=== PATIENT | male | born 1970 | race Caucasian/White ===

== ENCOUNTER 2016-07-28 18:02 | Inpatient (IN) | payer MEDICARE, MEDICAID ==
--- NOTE | 2016-07-28 18:07 | ED ---
General Adult HPI - General Stated complaint: Suicidal Time Seen by Provider: 07/28/16 18:06 Source: RN notes reviewed, old records reviewed - History of Present Illness Initial comments: This is a 45-year-old male here for evaluation of psychiatric illness. Patient sent to ER by mother who called EMS and PD sent patient here for psychiatric evaluation. Patient has history of schizophrenia, on multiple medications and takes all medications as prescribed. Patient states that he is not homicidal or suicidal at this time, mother coming in the patient patient. No new drugs or alcohol - Related Data Home Medications Medication Instructions Recorded Confirmed Armodafinil [Nuvigil] 250 mg PO QAM 07/28/16 07/28/16 Atenolol [Tenormin] 50 mg PO DAILY 07/28/16 07/28/16 Butalb/APAP/Caff 50-325-40Mg 1 tab PO BID PRN 07/28/16 07/28/16 [Fioricet 50-325-40] Butalb/APAP/Caff 50-325-40Mg 2 tab PO BID PRN 07/28/16 07/28/16 [Fioricet 50-325-40] Citalopram Hydrobromide [CeleXA] 40 mg PO DAILY 07/28/16 07/28/16 Cyclobenzaprine [Flexeril] 10 mg PO DAILY PRN 07/28/16 07/28/16 Dextroamphetamine/Amphetamine 20 mg PO QID 07/28/16 07/28/16 [Adderall] Paliperidone [Invega] 6 mg PO HS 07/28/16 07/28/16 SUMAtriptan SUCCINATE [Sumavel 6 mg SQ DAILY PRN 07/28/16 07/28/16 Dosepro] Allergies Allergy/AdvReac Type Severity Reaction Status Date / Time No Known Allergies Allergy Verified 07/28/16 18:53 Review of Systems ROS Statement: Those systems with pertinent positive or pertinent negative responses have been documented in the HPI. ROS Other: All systems not noted in ROS Statement are negative. Past Medical History Past Medical History: No Reported History History of Any Multi-Drug Resistant Organisms: None Reported Past Surgical History: Back Surgery Past Psychological History: Anxiety, Bipolar, Depression Smoking Status: Current every day smoker Past Alcohol Use History: None Reported Past Drug Use History: None Reported General Exam General appearance: alert, in no apparent distress Head exam: Present: atraumatic, normocephalic, normal inspection Eye exam: Present: normal appearance, PERRL, EOMI. Absent: scleral icterus, conjunctival injection, periorbital swelling ENT exam: Present: normal exam, mucous membranes moist Neck exam: Present: normal inspection. Absent: tenderness, meningismus, lymphadenopathy Respiratory exam: Present: normal lung sounds bilaterally. Absent: respiratory distress, wheezes, rales, rhonchi, stridor Cardiovascular Exam: Present: regular rate, normal rhythm, normal heart sounds. Absent: systolic murmur, diastolic murmur, rubs, gallop, clicks GI/Abdominal exam: Present: soft, normal bowel sounds. Absent: distended, tenderness, guarding, rebound, rigid Extremities exam: Present: normal inspection, full ROM, normal capillary refill. Absent: tenderness, pedal edema, joint swelling, calf tenderness Back exam: Present: normal inspection Neurological exam: Present: alert, oriented X3, CN II-XII intact Psychiatric exam: Present: normal affect, normal mood Skin exam: Present: warm, dry, intact, normal color. Absent: rash Course Vital Signs 07/28/16 18:07 Temperature 97.0 F L Pulse Rate 80 Respiratory 18 Rate Blood Pressure 158/89 O2 Sat by Pulse 97 Oximetry - Reevaluation(s) Reevaluation #1: 07/28/16 18:52 Patient is medically clear for psychiatric evaluation Medical Decision Making - Medical Decision Making 45-year-old for psychiatric disease, patient will be admitted for psychiatric evaluation and treatment Disposition Clinical Impression: Depression, Suicidal ideation Disposition: TRANSFER TO PSYCH HOSP/UNIT Condition: Fair Referrals: None,Stated [Primary Care Provider] - 1-2 days
[2016-07-28] MEDS ORDERED: MAG HYDROX/AL HYDROX/SIMETH 30 ML CUP PO PRN (20:11)
[2016-07-28] MEDS ORDERED: CYCLOBENZAPRINE 10 MG TAB PO PRN (20:14)
[2016-07-28] MEDS ORDERED: LORazepam 1 MG TAB PO PRN (20:17)
[2016-07-28] MEDS ORDERED: ZIPRASIDONE 20 MG VIAL IM PRN (20:18)
[2016-07-28] MEDS ORDERED: LORazepam 2 MG/ML SYRINGE IM PRN (20:44)
[2016-07-28] MEDS ORDERED: PALIPERIDONE 6 MG TAB.ER.24 PO SCH (21:00)
[2016-07-28] MEDS: BUTALB/APAP/CAFF 50-325-40MG TAB PO PRN (21:01)
[2016-07-29] MEDS: LORazepam 1 MG TAB PO PRN ×3 (00:07→19:39)
[2016-07-29 09:31] LABS: ALT 45 U/L (21-72); AST 28 U/L (17-59); Alkaline Phosphatase 115 U/L (38-126); Anion Gap 7 mmol/L; Blood Urea Nitrogen 14 mg/dL (9-20); Calcium 8.9 mg/dL (8.4-10.2); Carbon Dioxide 25 mmol/L (22-30); Chloride 110 mmol/L (98-107); Glucose 174 mg/dL (74-99); Non-African American GFR(MDRD) >60 (>60 ml/min/1.73 sqM); Potassium 3.9 mmol/L (3.5-5.1); Sodium 142 mmol/L (137-145); Total Bilirubin 0.5 mg/dL (0.2-1.3); Total Protein 6.7 g/dL (6.3-8.2)
[2016-07-29 09:42] LABS: Basophils # (A) 0.1 k/uL (0-0.2); Basophils % (A) 1 %; CH 29.1; CHCM 32.3; Eosinophils # (A) 0.5 k/uL (0-0.7); Eosinophils % (A) 6 %; HDW 2.46; HGB 14.1 gm/dL (13.0-17.5); Luc # (Auto) 0.15; Luc % (Auto) 2; Lymphocytes # (A) 3.2 k/uL (1.0-4.8); Lymphocytes % (A) 41 %; MCHC 32.1 g/dL (31.0-37.0); MCV 90.5 fL (80.0-100.0); Mean Platelet Volume 6.4; Monocytes # (A) 0.4 k/uL (0-1.0); Monocytes % (A) 5 %; Neutrophils # (A) 3.6 k/uL (1.3-7.7); Neutrophils % (A) 46 %; RBC 4.86 m/uL (4.30-5.90); RDW 14.5 % (11.5-15.5); WBC 7.9 k/uL (3.8-10.6); WBC (Perox) 7.69
--- NOTE | 2016-07-29 11:34 | P.HP ---
Psychiatric H&P - . History & Physical: Allergies Allergy/AdvReac Type Severity Reaction Status Date / Time No Known Allergies Allergy Verified 07/28/16 18:53 Vital Signs Temp 98.0 F 07/29/16 00:05 Pulse 58 L 07/29/16 01:02 Resp 16 07/29/16 01:02 BP 159/77 07/29/16 01:02 Pulse Ox 98 07/28/16 20:15 Intake & Output 07/28/16 07/29/16 07/29/16 18:59 06:59 18:59 Weight 102.058 kg 98.9 kg Laboratory Last Values WBC 7.9 k/uL (3.8-10.6) 07/29/16 08:59 RBC 4.86 m/uL (4.30-5.90) 07/29/16 08:59 Hgb 14.1 gm/dL (13.0-17.5) 07/29/16 08:59 Hct 44.0 % (39.0-53.0) 07/29/16 08:59 MCV 90.5 fL (80.0-100.0) 07/29/16 08:59 MCH 29.0 pg (25.0-35.0) 07/29/16 08:59 MCHC 32.1 g/dL (31.0-37.0) 07/29/16 08:59 RDW 14.5 % (11.5-15.5) 07/29/16 08:59 Plt Count 195 k/uL (150-450) 07/29/16 08:59 Neutrophils % 46 % 07/29/16 08:59 Lymphocytes % 41 % 07/29/16 08:59 Monocytes % 5 % 07/29/16 08:59 Eosinophils % 6 % 07/29/16 08:59 Basophils % 1 % 07/29/16 08:59 Neutrophils # 3.6 k/uL (1.3-7.7) 07/29/16 08:59 Lymphocytes # 3.2 k/uL (1.0-4.8) 07/29/16 08:59 Monocytes # 0.4 k/uL (0-1.0) 07/29/16 08:59 Eosinophils # 0.5 k/uL (0-0.7) 07/29/16 08:59 Basophils # 0.1 k/uL (0-0.2) 07/29/16 08:59 Sodium 142 mmol/L (137-145) 07/29/16 08:59 Potassium 3.9 mmol/L (3.5-5.1) 07/29/16 08:59 Chloride 110 mmol/L (98-107) H 07/29/16 08:59 Carbon Dioxide 25 mmol/L (22-30) 07/29/16 08:59 Anion Gap 7 mmol/L 07/29/16 08:59 BUN 14 mg/dL (9-20) 07/29/16 08:59 Creatinine 0.76 mg/dL (0.66-1.25) 07/29/16 08:59 Est GFR (MDRD) Af Amer >60 (>60 ml/min/1.73 sqM) 07/29/16 08:59 Est GFR (MDRD) Non-Af >60 (>60 ml/min/1.73 sqM) 07/29/16 08:59 Glucose 174 mg/dL (74-99) H 07/29/16 08:59 Calcium 8.9 mg/dL (8.4-10.2) 07/29/16 08:59 Total Bilirubin 0.5 mg/dL (0.2-1.3) 07/29/16 08:59 AST 28 U/L (17-59) 07/29/16 08:59 ALT 45 U/L (21-72) 07/29/16 08:59 Alkaline Phosphatase 115 U/L (38-126) 07/29/16 08:59 Total Protein 6.7 g/dL (6.3-8.2) 07/29/16 08:59 Albumin 3.8 g/dL (3.5-5.0) 07/29/16 08:59 TSH 0.501 mIU/L (0.465-4.680) 07/29/16 08:59 07/29/16 11:18 IDENTIFYING DATA: This patient is a 45-year-old single male who was admitted to the mental health unit for acute symptoms of psychosis. HPI: The patient presents with a petition filled out by his mother stating "screams and yells at voices in his head and says he will kill himself constantly cuts and fonseca himself talks to people in his head, says dad who last summer is now the cat, says he hates his life and wants to . Called friend last night and said he was going to kill himself, friend called suicide hotline who sent police". The patient is found in his room he follows me to an interview room. The patient denies having any symptoms at this time as we completed a psychiatric review of systems. He reports his mood is fine. He states he was admitted here "because they think I called the suicide lying and I didn't". He disagrees with information on the petition. He states the only time he has any hallucinations is when he has a sleep episode related to his reported narcolepsy. He states that he is given Adderall throughout the day and Provigil. It appears he is prescribed Fioricet for migraines. He states that his sleep is been stable appetite is stable. He endorses no tearfulness or crying spells. He states he has no suicidal thoughts and has not been participating in any self-injurious behavior. He reports having no thoughts of harming others specifically he reports having no thoughts of harming his mother. He is endorsing no current auditory or visual hallucinations. He states they will occur when he awakes from sleep but does not describe them. He is reporting no command auditory hallucinations. He endorses no paranoid or persecutory thinking. He does not feel he is being watched or followed. He denies having any thoughts of thought insertion or control, or ideas of reference. The patient answers he is questions very quickly often times before I finish asking the complete question. He seems to be minimizing his report of symptoms to facilitate a discharge. He endorses no history of hypomanic or manic episodes. He is aware that he is prescribed Celexa and invega he states he's been taking this as prescribed. It appears that Dr. Palomo instructed the patient's mother to be sure he is compliant with medication each day. PAST PSYCHIATRIC HISTORY: The patient has had at least 2 prior psychiatric admissions he was in [facility] in April and [facility] during the summer of 2015. He likely has a history of several other admissions. He reports no history of suicide attempts or any self-injurious behavior but appears that he has a well known history of self-injurious behavior. He states the fonseca on his legs are due to an accidental incident with battery acid. He has been tried on numerous psychotropics in the past most recently he is on an invega 6 mg and Celexa 40 mg. He has previously been on Klonopin Latuda Rexulti Ativan and clonidine Vistaril Trileptal Geodon amitriptyline Xanax Minipress BuSpar Risperdal Consta Depakote ER. He states he meets with his individual therapist once every 2 months. PMH: He reports having narcolepsy and migraines ALLERGIES: NO KNOWN DRUG ALLERGIES MEDICATIONS: Fioricet Adderall Provigil CHEMICAL DEPENDENCY HISTORY: The patient minimizes a report of previous substance use but with specific questions he will report a history of using cocaine opiates alcohol. He reports no recent use of illicit substances. It is unclear if he has been in inpatient chemical dependency treatment in the past. FAMILY PSYCHIATRIC HISTORY: None reported no report of suicides in the family FAMILY CHEMICAL DEPENDENCY HISTORY: Unknown SOCIAL HISTORY: The patient is originally from the [facility]. He was raised by both parents and states his childhood was good. His father last August he states it was difficult but he did grieve the loss of his father. He resides with his mother he reports that they get along well. The patient has no siblings and no children. He is unemployed he is on a Social Security disability income. He has a high school education with one 0.5 years of college afterwards. No history of service. He endorses no legal history, he reports no history of abuse. MENTAL STATUS EXAM: The patient is a tall disheveled male. He has dark shoulder length hair with impaired hygiene. He is dressed in hospital gowns. He seated calmly in the chair he has a staring eye contact. He initiates no conversation but provides answers to questions asked. He reports his mood is "good". Affect is blunted. He reports no suicidal or homicidal ideation intent or plan. He is endorsing no auditory or visual hallucinations he endorses no specific delusions. I would presume that he is experiencing auditory hallucinations and symptoms of psychosis. I believe he is underreporting to facilitate a discharge. Thought process is linear and brief. He is demonstrating no flight of ideas or loose associations. He demonstrates no verbal or physical aggressiveness. He is oriented to person place and date. He is able to name the days of the week backwards. Insight and judgment chronically limited. STRENGTHS/WEAKNESSES: Strengths: Housing, income, participation with community mental health weaknesses: Ongoing symptoms of psychosis and mood symptoms in the context of using stimulants for presumed narcolepsy INTELLECTUAL FUNCTIONING: Average IMPRESSIONS: [] 1. Schizoaffective disorder depressed, rule out history of opiate stimulant alcohol and cocaine use disorders 2. Impaired coping skill development PLAN: The patient has been admitted to the mental health unit he verbalizes a desire to sign in voluntarily. We discussed titrating the invega further to 9 mg at bedtime and he is agreeable. He is encouraged to participate in the milieu but he is resistant to that stating he does not like to be around other people. We will monitor him for safety and provide reality orientation when possible. We will involve his mother in treatment and discharge planning as the patient will allow. Social work will complete a psychosocial assessment and begin discharge planning. The patient will be seen by the transplant nurse for routine history and physical exam. At this point we will defer using any stimulant medication as it may be exacerbating his psychosis.
[2016-07-29] MEDS: CITALOPRAM HYDROBROMIDE 20 MG TAB PO SCH (11:52)
[2016-07-29] MEDS: ATENOLOL 50 MG TAB PO SCH (11:52)
[2016-07-29] MEDS: BUTALB/APAP/CAFF 50-325-40MG TAB PO PRN ×2 (12:51→15:17)
[2016-07-29] MEDS: NICOTINE POLACRILEX 2 MG GUM BUCCAL PRN ×2 (12:52→16:41)
[2016-07-29] MEDS: amLODIPine 10 MG TAB PO SCH (16:41)
--- NOTE | 2016-07-29 17:59 | CONS ---
DATE OF CONSULTATION: REASON FOR CONSULTATION: Advice regarding hypertension and other multiple medical issues requested by psychiatrist. HISTORY OF PRESENT ILLNESS: This 45-year-old gentleman with past medical history of anxiety, bipolar, depression, history of nicotine, hypertension was admitted for psychiatry evaluation. The blood pressure was elevated at this time. Otherwise, there is no associated fever, rigors, chills. No history of headache, loss of consciousness or seizures. PAST MEDICAL HISTORY: History of anxiety, depression, history of nicotine dependence, history of hypertension. Medications prior to admission include: 1. Sumavel 6 mg subcutaneously daily p.r.n. 2. Invega 6 mg q.h.s. 3. Adderall 20 mg. 4. Flexeril 10 mg daily p.r.n. 5. Celexa 40 mg p.o. daily. 6. Fioricet 1 to 2 tabs p.o. b.i.d. p.r.n. 7. Tenormin 50 mg p.o. 8. Nuvigil 250 mg. ALLERGIES: None. FAMILY HISTORY: No history of heart disease or strokes in the family. SOCIAL HISTORY: History of smoking. No history of alcohol intake. REVIEW OF SYSTEMS: ENT: No diminished vision. Occasional headache. CARDIOVASCULAR: No angina. RESPIRATORY: No cough. GI: As mentioned earlier. : No dysuria. NERVOUS SYSTEM: No numbness or weakness. ALLERGY/IMMUNOLOGY: No asthma. MUSCULOSKELETAL: History of back pain. CONSTITUTIONAL: As mentioned earlier. DERMATOLOGY: Negative. RHEUMATOLOGY: Negative. PSYCHIATRY: As mentioned earlier. PHYSICAL EXAMINATION: Patient is alert and oriented x3. Pulse is 58, blood pressure 159/76, respirations 16, temperature 98 degrees, pulse ox 94% on room air. HEENT: Conjunctivae normal. NECK: No jugular venous distention. CARDIOVASCULAR: S1 and S2, muffled. No S3, no S4. RESPIRATORY: Breath sounds diminished at the bases. No rhonchi, no crackles. No bronchial breath sounds. ABDOMEN: Soft, nontender. No mass palpable. LEGS: No edema, no swelling. NERVOUS SYSTEM: Higher function as mentioned. Cranial nerves grossly intact. Moves all four limbs. No focal motor deficits. Otherwise, no weakness. Gait is normal. SKIN: No ulcer, rash or bleeding. LYMPHATIC: No lymphadenopathy in the neck, axillae or groin. JOINTS: No active deforming arthropathy. LABS: CBC within normal limits. Chloride is 110. Glucose 174. ASSESSMENT: 1. Hypertension. 2. Headaches. 3. History of back pain and low backache. 4. Anxiety, bipolar, depression. 5. History of nicotine dependence. 6. History of back surgery. 7. Increased chloride. 8. Increased random blood glucose. RECOMMENDATIONS AND DISCUSSION: In this 45-year-old gentleman who presented with multiple complex medical issues. Will monitor the patient closely. Continue the current medications. Continue symptomatic treatment. I would recommend to resume the home medications. I would recommend small dose of beta blockers and continue to monitor. See orders for details. Patient may be asked to follow up with primary physician closely in the outpatient setting.
[2016-07-29] MEDS: PALIPERIDONE 3 MG TAB.ER.24 PO SCH (22:41)
[2016-07-30] MEDS: CITALOPRAM HYDROBROMIDE 20 MG TAB PO SCH (09:18)
[2016-07-30] MEDS: amLODIPine 10 MG TAB PO SCH (09:18)
[2016-07-30] MEDS: ATENOLOL 50 MG TAB PO SCH (09:18)
[2016-07-30] MEDS: BUTALB/APAP/CAFF 50-325-40MG TAB PO PRN ×2 (09:41→13:57)
--- NOTE | 2016-07-30 11:02 | P.PN ---
Progress Note - Text Interval history: The patient is found in his room. He was observed going to breakfast earlier this morning. He reports feeling tired without his narcolepsy medication. In reviewing his chart furthered appears he has been prescribed Fioricet, opiate pain medication, Adderall, Nuvigil. I discussed with the patient that some of these medications may affect the dopamine balance in his brain and insight more symptoms of psychosis even with the invega. He has demonstrated no agitated behavior. He continues to categorically deny having any symptoms Mental status exam: The patient is a male he is dressed in hospital attire he has a disheveled appearance hygiene is fair. Eye contact is appropriate speech is fluent spontaneous nonpressured. He is reporting no suicidal or homicidal ideation he reports no symptoms of psychosis however he states he had no symptoms of psychosis prior to being petitioned and admitted to this unit. Clearly he lacks insight into his recent symptoms and behavior. He demonstrates no verbal or physical aggressiveness. He is oriented to person place and date. Thought process is brief and linear he demonstrates no loose associations or flight of ideas. He is mainly focused on obtaining more opiate medication and his stimulants for his diagnosis of narcolepsy. Plan: The patient will continue on the invega we will continue to monitor him for safety. It appears symptoms of psychosis are stabilizing. If we are able to get him to sign an information release I will contact his sleep physician to discuss concerns regarding the stimulant use and to see if there are any alternative treatments. The patient is encouraged to attend group activity. Vital signs reviewed. Blood pressure has been running higher but the numbers appear more normal today.
[2016-07-30] MEDS: LORazepam 1 MG TAB PO PRN ×2 (12:15→20:55)
[2016-07-30] MEDS: NICOTINE POLACRILEX 2 MG GUM BUCCAL PRN (13:57)
[2016-07-30] MEDS: PALIPERIDONE 3 MG TAB.ER.24 PO SCH (20:54)
[2016-07-31] MEDS: LORazepam 1 MG TAB PO PRN ×2 (06:15→17:18)
[2016-07-31] MEDS: ATENOLOL 50 MG TAB PO SCH (06:50)
[2016-07-31] MEDS: amLODIPine 10 MG TAB PO SCH (06:50)
[2016-07-31] MEDS: CITALOPRAM HYDROBROMIDE 20 MG TAB PO SCH (08:52)
--- NOTE | 2016-07-31 10:58 | P.PN ---
Progress Note - Text Interval history: The patient is found in his room he is alert he participates in the conversation. He reports his mood is good. He continues to isolate in his room reporting he is too fatigued from narcolepsy however he is observed ambulating in the hallway and participating in meals without difficulty. He is encouraged to participate in some groups but feels uncomfortable around others. He is endorsing no paranoid or persecutory thoughts. Staff report no agitated behavior. The patient continues to comply with medication. The patient did sign a consent allowing me to speak with his physician managing the narcolepsy. I did place a call and left a message. Mental status exam: The patient is alert he is lying in bed he is dressed in hospital attire. He has a disheveled appearance hygiene is adequate. Eye contact is appropriate. Speech is fluent he responds to questions asked appropriately. Affect is constricted with a small range of affect. He is reporting no suicidal or homicidal ideation intent or plan. He is reporting no auditory or visual hallucinations no specific delusions. He does not appear hypomanic or manic. He demonstrates no verbal or physical aggressiveness. Insight and judgment are improving. Overall he may be minimizing symptoms of psychosis but overtly he appears to be stabilizing. He remains oriented to person place and date. Plan: The patient will continue on his current psychotropic medications. I have placed a call with Dr. Pacheco's office to discuss the patient's recent symptoms of psychosis. I have discussed with the patient that the stimulant medication may contribute to those symptoms. We will continue to monitor the patient for safety he is encouraged to participate in the milieu. Vital signs are reviewed his blood pressure is elevated we will contact the internal medicine physician for further recommendations. We will consider discharging the patient in the next 1-2 days. Social work is asked to arrange a support meeting involving his mother.
[2016-07-31] MEDS ORDERED: ATENOLOL 50 MG TAB PO STA (11:05)
[2016-07-31] MEDS: BUTALB/APAP/CAFF 50-325-40MG TAB PO PRN (13:10)
[2016-07-31] MEDS: LISINOPRIL-HCTZ 10-12.5 MG 1 EACH TAB PO SCH ×2 (15:43→20:42)
[2016-07-31] MEDS: NICOTINE POLACRILEX 2 MG GUM BUCCAL PRN (17:18)
[2016-07-31] MEDS: LABETALOL 200 MG TAB PO SCH (20:42)
[2016-07-31] MEDS: PALIPERIDONE 3 MG TAB.ER.24 PO SCH (20:43)
--- NOTE | 2016-07-31 22:48 | PN ---
DATE OF SERVICE: 07/31/2016 PRESENTING COMPLAINT: Uncontrolled blood pressures. INTERVAL HISTORY: This is a patient admitted to the Psychiatry Unit. Blood pressure has been running high. He does take blood pressure medications at home including Norvasc and atenolol. Denies any chest pain or headache. Review of systems done for constitutional, cardiovascular, GI, pulmonary; relevant findings as above. Current medications are reviewed that include atenolol 50 mg and Norvasc 10 mg in the morning. On examination, temperature 97.6, pulse 72, respirations 16, blood pressure 192/96. Repeat blood pressure was 176/102. GENERAL APPEARANCE: Sitting up, not in distress. EYES: Pupils equal. Conjunctivae normal. NECK: JVD not raised. Mass not palpable. RESPIRATORY: Normal. Lungs are clear. CARDIOVASCULAR: First and second sounds normal. No edema. ABDOMEN: Soft, nontender. PSYCH: Somewhat depressed -appearing. INVESTIGATIONS: White count 7.9, hemoglobin 14.1, potassium 3.9. ASSESSMENT: 1. Essential hypertension with urgency. Some cephalgia, probably from uncontrolled blood pressure previously. 2. Chronic nicotine dependence. Patient is an active cigarette smoker. 3. Schizoaffective disorder, depressed. 4. Cocaine use disorder. PLAN: At this point, will stop patient's atenolol, it is not necessary to run to 24 hours. We will use labetalol 3 mg twice a day. Patient already received an extra dose of Tenormin this morning and also labs Zestoretic 10/12.5 starting this afternoon. Helping keeping people off smoking, ( ) blood pressure. This will be reviewed in the next 24 hours. Patient's blood pressure will be checked manually every four hours until awake till tomorrow.
[2016-08-01 06:28] VITALS: BP 154/93; PULSE 62; RESP 15; TEMP 98
[2016-08-01] MEDS: LABETALOL 200 MG TAB PO SCH (09:05)
[2016-08-01] MEDS: LISINOPRIL-HCTZ 10-12.5 MG 1 EACH TAB PO SCH (09:05)
[2016-08-01] MEDS: CITALOPRAM HYDROBROMIDE 20 MG TAB PO SCH (09:05)
[2016-08-01] MEDS: amLODIPine 10 MG TAB PO SCH (09:05)
--- NOTE | 2016-08-01 09:28 | P.DS ---
Providers Date of admission: 07/28/16 20:11 Expected date of discharge: 08/01/16 Attending physician: Scott Saxena Consults: 07/29/16 09:06 Consult Physician Routine Consulting Provider: Roberto Hendricks Consult Reason/Comments: history and phsycial Do you want consulting provider notified?: Yes Primary care physician: Stated None - Discharge Diagnosis(es) (1) Schizoaffective disorder Current Visit: Yes Status: Acute Priority: High Hospital Course: Brief summary of admission note: This patient is a 45-year-old single male who was admitted to the mental health unit for acute symptoms of psychosis. The patient was petition by his mother. The petition indicated the patient was screaming and yelling presuming he was experiencing auditory hallucinations. He had been experiencing suicidal ideation and threatened to cut himself or burned himself. He had been expressing other paranoid and persecutory thoughts. Upon initial evaluation the patient denied having any symptoms and he reported it was all a misunderstanding. For full details please refer to my psychiatric evaluation dated 07/29/2016. Summary of hospital course: The patient was admitted to the mental health unit on a petition and clinical certificate. The patient requested to sign in voluntarily. He was agreeable to medication changes and compliant with medications on the mental health unit. We continued his Celexa and increased and -9 mg daily. He was seen by the internal medicine for routine physical exam. His blood pressure was noted to be elevated and his antihypertensive medication was adjusted yesterday. The patient has been using nuvigil along with Adderall several times a day. There is some concern that the stimulant medication may be exacerbating his psychosis. I have placed a call with Dr. Pacheco's office to discuss our concerns. Stimulant medication was not given on the mental health unit. We did not prescribe any opiate analgesics as well. The patient for the most part stayed in his room reporting he felt too tired due to her narcolepsy however he was able to maintain alertness in speaking with him each day and he attended meals without difficulty. He states yesterday he attended an activity group successfully. The patient is reporting no symptoms of psychosis he has demonstrated no agitated behavior. Social work has arranged for a support meeting involving his mother this afternoon. Mental status exam: The patient is alert he is dressed in his own clothing eye contact is appropriate. He does follow me down to an interview room. He is able to maintain alertness throughout our session without difficulty. Speech is fluent spontaneous nonpressured. He does have very poor dental hygiene he is missing teeth and other teeth are darkly stained. He is reporting no hopelessness thinking no suicidal ideation intent or plan. He is endorsing no homicidal ideation intent or plan. He is reporting no auditory or visual hallucinations he is endorsing no specific delusions at this time. He is not spontaneously reporting any symptoms of psychosis he does not appear to be responding to auditory or visual hallucinations during our session. There is no verbal or physical aggressiveness. He has no psychomotor slowing or agitation. Insight and judgment improving. He does not appear hypomanic or manic. He is alert and oriented to person place and date. Affect is mostly constricted but he is able to demonstrate some limited range of expression with brief appropriate smiling. Impressions 1. Schizoaffective disorder depressed type, rule out history of opiate, stimulant, alcohol, cocaine use disorders 2. Impaired coping skill development 3. Hypertension, reported narcolepsy Plan: The patient will be discharged mental health unit today he will return residing with his mother following a successful support meeting facilitated by social work this afternoon. He will continue on Invega 9 mg at bedtime Celexa 40 mg daily. Regarding his antihypertensive medication he will be on Norvasc 10 mg daily labetalol 200 mg twice daily and Zestoretic 10/12.5 one twice daily. I expressed my concern to the patient that his stimulant medication may be exacerbating his psychosis. He did sign a release allowing me to speak with Dr. Pacheco. I did place a call with that office and we are awaiting a return call. The patient will continue following up with [facility]. Social work will confirm his next appointment post discharge. The patient is not seen to be at imminent risk is appropriate for transition back to outpatient care. He is instructed to abstain from any alcohol or illicit drug use. He is instructed to return to the hospital if any acute safety concerns. The patient is instructed to follow-up with his primary care physician regarding management of his blood pressure. Patient Condition at Discharge: Stable Plan - Discharge Summary New Discharge Prescriptions: New amLODIPine [Norvasc] 10 mg PO DAILY #30 tab Labetalol [Trandate] 200 mg PO BID #60 tab Lisinopril-Hctz 10-12.5 mg [Zestoretic 10-12.5] 1 each PO BID #60 tab Nicotine Polacrilex [Nicorette] 2 mg BUCCAL Q4HR PRN #30 pieceofgum PRN Reason: Nicotine Cravings Paliperidone [Invega] 9 mg PO DAILY #30 tab Continue Cyclobenzaprine [Flexeril] 10 mg PO DAILY PRN PRN Reason: Back Pain Butalb/APAP/Caff 50-325-40Mg [Fioricet 50-325-40] 2 tab PO BID PRN PRN Reason: Severe Headache Citalopram Hydrobromide [CeleXA] 40 mg PO DAILY #30 Discontinued Paliperidone [Invega] 6 mg PO HS Atenolol [Tenormin] 50 mg PO DAILY Butalb/APAP/Caff 50-325-40Mg [Fioricet 50-325-40] 1 tab PO BID PRN PRN Reason: Moderate Headache Armodafinil [Nuvigil] 250 mg PO QAM Dextroamphetamine/Amphetamine [Adderall] 20 mg PO QID SUMAtriptan SUCCINATE [Sumavel Dosepro] 6 mg SQ DAILY PRN PRN Reason: Migraine Headache Discharge Medication List Butalb/APAP/Caff 50-325-40Mg [Fioricet 50-325-40] 2 tab PO BID PRN 07/28/16 [ History] Cyclobenzaprine [Flexeril] 10 mg PO DAILY PRN 07/28/16 [History] Citalopram Hydrobromide [CeleXA] 40 mg PO DAILY #30 08/01/16 [Rx] Labetalol [Trandate] 200 mg PO BID #60 tab 08/01/16 [Rx] Lisinopril-Hctz 10-12.5 mg [Zestoretic 10-12.5] 1 each PO BID #60 tab 08/01/16 [ Rx] Nicotine Polacrilex [Nicorette] 2 mg BUCCAL Q4HR PRN #30 pieceofgum 08/01/16 [Rx ] Paliperidone [Invega] 9 mg PO DAILY #30 tab 08/01/16 [Rx] amLODIPine [Norvasc] 10 mg PO DAILY #30 tab 08/01/16 [Rx] Follow up Appointment(s)/Referral(s): [facility] [Outside] - 08/04/16 11:00 am (Ha Romeo 08/04 @ 11:00 Dr Dutta 08/07 @ 13:00 ) None,Stated [Primary Care Provider] - 1-2 days
[2016-08-01] MEDS: BUTALB/APAP/CAFF 50-325-40MG TAB PO PRN (11:04)
[2016-08-01] MEDS: LORazepam 1 MG TAB PO PRN (11:04)
--- NOTE | 2016-08-01 20:34 | PN ---
DATE OF SERVICE: 08/01/2016 PRESENTING COMPLAINT: Tired. INTERVAL HISTORY: This patient's blood pressure is running high. He has some headache. Blood pressure medication was adjusted. Blood pressure is doing much better. Headache is improved. Tolerating a diet. No chest pain. No shortness of breath. Review of systems done for constitutional, cardiovascular, GI, pulmonary; relevant findings as above. Current medications are reviewed. On examination, temperature 98, pulse 62, respiration 15, blood pressure 154/93. Pulse ox not done. GENERAL APPEARANCE: Sitting up, comfortable. EYES: Pupils equal. Conjunctivae normal. NECK: JVD not raised. Mass not palpable. RESPIRATORY: Effort ( ) LUNGS: Slightly decreased breath sounds. CARDIOVASCULAR: First and second sounds normal. No edema. ABDOMEN: Soft, non-tender. Liver and spleen ( ) palpable. PSYCHIATRY: Alert and oriented x3. Mood and affect normal. INVESTIGATIONS: No blood work from today. ASSESSMENT: 1. Essential hypertension, now better controlled. 2. Chronic nicotine dependence. Patient is an active cigarette smoker. 3. Schizoaffective disorder, depressed. 4. Cocaine use disorder. PLAN: Patient to be discharged on current blood pressure medications. Care was discussed with the patient. Patient was again counseled against smoking. ( ) follow up with his family doctor.
== END 2016-08-01 12:48 | disposition home or self-care (01) | DRG 885 ==
LOC: EC 18:02 → 3MHU 20:11
PROVIDERS: ADMIT Psychiatry & Neurology Psychiatry; ATTEND Psychiatry & Neurology Psychiatry
DX: F25.1 Schizoaffective disorder, depressive type (principal); I10 Essential (primary) hypertension; F41.9 Anxiety disorder, unspecified; F17.210 Nicotine dependence, cigarettes, uncomplicated; G43.909 Migraine, unspecified, not intractable, without status migrainosus; Z79.899 Other long term (current) drug therapy; Z91.5 Personal history of self-harm
CPT/HCPCS: 80053; 82075; 84443; 85025

== ENCOUNTER → 2016-08-12 | Outpatient (CLI) | payer MEDICARE, OTHER ==
--- NOTE | 2016-08-12 22:44 | PN ---
This is a 45-year-old male patient with known history of narcolepsy. The patient sees me on a regular basis every 6 months and he has been doing that for the past few years. His original diagnosis was done in an outside sleep center. The patient has been maintained on a combination of Nuvigil 250 mg p.o. daily and Adderall 20 mg p.o. 4 times a day. He has narcolepsy without cataplexy and he suffers from chronic hypersomnia and sleepiness and he has been on this combination for many years. He also suffers from anxiety/depression/schizophrenia and bipolar disorders. The patient is doing well. He was getting his regular refills from me on a regular basis. Still around 07/28/2016 when he gets admitted to the hospital with acute symptoms of psychosis. The patient was petitioned by his mother. The petition indicated that the patient was screaming and yelling and presumably he was experiencing some auditory hallucinations. He also has been experiencing some suicidal ideation and tried to cut himself or burn himself. He also expressed other paranoid and persecutory thoughts. The patient, however, himself, denied these allegations. During the hospital stay, the patient agreed on these medication changes and he was compliant. He was continued on Celexa and Invega. I was contacted by Dr. Saxena due to concerns of Adderall and Nuvigil contributing to his psychosis. These medications were stopped during his hospital stay and after his release he is back on these medications. He states that he gets very tired and sleepy while off the medication and he cannot maintain adequate alertness. However, this was not at psych unit. I noted that the patient was calm and comfortable. I do not see any signs of psychosis today on him. No reported cataplexy. No sleep paralysis or hallucinations. He had gotten a letter from his insurance company that Nuvigil would not be covered because there was an R-Modafinil genetic available on the market. No tremors. No hyperactivity. No hypertension. No fever. No irritability. No sweating. He seems to be calm and comfortable. BP 103/75, pulse 89, respirations 16, temperature 97.5, saturation 98% on room air. Weight is 218, height is 5 feet 11 inches and BMI is 30.4 and her Elaine score is 15. GENERAL APPEARANCE: Calm, comfortable. HEENT: Poor dental hygiene and maintenance and condition. No goiter, neck mass. LUNGS: Clear to auscultation. HEART: Sounds are regular rate and rhythm. Normal S1, S2. ABDOMEN: Soft, nontender, no organomegaly. EXTREMITIES: No cyanosis, or clubbing. IMPRESSION: 1. 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 2. Recent hospitalization to the mental health for acute psychosis. Rule out drug effect, rule out exacerbation of his chronic psychiatric disorder. 3. Schizoaffective disorder with depression along with history of impaired coping skill development. 4. Hypertension. 5. Chronic depression. 6. Chronic anxiety. PLAN: The patient will need some sort of stimulant. We discussed this with the patient at length. In terms of long-term treatment for narcolepsy one option would be considering to ( ) on this patient; however, I am not comfortable prescribing ( ) on him knowing that he has a very extensive psychiatric history and he may not be compliant to take the medication. I will be very much worried about overdosing and toxicity from such a medication. In terms of maintenance treatment, I suggested cutting down the Adderall dose. However, he was very much opposed to the idea. He states that he becomes very drowsy and cannot maintain alertness without Adderall. He was agreeable however, to stay off Nuvigil. I thought this may be an option and I will keep him on Adderall 20 mg 4 times a day and take the Nuvigil off for now with the intention of cutting down the Adderall dose at a later stage in case he develops any symptoms of psychosis. He will be monitored very closely. Adderall 20 mg 4 times a day was given.
== END | disposition home or self-care (01) ==
LOC: SLEEP 16:37
PROVIDERS: ATTEND Internal Medicine Critical Care Medicine
DX: G47.419 Narcolepsy without cataplexy (principal); G47.19 Other hypersomnia; F20.9 Schizophrenia, unspecified; F32.9 Major depressive disorder, single episode, unspecified; F41.9 Anxiety disorder, unspecified; Z79.899 Other long term (current) drug therapy

== ENCOUNTER 2017-07-01 12:18 | Inpatient (IN) | payer MEDICARE, MEDICAID ==
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
[2017-07-01 13:28] LABS: Urn Cannabinoid Scrn Not Detected (NotDetected)
[2017-07-01 13:29] LABS: Amphetamine Screen,Urine Not Detected (NotDetected); Barbiturate Screen,Urine Not Detected (NotDetected); Benzodiazepines Screen,Urine Not Detected (NotDetected); Cocaine Screen,Urine Not Detected (NotDetected); Methadone Screen, Urine Not Detected (NotDetected); Opiate Screen,Urine Not Detected (NotDetected); Oxycodone Screen, Urine Not Detected (NotDetected); Phencyclidine Screen,Urine Not Detected (NotDetected); Tricyclic Antidepressant,Urine Not Detected (NotDetected)
[2017-07-01] MEDS ORDERED: MAGNESIUM HYDROXIDE 2,400 MG/10 ML CUP PO PRN (14:47)
[2017-07-01] MEDS ORDERED: MAG HYDROX/AL HYDROX/SIMETH 30 ML CUP PO PRN (14:47)
[2017-07-01] MEDS ORDERED: LORazepam 2 MG/ML INJ IM PRN (14:49)
[2017-07-01] MEDS ORDERED: ZIPRASIDONE 20 MG VIAL IM PRN (14:50)
[2017-07-01 15:18] VITALS: BMI 24.5
--- NOTE | 2017-07-01 16:04 | P.CONS ---
History of Present Illness - Reason for Consult Recommendations regarding antidepressive medications - History of Present Illness 46-year-old that came in for bipolar disorder. Patient is clinically doing well denied any symptoms of chest pain nausea vomiting abdominal pain patient is hypotensive and patient is presently on lisinopril hydrochlorothiazide with well-controlled blood pressures . Review of Systems REVIEW OF SYSTEMS: CONSTITUTIONAL: No fever, no malaise, no fatigue. HEENT: No recent visual problems or hearing problems. Denied any sore throat. CARDIOVASCULAR: No chest pain, orthopnea, PND, no palpitations, no syncope. PULMONARY: No shortness of breath, no cough, no hemoptysis. GASTROINTESTINAL: No diarrhea, no nausea, no vomiting, no abdominal pain. Normoactive bowel sounds. NEUROLOGICAL: No headaches, no weakness, no numbness. HEMATOLOGICAL: Denies any bleeding or petechiae. GENITOURINARY: Denies any burning micturition, frequency, or urgency. MUSCULOSKELETAL/RHEUMATOLOGICAL: Denies any joint pain, swelling, or any muscle pain. ENDOCRINE: Denies any polyuria or polydipsia. The rest of the 14-point review of systems is negative. Past Medical History Past Medical History: Hypertension, Musculoskeletal Disorder Additional Past Medical History / Comment(s): back pain, headaches History of Any Multi-Drug Resistant Organisms: None Reported Past Surgical History: Back Surgery Past Anesthesia/Blood Transfusion Reactions: No Reported Reaction Past Psychological History: Anxiety, Bipolar, Depression Smoking Status: Current every day smoker Past Alcohol Use History: None Reported Past Drug Use History: None Reported Medications and Allergies Home Medications Medication Instructions Recorded Confirmed Type Citalopram Hydrobromide [CeleXA] 40 mg PO DAILY #30 08/01/16 07/01/17 Rx Lisinopril-Hctz 10-12.5 mg 1 tab PO DAILY 07/01/17 07/01/17 History [Zestoretic 10-12.5] Allergies Allergy/AdvReac Type Severity Reaction Status Date / Time No Known Allergies Allergy Verified 07/01/17 14:17 Physical Exam Vitals: Vital Signs Temp Pulse Pulse Resp BP BP Pulse Ox 07/01/17 15:22 99 07/01/17 15:00 97.7 F 50 L 18 135/73 07/01/17 14:20 51 L 16 146/71 07/01/17 12:22 98.0 F 55 L 18 170/85 98 Intake and Output 07/01/17 07/01/17 07/01/17 06:59 14:59 22:59 Other: Weight 83.915 kg 82.27 kg PHYSICAL EXAMINATION: GENERAL: The patient is alert and oriented x3, not in any acute distress. Well developed, well nourished. HEENT: Pupils are round and equally reacting to light. EOMI. No scleral icterus. No conjunctival pallor. Normocephalic, atraumatic. No pharyngeal erythema. No thyromegaly. CARDIOVASCULAR: S1 and S2 present. No murmurs, rubs, or gallops. PULMONARY: Chest is clear to auscultation, no wheezing or crackles. ABDOMEN: Soft, nontender, nondistended, normoactive bowel sounds. No palpable organomegaly. MUSCULOSKELETAL: No joint swelling or deformity. EXTREMITIES: No cyanosis, clubbing, or pedal edema. NEUROLOGICAL: Gross neurological examination did not reveal any focal deficits. SKIN: No rashes. Assessment and Plan Plan: -Hypertension: Patient was resumed on lisinopril and hydrochlorothiazide with well-controlled blood pressures -Bipolar disorder management as per primary service. -Continue nicotine use: Counseling was provided -Chronic low back pain. Recommend to use nonsteroidal anti-inflammatory.
[2017-07-01] MEDS: NICOTINE POLACRILEX 2 MG GUM BUCCAL PRN ×3 (17:00→22:49)
[2017-07-01] MEDS: hydrOXYzine PAMOATE 25 MG CAP PO PRN (19:16)
[2017-07-01] MEDS ORDERED: LISINOPRIL 10 MG TAB PO STA (19:46)
[2017-07-02] MEDS: hydrOXYzine PAMOATE 25 MG CAP PO PRN ×3 (01:36→14:30)
[2017-07-02] MEDS: NICOTINE POLACRILEX 2 MG GUM BUCCAL PRN ×3 (01:36→14:30)
[2017-07-02] MEDS: LISINOPRIL-HCTZ 10-12.5 MG 1 EACH TAB PO SCH (07:59)
[2017-07-02] MEDS ORDERED: PALIPERIDONE 6 MG TAB.ER.24 PO SCH (09:00)
[2017-07-02] MEDS: DIVALPROEX 500 MG TABLET.DR PO SCH ×2 (09:30→20:44)
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
[2017-07-02 09:52] LABS: Basophils % (A) 0 %; Eosinophils # (A) 0.5 k/uL (0-0.7); Eosinophils % (A) 6 %; HCT 41.1 % (39.0-53.0); HGB 13.2 gm/dL (13.0-17.5); Hypochromasia Slight; Lymphocytes # (A) 2.9 k/uL (1.0-4.8); Lymphocytes % (A) 33 %; MCH 29.2 pg (25.0-35.0); MCHC 32.1 g/dL (31.0-37.0); Mean Platelet Volume 7.2; Monocytes # (A) 0.5 k/uL (0-1.0); Monocytes % (A) 6 %; Neutrophils # (A) 4.8 k/uL (1.3-7.7); Neutrophils % (A) 54 %; Platelet Count 220 k/uL (150-450); RBC 4.52 m/uL (4.30-5.90); RDW 14.9 % (11.5-15.5); WBC 8.9 k/uL (3.8-10.6)
[2017-07-02 10:37] LABS: ALT 24 U/L (21-72); AST 21 U/L (17-59); Albumin 3.8 g/dL (3.5-5.0); Alkaline Phosphatase 101 U/L (38-126); Anion Gap 10 mmol/L; Blood Urea Nitrogen 17 mg/dL (9-20); Calcium 8.8 mg/dL (8.4-10.2); Carbon Dioxide 26 mmol/L (22-30); Chloride 107 mmol/L (98-107); Cholesterol 121 mg/dL (<200); Glucose 127 mg/dL (74-99); HDL Cholesterol 67 mg/dL (40-60); LDL Cholesterol,Calculated 34 mg/dL (0-99); Potassium 4.5 mmol/L (3.5-5.1); Sodium 143 mmol/L (137-145); Total Bilirubin 0.6 mg/dL (0.2-1.3); Total Protein 6.3 g/dL (6.3-8.2); Triglycerides 98 mg/dL (<150)
[2017-07-02] MEDS: Acetaminophen-Codeine 300-30mg TAB PO PRN ×2 (10:56→18:04)
[2017-07-02] MEDS ORDERED: LABETALOL 200 MG TAB PO STA (11:06)
--- NOTE | 2017-07-02 16:16 | P.EN ---
Patient has been asking me for narcotics, benzos and also stimulants stating that he has chronic back pain, anxiety and narcolepsy. I have not seen him falling asleep all of a sudden in the unit. Usually he is active and walks around everywhere, asks for different medications every time he sees me. Apparently he has not been taking any of the narcotics or stimulants since about March or April of this year. His drug screen has been negative for all controlled substances and drugs of abuse. Then he started to say that Invega has not been helping him and wants to change it to amitriptyline or Celexa etc. He was advised antidepressants are not recommended for his condition. Eventually it was agreed to try him on Seroquel 50 mg at bedtime since he also has difficulty in sleeping well at night.
[2017-07-02 17:55] LABS: Hemoglobin A1C 5.5 % (4.0-6.0)
[2017-07-02] MEDS ORDERED: QUEtiapine 50 MG TAB PO SCH (21:00)
[2017-07-03] MEDS: Acetaminophen-Codeine 300-30mg TAB PO PRN ×3 (04:19→20:03)
[2017-07-03] MEDS: DIVALPROEX 500 MG TABLET.DR PO SCH ×2 (08:05→20:03)
[2017-07-03] MEDS: LISINOPRIL-HCTZ 10-12.5 MG 1 EACH TAB PO SCH (08:05)
--- NOTE | 2017-07-03 09:38 | P.PN ---
Progress Note - Text Progress Note Date: 07/03/17 Patient was seen for a follow-up examination. He is a little calmer today and is not too demanding. He was lying down on his bed when I called him this morning the bedside is still littered with papers cups and other trash. He was advised to through the trash in the trash can and not on the floor. He continues to ask for higher dose of narcotics, muscle relaxants and stimulants. He was again counseled about the dangers of taking these medications especially since he has hypertension. His blood pressure came back to normal yesterday after he had a dose of labetalol. He said he slept well last night, does not have any adverse effects from 50 mg of Seroquel and said he would like to get the dose increase to 100 mg at bedtime. This is a white ambulatory male who looks unkempt. He is calmer and more cooperative today. He does not show any psychomotor agitation or retardation. His speech is spontaneous relevant and goal-directed. He continues to deny suicide thoughts, homicide thoughts, hallucinations and delusional thinking. He is well oriented with adequate memory concentration general knowledge etc. Plan: Increase Seroquel to 100 mg at bedtime. Continue groups and other activities.
[2017-07-03] MEDS: hydrOXYzine PAMOATE 25 MG CAP PO PRN ×3 (10:39→23:22)
[2017-07-03] MEDS: NICOTINE POLACRILEX 2 MG GUM BUCCAL PRN ×2 (17:36→23:23)
[2017-07-03] MEDS: QUEtiapine 100 MG TAB PO SCH (20:03)
[2017-07-04] MEDS: ACETAMINOPHEN TAB 325 MG TAB PO PRN ×3 (01:53→16:31)
[2017-07-04] MEDS: Acetaminophen-Codeine 300-30mg TAB PO PRN ×3 (07:03→22:21)
[2017-07-04] MEDS: NICOTINE POLACRILEX 2 MG GUM BUCCAL PRN ×3 (07:04→16:33)
--- NOTE | 2017-07-04 08:47 | P.PN ---
Progress Note - Text Progress Note Date: 07/04/17 Interval History: Patient is a 46-year-old male who was seen today in coverage over the weekend. Patient reports that the increase in Seroquel is beneficial as he is feeling more even keeled. He states that he is not as irritable and feels that his mood is more stable. He states that he slept well last evening. He reports no side effects from the increase in the Seroquel. Patient reports his appetite is good. Patient requested that he be placed on Provigil. Mental Status: Appearance/Attitude: Patient is casually dressed, makes good eye contact and was cooperative. Behavior: Patient did not exhibit any psychomotor agitation or retardation. Speech/Language: Patient's speech is spontaneous of normal volume and rhythm and he is coherent. Thought Process: Patient is goal-directed there is no evidence of loose association or flight of ideas Thought Content: Patient denies any auditory or visual hallucinations and no delusions or paranoid ideation or elicited. Patient reports that his mood is more stable, he feels less irritable and states that he is sleeping and eating well. He reports no side effects from the increase in the Seroquel. Patient states that he would like to be started on Provigil. Suicidal/Homicidal Ideation: Patient denies any current suicidal or homicidal ideation. Sensorium/Cognition: Patient is alert and oriented to person, place, and time and his recent and remote memory are grossly Mood/Affect: Patient's mood is euthymic and his affect is appropriate Insight/Judgment: Patient's insight and judgment are fair Assessment: Patient reports feeling more even keeled and feeling that he is more stable and less irritable with the increase in Seroquel. Patient reports no side effects from his medications. Patient states that he's been attending groups and activities but does sleep a lot during the day due to his narcolepsy. Patient states that he is not having any suicidal thoughts and that there are no psychotic symptoms. Patient did request to be placed on Provigil. Plan: Patient will continue on Depakote 500 mg twice a day and Seroquel 100 mg at bedtime to target his mood. Patient will continue in the hospital to further stabilize his mood. Patient was not begun on Provigil. Patient was encouraged to attend groups and activities.
[2017-07-04] MEDS: DIVALPROEX 500 MG TABLET.DR PO SCH ×2 (08:57→20:12)
[2017-07-04] MEDS: LISINOPRIL-HCTZ 10-12.5 MG 1 EACH TAB PO SCH (08:57)
[2017-07-04] MEDS: hydrOXYzine PAMOATE 25 MG CAP PO PRN ×2 (08:58→14:06)
[2017-07-04] MEDS ORDERED: ZIPRASIDONE 20 MG VIAL IM ONE (10:39)
[2017-07-04] MEDS: QUEtiapine 50 MG TAB PO PRN (11:02)
[2017-07-04] MEDS: QUEtiapine 100 MG TAB PO SCH (20:12)
[2017-07-05] MEDS: QUEtiapine 50 MG TAB PO PRN ×3 (02:37→18:07)
[2017-07-05] MEDS: Acetaminophen-Codeine 300-30mg TAB PO PRN ×2 (06:44→14:13)
[2017-07-05] MEDS: LISINOPRIL-HCTZ 10-12.5 MG 1 EACH TAB PO SCH (08:50)
[2017-07-05] MEDS: hydrOXYzine PAMOATE 25 MG CAP PO PRN ×2 (08:51→14:12)
[2017-07-05] MEDS: DIVALPROEX 500 MG TABLET.DR PO SCH ×2 (08:51→20:40)
--- NOTE | 2017-07-05 10:18 | P.PN ---
Progress Note - Text Progress Note Date: 07/05/17 Interval History: Patient is a 46-year-old male who is being seen in [facility] for the weekend. Patient has been up at least 5 times last night and every time he is up he is asking for something to eat. Patient states that this is what he does at night as the only thing that'll put him back to sleep is to eat again. Patient was also on edge and agitated yesterday and he states that the Seroquel as needed was beneficial. Patient states he is not having any suicidal ideation and he thinks that his mood is more stable. Patient reports the only difficulty is his inability to sleep through the night and needing to eat every time he is up. Mental Status: Appearance/Attitude: Patient is casually dressed, makes good eye contact and is cooperative. Behavior: Patient does not exhibit any psychomotor agitation or retardation. Speech/Language: Patient's speech is spontaneous of normal volume and rhythm and he is coherent. Thought Process: Patient is goal-directed there is no evidence of loose association or flight of ideas. Thought Content: Patient denies any auditory or visual hallucination and no delusions or paranoid ideation or elicited. Patient states that he has trouble staying asleep at night and is up 5-6 times and each time the patient is awake he is requesting something to eat and states that this is what he does at home. Patient states he feels a little energy at times and the when necessary Seroquel was helpful yesterday. Patient reports that he thinks his mood is more stable. Suicidal/Homicidal Ideation: Patient denies any current suicidal or homicidal ideation Sensorium/Cognition: Patient is alert and oriented to person, place, and time and his recent and remote memory are grossly intact. Mood/Affect: Patient's mood is more stable and his affect is appropriate to his mood Insight/Judgment: Patient's insight and judgment are fair Assessment: Patient reports that he thinks his mood is doing better but he continues to awaken 5-6 times at night and each time he is up he is asking for something to eat. Patient states this is what he does at home. Patient also states that he continues to feel edgy at times and that the as needed Seroquel was beneficial yesterday. Plan: Patient will continue on his current medications, Seroquel 50 mg by mouth twice a day when necessary was added yesterday. Patient continues on Seroquel 100 mg at bedtime and Depakote 500 mg twice a day. Patient continues to require hospitalization to further stabilize his mood
[2017-07-05] MEDS: NICOTINE POLACRILEX 2 MG GUM BUCCAL PRN (10:57)
[2017-07-05 12:38] LABS: Appearance,Urine Clear (Clear); Bilirubin,Urine Negative (Negative); Blood,Urine Negative (Negative); Color,Urine Yellow; Glucose,Urine (UA) Negative (Negative); Ketones,Urine Negative (Negative); Leukocyte Esterase,Urine Negative (Negative); Nitrite,Urine Negative (Negative); PH, Urine 7.5 (5.0-8.0); Protein,Urine Trace (Negative); Specific Gravity,Urine 1.016 (1.001-1.035); Urobilinogen,Urine <2.0 mg/dL (<2.0)
[2017-07-05] MEDS: QUEtiapine 100 MG TAB PO SCH (20:40)
[2017-07-06] MEDS: hydrALAZINE HCL 10 MG TAB PO PRN ×2 (00:23→08:58)
[2017-07-06] MEDS: hydrOXYzine PAMOATE 25 MG CAP PO PRN ×3 (00:24→20:49)
[2017-07-06] MEDS: LISINOPRIL-HCTZ 10-12.5 MG 1 EACH TAB PO SCH (08:37)
[2017-07-06] MEDS: DIVALPROEX 500 MG TABLET.DR PO SCH ×2 (08:37→20:46)
[2017-07-06] MEDS: Acetaminophen-Codeine 300-30mg TAB PO PRN ×2 (08:39→16:04)
[2017-07-06] MEDS: NICOTINE POLACRILEX 2 MG GUM BUCCAL PRN ×3 (08:40→20:50)
[2017-07-06] MEDS: QUEtiapine 50 MG TAB PO PRN (09:51)
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
[2017-07-06] MEDS: LABETALOL 200 MG TAB PO PRN (11:28)
[2017-07-06] MEDS: QUEtiapine 100 MG TAB PO SCH (20:46)
[2017-07-07] MEDS: QUEtiapine 50 MG TAB PO PRN (00:52)
[2017-07-07] MEDS: NICOTINE POLACRILEX 2 MG GUM BUCCAL PRN ×4 (06:48→19:27)
[2017-07-07] MEDS: LISINOPRIL-HCTZ 10-12.5 MG 1 EACH TAB PO SCH (08:29)
[2017-07-07] MEDS: DIVALPROEX 500 MG TABLET.DR PO SCH ×2 (08:29→20:57)
[2017-07-07] MEDS: hydrALAZINE HCL 10 MG TAB PO PRN (08:48)
[2017-07-07 09:01] LABS: Basophils % (A) 1 %; Eosinophils # (A) 0.6 k/uL (0-0.7); Eosinophils % (A) 8 %; HCT 41.8 % (39.0-53.0); HGB 13.4 gm/dL (13.0-17.5); Lymphocytes # (A) 2.7 k/uL (1.0-4.8); Lymphocytes % (A) 40 %; MCH 29.1 pg (25.0-35.0); MCHC 32.1 g/dL (31.0-37.0); MCV 90.7 fL (80.0-100.0); Monocytes # (A) 0.4 k/uL (0-1.0); Monocytes % (A) 7 %; Neutrophils # (A) 2.9 k/uL (1.3-7.7); Neutrophils % (A) 43 %; Platelet Count 203 k/uL (150-450); RBC 4.61 m/uL (4.30-5.90); RDW 14.7 % (11.5-15.5); WBC 6.7 k/uL (3.8-10.6)
[2017-07-07 09:18] LABS: Valproic Acid (Depakene) 36.8 ug/mL
[2017-07-07] MEDS: LABETALOL 200 MG TAB PO PRN (10:41)
[2017-07-07] MEDS: Acetaminophen-Codeine 300-30mg TAB PO PRN ×2 (10:42→19:26)
[2017-07-07] MEDS: hydrOXYzine PAMOATE 25 MG CAP PO PRN ×2 (11:35→19:25)
[2017-07-07] MEDS ORDERED: LISINOPRIL-HCTZ 10-12.5 MG 1 EACH TAB PO STA (13:48)
--- NOTE | 2017-07-07 14:33 | P.PN ---
Progress Note - Text Progress Note Date: 07/07/17 Patient is doing fairly well, gets along with other patients and staff very well. He is keeping his bedside area fairly uncluttered. He takes his medicines and does not have any adverse effects. Continues to deny suicide and homicide thoughts. His blood pressure is still high, hospitalist was called yesterday and again today and his medications for hypertension remain the same. He was started on labetalol 200 mg twice a day when necessary yesterday by me , which has been helpful to him. The social science teacher has been trying to reach patient's guardian to get his permission for discharge. She has not been able to talk to him. Patient called from my office and left a message to his guardian to call the social science teacher. His CBC, liver function tests are within normal limits. Depakote level is low. But he has not been on it for too long to get an accurate serum level. This is a white ambulatory male with adequate hygiene. He still looks somewhat unkempt. He does not show any psychomotor agitation or retardation. His speech is spontaneous and goal-directed. His mood is euthymic and affect is appropriate. He continues to deny suicide, homicide thoughts, hallucinations and delusional thinking. He is well oriented with adequate memory concentration etc. Plan: Continue Depakote, Seroquel, groups and other activities. Discharge when it is cleared by his guardian.
[2017-07-07] MEDS: QUEtiapine 100 MG TAB PO SCH (20:57)
[2017-07-08 07:01] VITALS: TEMP 97.5
--- NOTE | 2017-07-08 08:17 | P.DS ---
Providers Date of admission: 07/01/17 14:26 Expected date of discharge: 07/08/17 Attending physician: Micky Rojas Consults: 07/01/17 14:47 Consult Physician Routine Consulting Provider: Roberto Hendricks Consult Reason/Comments: follow up H & P Do you want consulting provider notified?: Yes Primary care physician: Jan Aviles Pertinent Studies: Patient had his psychiatric evaluation, physical examination and psychosocial evaluation. After psychiatric evaluation his home medication of Invega 6 mg a day was continued and was started on Depakote 500 mg twice a day for mood stabilization. He was demanding to be put on narcotics and benzodiazepines and was counseled. Next day he was still demanding narcotics benzodiazepines and also said that Invega was not helping him to sleep well at night and so he was started on Seroquel 50 mg at bedtime. It was later on increased 200 mg at bedtime. He finally agreed after much counseling to take only when necessary Tylenol #3 while in the hospital and not to have any prescription when he leaves the hospital. So he was started on Tylenol 3 twice a day on a when necessary basis. After physical examination he was started on vacations for hypertension. But his blood pressure was not well controlled and it was very high. He received when necessary labetalol which helped him. He was seen by the doctor from medicine who increased his medicine for hypertension and it was still borderline high. Patient wanted to leave the hospital and he was advised that he has to shower more often, keep his bedside area clean without littering it and also that his guardian has to give us permission to discharge him. He did take care of his living area and his guardian eventually approved his discharge after several phone calls and leaving messages. Patient continued to be nonsuicidal and non-homicidal. He also agreed to comply with outpatient treatment. In view of all these it was agreed to discharge him. Condition on discharge: This is a white ambulatory male with inadequate hygiene. He is cooperative, does not show any psychomotor agitation or retardation. His speech is spontaneous relevant and goal-directed. His mood is euthymic and affect is appropriate. He continues to deny hallucinations, delusions, suicide and homicide thoughts. He is well oriented with adequate memory concentration general knowledge etc. His insight and judgment have improved. Diagnosis on discharge: Bipolar 1 disorder most recent episode depressed moderate F 31.32. Opioid use disorder moderate to severe F 11.20. NKDA. Hypertension. History of chronic back pain. Patient was advised and agreed to take his medications as prescribed, not to drink alcohol or use drugs, to learn better coping skills through therapy, not to drive or operate missionary if he feels sleepy, to call his psychiatrist or therapist if he develops any suicidal thoughts and if he cannot get hold of them to go to nearest ER. Patient Condition at Discharge: Stable Plan - Discharge Summary New Discharge Prescriptions: New Divalproex [Depakote] 500 mg PO BID 30 Days #60 tablet. Lisinopril-Hctz 10-12.5 mg [Zestoretic 10-12.5] 1 each PO BID 30 Days #60 tab QUEtiapine [SEROquel] 100 mg PO HS 30 Days #30 tab Discontinued Citalopram Hydrobromide [CeleXA] 40 mg PO DAILY #30 Discharge Medication List Divalproex [Depakote] 500 mg PO BID 30 Days #60 tablet. 07/08/17 [Rx] Lisinopril-Hctz 10-12.5 mg [Zestoretic 10-12.5] 1 each PO BID 30 Days #60 tab [Rx] QUEtiapine [SEROquel] 100 mg PO HS 30 Days #30 tab 07/08/17 [Rx] Follow up Appointment(s)/Referral(s): [facility] [Outside] - 07/10/17 2:00 pm (07-10-17 @ 2PM w/ Ha Romeo 08-03-17 @ 4PM w/ Gaby Zuñiga Both appointments will be in [place].) Jan Aviles MD [Primary Care Provider] - 1-2 days Patient Instructions/Handouts: Bipolar Disorder (DC), Depression (DC), Suicide Prevention for Adults (DC) Activity/Diet/Wound Care/Special Instructions: Activity and diet as tolerated. Avoid the use of street drugs and alcohol. Remove all firearms from the home. Take all medications as prescribed. Follow up with you Primary Care provider in 1-2 days. When you are in need of refills on your medications please contact your medical provider and/or outpatient psychiatrist to have this done. Please go to scheduled outpatient appointment for aftercare. If symptoms return or become worse call the crisis line at [phone] and/or go to the nearest emergency room for an evaluation.
[2017-07-08] MEDS: DIVALPROEX 500 MG TABLET.DR PO SCH (08:37)
[2017-07-08] MEDS: LISINOPRIL-HCTZ 10-12.5 MG 1 EACH TAB PO SCH (08:37)
[2017-07-08 08:41] VITALS: RESP 18
[2017-07-08] MEDS: hydrALAZINE HCL 10 MG TAB PO PRN (09:18)
[2017-07-08 09:21] VITALS: BP 176/89; PULSE 85
--- NOTE | 2017-07-08 23:49 | PN ---
PROGRESS NOTE DATE OF SERVICE: 07/07/2017 PRESENT COMPLAINT: High blood pressure. INTERVAL HISTORY: I saw this patient yesterday on . I was called because patient's blood pressure was running high. I got a manual blood pressure check and it was still running on the higher side. No chest pain or short of breath. The patient is otherwise comfortable. REVIEW OF SYSTEMS: Done for constitutional, cardiovascular, GI, pulmonary; relevant findings as above. CURRENT MEDICATIONS: Reviewed. EXAMINATION: Temperature 97.8, pulse 79, respirations 20, blood pressure 162/95, pulse ox 98% on room air. GENERAL APPEARANCE: Sitting up, comfortable. EYES: Pupils equal. Conjunctivae normal. HEENT: External nose and ears normal. Oral cavity normal. NECK: JVD not raised. Mass not palpable. RESPIRATORY: Effort normal. Lungs are clear. CARDIOVASCULAR: First and second sounds normal. No edema. ABDOMEN: Soft nontender. Liver, spleen not palpable. PSYCHIATRY: Awake, answering questions appropriately. INVESTIGATIONS: White count 6.7, hemoglobin 13.4. Potassium 4.5. ASSESSMENT: 1. Essential hypertension, uncontrolled. 2. Chronic nicotine dependence. Patient is a cigarette smoker. 3. Chronic low back pain, probably osteoarthritis. PLAN: I am increasing the patient's Zestoretic from once a day to 10/12.5 twice a day, give an extra dose. The patient's blood pressure should start coming down and take its full effect in about a week's time. Patient should follow up with his family doctor. MMODL / JONATHANN: [id number] /
== END 2017-07-08 09:20 | disposition home or self-care (01) | DRG 885 ==
LOC: EC 12:18 → 3MHU 14:26
PROVIDERS: ADMIT Psychiatry & Neurology Psychiatry; ATTEND Psychiatry & Neurology Psychiatry
DX: F31.32 Bipolar disorder, current episode depressed, moderate (principal); F11.20 Opioid dependence, uncomplicated; R45.851 Suicidal ideations; F17.210 Nicotine dependence, cigarettes, uncomplicated; G47.00 Insomnia, unspecified; G47.419 Narcolepsy without cataplexy; G89.29 Other chronic pain; M47.899 Other spondylosis, site unspecified; I10 Essential (primary) hypertension; Z79.899 Other long term (current) drug therapy; Z91.14 Patient's other noncompliance with medication regimen; Z71.51 Drug abuse counseling and surveillance of drug abuser
CPT/HCPCS: 80053; 80061; 80164; 80306; 81003; 82075; 83036; 84443; 84450; 84460; 85025; 99285

== ENCOUNTER 2018-07-11 13:29 | Inpatient (IN) | payer MEDICARE, MEDICAID ==
--- NOTE | 2018-07-11 14:06 | ED ---
General Adult HPI - General Chief complaint: Psychiatric Symptoms Stated complaint: Mental Health Time Seen by Provider: 07/11/18 13:50 Source: patient, police, RN notes reviewed Mode of arrival: ambulatory Limitations: no limitations - History of Present Illness Initial comments: Patient is a pleasant 47-year-old male presenting to the emergency department from a pickup order. Patient states he is feeling fine and is unclear why he is here. Patient believes that he was told that he would need to see his [facility] doctor. Patient states he has been taking his medications. Patient states he has been eating and drinking and sleeping appropriately. Patient does not feel depressed. No suicidal or homicidal thoughts. No hallucinations. No alcohol o r street drug use. Patient denies any physical complaints. - Related Data Home Medications Medication Instructions Recorded Confirmed Buprenorphine HCl [Belbuca] 150 mcg BUCCAL Q12H 07/11/18 07/11/18 Citalopram Hydrobromide [CeleXA] 40 mg PO DAILY 07/11/18 07/11/18 Lisinopril-Hctz 20-25 mg 1 tab PO DAILY 07/11/18 07/11/18 [Zestoretic 20-25] amLODIPine [Norvasc] 5 mg PO DAILY 07/11/18 07/11/18 Previous Rx's Medication Instructions Recorded QUEtiapine [SEROquel] 100 mg PO HS 30 Days #30 tab 07/08/17 Allergies Allergy/AdvReac Type Severity Reaction Status Date / Time No Known Allergies Allergy Verified 07/11/18 14:22 Review of Systems ROS Statement: Those systems with pertinent positive or pertinent negative responses have been documented in the HPI. ROS Other: All systems not noted in ROS Statement are negative. Constitutional: Denies: fever Eyes: Denies: eye pain ENT: Denies: ear pain Respiratory: Denies: cough Cardiovascular: Denies: chest pain Endocrine: Denies: fatigue Gastrointestinal: Denies: abdominal pain Genitourinary: Denies: dysuria Musculoskeletal: Denies: back pain Skin: Denies: rash Neurological: Denies: weakness Psychiatric: Denies: depression, auditory hallucinations, visual hallucinations, homicidal thoughts, suicidal thoughts Past Medical History Past Medical History: Hypertension, Musculoskeletal Disorder Additional Past Medical History / Comment(s): back pain, headaches History of Any Multi-Drug Resistant Organisms: None Reported Past Surgical History: Back Surgery Past Anesthesia/Blood Transfusion Reactions: No Reported Reaction Past Psychological History: Anxiety, Bipolar, Depression Smoking Status: Current every day smoker Past Alcohol Use History: None Reported Past Drug Use History: None Reported General Exam Limitations: no limitations General appearance: alert, in no apparent distress Head exam: Present: normocephalic Eye exam: Present: normal appearance, PERRL, EOMI. Absent: nystagmus ENT exam: Present: normal oropharynx Neck exam: Present: normal inspection Respiratory exam: Present: normal lung sounds bilaterally Cardiovascular Exam: Present: regular rate, normal rhythm GI/Abdominal exam: Present: soft. Absent: tenderness Extremities exam: Present: normal inspection Neurological exam: Present: alert Psychiatric exam: Present: normal affect, normal mood Skin exam: Present: normal color. Absent: rash Course Vital Signs 07/11/18 13:41 Temperature 98.1 F Pulse Rate 104 H Respiratory 16 Rate Blood Pressure 148/90 O2 Sat by Pulse 98 Oximetry Medical Decision Making - Medical Decision Making Patient was seen by mental health services, who will admit. Disposition Clinical Impression: Schizoaffective disorder, Acute psychosis Disposition: TRANSFER TO PSYCH HOSP/UNIT Is patient prescribed a controlled substance at d/c from ED?: No Referrals: Jan Aviles MD [Primary Care Provider] - 1-2 days Decision Time: 16:24
[2018-07-11 16:28] LABS: Amphetamine Screen,Urine Not Detected (NotDetected); Cocaine Screen,Urine Not Detected (NotDetected); Opiate Screen,Urine Not Detected (NotDetected); Phencyclidine Screen,Urine Not Detected (NotDetected); Urn Cannabinoid Scrn Not Detected (NotDetected)
[2018-07-11 16:29] LABS: Barbiturate Screen,Urine Not Detected (NotDetected); Benzodiazepines Screen,Urine Not Detected (NotDetected); Methadone Screen, Urine Not Detected (NotDetected); Oxycodone Screen, Urine Not Detected (NotDetected); Tricyclic Antidepressant,Urine Detected (NotDetected)
[2018-07-11] MEDS ORDERED: MAGNESIUM HYDROXIDE 2,400 MG/10 ML CUP PO PRN (17:20)
[2018-07-11 17:45] VITALS: RESP 16
[2018-07-11] MEDS: ACETAMINOPHEN TAB 325 MG TAB PO PRN (18:34)
[2018-07-11] MEDS: LORazepam 1 MG TAB PO PRN (18:35)
[2018-07-11] MEDS: NICOTINE 14MG/24HR PATCH TRANSDERM SCH (22:16)
[2018-07-11] MEDS: MAG HYDROX/AL HYDROX/SIMETH 30 ML CUP PO PRN (23:37)
[2018-07-12] MEDS: LORazepam 1 MG TAB PO PRN ×4 (01:03→22:25)
[2018-07-12] MEDS: MAG HYDROX/AL HYDROX/SIMETH 30 ML CUP PO PRN ×3 (03:26→20:20)
[2018-07-12] MEDS: NICOTINE 14MG/24HR PATCH TRANSDERM SCH (07:43)
[2018-07-12] MEDS: ACETAMINOPHEN TAB 325 MG TAB PO PRN (07:45)
[2018-07-12 08:47] LABS: Basophils # (A) 0.1 k/uL (0-0.2); Basophils % (A) 1 %; Eosinophils # (A) 0.3 k/uL (0-0.7); Eosinophils % (A) 4 %; HCT 41.5 % (39.0-53.0); HGB 13.1 gm/dL (13.0-17.5); Lymphocytes # (A) 2.9 k/uL (1.0-4.8); Lymphocytes % (A) 37 %; MCH 28.8 pg (25.0-35.0); MCHC 31.5 g/dL (31.0-37.0); MCV 91.2 fL (80.0-100.0); Mean Platelet Volume 6.7; Monocytes # (A) 0.4 k/uL (0-1.0); Monocytes % (A) 5 %; Neutrophils % (A) 52 %; Platelet Count 206 k/uL (150-450); RBC 4.55 m/uL (4.30-5.90); RDW 15.6 % (11.5-15.5); WBC 7.7 k/uL (3.8-10.6)
[2018-07-12 08:59] LABS: ALT 87 U/L (21-72); AST 84 U/L (17-59); Alkaline Phosphatase 108 U/L (38-126); Anion Gap 6 mmol/L; Blood Urea Nitrogen 21 mg/dL (9-20); Calcium 8.8 mg/dL (8.4-10.2); Carbon Dioxide 26 mmol/L (22-30); Chloride 109 mmol/L (98-107); Cholesterol 127 mg/dL (<200); Glucose 131 mg/dL (74-99); HDL Cholesterol 65 mg/dL (40-60); LDL Cholesterol,Calculated 52 mg/dL (0-99); Potassium 4.4 mmol/L (3.5-5.1); Sodium 141 mmol/L (137-145); Total Bilirubin 0.5 mg/dL (0.2-1.3); Total Protein 6.4 g/dL (6.3-8.2); Triglycerides 51 mg/dL (<150)
[2018-07-12] MEDS ORDERED: ASPIRIN-ACET-CAFF 250-250-65MG 1 EACH TAB PO PRN (11:50)
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
[2018-07-12] MEDS: NICOTINE POLACRILEX 2 MG GUM BUCCAL PRN ×3 (13:59→20:20)
--- NOTE | 2018-07-12 17:19 | P.HPMEDMHU ---
History of Present Illness H&P Date: 07/12/18 Chief Complaint: mental health Patient is a 47-year-old male with a past medical history of hypertension, chronic low back pain, anxiety, narcolepsy, and headaches who was brought into the ER after a pickup order was placed. He subsequently was admitted to the mental health unit and we are asked valuate for medical H&P. Patient seen and examined. He states he is unsure why they admitted to the mental health unit. He feels as though he is doing fine. He denies any recent cough, cold, fever, flu, nausea, vomiting, diarrhea, constipation, or dysuria. He does state that he has had difficulty falling and staying asleep recently but does have a history of narcolepsy as well. He has no other complaints currently. He states he has been compliant with his blood pressure medications. He follows with his primary care physician. He denies any known history of elevated liver enzymes. He denies any illicit drug use or alcohol use. Review of Systems Pertinent positives and negatives as discussed in HPI, a complete review of systems was performed and all other systems are negative. Past Medical History Past Medical History: Hypertension, Musculoskeletal Disorder Additional Past Medical History / Comment(s): back pain, headaches History of Any Multi-Drug Resistant Organisms: None Reported Past Surgical History: Back Surgery Past Anesthesia/Blood Transfusion Reactions: No Reported Reaction Past Psychological History: Anxiety, Bipolar, Depression Smoking Status: Current every day smoker Past Alcohol Use History: None Reported Past Drug Use History: None Reported Additional History: SSI, not employeed - Past Family History Mother Additional Family Medical History / Comment(s): from heart disease Father Additional Family Medical History / Comment(s): from lung disease Medications and Allergies Home Medications Medication Instructions Recorded Confirmed Type QUEtiapine [SEROquel] 100 mg PO HS 30 Days #30 tab 07/08/17 07/11/18 Rx Buprenorphine HCl [Belbuca] 150 mcg BUCCAL Q12H 07/11/18 07/11/18 History Citalopram Hydrobromide [CeleXA] 40 mg PO DAILY 07/11/18 07/11/18 History Lisinopril-Hctz 20-25 mg 1 tab PO DAILY 07/11/18 07/11/18 History [Zestoretic 20-25] amLODIPine [Norvasc] 5 mg PO DAILY 07/11/18 07/11/18 History Allergies Allergy/AdvReac Type Severity Reaction Status Date / Time No Known Allergies Allergy Verified 07/11/18 14:22 Physical Exam Osteopathic Statement: *. No significant issues noted on an osteopathic structural exam other than those noted in the History and Physical/Consult. Vitals: Vital Signs Temp Pulse Resp BP Pulse Ox 07/12/18 03:33 98.0 F 90 16 144/90 07/11/18 17:44 97.4 F L 107 H 16 143/81 99 General: Scarring over bilateral lower extremities and scar to left arm, no distress, appears at stated age, normal weight Derm: no unusual rashes/lesions no unusual ecchymoses, warm, dry Head: atraumatic, normocephalic, symmetric Eyes: EOMI, no lid lag, anicteric sclera, pupils equal round reactive to light ENT: Nose and ears atraumatic, no thrush, no pharyngeal erythema Neck: No thyromegaly, no cervical lymphadenopathy, trachea midline, supple Mouth: no lip lesion, mucus membranes moist, poor dentition Cardiovascular: S1S2 reg, no murmur, positive posterior tibial pulse bilateral, no edema, capillary refill less than 2 seconds Lungs: CTA bilateral, no rhonchi, no rales , no accessory muscle use Abdominal: soft, nontender to palpation, no guarding, no appreciable organomegaly, normal bowel sounds Ext: no gross muscle atrophy, muscle strength 5 out of 5 in all 4 extremities grossly, no contractures, Neuro: CN II-XI grossly intact, light touch intact all 4 extremities, finger to nose within normal limits, Psych: Alert, oriented, flat affect Cranial Nerve Examination - Cranial Nerves Cranial Nerve II- Optic: Intact Cranial Nerve III- Oculomotor: Intact Cranial Nerve IV- Trochlear: Intact Cranial Nerve V- Trigeminal: Intact Cranial Nerve - Abducens: Intact Cranial Nerve VII- Facial: Intact Cranial Nerve VIII- Auditory: Intact Cranial Nerve IX- Glossopharyngeal: Intact Cranial Nerve X- Vagus: Intact Cranial Nerve XI- Accessory: Intact Cranial Nerve XII- Hypoglossal: Intact Results CBC & Chem 7: 07/12/18 08:09 07/12/18 08:09 Labs: Abnormal Lab Results - Last 24 Hours (Table) 05/13/19 05/13/19 Range/Units 08:09 08:09 RDW 15.6 H (11.5-15.5) % Chloride 109 H (98-107) mmol/L BUN 21 H (9-20) mg/dL Glucose 131 H (74-99) mg/dL AST 84 H (17-59) U/L ALT 87 H (21-72) U/L HDL Cholesterol 65 H (40-60) mg/dL Chest x-ray: report reviewed Thrombosis Risk Factor Assmnt - DVT/VTE Prophylaxis DVT/VTE Prophylaxis: Low risk, early ambulation encouraged Assessment and Plan Assessment: HTN, controlled - Resume norvasc and lisinopril-HCTZ - follow BP Chronic pain - prn tylenol bipolar disorder - your psych management Thank you for allowing us to participate in the care of this patient. We will follow peripherally. Do not hesitate to contact us with questions. Someone can be reached from the [facility] hospitalist group at all hours of the day at [phone].
[2018-07-12] MEDS: LISINOPRIL-HCTZ 20-25 MG 1 EACH TAB PO SCH (17:37)
[2018-07-12 17:50] LABS: Hemoglobin A1C 6.6 % (4.0-6.0)
[2018-07-12] MEDS ORDERED: SERTRALINE 50 MG TAB PO SCH (21:00)
[2018-07-13 00:42] VITALS: BP 124/87; PULSE 80; TEMP 97.6
[2018-07-13] MEDS: LORazepam 1 MG TAB PO PRN ×2 (06:01→14:44)
[2018-07-13] MEDS: ACETAMINOPHEN TAB 325 MG TAB PO PRN (06:02)
[2018-07-13] MEDS: LISINOPRIL-HCTZ 20-25 MG 1 EACH TAB PO SCH (08:27)
[2018-07-13] MEDS: NICOTINE POLACRILEX 2 MG GUM BUCCAL PRN ×2 (08:29→14:45)
[2018-07-13] MEDS ORDERED: amLODIPine 5 MG TAB PO SCH (09:00)
[2018-07-13] MEDS: MAG HYDROX/AL HYDROX/SIMETH 30 ML CUP PO PRN ×2 (09:32→14:44)
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
== END 2018-07-13 15:02 | disposition home or self-care (01) | DRG 885 ==
LOC: EC 13:29 → 3MHU 17:05
PROVIDERS: ADMIT Psychiatry & Neurology Psychiatry; ATTEND Psychiatry & Neurology Psychiatry
DX: F31.9 Bipolar disorder, unspecified (principal); F17.210 Nicotine dependence, cigarettes, uncomplicated; F41.9 Anxiety disorder, unspecified; G43.909 Migraine, unspecified, not intractable, without status migrainosus; G47.419 Narcolepsy without cataplexy; I10 Essential (primary) hypertension; Z79.899 Other long term (current) drug therapy; Z91.5 Personal history of self-harm; F25.9 Schizoaffective disorder, unspecified; Z56.0 Unemployment, unspecified; M54.9 Dorsalgia, unspecified; G89.29 Other chronic pain; Z83.6 Family history of other diseases of the respiratory system; Z82.49 Family history of ischemic heart disease and other diseases of the circulatory system
CPT/HCPCS: 80053; 80061; 80306; 82075; 83036; 84443; 85025

== ENCOUNTER 2018-10-15 12:09 | Emergency (ER) | payer MEDICARE, OTHER ==
[2018-10-15 12:14] VITALS: RESP 18
--- NOTE | 2018-10-15 12:58 | ED ---
General Adult HPI - General Chief complaint: Psychiatric Symptoms Stated complaint: Petition Time Seen by Provider: 10/15/18 12:10 Source: patient, police, RN notes reviewed Mode of arrival: ambulatory Limitations: no limitations - History of Present Illness Initial comments: This is a 47-year-old male who presents emergency Department without complaints however he has been petitioned and had a clinical certification filled out a [facility]. Patient himself denies any suicidal homicidal ideations. Patient denies wanting to hurt anybody. Patient states he must have the wrong person because he feels completely fine. Patient denies any physical complaints today. Patient denies headache patient denies numbness weakness patient denies any chest pain difficulty breathing shortness of breath per patient denies any fever chills or cough. Patient denies abdominal pain patient denies nausea vomiting diarrhea. - Related Data Home Medications Medication Instructions Recorded Confirmed Armodafinil [Nuvigil] 200 mg PO QAM 10/15/18 10/15/18 Cholecalciferol (Vitamin D3) 50,000 unit PO Q7D 10/15/18 10/15/18 [Decara] Ziprasidone [Geodon] 40 mg PO BID 10/15/18 10/15/18 buPROPion HCL [Wellbutrin XL] 300 mg PO DAILY 10/15/18 10/15/18 busPIRone HCL 15 mg PO TID 10/15/18 10/15/18 hydrALAZINE HCL [Apresoline] 50 mg PO TID 10/15/18 10/15/18 Previous Rx's Medication Instructions Recorded Lisinopril-Hctz 20-25 mg 1 tab PO DAILY 30 Days #30 tab 07/13/18 [Zestoretic 20-25] Allergies Allergy/AdvReac Type Severity Reaction Status Date / Time amphetamine [From Adderall] Allergy Unknown Verified 10/15/18 13:46 dextroamphetamine Allergy Unknown Verified 10/15/18 13:46 [From Adderall] Review of Systems ROS Statement: Those systems with pertinent positive or pertinent negative responses have been documented in the HPI. ROS Other: All systems not noted in ROS Statement are negative. Past Medical History Past Medical History: Hypertension, Musculoskeletal Disorder Additional Past Medical History / Comment(s): back pain, headaches History of Any Multi-Drug Resistant Organisms: None Reported Past Surgical History: Back Surgery Past Anesthesia/Blood Transfusion Reactions: No Reported Reaction Past Psychological History: Anxiety, Bipolar, Depression Smoking Status: Current every day smoker Past Alcohol Use History: None Reported Past Drug Use History: None Reported - Past Family History Mother Additional Family Medical History / Comment(s): from heart disease Father Additional Family Medical History / Comment(s): from lung disease General Exam - General Exam Comments Initial Comments: GENERAL: Patient is well-developed and well-nourished. Patient is nontoxic and well- hydrated and is in no acute distress. ENT: Neck has full range of motion without eliciting any pain. EYES: The sclera were anicteric and conjunctiva were pink and moist. Extraocular movements were intact and pupils were equal round and reactive to light. Eyelids were unremarkable. SKIN: Skin is clear with no lesions or rashes and otherwise unremarkable. NEUROLOGIC: Patient is alert and oriented x3. Cranial nerves II through XII are grossly intact. Motor and sensory are also intact. Normal speech, volume and content. Symmetrical smile. MUSCULOSKELETAL: Normal extremities with adequate strength and full range of motion. LYMPHATICS: No significant lymphadenopathy is noted PSYCHIATRIC: Patient denies any suicidal homicidal ideations. Patient denies wanting to harm anybody else. Limitations: no limitations Course Vital Signs 10/15/18 12:12 Temperature 98.3 F Pulse Rate 94 Respiratory 18 Rate Blood Pressure 128/90 O2 Sat by Pulse 99 Oximetry Medical Decision Making - Medical Decision Making Patient will be transferred out to another facility because we have no beds for psychiatric patients at this time - Lab Data Lab Results 10/15/18 Range/Units 14:20 Urine Opiates Screen Not Detected (NotDetected) Ur Oxycodone Screen Not Detected (NotDetected) Urine Methadone Screen Not Detected (NotDetected) Ur Propoxyphene Screen Not Detected (NotDetected) Ur Barbiturates Screen Not Detected (NotDetected) U Tricyclic Antidepress Not Detected (NotDetected) Ur Phencyclidine Scrn Not Detected (NotDetected) Ur Amphetamines Screen Not Detected (NotDetected) U Methamphetamines Scrn Not Detected (NotDetected) U Benzodiazepines Scrn Not Detected (NotDetected) Urine Cocaine Screen Not Detected (NotDetected) U Marijuana (THC) Screen Not Detected (NotDetected) Disposition Clinical Impression: Bipolar disorder Disposition: TRANSFER TO PSYCH HOSP/UNIT Referrals: Jan Aviles MD [Primary Care Provider] - 1-2 days Time of Disposition: 17:01
[2018-10-15 14:43] LABS: Amphetamine Screen,Urine Not Detected (NotDetected); Barbiturate Screen,Urine Not Detected (NotDetected); Benzodiazepines Screen,Urine Not Detected (NotDetected); Cocaine Screen,Urine Not Detected (NotDetected); Methadone Screen, Urine Not Detected (NotDetected); Opiate Screen,Urine Not Detected (NotDetected); Oxycodone Screen, Urine Not Detected (NotDetected); Phencyclidine Screen,Urine Not Detected (NotDetected); Tricyclic Antidepressant,Urine Not Detected (NotDetected); Urn Cannabinoid Scrn Not Detected (NotDetected)
[2018-10-15 17:48] LABS: Appearance,Urine Clear (Clear); Bilirubin,Urine Negative (Negative); Blood,Urine Negative (Negative); Color,Urine Yellow; Glucose,Urine (UA) 1+ (Negative); Ketones,Urine Negative (Negative); Leukocyte Esterase,Urine Negative (Negative); Nitrite,Urine Negative (Negative); PH, Urine 6.5 (5.0-8.0); Protein,Urine Negative (Negative); Specific Gravity,Urine 1.023 (1.001-1.035); Urobilinogen,Urine <2.0 mg/dL (<2.0)
[2018-10-15 18:07] LABS: Basophils # (A) 0.1 k/uL (0-0.2); Basophils % (A) 1 %; Eosinophils # (A) 0.4 k/uL (0-0.7); Eosinophils % (A) 4 %; HCT 44.2 % (39.0-53.0); HGB 14.5 gm/dL (13.0-17.5); Lymphocytes # (A) 3.5 k/uL (1.0-4.8); Lymphocytes % (A) 36 %; MCH 29.7 pg (25.0-35.0); MCHC 32.8 g/dL (31.0-37.0); MCV 90.5 fL (80.0-100.0); Mean Platelet Volume 6.5; Monocytes # (A) 0.4 k/uL (0-1.0); Monocytes % (A) 4 %; Neutrophils # (A) 5.3 k/uL (1.3-7.7); Neutrophils % (A) 54 %; Platelet Count 240 k/uL (150-450); RBC 4.88 m/uL (4.30-5.90); RDW 15.7 % (11.5-15.5); WBC 9.9 k/uL (3.8-10.6)
[2018-10-15 18:09] LABS: Albumin 4.1 g/dL (3.5-5.0); Calcium 9.1 mg/dL (8.4-10.2); Potassium 3.7 mmol/L (3.5-5.1); Total Bilirubin 0.3 mg/dL (0.2-1.3); Total Protein 6.9 g/dL (6.3-8.2)
[2018-10-15 22:27] VITALS: BP 148/95; PULSE 92; TEMP 97.9
== END 2018-10-15 22:51 ==
LOC: EC 12:09
DX: F31.9 Bipolar disorder, unspecified (principal); I10 Essential (primary) hypertension; F41.9 Anxiety disorder, unspecified; F17.200 Nicotine dependence, unspecified, uncomplicated; Z79.899 Other long term (current) drug therapy; Z88.8 Allergy status to other drugs, medicaments and biological substances
CPT/HCPCS: 36415; 80053; 80306; 81003; 85025; 99285

== ENCOUNTER → 2018-12-01 | Outpatient (CLI) | payer MEDICARE, OTHER ==
[2018-12-01 08:07] LABS: Basophils # (A) 0.1 k/uL (0-0.2); Basophils % (A) 1 %; Eosinophils # (A) 0.3 k/uL (0-0.7); Eosinophils % (A) 4 %; HCT 43.5 % (39.0-53.0); HGB 14.6 gm/dL (13.0-17.5); Lymphocytes # (A) 2.4 k/uL (1.0-4.8); Lymphocytes % (A) 32 %; MCH 30.2 pg (25.0-35.0); MCHC 33.5 g/dL (31.0-37.0); MCV 90.4 fL (80.0-100.0); Mean Platelet Volume 6.3; Monocytes # (A) 0.3 k/uL (0-1.0); Monocytes % (A) 4 %; Neutrophils # (A) 4.4 k/uL (1.3-7.7); Neutrophils % (A) 58 %; Platelet Count 169 k/uL (150-450); RBC 4.82 m/uL (4.30-5.90); RDW 15.1 % (11.5-15.5); WBC 7.6 k/uL (3.8-10.6)
[2018-12-01 17:08] LABS: African American GFR (CKD) 121.6 (60.0-200.0); Albumin 4.4 g/dL (3.80-4.90); Albumin/Globulin Ratio 2.32 (1.60-3.17); Anion Gap 11.5 mmol/L (4.00-12.00); Calcium 9.5 mg/dL (8.7-10.3); Carbon Dioxide 24.5 mmol/L (21.6-31.8); Chol/HDL Ratio 1.82; Globulin 1.9 g/dL (1.6-3.3); LDL Cholesterol,Calculated 37.8 mg/dL (0.0-131.0); Potassium 4.3 mmol/L (3.5-5.5); Total Bilirubin 0.6 mg/dL (0.3-1.2); Total Protein 6.3 g/dL (6.2-8.2); VLDL Calculation 12.2 mg/dL (5.00-40.00)
[2018-12-01 17:16] LABS: T4, Free (Free Thyroxine) 1.1 ng/dL (0.80-1.80)
[2018-12-01 18:26] LABS: Iron Saturation 21.04 (15.00-50.00)
[2018-12-01 18:36] LABS: Vitamin D 25 Hydroxy 41.2 ng/mL (30.0-100.0)
[2018-12-01 19:52] LABS: Hemoglobin A1C 5.7 % (4.0-6.0)
[2018-12-01 23:01] LABS: Ferritin 81.5 ng/mL (22.0-322.0)
[2018-12-01 23:38] LABS: Folate, Serum 11.2 ng/mL
== END | disposition home or self-care (01) ==
LOC: LABWHC1 07:25
PROVIDERS: ATTEND Nurse Practitioner Family
DX: E78.5 Hyperlipidemia, unspecified (principal); E11.9 Type 2 diabetes mellitus without complications; R53.83 Other fatigue
CPT/HCPCS: 36415; 80053; 80061; 82306; 82607; 82728; 82746; 83036; 83540; 83550; 84439; 84443; 85025

== ENCOUNTER → 2019-03-31 | Outpatient (CLI) | payer MEDICARE, OTHER ==
[2019-03-31 07:02] LABS: Basophils # (A) 0.1 k/uL (0-0.2); Basophils % (A) 1 %; Eosinophils # (A) 0.4 k/uL (0-0.7); Eosinophils % (A) 6 %; HCT 45.2 % (39.0-53.0); HGB 14.4 gm/dL (13.0-17.5); Lymphocytes # (A) 2.6 k/uL (1.0-4.8); Lymphocytes % (A) 34 %; MCH 29.5 pg (25.0-35.0); MCHC 31.8 g/dL (31.0-37.0); MCV 92.6 fL (80.0-100.0); Mean Platelet Volume 6.4; Monocytes # (A) 0.4 k/uL (0-1.0); Monocytes % (A) 5 %; Neutrophils # (A) 4.2 k/uL (1.3-7.7); Neutrophils % (A) 54 %; Platelet Count 227 k/uL (150-450); RBC 4.88 m/uL (4.30-5.90); WBC 7.7 k/uL (3.8-10.6)
[2019-03-31 12:02] LABS: African American GFR (CKD) 120.7 (60.0-200.0); Albumin 4.7 g/dL (3.80-4.90); Albumin/Globulin Ratio 2.47 (1.60-3.17); Anion Gap 10.7 mmol/L (4.00-12.00); Calcium 9.5 mg/dL (8.7-10.3); Carbon Dioxide 25.3 mmol/L (21.6-31.8); Chol/HDL Ratio 2.13; Globulin 1.9 g/dL (1.6-3.3); LDL Cholesterol,Calculated 52.2 mg/dL (0.0-131.0); Non-African American GFR(CKD) 104.2 (60.0-200.0); Total Bilirubin 0.3 mg/dL (0.3-1.2); Total Protein 6.6 g/dL (6.2-8.2); VLDL Calculation 10.8 mg/dL (5.00-40.00)
[2019-03-31 13:35] LABS: Mumps Virus IgG Ab Interp POSITIVE (NEGATIVE); Mumps Virus IgG Antibody 2.6 AI
== END | disposition home or self-care (01) ==
LOC: LABWHC1 06:38
PROVIDERS: ATTEND Family Medicine
DX: I10 Essential (primary) hypertension (principal); E78.5 Hyperlipidemia, unspecified; Z76.89 Persons encountering health services in other specified circumstances
CPT/HCPCS: 36415; 80053; 80061; 85025; 86735; 86762; 86765

== ENCOUNTER → 2019-06-29 | Outpatient (CLI) | payer MEDICARE, OTHER ==
[2019-06-29 09:47] LABS: Basophils % (A) 1 %; Eosinophils # (A) 0.2 k/uL (0-0.7); Eosinophils % (A) 3 %; HCT 42.9 % (39.0-53.0); HGB 14.2 gm/dL (13.0-17.5); Lymphocytes # (A) 2.1 k/uL (1.0-4.8); Lymphocytes % (A) 27 %; MCH 31.4 pg (25.0-35.0); MCHC 33.1 g/dL (31.0-37.0); MCV 94.7 fL (80.0-100.0); Monocytes # (A) 0.3 k/uL (0-1.0); Monocytes % (A) 5 %; Neutrophils # (A) 4.9 k/uL (1.3-7.7); Neutrophils % (A) 64 %; Platelet Count 183 k/uL (150-450); RBC 4.53 m/uL (4.30-5.90); RDW 15.9 % (11.5-15.5); WBC 7.6 k/uL (3.8-10.6)
[2019-06-29 15:56] LABS: Albumin 4.2 g/dL (3.80-4.90); Albumin/Globulin Ratio 2.1 (1.60-3.17); Anion Gap 8.1 mmol/L (4.00-12.00); BUN/Creat Ratio 24.44 Ratio (12.00-20.00); Calcium 9.2 mg/dL (8.7-10.3); Carbon Dioxide 25.9 mmol/L (21.6-31.8); Chol/HDL Ratio 1.92; LDL Cholesterol,Calculated 59.8 mg/dL (0.0-131.0); Non-African American GFR(CKD) 99.2 (60.0-200.0); Potassium 4.5 mmol/L (3.5-5.5); Total Bilirubin 0.5 mg/dL (0.3-1.2); Total Protein 6.2 g/dL (6.2-8.2); VLDL Calculation 10.2 mg/dL (5.00-40.00)
[2019-06-29 16:29] LABS: T4, Free (Free Thyroxine) 0.8 ng/dL (0.80-1.80)
[2019-06-29 18:14] LABS: Hemoglobin A1C 5.2 % (4.0-6.0)
== END | disposition home or self-care (01) ==
LOC: LABWHC1 08:39
PROVIDERS: ATTEND Family Medicine
DX: E78.5 Hyperlipidemia, unspecified (principal); F20.9 Schizophrenia, unspecified; Z79.899 Other long term (current) drug therapy
CPT/HCPCS: 36415; 80053; 80061; 83036; 84439; 84443; 85025

== ENCOUNTER → 2019-08-17 | Outpatient (CLI) | payer MEDICARE, OTHER ==
--- NOTE | 2019-08-17 16:29 | CONS ---
CONSULTATION DATE OF SERVICE: 08/17/2019 A 48-year-old gentleman who has been evaluated in the Sleep [facility] for treatment of narcolepsy. HISTORY OF PRESENT ILLNESS/SLEEP-WAKE EVALUATION: Sleep study in 2014 showed multiple sleep latency test with mean sleep latency 6.1 minutes and four sleep onset REM periods which are consistent with narcolepsy. Presently, patient continued to be on treatment with armodafinil 250 mg in the morning, but he continued to feel sleepiness during the day. Fenton Sleepiness Scale today is 17. His sleep schedule is , has TV set in bedroom, usually sleeps on the side position. In the morning, he wakes up tired, has difficulties to pay attention, falling asleep during the day, worry about his sleep, has problems with memory and concentration. PAST MEDICAL HISTORY: Positive for hypertension, depression. He has affective disorder, anxiety. MEDICATIONS: Lisinopril, amlodipine, modafinil, hydralazine, Ventolin, fluticasone, risperidone, citalopram, atorvastatin. PAST SURGICAL HISTORY: Spinal surgery in 2013. Previous sleep study showed mild obstructive sleep apnea- hypopnea syndrome in part of the sleep. Patient does not snore according to him. Previous sleep study showed mild obstructive sleep apnea-hypopnea syndrome with apnea- hypopnea index 8.4, but patient does not want to consider using CPAP therapy. REVIEW OF SYSTEMS: Excessive daytime sleepiness. PHYSICAL EXAM: A gentleman without distress. BP 138/89, HR 92, RR 16, height 5, 11 inches, weight 175, body mass index 24.4, temperature 97.8, oxygen saturation at room air 99%. HEENT: PERRLA, EOMI, evaluation of oropharynx showed tongue protrudes midline. NECK: Supple, no JVD. Thyroid is not palpable. LUNGS: Clear to percussion and to auscultation. Good air exchange. No wheezing or rhonchi. HEART: S1, S2 regular. No murmurs, gallops, or rubs. ABDOMEN: Soft and nontender. Bowel sounds are present. No organomegaly appreciated. EXTREMITIES: No clubbing or cyanosis. 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 Cranial nerves 2 to 7 intact. There is no fasciculation or atrophy. noted. No focal deficits observed. IMPRESSION: 1. Narcolepsy confirmed by multiple sleep latency tests in 2014 with mean sleep latency 6.1 minutes and four sleep onset REM periods. 2. History of mild obstructive sleep apnea. Apnea-hypopnea index 8.4 in 2015. Patient refusing using any CPAP therapy. 3. Hypertension. 4. Depression. 5. History of schizoaffective disorder. 6. History of anxiety. 7. Status post spinal surgery. PLAN: 1. Patient will continue modafinil 250 mg in the morning. 2. Treatment with Adderall was added at 20 mg 3 times a day. 3. Sleep hygiene with regular time in bed for at least 7-1/2 to 8 hours. 4. No driving if feeling sleepiness, presently patient does not drive and [place]. 5. Followup visit in 3 months. Thank you very much for allowing me to participate in the management of your patient. Sincerely, Dickson Ag MD, PhD, FAASM Diplomat of [employer] [facility] [place] [facility]ODL / JONATHANN: [id number] /
== END | disposition home or self-care (01) ==
LOC: SLEEP 13:24
PROVIDERS: ATTEND Internal Medicine
DX: G47.419 Narcolepsy without cataplexy (principal); I10 Essential (primary) hypertension; F32.9 Major depressive disorder, single episode, unspecified; Z86.59 Personal history of other mental and behavioral disorders; Z98.1 Arthrodesis status; Z79.899 Other long term (current) drug therapy
CPT/HCPCS: 99211

== ENCOUNTER 2019-08-30 20:32 | Inpatient (IN) | payer MEDICARE, OTHER ==
[2019-08-30 20:47] LABS: Basophils # (A) 0.1 k/uL (0-0.2); Basophils % (A) 0 %; Eosinophils # (A) 0.1 k/uL (0-0.7); Eosinophils % (A) 1 %; HCT 45.4 % (39.0-53.0); Lymphocytes % (A) 11 %; MCH 30.7 pg (25.0-35.0); MCV 93.3 fL (80.0-100.0); Mean Platelet Volume 7.1; Monocytes # (A) 0.8 k/uL (0-1.0); Monocytes % (A) 5 %; Neutrophils # (A) 14.4 k/uL (1.3-7.7); Neutrophils % (A) 82 %; Platelet Count 256 k/uL (150-450); RBC 4.87 m/uL (4.30-5.90); RDW 13.6 % (11.5-15.5); WBC 17.4 k/uL (3.8-10.6)
[2019-08-30] MEDS ORDERED: ETOMIDATE 2 MG/ML 10 ML VIAL IVP STA (20:47)
[2019-08-30 20:55] LABS: ALT 72 U/L (4-49); AST 120 U/L (17-59); African American GFR (CKD) 21 (>60 ml/min/1.73 sqM); Albumin 5.1 g/dL (3.5-5.0); Alcohol <10 mg/dL; Alkaline Phosphatase 84 U/L (38-126); Amylase 92 U/L (30-110); Anion Gap 20 mmol/L; Blood Urea Nitrogen 48 mg/dL (9-20); Calcium 9.7 mg/dL (8.4-10.2); Carbon Dioxide 15 mmol/L (22-30); Chloride 104 mmol/L (98-107); Glucose 115 mg/dL (74-99); Non-African American GFR(CKD) 18 (>60 ml/min/1.73 sqM); Sodium 139 mmol/L (137-145); Total Bilirubin 1.2 mg/dL (0.2-1.3); Total Protein 8.2 g/dL (6.3-8.2)
[2019-08-30 20:56] LABS: INR 1.1 (<1.2); Prothrombin Time 10.8 sec (9.0-12.0)
[2019-08-30 20:57] LABS: Partial Thromboplastin Time 24.2 sec (22.0-30.0)
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
--- NOTE | 2019-08-30 21:04 | P.OP ---
Date of Procedure: 08/30/19 Preoperative Diagnosis: Left lateral neck laceration Postoperative Diagnosis: Left lateral neck laceration Procedure(s) Performed: Closure of neck wound Anesthesia: MAC Surgeon: Lamonte Tracy Estimated Blood Loss (ml): 4 Pathology: none sent Condition: stable Disposition: PACU Description of Procedure: Patient was placed on the emergency room stretcher. His neck was prepped and draped usual sterile fashion. He received IV sedation. The neck wound was cleaned and then using a skin stapler the neck wound was loosely closed with ernie. The wound was closed loosely so it could drain if needed. Sterile dressing was applied. Patient tolerated procedure well
[2019-08-30 21:07] LABS: Creatine Kinase MB 21.3 ng/mL (0.0-2.4)
--- NOTE | 2019-08-30 21:08 | XR ---
EXAMINATION TYPE: XR chest 1V portable DATE OF EXAM: 08/30/2019 COMPARISON: NONE HISTORY: Chest pain. Trauma. TECHNIQUE: FINDINGS: There is no heart failure nor confluent pneumonic infiltrate. There is slight blunting righ t costophrenic angle. There are paraspinal dave stabilizing the thoracolumbar spine. Heart size is nor mal. IMPRESSION: There is some pleural diaphragmatic scarring or fluid at the lateral right lung base. Nor mal heart.
[2019-08-30 21:10] LABS: Troponin I 0.27 ng/mL (0.000-0.034)
--- NOTE | 2019-08-30 21:12 | CT ---
EXAMINATION TYPE: CT angio neck DATE OF EXAM: 08/30/2019 COMPARISON: None HISTORY: attempted suicide, trauma to left side of neck CT DLP: 381.7 mGycm Automated exposure control for dose reduction was used. CONTRAST: Performed with IV Contrast, patient injected with 65cc mL of Isovue 370. Multiple axial sections were obtained from the aortic arch to the skull base with IV contrast. There are 3-D post processed images. Upper lung lino are clear. There is normal branching pattern of the great vessels on the aortic arch. There is bilateral arterial flow in the subclavian arteries. There is arterial flow in the common internal and external carotid arteries bilaterally. There is minimal c alcification at the carotid artery bifurcations. There is no evidence of stenosis. Lumen narrowing is less than 5%. There is arterial flow in the left vertebral artery. No flow is seen in the right vert ebral artery. Cervical vertebra have normal alignment. There is mild spurring of the endplates. There is no evidence of carotid or vertebral artery aneurysm or dissection. IMPRESSION: Occluded right vertebral artery. Etiology is not clear. Negative angiogram of the carotid arteries.
[2019-08-30] MEDS ORDERED: SODIUM CHLORIDE 0.9% 2,000 ML IV ONE (21:22)
--- NOTE | 2019-08-30 22:00 | ED ---
General Adult HPI - General Chief complaint: Psychiatric Symptoms Stated complaint: Suicide attempt Time Seen by Provider: 08/30/19 20:33 Source: patient, EMS Mode of arrival: EMS Limitations: no limitations - History of Present Illness Initial comments: Patient is a 48-year-old male with past history of hypertension, bipolar who presents to the emergency department after he had a suicide attempt. The patient used a razor to slice a left-sided his neck. It happened 5 hours prior to presentation to the emergency department. There was significant bleeding originally however bleeding is controlled at this time. Patient has a flat affect and states that he is trying to kill himself. He denies any other complaints. Denies ingesting any [id number] medications or excessive his prescribed medications. He denies cutting himself in any other locations. He denies shortness of breath or difficulty swallowing. There are no other alleviating, precipitating or modifying factors - Related Data Home Medications Medication Instructions Recorded Confirmed Albuterol Sulfate [Ventolin HFA] 2 puff INHALATION RT-Q4H 08/30/19 09/01/19 Armodafinil 250 mg PO DAILY@79908/30/19 09/01/19 Atorvastatin [Lipitor] 10 mg PO HS@209908/30/19 09/01/19 Citalopram Hydrobromide [CeleXA] 40 mg PO HS@209908/30/19 09/01/19 Fluticasone Nasal [place] [Flonase 2 spray EA NOSTRIL DAILY@79908/30/19 09/01/19 Nasal Rincon] Lisinopril [Zestril] 5 mg PO DAILY@79908/30/19 09/01/19 hydrALAZINE HCL [Apresoline] 25 mg PO BID@08,209908/30/19 09/01/19 risperiDONE [RisperDAL] 2 mg PO HS@209908/30/19 09/01/19 Previous Rx's Medication Instructions Recorded Bacitracin Oint 1 applic TOPICAL BID applic 09/01/19 Cephalexin [Keflex] 500 mg PO TID cap 09/01/19 Ciprofloxacin Ophth Soln [Ciloxan 1 drops LEFT EYE Q4HR ml 09/01/19 0.3% Ophth Soln] Allergies Allergy/AdvReac Type Severity Reaction Status Date / Time amphetamine [From Adderall] Allergy Unknown Verified 09/01/19 22:17 dextroamphetamine Allergy Unknown Verified 09/01/19 22:17 [From Adderall] Review of Systems ROS Statement: Those systems with pertinent positive or pertinent negative responses have been documented in the HPI. ROS Other: All systems not noted in ROS Statement are negative. Past Medical History Past Medical History: Hypertension, Musculoskeletal Disorder Additional Past Medical History / Comment(s): back pain, headaches History of Any Multi-Drug Resistant Organisms: None Reported Past Surgical History: Back Surgery Past Anesthesia/Blood Transfusion Reactions: No Reported Reaction Past Psychological History: Anxiety, Bipolar, Depression Smoking Status: Current every day smoker Past Alcohol Use History: None Reported Past Drug Use History: None Reported - Past Family History Mother Additional Family Medical History / Comment(s): from heart disease Father Additional Family Medical History / Comment(s): from lung disease General Exam Limitations: no limitations General appearance: alert, anxious Eye exam: Present: PERRL, EOMI Neck exam: Present: other (laceration left lateral neck involving deep subc utaneous tissues measuring 13 x 5 x 4 cm. No vascular involvement. No active bleeding at this time. ) Respiratory exam: Present: normal lung sounds bilaterally, other (No stridor). Absent: respiratory distress, wheezes, rales, rhonchi, stridor Cardiovascular Exam: Present: regular rate, normal rhythm, normal heart sounds. Absent: systolic murmur, diastolic murmur, rubs, gallop, clicks GI/Abdominal exam: Present: soft, normal bowel sounds. Absent: distended, tenderness, guarding, rebound, rigid Neurological exam: Present: alert, oriented X3, CN II-XII intact Psychiatric exam: Present: anxious, suicidal ideation Skin exam: Present: warm, dry, intact, normal color. Absent: rash Course Vital Signs 08/30/19 08/30/19 08/30/19 20:32 20:52 20:55 Temperature 98.7 F Pulse Rate 70 65 63 Pulse Rate [ Pulse Oximetery ] Respiratory 16 16 16 Rate Blood Pressure 97/53 107/69 99/59 Blood Pressure [Right Arm] O2 Sat by Pulse 99 99 99 Oximetry 08/30/19 08/30/19 08/30/19 21:00 21:05 21:10 Temperature Pulse Rate 65 66 71 Pulse Rate [ Pulse Oximetery ] Respiratory 16 16 16 Rate Blood Pressure 101/61 101/59 104/64 Blood Pressure [Right Arm] O2 Sat by Pulse 99 99 100 Oximetry 08/30/19 08/31/19 08/31/19 22:24 00:00 00:55 Temperature 98.6 F 98.6 F Pulse Rate 78 Pulse Rate [ 79 73 Pulse Oximetery ] Respiratory 21 21 18 Rate Blood Pressure 118/75 Blood Pressure 117/67 [Right Arm] O2 Sat by Pulse 95 98 100 Oximetry 08/31/19 08/31/19 03:47 08:18 Temperature 98.1 F Pulse Rate Pulse Rate [ 81 69 Pulse Oximetery ] Respiratory 17 16 Rate Blood Pressure Blood Pressure 112/71 115/69 [Right Arm] O2 Sat by Pulse 98 94 L Oximetry EKG Findings - EKG Comments: EKG Findings:: EKG demonstrates a normal sinus rhythm with a ventricular rate of 75. WA interval 1:30. QRS 96. QTC of 462. Inverted T-wave in lead V4 through V6 Procedures - [place] Protocol (Time Out) Procedure Performed:: Laceration Repair/ Conscious Sedation Performing Provider: Lamonte Tracy Nurse: Miya Lou Respiratory Therapist: Phil Hood Patient Identification (2 identifiers required): Verbal, Arm Band, Name, Birthdate, Medical Record Number Medical Decision Making - Medical Decision Making Upon arrival the patient is placed in the trauma bay 1. Because the patient does have penetrating injury to his neck he is activated as a priority [address] Tracy does present to the emergency department. No bleeding at this time however the patient does have significant exposed subcutaneous tissue. He is immediately sent for a CT angios of his neck. Laboratory studies were conducted. Dr. Glaser does request sedation for the patient. He is given 15 mg of etomidate and the patient's neck was stapled by Dr. Tracy. CT of the neck demonstrates no vascular injury. Laboratory studies are unremarkable. White count is 17.4. Creatinine 3.6. Lactic acid 4. CK 2359. Troponin 0.270. Patient was given a 2 L bolus of normal saline followed by 150 mL per hour. I discussed the case with Dr. Toney and Dr. Chen of cardiology. He she will remain on fluid hydration. He'll be admitted to the trauma service. Medicine is placed on consult. Patient remained in stable condition awaiting bed - Lab Data Result diagrams: 08/31/19 08:49 09/01/19 09:14 Lab Results 08/30/19 08/30/19 08/30/19 Range/Units 20:30 20:30 20:30 WBC 17.4 H (3.8-10.6) k/uL RBC 4.87 (4.30-5.90) m/uL Hgb 15.0 (13.0-17.5) gm/dL Hct 45.4 (39.0-53.0) % MCV 93.3 (80.0-100.0) fL MCH 30.7 (25.0-35.0) pg MCHC 33.0 (31.0-37.0) g/dL RDW 13.6 (11.5-15.5) % Plt Count 256 (150-450) k/uL Neutrophils % 82 % Lymphocytes % 11 % Monocytes % 5 % Eosinophils % 1 % Basophils % 0 % Neutrophils # 14.4 H (1.3-7.7) k/uL Lymphocytes # 2.0 (1.0-4.8) k/uL Monocytes # 0.8 (0-1.0) k/uL Eosinophils # 0.1 (0-0.7) k/uL Basophils # 0.1 (0-0.2) k/uL PT 10.8 (9.0-12.0) sec INR 1.1 (<1.2) APTT 24.2 (22.0-30.0) sec Sodium 139 (137-145) mmol/L Potassium 5.0 (3.5-5.1) mmol/L Chloride 104 (98-107) mmol/L Carbon Dioxide 15 L (22-30) mmol/L Anion Gap 20 mmol/L BUN 48 H (9-20) mg/dL Creatinine 3.69 H (0.66-1.25) mg/dL Est GFR (CKD-EPI)AfAm 21 (>60 ml/min/1.73 sqM) Est GFR (CKD-EPI)NonAf 18 (>60 ml/min/1.73 sqM) Glucose 115 H (74-99) mg/dL Lactic Ac Sepsis Rflx Plasma Lactic Acid Carlos (0.7-2.0) mmol/L Calcium 9.7 (8.4-10.2) mg/dL Total Bilirubin 1.2 (0.2-1.3) mg/dL AST 120 H (17-59) U/L ALT 72 H (4-49) U/L Alkaline Phosphatase 84 (38-126) U/L Total Creatine Kinase (55-170) U/L CK-MB (CK-2) (0.0-2.4) ng/mL CK-MB (CK-2) Rel Index Troponin I (0.000-0.034) ng/mL Total Protein 8.2 (6.3-8.2) g/dL Albumin 5.1 H (3.5-5.0) g/dL Amylase 92 (30-110) U/L Lipase 91 (23-300) U/L Serum Alcohol <10 mg/dL Coronavirus (PCR) (Not Detected) Blood Type Blood Type Confirm Blood Type Recheck Bld Type Recheck Status Antibody Screen Spec Expiration Date 08/30/19 08/30/19 08/30/19 Range/Units 20:30 20:30 20:30 WBC (3.8-10.6) k/uL RBC (4.30-5.90) m/uL Hgb (13.0-17.5) gm/dL Hct (39.0-53.0) % MCV (80.0-100.0) fL MCH (25.0-35.0) pg MCHC (31.0-37.0) g/dL RDW (11.5-15.5) % Plt Count (150-450) k/uL Neutrophils % % Lymphocytes % % Monocytes % % Eosinophils % % Basophils % % Neutrophils # (1.3-7.7) k/uL Lymphocytes # (1.0-4.8) k/uL Monocytes # (0-1.0) k/uL Eosinophils # (0-0.7) k/uL Basophils # (0-0.2) k/uL PT (9.0-12.0) sec INR (<1.2) APTT (22.0-30.0) sec Sodium (137-145) mmol/L Potassium (3.5-5.1) mmol/L Chloride (98-107) mmol/L Carbon Dioxide (22-30) mmol/L Anion Gap mmol/L BUN (9-20) mg/dL Creatinine (0.66-1.25) mg/dL Est GFR (CKD-EPI)AfAm (>60 ml/min/1.73 sqM) Est GFR (CKD-EPI)NonAf (>60 ml/min/1.73 sqM) Glucose (74-99) mg/dL Lactic Ac Sepsis Rflx Plasma Lactic Acid Carlos 4.0 H* (0.7-2.0) mmol/L Calcium (8.4-10.2) mg/dL Total Bilirubin (0.2-1.3) mg/dL AST (17-59) U/L ALT (4-49) U/L Alkaline Phosphatase (38-126) U/L Total Creatine Kinase 2359 H* (55-170) U/L CK-MB (CK-2) 21.3 H (0.0-2.4) ng/mL CK-MB (CK-2) Rel Index Troponin I 0.270 H* (0.000-0.034) ng/mL Total Protein (6.3-8.2) g/dL Albumin (3.5-5.0) g/dL Amylase (30-110) U/L Lipase (23-300) U/L Serum Alcohol mg/dL Coronavirus (PCR) (Not Detected) Blood Type O Positive Blood Type Confirm Blood Type Recheck No Previous Record Bld Type Recheck Status CABO Indicated Antibody Screen NEGATIVE Spec Expiration Date 09/02/2019 - 232908/30/19 08/30/19 08/30/19 Range/Units 20:33 21:10 22:06 WBC (3.8-10.6) k/uL RBC (4.30-5.90) m/uL Hgb (13.0-17.5) gm/dL Hct (39.0-53.0) % MCV (80.0-100.0) fL MCH (25.0-35.0) pg MCHC (31.0-37.0) g/dL RDW (11.5-15.5) % Plt Count (150-450) k/uL Neutrophils % % Lymphocytes % % Monocytes % % Eosinophils % % Basophils % % Neutrophils # (1.3-7.7) k/uL Lymphocytes # (1.0-4.8) k/uL Monocytes # (0-1.0) k/uL Eosinophils # (0-0.7) k/uL Basophils # (0-0.2) k/uL PT (9.0-12.0) sec INR (<1.2) APTT (22.0-30.0) sec Sodium (137-145) mmol/L Potassium (3.5-5.1) mmol/L Chloride (98-107) mmol/L Carbon Dioxide (22-30) mmol/L Anion Gap mmol/L BUN (9-20) mg/dL Creatinine (0.66-1.25) mg/dL Est GFR (CKD-EPI)AfAm (>60 ml/min/1.73 sqM) Est GFR (CKD-EPI)NonAf (>60 ml/min/1.73 sqM) Glucose (74-99) mg/dL Lactic Ac Sepsis Rflx Y Plasma Lactic Acid Carlos (0.7-2.0) mmol/L Calcium (8.4-10.2) mg/dL Total Bilirubin (0.2-1.3) mg/dL AST (17-59) U/L ALT (4-49) U/L Alkaline Phosphatase (38-126) U/L Total Creatine Kinase (55-170) U/L CK-MB (CK-2) (0.0-2.4) ng/mL CK-MB (CK-2) Rel Index Troponin I (0.000-0.034) ng/mL Total Protein (6.3-8.2) g/dL Albumin (3.5-5.0) g/dL Amylase (30-110) U/L Lipase (23-300) U/L Serum Alcohol mg/dL Coronavirus (PCR) Not Detected (Not Detected) Blood Type Blood Type Confirm O Positive Blood Type Recheck Bld Type Recheck Status Antibody Screen Spec Expiration Date Critical Care Time Critical Care Time: Yes Critical Care Time: 32 minutes Disposition Clinical Impression: NSTEMI (non-ST elevated myocardial infarction), Depression, Suicidal ideation, Suicide attempt, Laceration of neck, Acute renal failure, Lactic acidosis, Leukocytosis Disposition: ADMITTED IP TO THIS [facility] Condition: Undetermined Is patient prescribed a controlled substance at d/c from ED?: No Decision to Admit Reason: Admit from EC Decision Date: 08/30/19 Decision Time: 21:59
[2019-08-30] MEDS: SODIUM CHLORIDE 0.9% 1,000 ML IV SCH (22:08)
[2019-08-30] MEDS ORDERED: NALOXONE 0.4 MG/ML 1 ML VIAL IV PRN (22:12)
--- NOTE | 2019-08-30 22:16 | US ---
EXAMINATION TYPE: US kidneys/renal and bladder DATE OF EXAM: 08/30/2019 COMPARISON: NONE CLINICAL HISTORY: renal failure. Renal failure. EXAM MEASUREMENTS: Right Kidney: 10.1 x 4.7 x 5.5 cm Left Kidney: 10.2 x 5.2 x 5.3 cm Right Kidney: No hydronephrosis or masses seen. There appears to be a possible column of Lee. Left Kidney: No hydronephrosis or masses seen Bladder: Appears anechoic Bilateral Jets seen: Yes *Slightly limited due to constant patient movement. IMPRESSION: No renal atrophy. No evidence of renal mass or obstruction. Bilateral ureteral jets demonstrated in t he urinary bladder.
[2019-08-31 00:24] LABS: Appearance,Urine Clear (Clear); Bilirubin,Urine Negative (Negative); Blood,Urine Moderate (Negative); Color,Urine Yellow; Glucose,Urine (UA) Negative (Negative); Hyaline Casts,Urine 69 /lpf (0-2); Ketones,Urine 2+ (Negative); Leukocyte Esterase,Urine Negative (Negative); Mucus,Urine Rare /hpf; Nitrite,Urine Negative (Negative); PH, Urine 5.5 (5.0-8.0); Protein,Urine 1+ (Negative); RBC,Urine <1 /hpf (0-5); Specific Gravity,Urine 1.025 (1.001-1.035); Squamous Epithelial Cell,Urine 1 /hpf (0-4); Urobilinogen,Urine <2.0 mg/dL (<2.0); WBC,Urine 4 /hpf (0-5)
[2019-08-31 00:26] LABS: Amphetamine Screen,Urine Not Detected (NotDetected); Barbiturate Screen,Urine Not Detected (NotDetected); Benzodiazepines Screen,Urine Not Detected (NotDetected); Cocaine Screen,Urine Not Detected (NotDetected); Methadone Screen, Urine Not Detected (NotDetected); Opiate Screen,Urine Not Detected (NotDetected); Oxycodone Screen, Urine Not Detected (NotDetected); Phencyclidine Screen,Urine Not Detected (NotDetected); Tricyclic Antidepressant,Urine Not Detected (NotDetected); Urn Cannabinoid Scrn Not Detected (NotDetected)
[2019-08-31] MEDS ORDERED: LISINOPRIL 5 MG TAB PO SCH (08:00)
[2019-08-31] MEDS ORDERED: amLODIPine 5 MG TAB PO SCH (08:00)
[2019-08-31] MEDS: ARMODAFINIL 250 MG PO SCH (08:25)
[2019-08-31] MEDS: hydrALAZINE HCL 25 MG TAB PO SCH ×2 (08:26→19:47)
[2019-08-31] MEDS: SODIUM CHLORIDE 0.9% 1,000 ML IV SCH ×3 (08:47→19:06)
[2019-08-31] MEDS: FLUTICASONE 50MCG/SPRAY NASAL 16GM EA NOSTRIL SCH (08:47)
--- NOTE | 2019-08-31 09:12 | P.PN ---
Progress Note - Text Progress Note Date: 08/31/19 The patient's resting comfortable in his bed. He has minimal complaints of neck pain. On exam vital signs appear stable. NLeft neck incision has some minimal drainage. Patient is being worked up by cardiology. He'll be transferred to the psych floor when stable.
[2019-08-31 09:26] LABS: Basophils % (A) 0 %; Eosinophils # (A) 0.1 k/uL (0-0.7); Eosinophils % (A) 1 %; HCT 37.6 % (39.0-53.0); HGB 12.8 gm/dL (13.0-17.5); Lymphocytes # (A) 3.3 k/uL (1.0-4.8); Lymphocytes % (A) 29 %; MCH 31.8 pg (25.0-35.0); MCV 93.5 fL (80.0-100.0); Monocytes # (A) 0.6 k/uL (0-1.0); Monocytes % (A) 6 %; Neutrophils # (A) 7.2 k/uL (1.3-7.7); Neutrophils % (A) 63 %; Platelet Count 198 k/uL (150-450); RBC 4.02 m/uL (4.30-5.90); RDW 13.8 % (11.5-15.5); WBC 11.5 k/uL (3.8-10.6)
[2019-08-31 09:42] LABS: Calcium 8.4 mg/dL (8.4-10.2); Potassium 3.7 mmol/L (3.5-5.1)
--- NOTE | 2019-08-31 09:57 | P.CN ---
Psychiatric Consult - . Consult date: 08/31/19 Consult:: IDENTIFYING DATA: He is a single 48-year-old male brought to the ED by EMS following a suicide attempt where he cut his neck with a razor blade. HISTORY OF PRESENT ILLNESS: He presented to the ED about 5 hours after cutting his neck. The surgeon cleaned the wound and close to one with ernie. I evaluated him in the ED while he was awaiting a hospital bed. He complained of feeling depressed and preoccupied with thoughts of . He was thinking about cutting himself for "several days" before removing the blade a plastic razor. He cut his neck with the intent to end his life. After the act staff at his senior living called EMS who brought him to the ED. He attributes his suicide attempt to his struggles with "narcolepsy" and living in a senior living. He is living with his family up until 6 months prior to a dmission. He reported that his uncle insisted placement at a senior living because Moses did not believe that he could live independently. He also described feelings depression and, as noted above, recurrent thoughts of suicide. He feels chronically fatigued and tired during the day. He admitted to decreased appetite and, according to the medical record, his weight has decreased substantially since 2017 (102 KG's to 77 KG's). He feels hopeless and helpless but denied feeling worthless. He denied persistent feelings of guilt. Denied persistent uncontrollable anxiety, panic attacks, obsessions or compulsions. He denied use of alcohol or drugs. His UDS was negative for drugs of abuse and his serum alcohol was less than 10. He denied experiencing auditory, visual or olfactory hallucinations, ideas reference, thought insertion, thought broadcasting or thought control. His home medications include Risperdal 2 mg at bedtime, Celexa 40 mg at bedtime and armodafinil 250 mg daily. PAST PSYCHIATRIC HISTORY: He has a history of chronic and persistent mental illness variously described as bipolar or schizoaffective disorder. He has been admitted at least 3 times to our psychiatric unit. The last admission was in June 2018 when he was charged with diagnosis of bipolar disorder. The admission history notes that he was prescribed Adderall for a presumed diagnosis of cataplexy and buprenorphine for the treatment of migraine headaches. His discharge medications included sertraline, Seroquel, buprenorphine and citalopram. He has had several suicide attempts, gestures and history of nonlethal self-harm. Although he only admitted attempting suicide" to her times", the record indicates that he had "constantly cut and burned himself." He receives community mental health services. PAST MEDICAL HISTORY: hypertension and obstructive sleep apnea ALLERGIES: Amphetamine, dextroamphetamine SUBSTANCE USE HISTORY: He denied history of substance abuse during our interview. Medical record and that he has history of cocaine, opiates and alcohol use problems. He denied participation in substance abuse treatment program FAMILY PSYCHIATRIC/SUBSTANCE USE HISTORY: Denied family history of mental illness SOCIAL HISTORY: He was born to an intact family. His father in August 2015. He is single and has no children. He is a high school education. He is unemployed and receives social security disability. He was living with his mother until 5 months ago. He denied history of physical, sexual or emotional abuse. MENTAL STATUS EXAM: He presented as a disheveled 48-year-old male who is laying completely on a gurney. He had a surgical bandage on his neck. He made eye contact and attended to the interview. He had no prominent physical abnormalities. He had a depressed and distressed facial expression. He was alert and oriented to person, place and time. It psychomotor retardation but no abnormal involuntary movements. His speech is nonspontaneous and had decreased rate, rhythm and volume. His affect is depressed and not reactive. He denied current suicidal ideation and wishes. He denied homicidal the agitation. As mentioned above, he expressed feelings of hopelessness and helplessness. He ruminated about his chronic fatigue. He did not express clear ideas reference, paranoid ideation or delusions. His thinking was concrete and associations were goal directed. He denied hallucinations did not appear to be responding to internal stimuli. IMPRESSIONS: He is a 48-year-old single male who has a chronic and persistent mental illness. He presented to the hospital following a serious suicide attempt where he cut his stomach with a razor blade. He described feelings depression and symptoms of depression. Although he denies current suicidal thoughts he remains a risk for suicide and should be treated on an inpatient basis with a combination of psychopharmacology and multimodal therapy. DIAGNOSIS: Suicide attempt, Bipolar disorder current episode depressed without psychotic features, obstructive sleep apnea, history of alcohol, opiate and amphetamine use RECOMMENDATION: Continue with one-to-one supervision until he is transferred to the psychiatric unit. Transfer to psychiatric unit when medically stable. 08/31/19 09:19 08/31/19 09:52
[2019-08-31 12:04] LABS: Glucose,Whole Blood 170 mg/dL (75-99)
[2019-08-31] MEDS: CIPROFLOXACIN 0.3% OPHTH SOLN 5 ML BTL LEFT EYE SCH ×4 (13:52→23:26)
--- NOTE | 2019-08-31 14:34 | CONS ---
SOFIA Holden is a 48-year-old gentleman with history of hypertension, dyslipidemia, who is admitted to hospital following an attempted suicide by slashing his neck. For unclear reasons, he had troponins done, that came back slightly elevated at 0.1 and 0.1 due to which Cardiology has been consulted. The patient was in renal failure on presentation with a creatinine of 3.6, which explains his elevated troponin. Creatinine level is coming down. EKG does not reveal ischemic changes. There is no prior history of coronary artery disease or congestive heart failure. Past medical history significant for hypertension and dyslipidemia. Current medications include Norvasc 5 b.i.d., hydralazine 25 b.i.d., Zestril 5 daily, Lipitor 10 daily, albuterol, and Respirdal. ALLERGY TO ADDERALL. Family history is negative for premature coronary artery disease. Social history significant for smoking. There is no history of EtOH abuse or drug abuse. REVIEW OF SYSTEMS: HEENT significant for attempted suicide. Cardiac as described above. Respiratory as described above. GI negative. Genitourinary negative. ALLERGY none. Immunology negative. Skin negative. Musculoskeletal significant for arthritis. Psychosocial negative. Endocrine negative. Hematological negative. Derm negative. Constitutional negative. ONCOLOGICAL negative. Rest of the system review is not relevant. EXAM: Comfortable at rest. Vital signs are stable. There is no jugular venous distention. Carotid upstroke is normal in the right side. Left side he has a dressing. Heart exam reveals first and second heart sounds. No gallop. No murmur. Abdomen is soft. Exam of extremities did not reveal any edema. Peripheral pulses are felt. EKG does not reveal ischemic changes. Elevated troponins are probably related to the renal failure. ASSESSMENT: 1. Elevated troponin. 2. Suicide attempt. 3. Acute renal insufficiency. PLAN: I will obtain a 2D echo to assess his LV function and wall motion. Elevated troponin is related to his renal failure. He does not require any further cardiac evaluation at this time. We will follow the echo and decide on further course of action. Upon discharge, I will perform a stress test on him. MMODL / IJN: [id number] /
[2019-08-31] MEDS: ALBUTEROL NEBULIZED 2.5 MG/3 ML INHALATION SCH ×2 (15:24→19:09)
--- NOTE | 2019-08-31 15:39 | ECHOF ---
Referral Reason: MEASUREMENTS -------- HEIGHT: 180.3 cm WEIGHT: 77.1 kg BP: RVIDd: 3.1 cm (< 3.3) IVSd: 0.9 cm (0.6 - 1.1) LVIDd: 4.1 cm (3.9 - 5.3) LVPWd: 1.1 cm (0.6 - 1.1) IVSs: 1.5 cm LVIDs: 2.6 cm LVPWs: 1.6 cm LAESV Index (A-L): 33.19 ml/m Ao Diam: 3.1 cm (2.0 - 3.7) AV Cusp: 2.2 cm (1.5 - 2.6) LA Diam: 2.6 cm (2.7 - 3.8) MV EXCURSION: 19.436 mm (> 18.000) MV EF SLOPE: 150 mm/s (70 - 150) EPSS: 0.7 cm MV E Lazaro: 0.77 m/s MV DecT: 207 ms MV A Lazaro: 0.82 m/s MV E/A Ratio: 0.93 RAP: 15.00 mmHg RVSP: 25.73 mmHg FINDINGS -------- Sinus rhythm. This was a technically good study. The left ventricular size is normal. Left ventricular wall thickness is normal. Overall left vent ricular systolic function is normal with, an EF between 55 - 60 %. The diastolic filling pattern is normal for the age of the patient 8.14. The right ventricle is normal in size. The left atrial size is normal. Normal LA size by volume 22+/-6 ml/m2. The right atrial size is normal. The aortic valve is trileaflet and appears structurally normal. The mitral valve is normal. There is trace mitral regurgitation. The tricuspid valve appears structurally normal. Trace tricuspid regurgitation present. Right rosa maria tricular systolic pressure is normal at < 35 mmHg. There is no pulmonic regurgitation present. The aortic root size is normal. The inferior vena cava is mildly dilated. There is no pericardial effusion. CONCLUSIONS -------- 1. Sinus rhythm. 2. This was a technically good study. 3. The left ventricular size is normal. 4. Left ventricular wall thickness is normal. 5. Overall left ventricular systolic function is normal with, an EF between 55 - 60 %. 6. The diastolic filling pattern is normal for the age of the patient 8.14 7. The right ventricle is normal in size. 8. The left atrial size is normal. 9. Normal LA size by volume 22+/-6 ml/m2. 10. The right atrial size is normal. 11. The aortic valve is trileaflet and appears structurally normal. 12. The mitral valve is normal. 13. There is trace mitral regurgitation. 14. The tricuspid valve appears structurally normal. 15. Trace tricuspid regurgitation present. 16. Right ventricular systolic pressure is normal at < 35 mmHg. 17. There is no pulmonic regurgitation present. 18. The aortic root size is normal. 19. The inferior vena cava is mildly dilated. 20. There is no pericardial effusion. RICE FARMWORKER: Nika Wright RDCS
--- NOTE | 2019-08-31 15:58 | CONS ---
CONSULTATION REASON FOR CONSULT: Renal failure. HISTORY OF PRESENT ILLNESS: Patient is a 48-year-old male who was admitted to the hospital with a suicide attempt. The patient has history of hypertension, bipolar disorder. He had tried to use a laser to cut the left side of his neck. However, there was no severing of the vessels. No bleeding from the main blood vessels was noted. The patient was found to have a serum creatinine of 3.69 on admission yesterday. Previous creatinine was 0.9 on 06/29/2019. The patient was on MARTY inhibitors at home. He denied use of any nonsteroidal anti- inflammatory agents. Blood pressure was low, with systolic in the 80s on initial admission. The patient has received IV fluid boluses. Currently he is maintained on IV fluids at 150 mL/hour. He has had good urine output. He is using a urinal. PAST MEDICAL HISTORY: Hypertension, bipolar disorder, back pain, anxiety. PAST SURGICAL HISTORY: Back surgery. SOCIAL HISTORY: Positive for smoking. No history of drug abuse or alcohol abuse. MEDICATIONS: Medications prior to admission included hydralazine, Norvasc, Risperdal, Zestril, Lipitor, Ventolin, Celexa, Flonase. ALLERGIES: ALLERGIES include ADDERALL. REVIEW OF SYSTEMS: As per HPI. Other systems negative. PHYSICAL EXAMINATION: Patient is comfortable, awake. He is currently having an echocardiogram done. The patient is alert and oriented x3. He has a flat affect. Blood pressure was 115/69, heart rate 69 per minute. He is afebrile. EXAMINATION OF THE HEART: S1 and S2. EXAMINATION OF LUNGS: Bilateral breath sounds are heard. ABDOMEN: Soft, non-tender. Examination of lower extremities shows no evidence of edema. BLANK DRILLER exam is grossly intact. LABS: Labs show sodium 140, potassium 3.7, chloride 114. CO2 is 19, BUN 41, creatinine 1.46. Troponin 0.167, hemoglobin 12.8. UA shows 1+ protein, 2+ ketones, hyaline casts 69. Drug screen was negative. ASSESSMENT: 1. Acute kidney injury secondary to hypotension, hypovolemia, currently improved. Patient is maintained on IV fluids, which I will continue for now. 2. Metabolic acidosis associated with renal failure, now improved with improving renal function. 3. Mild rhabdomyolysis. CK level was 2359 on admission. We will check another CK level with labs in a.m. 4. Lactic acidosis, currently improved. 5. Left neck laceration with suicide attempt, currently stable, with no bleeding from the major vessels. 6. Proteinuria noted on urinalysis. We will repeat another urinalysis in 2-3 days' time. This may be associated with underlying volume depletion and rhabdomyolysis, although the CK levels are not significantly elevated. PLAN: Continue with IV fluids. Repeat labs in a.m. Repeat UA in 2-3 days. Maintain psychiatric care. Thank you for this consultation. Will continue to follow the patient with you during his hospitalization. MMBILLL / IJN: [id number] /
[2019-08-31 16:57] LABS: Glucose,Whole Blood 149 mg/dL (75-99)
--- NOTE | 2019-08-31 18:35 | P.CONS ---
History of Present Illness - Reason for Consult Consult date: 08/31/19 Medical management Requesting physician: Lamonte Tracy - Chief Complaint Neck laceration with recent - History of Present Illness Consultation: This is a 48-year-old patient who follows Dr. caldwell. Patient lives in a skilled nursing. Chronic stable medical conditions include hypertension, hyperlipidemia, nicotine dependence. Patient has known bipolar disorder. For last 2 days patient has been feeling rather depressed. EMS was called out and get seen her for thickness four-inch laceration to the left anterior neck. Self-inflicted with a razor blade. Patient was attempted to commit suicide. He did this about 5 hours prior to EMS arrival. Does o'clock soaked power and assured. The patient. Patient had no pain that time. He was able to communicate with the EMS staff. Dr. Tracy cleaned the wound and a skin stapler was closed with ernie. Sterile dressing was applied. This morning patient ate his breakfast. Laying in bed. Depressed. Has a sitter at the bedside.. Review of systems: GEN.: Tired EYES: None HEENT: None NECK: As above RESPIRATORY: None CARDIOVASCULAR: None GASTROINTESTINAL: None GENITOURINARY: None MUSCULOSKELETAL: None LYMPHATICS: None HEMATOLOGICAL: None PSYCHIATRY: Depressed NEUROLOGICAL: None Past medical history to include: Hypertension, hyperlipidemia, bipolar disorder, nicotine dependence Social history: Lives in a skilled nursing. Smokes cigarettes. Currently denies use of any recreational drugs.. Physical examination: VITAL SIGNS: 98.1, 81, 17, 112/71, 90% room air GENERAL: BMI 23.1, laying in bed, depressed appearing. EYES: Pupils equal. Conjunctiva normal. HEENT: External appearance of nose and ears normal, oral cavity grossly normal. NECK: JVD not raised; dressing over the left neck. HEART: First and second heart sounds are normal; no edema. LUNGS: Respiratory rate normal; clear to auscultation. ABDOMEN: Soft, nontender, liver spleen not palpable, no masses palpable. PSYCH: Alert and oriented x3; mood and affect depressedl. NEUROLOGICAL: Cranial nerves grossly intact; no facial asymmetry, power and sensation grossly intact. 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 Negative angiogram of the carotid arteries 2-D echocardiogram-EF 55-60%, no wall motion abnormality Assessment: -Attempted suicide with patient treating a laceration left neck. With a razor. Has stitches in place. -Essential hypertension -Hyperlipidemia -Bipolar disorder with severe depression -Acute kidney injury patient's creatinine was 0.9 on June 28, due to hypovolemia i.e. cardio renal syndrome. Creatinine improved to 1.46 this morning. -Acute metabolic acidosis from renal failure -Troponin leak due to hemodynamic mismatch as patient was hypotensive earlier. Doubt acute coronary syndrome -Acute rhabdomyolysis Plan: Patient given IV fluids. H&H being followed. Home medications resumed. Consultation with cardiology nephrology psychiatry. I will accept the patient to my service. Patient to continue to have a sitter. We'll add a nicotine patch. Add sodium bicarbonate. Thank you Dr. Tracy Past Medical History Past Medical History: Hypertension, Musculoskeletal Disorder Additional Past Medical History / Comment(s): back pain, headaches History of Any Multi-Drug Resistant Organisms: None Reported Past Surgical History: Back Surgery Past Anesthesia/Blood Transfusion Reactions: No Reported Reaction Past Psychological History: Anxiety, Bipolar, Depression Smoking Status: Current every day smoker Past Alcohol Use History: None Reported Past Drug Use History: None Reported - Past Family History Mother Additional Family Medical History / Comment(s): from heart disease Father Additional Family Medical History / Comment(s): from lung disease Medications and Allergies Home Medications Medication Instructions Recorded Confirmed Type Albuterol Sulfate [Ventolin HFA] 2 puff INHALATION RT-Q4H 08/30/19 08/30/19 History Armodafinil 250 mg PO DAILY@0800 08/30/19 08/30/19 History Atorvastatin [Lipitor] 10 mg PO HS@2100 08/30/19 08/30/19 History Citalopram Hydrobromide [CeleXA] 40 mg PO HS@209908/30/19 08/30/19 History Fluticasone Nasal [place] [Flonase 2 spray EA NOSTRIL DAILY@79908/30/19 08/30/19 History Nasal [place]] Lisinopril [Zestril] 5 mg PO DAILY@79908/30/19 08/30/19 History amLODIPine [Norvasc] 5 mg PO BID@08,209908/30/19 08/30/19 History hydrALAZINE HCL [Apresoline] 25 mg PO BID@08,209908/30/19 08/30/19 History risperiDONE [RisperDAL] 2 mg PO HS@209908/30/19 08/30/19 History Allergies Allergy/AdvReac Type Severity Reaction Status Date / Time amphetamine [From Adderall] Allergy Unknown Verified 10/15/18 13:46 dextroamphetamine Allergy Unknown Verified 10/15/18 13:46 [From Adderall] Physical Exam Vitals: Vital Signs Temp Pulse Pulse Resp BP BP Pulse Ox 08/31/19 15:32 68 16 08/31/19 15:26 71 18 08/31/19 11:01 19 08/31/19 10:56 97.8 F 71 19 116/70 97 08/31/19 08:18 69 16 115/69 94 L 08/31/19 03:47 98.1 F 81 17 112/71 98 08/31/19 00:55 78 18 118/75 100 08/31/19 00:00 98.6 F 73 21 117/67 98 08/30/19 22:24 98.6 F 79 21 95 08/30/19 21:10 71 16 104/64 100 08/30/19 21:05 66 16 101/59 99 08/30/19 21:00 65 16 101/61 99 08/30/19 20:55 63 16 99/59 99 08/30/19 20:52 65 16 107/69 99 08/30/19 20:32 98.7 F 70 16 97/53 99 Intake and Output 08/31/19 08/31/19 08/31/19 06:59 14:59 22:59 Intake Total 236 360 Output Total 600 400 Balance -600 -164 360 Intake: Oral 236 360 Output: Urine 600 400 Other: Voiding Method Urinal Urinal # Voids 1 Results CBC & Chem 7: 08/31/19 08:49 08/31/19 08:49 Labs: Abnormal Lab Results - Last 24 Hours (Table) 08/30/19 08/30/19 08/30/19 Range/Units 20:30 20:30 20:30 WBC 17.4 H (3.8-10.6) k/uL RBC (4.30-5.90) m/uL Hgb (13.0-17.5) gm/dL Hct (39.0-53.0) % Neutrophils # 14.4 H (1.3-7.7) k/uL Chloride (98-107) mmol/L Carbon Dioxide 15 L (22-30) mmol/L BUN 48 H (9-20) mg/dL Creatinine 3.69 H (0.66-1.25) mg/dL Glucose 115 H (74-99) mg/dL POC Glucose (mg/dL) (75-99) mg/dL Plasma Lactic Acid Carlos 4.0 H* (0.7-2.0) mmol/L AST 120 H (17-59) U/L ALT 72 H (4-49) U/L Total Creatine Kinase (55-170) U/L CK-MB (CK-2) (0.0-2.4) ng/mL Troponin I (0.000-0.034) ng/mL Albumin 5.1 H (3.5-5.0) g/dL Urine Protein (Negative) Urine Ketones (Negative) Urine Blood (Negative) Hyaline Casts (0-2) /lpf Urine Mucus (None) /hpf 08/30/19 08/31/19 08/31/19 Range/Units 20:30 00:02 01:35 WBC (3.8-10.6) k/uL RBC (4.30-5.90) m/uL Hgb (13.0-17.5) gm/dL Hct (39.0-53.0) % Neutrophils # (1.3-7.7) k/uL Chloride (98-107) mmol/L Carbon Dioxide (22-30) mmol/L BUN (9-20) mg/dL Creatinine (0.66-1.25) mg/dL Glucose (74-99) mg/dL POC Glucose (mg/dL) (75-99) mg/dL Plasma Lactic Acid Carlos (0.7-2.0) mmol/L AST (17-59) U/L ALT (4-49) U/L Total Creatine Kinase 2359 H* (55-170) U/L CK-MB (CK-2) 21.3 H (0.0-2.4) ng/mL Troponin I 0.270 H* 0.199 H* (0.000-0.034) ng/mL Albumin (3.5-5.0) g/dL Urine Protein 1+ H (Negative) Urine Ketones 2+ H (Negative) Urine Blood Moderate H (Negative) Hyaline Casts 69 H (0-2) /lpf Urine Mucus Rare H (None) /hpf 08/31/19 08/31/19 08/31/19 Range/Units 08:49 08:49 08:49 WBC 11.5 H (3.8-10.6) k/uL RBC 4.02 L (4.30-5.90) m/uL Hgb 12.8 L (13.0-17.5) gm/dL Hct 37.6 L (39.0-53.0) % Neutrophils # (1.3-7.7) k/uL Chloride 114 H (98-107) mmol/L Carbon Dioxide 19 L (22-30) mmol/L BUN 41 H (9-20) mg/dL Creatinine 1.46 H (0.66-1.25) mg/dL Glucose 122 H (74-99) mg/dL POC Glucose (mg/dL) (75-99) mg/dL Plasma Lactic Acid Carlos (0.7-2.0) mmol/L AST (17-59) U/L ALT (4-49) U/L Total Creatine Kinase (55-170) U/L CK-MB (CK-2) (0.0-2.4) ng/mL Troponin I 0.167 H* (0.000-0.034) ng/mL Albumin (3.5-5.0) g/dL Urine Protein (Negative) Urine Ketones (Negative) Urine Blood (Negative) Hyaline Casts (0-2) /lpf Urine Mucus (None) /hpf 08/31/19 08/31/19 Range/Units 11:40 16:50 WBC (3.8-10.6) k/uL RBC (4.30-5.90) m/uL Hgb (13.0-17.5) gm/dL Hct (39.0-53.0) % Neutrophils # (1.3-7.7) k/uL Chloride (98-107) mmol/L Carbon Dioxide (22-30) mmol/L BUN (9-20) mg/dL Creatinine (0.66-1.25) mg/dL Glucose (74-99) mg/dL POC Glucose (mg/dL) 170 H 149 H (75-99) mg/dL Plasma Lactic Acid Carlos (0.7-2.0) mmol/L AST (17-59) U/L ALT (4-49) U/L Total Creatine Kinase (55-170) U/L CK-MB (CK-2) (0.0-2.4) ng/mL Troponin I (0.000-0.034) ng/mL Albumin (3.5-5.0) g/dL Urine Protein (Negative) Urine Ketones (Negative) Urine Blood (Negative) Hyaline Casts (0-2) /lpf Urine Mucus (None) /hpf Microbiology - Last 24 Hours (Table) 08/31/19 10:00 Eye Culture - Preliminary Eye - Left
[2019-08-31] MEDS: SODIUM BICARBONATE TAB 650 MG TAB PO SCH (19:06)
[2019-08-31] MEDS: ATORVASTATIN 10 MG TAB PO SCH (19:47)
[2019-08-31] MEDS: CITALOPRAM HYDROBROMIDE 20 MG TAB PO SCH (19:47)
[2019-08-31 21:19] LABS: Glucose,Whole Blood 143 mg/dL (75-99)
[2019-09-01] MEDS: ALBUTEROL NEBULIZED 2.5 MG/3 ML INHALATION SCH ×6 (00:29→19:55)
[2019-09-01] MEDS: SODIUM BICARBONATE TAB 650 MG TAB PO SCH ×2 (03:00→10:10)
[2019-09-01] MEDS: CIPROFLOXACIN 0.3% OPHTH SOLN 5 ML BTL LEFT EYE SCH ×5 (03:00→20:04)
[2019-09-01 06:36] LABS: Glucose,Whole Blood 80 mg/dL (75-99)
[2019-09-01] MEDS: SODIUM CHLORIDE 0.9% 1,000 ML IV SCH ×2 (06:38→10:12)
[2019-09-01 09:42] LABS: African American GFR (CKD) >90 (>60 ml/min/1.73 sqM); Anion Gap 2 mmol/L; Blood Urea Nitrogen 16 mg/dL (9-20); Calcium 8.4 mg/dL (8.4-10.2); Carbon Dioxide 24 mmol/L (22-30); Chloride 116 mmol/L (98-107); Glucose 112 mg/dL (74-99); Non-African American GFR(CKD) >90 (>60 ml/min/1.73 sqM); Potassium 3.6 mmol/L (3.5-5.1); Sodium 142 mmol/L (137-145)
[2019-09-01] MEDS: FLUTICASONE 50MCG/SPRAY NASAL 16GM EA NOSTRIL SCH (10:10)
[2019-09-01] MEDS: hydrALAZINE HCL 25 MG TAB PO SCH ×2 (10:11→20:04)
[2019-09-01] MEDS: ARMODAFINIL 250 MG PO SCH (10:12)
--- NOTE | 2019-09-01 11:44 | P.PN ---
Subjective Progress Note Date: 09/01/19 This is a 48-year-old gentleman with history of hypertension, hyperlipidemia, admitted to the hospital following a suicide attempt by which the patient slashed his neck. Troponins came back to be abnormal for which a cardiology consultation was requested. He had an echocardiogram with Doppler study perfo ed which revealed a normal left ventricular systolic function. Blood pressure and heart rate stable this morning. He denies any chest discomfort. Objective - Vital Signs Vital signs: Vital Signs Temp 98.2 F 09/01/19 08:00 Pulse 66 09/01/19 08:20 Resp 18 09/01/19 08:00 BP 134/76 09/01/19 08:00 Pulse Ox 97 09/01/19 08:00 Intake & Output 08/31/19 09/01/19 09/01/19 18:59 06:59 18:59 Intake Total 596 240 236 Output Total 400 700 Balance 196 -460 236 Weight 79.5 kg Intake: Oral 596 240 236 Output: Urine 400 700 Other: Voiding Method Urinal Urinal - Exam PHYSICAL EXAMINATION: GENERAL: 48-year-old gentleman in no acute distress at the time of my examination HEENT: Head is atraumatic, normocephalic. Pupils equal, round. Sclera anicteric. Conjunctiva are clear. Mucous membranes of the mouth are moist. Ne ck is supple. There is no elevated jugular venous pressure. There is a dressing in place at the left neck area. No carotid bruit is heard. HEART EXAMINATION: Heart S1, S2 normal. No murmur or gallop heard. CHEST EXAMINATION: Lungs are clear to auscultation and precussion. No chest wall tenderness is noted on palpation or with deep breathing. ABDOMEN: Soft, nontender. Bowel sounds are heard. No organomegaly noted. EXTREMITIES: 2+ peripheral pulses with no evidence of peripheral edema and no calf tenderness noted. NEUROLOGIC patient is awake, alert and oriented 3 . . - Labs CBC & Chem 7: 08/31/19 08:49 09/01/19 09:14 Labs: Abnormal Lab Results - Last 24 Hours (Table) 08/31/19 08/31/19 08/31/19 Range/Units 11:40 16:50 21:18 Chloride (98-107) mmol/L Glucose (74-99) mg/dL POC Glucose (mg/dL) 170 H 149 H 143 H (75-99) mg/dL 09/01/19 Range/Units 09:14 Chloride 116 H (98-107) mmol/L Glucose 112 H (74-99) mg/dL POC Glucose (mg/dL) (75-99) mg/dL Microbiology - Last 24 Hours (Table) 08/31/19 10:00 Gram Stain - Preliminary Eye - Left Eye Culture - Preliminary Assessment and Plan Plan: Assessment and plan #1 suicide attempt #2 abnormality in troponin, not consistent with acute coronary syndrome. Echo revealed a normal left ventricular systolic function. #3 acute renal insufficiency, resolved #4 hypertension Plan From cardiology's perspective, we will follow this patient along with you now on an as-needed basis only. We'll make the patient a follow-up appointment in the office with Dr. Chen in 4 weeks, outpatient cardiac workup at that time. DNP note has been reviewed, I agree with a documented findings and plan of care. Patient was seen and examined.
--- NOTE | 2019-09-01 12:02 | PN ---
PROGRESS NOTE Patient is seen for followup for acute kidney injury. He was admitted to the hospital with a suicidal attempt and left neck laceration. Patient's serum creatinine was 3.69. He is maintained on IV fluids and his creatinine is down to 0.67 today. On examination, blood pressure is 134/76, heart rate 72 per minute. He is afebrile. Examination of the heart S1, S2. Examination of the lungs, decreased breath sounds at base. S abdomen is soft, nontender. Examination of lower extremities shows no evidence of edema. Left neck wound is currently dressed. LUBRICATING SPECIALIST exam grossly intact. Patient moving all 4 extremities. Labs show sodium 142, potassium 3.6, chloride 116, BUN 16, creatinine 0.67. ASSESSMENT: 1. Acute kidney injury associated with hypotension, hypovolemia, currently significantly improved. Decrease IV fluids. Encourage increased oral intake. 2. Metabolic acidosis, now resolved. I will discontinue the oral sodium bicarb. 3. Lactic acidosis currently improved. 4. Mild rhabdomyolysis. CK level was 2359 on admission. We will recheck the CK level. 5. Proteinuria. Repeat UA once patient has been well hydrated. PLAN: Encourage increased oral intake. DC sodium bicarb. Repeat urinalysis. MMODL / IJN: [id number] /
[2019-09-01 12:28] LABS: Glucose,Whole Blood 126 mg/dL (75-99)
[2019-09-01] MEDS: BACITRACIN 500 UNIT/GM OINT 28.4 GM TUBE TOPICAL SCH ×4 (13:11→20:04)
[2019-09-01 14:26] VITALS: RESP 16
[2019-09-01 16:56] LABS: Glucose,Whole Blood 89 mg/dL (75-99)
[2019-09-01] MEDS: CEPHALEXIN 500 MG CAP PO SCH ×3 (16:57→20:04)
[2019-09-01 19:15] VITALS: BP 143/73; TEMP 98.4
[2019-09-01] MEDS: CITALOPRAM HYDROBROMIDE 20 MG TAB PO SCH (20:04)
[2019-09-01] MEDS: ATORVASTATIN 10 MG TAB PO SCH (20:04)
[2019-09-01 20:11] VITALS: PULSE 70
[2019-09-01 20:44] LABS: Appearance,Urine Clear (Clear); Bilirubin,Urine Negative (Negative); Blood,Urine Negative (Negative); Color,Urine Light Yellow; Glucose,Urine (UA) 3+ (Negative); Ketones,Urine Negative (Negative); Leukocyte Esterase,Urine Negative (Negative); Nitrite,Urine Negative (Negative); Protein,Urine Negative (Negative); Specific Gravity,Urine 1.012 (1.001-1.035); Urobilinogen,Urine <2.0 mg/dL (<2.0)
[2019-09-01 20:54] LABS: Glucose,Whole Blood 100 mg/dL (75-99)
--- NOTE | 2019-09-01 22:53 | P.DS ---
Providers Date of admission: 08/30/19 22:15 Expected date of discharge: 09/01/19 Attending physician: Roberto Hendricks Consults: 08/30/19 22:12 Consult Physician Urgent Consulting Provider: Ashley Knowles Consult Reason/Comments: radha, nstemi Do you want consulting provider notified?: Yes 08/30/19 22:13 Consult Physician Urgent Consulting Provider: [facility] Consult Reason/Comments: nstemi Do you want consulting provider notified?: Already Contacted 08/30/19 22:15 Consult Physician Urgent Consulting Provider: Shaunna Toney Consult Reason/Comments: radha Do you want consulting provider notified?: Already Contacted 08/30/19 22:16 Consult Physician Urgent Consulting Provider: Harshil Huynh Consult Reason/Comments: suicide attempt Do you want consulting provider notified?: Yes Primary care physician: Jan Aviles [facility] Course: - Chief Complaint Neck laceration with recent Hospital course: This is a 48-year-old patient who follows Dr. aviles. Patient lives in a [facility]. Chronic stable medical conditions include hypertension, hyperlipidemia, nicotine dependence. Patient has known bipolar disorder. For last 2 days patient has been feeling rather depressed. EMS was called out and get seen her for thickness four-inch laceration to the left anterior neck. Self-inflicted with a razor blade. Patient was attempted to commit suicide. He did this about 5 hours prior to EMS arrival. Does o'clock soaked power and assured. The patient. Patient had no pain that time. He was able to communicate with the EMS staff. Dr. Tracy cleaned the wound and a skin stapler was closed with ernie. Sterile dressing was applied. This morning patient ate his breakfast. Laying in bed. Depressed. Has a sitter at the bedside.. Today-feeling better. Did tolerate her diet. Up to the bathroom. Depressed. Keflex is being added. Basic dressing to the laceration site. Physical examination: VITAL SIGNS: 98.4, 70, 16, 140-73, 96% room air GENERAL: BMI 23.1, laying in bed, depressed appearing. EYES: Pupils equal. Conjunctiva normal. HEENT: External appearance of nose and ears normal, oral cavity grossly normal. NECK: JVD not raised; incision over the left neck HEART: First and second heart sounds are normal; no edema. LUNGS: Respiratory rate normal; clear to auscultation. ABDOMEN: Soft, nontender, liver spleen not palpable, no masses palpable. PSYCH: Alert and oriented x3; mood and affect depressedl. 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 Negative angiogram of the carotid arteries 2-D echocardiogram-EF 55-60%, no wall motion abnormality Assessment: -Attempted suicide with patient treating a laceration left neck. With a razor. Has stitches in place. -Essential hypertension -Hyperlipidemia -Bipolar disorder with severe depression -Acute kidney injury patient's creatinine was 0.9 on June 28, due to hypovolemia i.e. cardio renal syndrome.-Corrected -Acute metabolic acidosis from renal failure-corrected -Troponin leak due to hemodynamic mismatch as patient was hypotensive earlier. Doubt acute coronary syndrome -Acute rhabdomyolysis Disposition: 3 W. psychiatry inpatient unit under Dr. Ball Patient Condition at Discharge: Undetermined Plan - Discharge Summary Discharge Rx Participant: No New Discharge Prescriptions: New Ciprofloxacin Ophth Soln [Ciloxan 0.3% Ophth Soln] 1 drops LEFT EYE Q4HR ml Cephalexin [Keflex] 500 mg PO TID cap Bacitracin Oint 1 applic TOPICAL BID applic Continue Albuterol Sulfate [Ventolin HFA] 2 puff INHALATION RT-Q4H Armodafinil 250 mg PO DAILY@0800 Atorvastatin [Lipitor] 10 mg PO HS@2100 Citalopram Hydrobromide [CeleXA] 40 mg PO HS@2100 Fluticasone Nasal [place] [Flonase Nasal [place]] 2 spray EA NOSTRIL DAILY@0800 hydrALAZINE HCL [Apresoline] 25 mg PO BID@0800,2100 Lisinopril [Zestril] 5 mg PO DAILY@0800 risperiDONE [RisperDAL] 2 mg PO HS@2100 Discontinued amLODIPine [Norvasc] 5 mg PO BID@0800,2099 Discharge Medication List Albuterol Sulfate [Ventolin HFA] 2 puff INHALATION RT-Q4H 08/30/19 [History] Armodafinil 250 mg PO DAILY@79908/30/19 [History] Atorvastatin [Lipitor] 10 mg PO HS@209908/30/19 [History] Citalopram Hydrobromide [CeleXA] 40 mg PO HS@209908/30/19 [History] Fluticasone Nasal [place] [Flonase Nasal [place]] 2 spray EA NOSTRIL DAILY@79908/30/19 [History] Lisinopril [Zestril] 5 mg PO DAILY@79908/30/19 [History] hydrALAZINE HCL [Apresoline] 25 mg PO BID@799,209908/30/19 [History] risperiDONE [RisperDAL] 2 mg PO HS@209908/30/19 [History] Bacitracin Oint 1 applic TOPICAL BID applic 09/01/19 [Rx] Cephalexin [Keflex] 500 mg PO TID cap 09/01/19 [Rx] Ciprofloxacin Ophth Soln [Ciloxan 0.3% Ophth Soln] 1 drops LEFT EYE Q4HR ml 09/01/19 [Rx] Follow up Appointment(s)/Referral(s): Harshil Huynh MD [STAFF PHYSICIAN] - 1-2 Days Jan Aviles MD [Primary Care Provider] - As Needed Rory Chen MD [STAFF PHYSICIAN] - 4 Weeks Patient Instructions/Handouts: Laceration (DC), Acute Wound Care (DC), Suicide Prevention (DC) Discharge Disposition: TRANSFER TO PSYCH HOSP/UNIT Plan of Treatment: Apply bacitracin to neck wound for wound care.
--- NOTE | 2019-09-06 09:39 | CDI ---
Documentation Clarification Form Date: 09/06/19 From: Khushbu García Phone: If you have a question about this query, please contact Chanelle Gomez, Bioinformatician at [phone] between 8am and 5pm. Admit Date: 08/30/19 Discharge Date:09/01/19 Patient Name: Navin Fowler Visit Number: [id number] ATTENTION: The Clinical Documentation Specialists (CDI) and [facility] Coding Staff appreciate your assistance in clarifying documentation. Please respond to the clarification below the line at the bottom and electronically sign. The CDI & [facility] Coding staff will review the response and follow-up if needed. Please note: Queries are made part of the Legal Health Record. If you have any questions, please contact the author of this message via ITS. Dear Dr. Hendricks Patient presented with troponin of: 0.270. Troponin leak due to hemodynamic mismatch as patient was hypotensive earlier is documented in the discharges summary and your consult note. Elevated troponins are probably related to the renal failure is documented in the cardiology consult. Patient history/risk factors: Suicide attempt by cutting neck, [place]OL[place], rhabdomyolysis, volume depletion Clinical indicators: Elevated troponin Treatment: 1 liter NS bolus then at 150 mls/hr In your professional opinion, can you please specify the diagnosis, if any, indicated by the elevated tropnins? Type II CO Demand Ischemia Other, please specify Unable to determine Demand ischemia MTDD
== END 2019-09-01 21:10 | DRG 580 ==
LOC: EC 20:32 → 3SCARD 22:15
PROVIDERS: ADMIT Hospitalist; ATTEND Hospitalist
PROC: 0JQ50ZZ Repair Left Neck Subcutaneous Tissue and Fascia, Open Approach (ICD-10-PCS; principal; 2019-08-30)
DX: S11.81XA Laceration without foreign body of other specified part of neck, initial encounter (principal); E87.2 Acidosis; F31.4 Bipolar disorder, current episode depressed, severe, without psychotic features; M62.82 Rhabdomyolysis; N17.9 Acute kidney failure, unspecified; I24.8 Other forms of acute ischemic heart disease; I95.9 Hypotension, unspecified; D72.829 Elevated white blood cell count, unspecified; E78.5 Hyperlipidemia, unspecified; R80.9 Proteinuria, unspecified; E86.1 Hypovolemia; F17.210 Nicotine dependence, cigarettes, uncomplicated; F41.9 Anxiety disorder, unspecified; I10 Essential (primary) hypertension; Z11.59 Encounter for screening for other viral diseases; Z79.899 Other long term (current) drug therapy; Z88.8 Allergy status to other drugs, medicaments and biological substances; Z82.49 Family history of ischemic heart disease and other diseases of the circulatory system; X78.8XXA Intentional self-harm by other sharp object, initial encounter
CPT/HCPCS: 12005; 36415; 70498; 71045; 76770; 80048; 80053; 80306; 80320; 81001; 81003; 82075; 82150; 82550; 82553; 83605; 83690; 84484; 85025; 85610; 85730; 86850; 86900; 86901; 87070; 87205; 93005; 93306; 94640; 96361; 96365; 99285

== ENCOUNTER 2019-09-01 18:50 | Inpatient (IN) | payer MEDICARE, MEDICAID ==
[2019-09-01] MEDS ORDERED: ACETAMINOPHEN TAB 325 MG TAB PO PRN (21:19)
[2019-09-01] MEDS ORDERED: MAG HYDROX/AL HYDROX/SIMETH 30 ML CUP PO PRN (21:19)
[2019-09-01] MEDS ORDERED: MAGNESIUM HYDROXIDE 2,400 MG/10 ML CUP PO PRN (21:19)
[2019-09-01] MEDS: CEPHALEXIN 500 MG CAP PO SCH (21:54)
[2019-09-02] MEDS: CIPROFLOXACIN 0.3% OPHTH SOLN 5 ML BTL LEFT EYE SCH ×6 (00:39→21:08)
[2019-09-02] MEDS: ALBUTEROL HFA INHALER INHALATION SCH ×6 (00:40→21:07)
[2019-09-02] MEDS: FLUTICASONE 50MCG/SPRAY NASAL 16GM EA NOSTRIL SCH (09:32)
[2019-09-02] MEDS: lisinopriL 5 MG TAB PO SCH (09:34)
[2019-09-02] MEDS: BACITRACIN ZINC 500 UNIT/GM OINT 28.4 GM TUBE TOPICAL SCH ×2 (09:34→21:09)
[2019-09-02] MEDS: hydrALAZINE HCL 25 MG TAB PO SCH ×2 (09:34→21:06)
[2019-09-02] MEDS: CEPHALEXIN 500 MG CAP PO SCH ×3 (09:34→21:07)
[2019-09-02] MEDS: ACETAMINOPHEN TAB 500 MG TAB PO PRN (09:35)
--- NOTE | 2019-09-02 11:55 | P.HP ---
Psychiatric H&P - . H&P Date: 09/02/19 History & Physical: IDENTIFYING DATA: He is a 48-year-old single male transferred from medicine unit for treatment of depression and a suicide attempt. HISTORY OF PRESENT ILLNESS: He presented to the ED on 08/31/2019 approximately 5 hours after cutting his neck. He had 10 cm laceration along the left side of his neck. The surgeon cleaned and closed the wound ernie while he was in the ED. He was transferred to medicine service with an elevated troponin (0.167) and WBC (11.5). The medicine discharge summary indicates acute metabolic acidosis, troponin leak due to hemodynamic mismatch as the patient was hypotensive and an acute rhabdomyolysis. He alleged that he cut himself because he was depressed. He was thinking about suicide for "several days" before he cut his neck with a razor blade. He complained that he is depressed because he is chronically fatigued and tired. He is been diagnosed with narcolepsy and his uncle, who is his legal guardian, would not allow the sleep doctor to prescribe him Adderall. He alleged that the narcolepsy did not improve with other treatment including his current dose and armodafinil Ritalin, Concerta, Wellbutrin, Effexor or Strattera. I reviewed the sleep medicine notes from 08/17/2019. He does have a diagnosis of narcolepsy as well as obstructive sleep apnea. The specialist recommended treatment with Adderall 20 mg 3 times a day in addition to modafanil 250mg daily. He alleged that he has unaware of the reason that his uncle would not allow him to have a prescription for Adderall. He denied a history of substance use and substance use problems. He denied that he abused Adderall in the past. I spoke with his uncle, Cali Monk. His uncles been the guardian for about "2 and 1/2 or 3 years" since the of the patient's mother. Cali stated that Navin has a history of substance abuse problems. As he put it Navin would "used anything he can get his hands on." Before [place] [facility] he lived in his parents home. He would obtain prescriptions for Adderall, consuming half the prescription "in a day or 2" then sell the remainder in order to by other drugs." Cali talked about a history of abusing heroin, cocaine, opiate pain medications and stimulant medications. Cali became guardian because Navin was unable to care for himself. After his parent's deaths, Navin destroyed the home. By the time he was placed at [facility], that the city was in the process of condemning the home that had been worth "$500,000." Cali stated that Navin did well as long she took his psychiatric medications. He believes Navin was his best when she was "receiving injections" (injectable form an antipsychotic). When Navin was at [facility], he stole the howe to the medicine cabinet and took a bottle of Fioricet. He was abusing Fioricet and would not relinquish the medication until the [place] [facility] called the police. 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 [facility] transfered him from [facility] to [facility] 6 months ago. Cali spoke with Navin last week and Cali thought that he was doing well. Cali was surprised when he learned that Navin had made the suicide gesture. Cali repor paulino that Navin has made suicide gestures several times in the past. PAST PSYCHIATRIC HISTORY: He has had multiple psychiatric hospitalizations approximately 5 or 6. He is involved with [facility] services. His psychiatric medications prior to admission included Risperdal 2 mg at bedtime, Celexa 40 mg at bedtime and modafinil 250 mg in the morning. PAST MEDICAL HISTORY: He has a history of hypertension, hyperlipidemia and tobacco use disorder. ALLERGIES: NO KNOWN DRUG ALLERGIES SUBSTANCE USE HISTORY: He denied history of substance use or substance use disorder. However some "reported an extensive history of drug abuse involving opiates, psychostimulants, cannabis and alcohol. FAMILY PSYCHIATRIC/SUBSTANCE USE HISTORY: Denied LEGAL HISTORY: According to the [facility] court document he has a history of charges for assaulting a precinct i police sergeant and domestic violence. SOCIAL HISTORY: His born and raised in intact family in [place]. His father in 2015 and, according to the patient's uncle, his mother approximately 2-1/2-3 years ago." He has a high school education. He is an only child. He is unemployed and receives security disability income. No hist ory of service. MENTAL STATUS EXAM: Presented as a tall disheveled appearing 48-year-old male who had a surgical bandage on the left side of his neck. He made eye contact and attended to interview. He had no prominent physical abnormalities. He has a sad facial expression. He was alert and oriented to person, place and time. He has psychomotor retardation. Speech was spontaneous with decreased rate and rhythm. His affect was depressed and not reactive. He denied current suicidal ideation and wishes. He expressed feelings of hopelessness and helplessness particularly with regard to his complaint of chronic fatigue. He didn't express ideas reference, paranoid ideation or delusions. His thinking was concrete and associations were coherent, logical and goal directed. He denied hallucinations did not appear to be responding to internal stimuli. Global impression of intellect is average. He has limited awareness or understanding of his illness. STRENGTHS: Stable housing, stable income, engagement with mental health services, guardian WEAKNESSES: history of substance use problems, poor problem-solving skills, impulsivity IMPRESSION: He is a 48-year-old male who has a history of a chronic and severe mental illness Surprised by periods of psychosis and mood changes. [facility] following an impulsive suicide attempt or gesture where he cut his neck superficially with a razor blade. He complains his depression because he is chronically fatigued and his guardian will not allow him to have Adderall. He was cooperative but misrepresented his history and minimized his substance abuse problems. His guardian describes a history of substance abuse problems and poor self-care. He should be treated inpatient basis with combination of psychopharmacology and multimodal therapy. Avoid narcotic medications. PRINCIPLE DIAGNOSIS: schizoaffective disorder bipolar type durrently depressed, suicide attempt, narcolepsy, amphetamine use disorder severe, opiate use disorder severe RECOMMENDATION: Voluntary admission to the psychiatric unit. Safety precautions. Consult medicine for initial physical exam and medical history. refuse and recycling worker to complete initial psychosocial assessment coordinate discharge and aftercare services. Continue risperidone 2 mg at bedtime and discuss transitioning to Risperdal Consta. Continue Celexa 40 mg daily and offer treatment with a more stimulating antidepressant. Tylenol 500 mg every 6 when necessary for headache. Avoid narcotic medications in particular opiates, b arbiturates, benzodiazepines and psychostimulants. Encourage participation in therapeutic groups and activities. Evaluate clinical status response to treatment daily basis. Allergies Allergy/AdvReac Type Severity Reaction Status Date / Time amphetamine [From Adderall] Allergy Unknown Verified 09/01/19 22:17 dextroamphetamine Allergy Unknown Verified 09/01/19 22:17 [From Adderall] Vital Signs Temp 98.4 F 09/01/19 21:31 Pulse 63 09/01/19 21:31 Resp 16 09/01/19 21:31 BP 126/76 09/01/19 21:31 Pulse Ox 97 09/01/19 21:31 Intake & Output 09/01/19 09/02/19 09/02/19 18:59 06:59 18:59 Weight 76.521 kg 09/02/19 11:14
[2019-09-02] MEDS: CITALOPRAM HYDROBROMIDE 20 MG TAB PO SCH (21:06)
[2019-09-02] MEDS: risperiDONE 2 MG TAB PO SCH (21:07)
[2019-09-02] MEDS: ATORVASTATIN 10 MG TAB PO SCH (21:07)
--- NOTE | 2019-09-02 21:54 | P.CONS ---
History of Present Illness - Reason for Consult Consult date: 09/02/19 Medical management Requesting physician: Harshil Huynh - Chief Complaint Suicidal - History of Present Illness Consultation: This is a 48-year-old patient who follows Dr. caldwell. Patient lives in a residential. Chronic stable medical conditions include hypertension, hyperlipidemia, nicotine dependence. Patient has known bipolar disorder. For last 2 days patient has been feeling rather depressed. EMS was called out found to have thickness four-inch laceration to the left anterior neck. Self- inflicted with a razor blade. Patient was attempted to commit suicide. He did this about 5 hours prior to EMS arrival. Nearby clothes was soaked with blood. He was able to communicate with the EMS staff. Dr. Tracy cleaned the wound and a skin stapler was closed with ernie. Sterile dressing was applied. Patient is put on Keflex and topical bacitracin. Patient was then transferred discharged to the psychiatry unit yesterday on August 31. Today-patient's depressed. The feels a bit better. Dressing over the last part of the neck. Did tolerate her diet. No fever no chills. Review of systems: GEN.: Tired EYES: None HEENT: None NECK: As above RESPIRATORY: None CARDIOVASCULAR: None GASTROINTESTINAL: None GENITOURINARY: None MUSCULOSKELETAL: None LYMPHATICS: None HEMATOLOGICAL: None PSYCHIATRY: Depressed NEUROLOGICAL: None Past medical history to include: Hypertension, hyperlipidemia, bipolar disorder, nicotine dependence, left neck laceration Social history: Lives in a residential. Smokes cigarettes. Currently denies use of any recreational drugs.. Physical examination: VITAL SIGNS: 98.6, 72, 16, 136/76, 97% room air GENERAL: Laying in bed, depressed EYES: Pupils equal. Conjunctiva normal. HEENT: External appearance of nose and ears normal, oral cavity grossly normal. NECK: JVD not raised; dressing over the left neck. HEART: First and second heart sounds are normal; no edema. LUNGS: Respiratory rate normal; clear to auscultation. ABDOMEN: Soft, nontender, liver spleen not palpable, no masses palpable. PSYCH: Alert and oriented x3; mood and affect depressedl. NEUROLOGICAL: Cranial nerves grossly intact; no facial asymmetry, power and sensation grossly intact. 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 Negative angiogram of the carotid arteries 2-D echocardiogram-EF 55-60%, no wall motion abnormality Assessment: -Attempted suicide with patient causing laceration left neck. With a razor. No ernie in place per Dr. Tracy -Essential hypertension -Hyperlipidemia -Bipolar disorder with severe depression -Acute kidney injury patient's creatinine was 0.9 on June 28, due to hypovolemia i.e. cardio renal syndrome. Creatinine improved 0.67 -Acute metabolic acidosis from renal failure-corrected -Troponin leak due to hemodynamic mismatch as patient was hypotensive earlier. Doubt acute coronary syndrome -Acute rhabdomyolysis Plan: Care was discussed with the patient. Patient to finish total of 7 days of Keflex. Topical bacitracin dressing to continue. Further instructions as per Dr. Tracy's notes. Thank you Dr. Huynh Past Medical History Past Medical History: Hypertension, Musculoskeletal Disorder Additional Past Medical History / Comment(s): back pain, headaches History of Any Multi-Drug Resistant Organisms: None Reported Past Surgical History: Back Surgery Past Anesthesia/Blood Transfusion Reactions: No Reported Reaction Past Psychological History: Anxiety, Bipolar, Depression Smoking Status: Current every day smoker Past Alcohol Use History: None Reported Past Drug Use History: None Reported - Past Family History Mother Additional Family Medical History / Comment(s): from heart disease Father Additional Family Medical History / Comment(s): from lung disease Medications and Allergies Home Medications Medication Instructions Recorded Confirmed Type Albuterol Sulfate [Ventolin HFA] 2 puff INHALATION RT-Q4H 08/30/19 09/01/19 History Armodafinil 250 mg PO DAILY@0800 08/30/19 09/01/19 History Atorvastatin [Lipitor] 10 mg PO HS@2100 08/30/19 09/01/19 History Citalopram Hydrobromide [CeleXA] 40 mg PO HS@209908/30/19 09/01/19 History Fluticasone Nasal [place] [Flonase 2 spray EA NOSTRIL DAILY@0800 08/30/19 09/01/19 History Nasal [place]ell] Lisinopril [Zestril] 5 mg PO DAILY@0800 08/30/19 09/01/19 History hydrALAZINE HCL [Apresoline] 25 mg PO BID@0800,2100 08/30/19 09/01/19 History risperiDONE [RisperDAL] 2 mg PO HS@209908/30/19 09/01/19 History Bacitracin Oint 1 applic TOPICAL BID applic 09/01/19 09/01/19 Rx Cephalexin [Keflex] 500 mg PO TID cap 09/01/19 09/01/19 Rx Ciprofloxacin Ophth Soln [Ciloxan 1 drops LEFT EYE Q4HR ml 09/01/19 09/01/19 Rx 0.3% Ophth Soln] Allergies Allergy/AdvReac Type Severity Reaction Status Date / Time amphetamine [From Adderall] Allergy Unknown Verified 09/01/19 22:17 dextroamphetamine Allergy Unknown Verified 09/01/19 22:17 [From Adderall] Physical Exam Vitals: Vital Signs Temp Pulse Resp BP Pulse Ox 09/02/19 09:30 97.5 F L 71 20 139/84 97 09/01/19 21:31 98.4 F 63 16 126/76 97
[2019-09-03] MEDS: CIPROFLOXACIN 0.3% OPHTH SOLN 5 ML BTL LEFT EYE SCH ×5 (06:22→20:35)
[2019-09-03] MEDS: ALBUTEROL HFA INHALER INHALATION SCH ×5 (06:22→20:34)
[2019-09-03] MEDS: FLUTICASONE 50MCG/SPRAY NASAL 16GM EA NOSTRIL SCH (08:47)
[2019-09-03] MEDS: lisinopriL 5 MG TAB PO SCH (08:48)
[2019-09-03] MEDS: hydrALAZINE HCL 25 MG TAB PO SCH ×2 (08:48→20:37)
[2019-09-03] MEDS: CEPHALEXIN 500 MG CAP PO SCH ×3 (08:48→20:38)
[2019-09-03] MEDS: BACITRACIN ZINC 500 UNIT/GM OINT 28.4 GM TUBE TOPICAL SCH ×2 (08:49→20:36)
--- NOTE | 2019-09-03 11:34 | P.PN ---
Progress Note - Text Progress Note Date: 09/03/19 Interval history: Patient was seen laying down in his bed this morning and was directable and a greeable to speak with financial underwriter. Patient appears to have poor hygiene and grooming however was appropriate with financial underwriter during conversation. He states that he is feeling tired this morning however has been taking his medications. Patient denied using any substances prior to coming in the hospital. He has poor insight into his condition. He denied any overnight complaints and states that he was able to sleep well. He states he has not been going to groups however we'll try to do so today and tomorrow. At this time patient denies any suicidal or homicidal ideations intent or plan. Denies any Auditory or visual hallucinations. Patient denies any side effects from the medications and has been compliant with meds. Mental status exam: General Appearance: Patient appears to be thin, disheveled appearance, stated age is alert, directable, and cooperative. Behavior: No agitated behavior. Patient is calm and directable Speech: Patient's speech is fluent and nonpressured. Soft-spoken. Mood/Affect: Mood is continuing to be depressed, affect is congruent and constricted. Suicidality/Homicidality: Patient denies having any suicidal or homicidal ideation intent or plan. Perceptions: Patient denies any auditory or visual hallucinations. Though content/process: There is no evidence of any delusional thought content and thought process is linear and goal-directed. [place] and superficial. Memory and concentration: AOX3, grossly intact for the purposes of this session Judgment and insight: improving mildly Assessment/Plan: Continue with current diagnosis. Patient continues to meet criteria for inpatient psychiatric admission for symptom stabilization and safety.Patient will be maintained on current psychotropic medication regimen. Monitor for medication compliance and for any psychotropic medication side effects. Will continue to monitor ongoing response to treatment. Encouraged participation in milieu.
[2019-09-03] MEDS: CITALOPRAM HYDROBROMIDE 20 MG TAB PO SCH (20:36)
[2019-09-03] MEDS: ATORVASTATIN 10 MG TAB PO SCH (20:36)
[2019-09-03] MEDS: risperiDONE 2 MG TAB PO SCH (20:38)
[2019-09-04] MEDS: CIPROFLOXACIN 0.3% OPHTH SOLN 5 ML BTL LEFT EYE SCH ×6 (00:07→21:16)
[2019-09-04] MEDS: ALBUTEROL HFA INHALER INHALATION SCH ×6 (00:07→21:16)
[2019-09-04] MEDS: FLUTICASONE 50MCG/SPRAY NASAL 16GM EA NOSTRIL SCH (08:15)
[2019-09-04] MEDS: CEPHALEXIN 500 MG CAP PO SCH ×3 (08:17→21:17)
[2019-09-04] MEDS: BACITRACIN ZINC 500 UNIT/GM OINT 28.4 GM TUBE TOPICAL SCH ×2 (08:17→21:24)
[2019-09-04] MEDS: hydrALAZINE HCL 25 MG TAB PO SCH ×2 (08:17→21:17)
[2019-09-04] MEDS: lisinopriL 5 MG TAB PO SCH (08:17)
--- NOTE | 2019-09-04 11:04 | P.PN ---
Progress Note - Text Progress Note Date: 09/04/19 Interval history: Patient was seen laying down in his bed this morning and was directable and agreeable to speak with teletypewriter installer. Patient appears to have poor hygiene and grooming however was appropriate with teletypewriter installer during conversation. Patient offered no complaints however near the end of this conversation patient did mention that he would like to be started on another antidepressant if possible. He continues to endorse depression. He claims that that he was able to sleep well. He states he has not been going to groups however we'll try to do so today. At this time patient denies any suicidal or homicidal ideations intent or plan. Denies any Auditory or visual hallucinations. Patient denies any side effects from the medications and has been compliant with meds. Mental status exam: General Appearance: Patient appears to be thin, disheveled appearance, stated age is alert, directable, and cooperative. Behavior: No agitated behavior. Patient is calm and directable Speech: Patient's speech is fluent and nonpressured. Soft-spoken. Mood/Affect: Mood is continuing to be depressed, affect is congruent and constricted. Suicidality/Homicidality: Patient denies having any suicidal or homicidal ideation intent or plan. Perceptions: Patient denies any auditory or visual hallucinations. Though content/process: There is no evidence of any delusional thought content and thought process is linear and goal-directed. [place] and superficial. Memory and concentration: AOX3, grossly intact for the purposes of this session Judgment and insight: improving mildly Assessment/Plan: Continue with current diagnosis. Patient continues to meet criteria for inpatient psychiatric admission for symptom stabilization and safety.Patient will be maintained on current psychotropic medication regimen, with the exception of adding Wellbutrin XL 150 mg daily for mood. Monitor for medication compliance and for any psychotropic medication side effects. Will continue to monitor ongoing response to treatment. Encouraged participation in milieu.
[2019-09-04] MEDS: buPROPion XL 150 MG TAB.ER.24H PO SCH (12:25)
[2019-09-04] MEDS: ACETAMINOPHEN TAB 500 MG TAB PO PRN (16:45)
[2019-09-04] MEDS: ATORVASTATIN 10 MG TAB PO SCH (21:17)
[2019-09-04] MEDS: risperiDONE 2 MG TAB PO SCH (21:17)
[2019-09-04] MEDS: CITALOPRAM HYDROBROMIDE 20 MG TAB PO SCH (21:17)
[2019-09-05] MEDS: ALBUTEROL HFA INHALER INHALATION SCH ×7 (00:20→23:47)
[2019-09-05] MEDS: CIPROFLOXACIN 0.3% OPHTH SOLN 5 ML BTL LEFT EYE SCH ×7 (00:20→23:47)
[2019-09-05] MEDS: FLUTICASONE 50MCG/SPRAY NASAL 16GM EA NOSTRIL SCH (09:13)
[2019-09-05] MEDS: buPROPion XL 150 MG TAB.ER.24H PO SCH (09:15)
[2019-09-05] MEDS: CEPHALEXIN 500 MG CAP PO SCH ×3 (09:15→20:10)
[2019-09-05] MEDS: BACITRACIN ZINC 500 UNIT/GM OINT 28.4 GM TUBE TOPICAL SCH ×2 (09:15→20:32)
[2019-09-05] MEDS: hydrALAZINE HCL 25 MG TAB PO SCH ×2 (09:15→20:10)
[2019-09-05] MEDS: lisinopriL 5 MG TAB PO SCH (09:16)
[2019-09-05] MEDS: ACETAMINOPHEN TAB 500 MG TAB PO PRN ×2 (09:16→15:53)
[2019-09-05] MEDS: DESVENLAFAXINE SUCCINATE 50 MG TAB.ER.24H PO SCH (12:26)
--- NOTE | 2019-09-05 14:03 | P.PN ---
Progress Note - Text Progress Note Date: 09/05/19 Clinical Problems: Suicide attempt, schizoaffective disorder bipolar type currently depressed, narcolepsy, amphetamine use disorder severe, opiate use disorder severe Interim history: I reviewed the medical record, interviewed the patient and discuss his treatment and treatment plan during team meeting. He complained of continued feelings depression, fatigue and anhedonia. His primary complaint was, what he described as overwhelming, fatigue that prevents him from engaging in activities. Over the weekend the covering psychiatrist started Wellbutrin XL 150 mg daily. We reviewed his medication history. He is prescribed multiple antidepressants including Celexa, Prozac, Paxil, Zoloft, Effexor, bupropion, amitriptyline, clomipramine and protriptyline. He alleged that she experienced no relief of his depression with bupropion. He was keenly interested and Strattera and was disappointed that is not formulary. He eventually agreed to trial of Pristiq. He spends most of his time in bed, alcohol for meals. He is posed no management problem and had no episodes of behavioral dyscontrol. Mental status exam: He presented as a disheveled appearing 10 and then male with several days growth of whitfield. He made eye contact and appeared to attend to the interview. He had a bandage over the left side of his neck. He had a depressed facial expression. He was alert and oriented to person, place and time. He had psychomotor retardation but no abnormal movements. His speech was spontaneous with decreased rate, rhythm and volume. His affect was depressed and not reactive. He denied current suicidal ideation and wishes. He expressed feelings of hopelessness and helplessness. He ruminated over fatigue and his need for treatment with psychostimulants particularly Adderall. He did not express ideas reference, paranoid ideation or delusions. His thinking was concrete but his associations were coherent, logical goal directed. He denied hallucinations didn't appear to responding to internal stimuli. Assessment: He remains depressed and withdrawn. He showed minimal response to current treatment and described a poor response to bupropion. Plan: Continue inpatient treatment. Safety precautions. Discontinue Wellbutrin XL, continue Celexa 40 mg and risperidone 2 mg at bedtime. Begin Pristiq ER 50 mg daily. Resume Provigil 200 mg daily. Encourage participation in therapeutic groups and activities. Evaluate clinical status response to treatment daily basis.
[2019-09-05] MEDS: ATORVASTATIN 10 MG TAB PO SCH (20:10)
[2019-09-05] MEDS: risperiDONE 2 MG TAB PO SCH (20:10)
[2019-09-05] MEDS: CITALOPRAM HYDROBROMIDE 20 MG TAB PO SCH (20:10)
[2019-09-06] MEDS: CIPROFLOXACIN 0.3% OPHTH SOLN 5 ML BTL LEFT EYE SCH ×6 (04:12→23:44)
[2019-09-06] MEDS: ALBUTEROL HFA INHALER INHALATION SCH ×6 (04:12→23:44)
[2019-09-06] MEDS: FLUTICASONE 50MCG/SPRAY NASAL 16GM EA NOSTRIL SCH (08:17)
[2019-09-06] MEDS: hydrALAZINE HCL 25 MG TAB PO SCH ×2 (08:18→21:14)
[2019-09-06] MEDS: lisinopriL 5 MG TAB PO SCH (08:18)
[2019-09-06] MEDS: CEPHALEXIN 500 MG CAP PO SCH ×3 (08:19→21:13)
[2019-09-06] MEDS: DESVENLAFAXINE SUCCINATE 50 MG TAB.ER.24H PO SCH (08:19)
[2019-09-06] MEDS: BACITRACIN ZINC 500 UNIT/GM OINT 28.4 GM TUBE TOPICAL SCH ×2 (08:19→21:14)
--- NOTE | 2019-09-06 13:02 | P.PN ---
Progress Note - Text Progress Note Date: 09/06/19 Clinical Problems: Suicide attempt, schizoaffective disorder bipolar type currently depressed, narcolepsy, amphetamine use disorder severe, opiate use disorder severe Interim history: I reviewed the medical record, interviewed the patient and discuss his treatment and treatment plan during team meeting. His primary complait was fatigues. He alleges that he is "so fatigued" that he could not get out of bed or participate in activities. She reported a "slight" improvement in the fatigue with the addition of Pristiq and 200 mg dose of modafinil. He spends most of his time in bed, alcohol for meals. He is posed no management problem and had no episodes of behavioral dyscontrol. Mental status exam: He presented as a disheveled appearing male with several days growth of whitfield. He made eye contact and appeared to attend to the interview. He had a soiled bandage over the left side of his neck. He had a depressed facial expression. He was alert and oriented to person, place and time. He had psychomotor retardation but no abnormal movements. His speech was spontaneous with decreased rate, rhythm and volume. His affect was depressed but slightly reactive. He denied current suicidal ideation and wishes. He expressed feelings of hopelessness and helplessness. He ruminated over fatigue and his need for treatment with psychostimulants particularly Adderall. He did not express ideas reference, paranoid ideation or delusions. His thinking was concrete but his associations were coherent, logical goal directed. He denied hallucinations didn't appear to responding to internal stimuli. Assessment: He remains depressed and withdrawn. He is reporting a modest improvement in fatigue with the addition of Pristiq and modafinil. Plan: Continue inpatient treatment. Safety precautions. Continue Celexa 40 mg and risperidone 2 mg at bedtime, Pristiq ER 50 mg daily and Provigil 200 mg daily. Encourage participation in therapeutic groups and activities. Evaluate clinical status response to treatment daily basis.
[2019-09-06] MEDS: CITALOPRAM HYDROBROMIDE 20 MG TAB PO SCH (21:13)
[2019-09-06] MEDS: ATORVASTATIN 10 MG TAB PO SCH (21:13)
[2019-09-06] MEDS: risperiDONE 2 MG TAB PO SCH (21:13)
[2019-09-07] MEDS: CIPROFLOXACIN 0.3% OPHTH SOLN 5 ML BTL LEFT EYE SCH ×2 (03:57→08:50)
[2019-09-07] MEDS: ALBUTEROL HFA INHALER INHALATION SCH ×2 (03:57→08:49)
[2019-09-07] MEDS: hydrALAZINE HCL 25 MG TAB PO SCH (08:50)
[2019-09-07] MEDS: FLUTICASONE 50MCG/SPRAY NASAL 16GM EA NOSTRIL SCH (08:50)
[2019-09-07] MEDS: CEPHALEXIN 500 MG CAP PO SCH (08:51)
[2019-09-07] MEDS: lisinopriL 5 MG TAB PO SCH (08:51)
[2019-09-07] MEDS: DESVENLAFAXINE SUCCINATE 50 MG TAB.ER.24H PO SCH (08:51)
[2019-09-07] MEDS: BACITRACIN ZINC 500 UNIT/GM OINT 28.4 GM TUBE TOPICAL SCH (08:51)
--- NOTE | 2019-09-07 13:12 | P.PN ---
Progress Note - Text Progress Note Date: 09/07/19 Clinical Problems: Suicide attempt, schizoaffective disorder bipolar type currently depressed, narcolepsy, amphetamine use disorder severe, opiate use disorder severe Interim history: I reviewed the medical record, interviewed the patient and discuss his treatment and treatment plan during team meeting. He continues to complain of feeling fatigued but admits with the current medications he is "a little bit" better. He attended to therapeutic activities yesterday but none this morning. He denied having thoughts of or suicide. He denied suicidal intent or plan. He remains preoccupied with obtaining prescriptions for Adderall. He is posed no management problem and had no episodes of behavioral dyscontrol. Mental status exam: He presented as a disheveled appearing male with several days growth of whitfield. He made eye contact and appeared to attend to the interview. He had a bandage over the left side of his neck. He had a depressed facial expression. He was alert and oriented to person, place and time. He had psychomotor retardation but no abnormal movements. His speech was spontaneous with decreased rate, rhythm and volume. His affect was depressed but slightly reactive. He denied current suicidal ideation and wishes. He expressed feelings of hopelessness and helplessness. He ruminated over fatigue and his need for treatment with psychostimulants particularly Adderall. He did not express ideas reference, paranoid ideation or delusions. His thinking was concrete but his associations were coherent, logical goal directed. He denied hallucinations didn't appear to responding to internal stimuli. Assessment: He remains depressed and withdrawn. He is reporting a modest improvement in fatigue with the addition of Pristiq and modafinil. Plan: Continue inpatient treatment. Safety precautions. Continue Celexa 40 mg and risperidone 2 mg at bedtime, Pristiq ER 50 mg daily and Provigil 200 mg daily. Encourage participation in therapeutic groups and activities. Evaluate clinical status response to treatment daily basis.
[2019-09-07] MEDS ORDERED: ALBUTEROL HFA INHALER INHALATION ONE (16:00)
[2019-09-07] MEDS ORDERED: CITALOPRAM HYDROBROMIDE 20 MG TAB ONE (16:00)
[2019-09-07] MEDS ORDERED: ATORVASTATIN 10 MG TAB ONE (16:00)
[2019-09-07] MEDS ORDERED: risperiDONE 2 MG TAB ONE (16:00)
[2019-09-07] MEDS ORDERED: hydrALAZINE HCL 25 MG TAB ONE (16:00)
[2019-09-07] MEDS ORDERED: CEPHALEXIN 500 MG CAP ONE ×2 (16:00)
[2019-09-08] MEDS: ALBUTEROL HFA INHALER INHALATION SCH ×3 (08:19→20:46)
[2019-09-08] MEDS: CIPROFLOXACIN 0.3% OPHTH SOLN 5 ML BTL LEFT EYE SCH ×2 (08:20→12:54)
[2019-09-08] MEDS: FLUTICASONE 50MCG/SPRAY NASAL 16GM EA NOSTRIL SCH (08:21)
[2019-09-08] MEDS: BACITRACIN ZINC 500 UNIT/GM OINT 28.4 GM TUBE TOPICAL SCH (08:21)
[2019-09-08] MEDS: hydrALAZINE HCL 25 MG TAB PO SCH ×2 (08:21→20:45)
[2019-09-08] MEDS: DESVENLAFAXINE SUCCINATE 50 MG TAB.ER.24H PO SCH (08:22)
[2019-09-08] MEDS: lisinopriL 5 MG TAB PO SCH (08:22)
[2019-09-08] MEDS: VENLAFAXINE HCL ER 37.5 MG CAP PO SCH (12:08)
--- NOTE | 2019-09-08 13:10 | P.PN ---
Progress Note - Text Progress Note Date: 09/08/19 Clinical Problems: Suicide attempt, schizoaffective disorder bipolar type currently depressed, narcolepsy, amphetamine use disorder severe, opiate use disorder severe Interim history: I reviewed the medical record, interviewed the patient and discuss his treatment and treatment plan during team meeting. He again complain of feeling fatigued. He requested a medication change" because he does not believe the Pristiq is ineffective. He asked to be switched from Pristiq to Effexor. He also requested a prescription for Xyrem the medical narcoleptic treatment once prescribed by the sleep specialist. He also asked if I would consider prescribing him Strattera. I explained that neither Xyrem nor Strattera are formulary. He did not ask for Adderall. We discussed treatment options agreed to discontinue Pristiq, begin a trial of Effexor XR and change risperidone to a potentially less sedating Abilify. He attended to therapeutic activities this morning. He denied having thoughts of or suicide. He denied suicidal intent or plan. He is posed no management problem and had no episodes of behavioral dyscontrol. Mental status exam: He presented as a disheveled appearing male with several days growth of whitfield. He made eye contact and appeared to attend to the interview. He had a bandage over the left side of his neck. He had a depressed facial expression. He was alert and oriented to person, place and time. He had psychomotor retardation but no abnormal movements. His speech was spontaneous with decreased rate, rhythm and volume. His affect was depressed and not reactive. He denied current suicidal ideation and wishes. He expressed feelings of hopelessness and helplessness. He ruminated over fatigue and his need for treatment with a stimulating medication as discussed above. He did not express ideas reference, paranoid ideation or delusions. His thinking was concrete but his associations were coherent, logical goal directed. He denied hallucinations didn't appear to responding to internal stimuli. Assessment: He remains depressed and withdrawn. He reportedly now no improvement with combination modafinil and Pristiq. Plan: Continue inpatient treatment. Safety precautions. Continue Celexa 40 mg and Provigil 200 mg daily. Discontinue Pristiq and risperidone. Begin Effexor XR 37.5 mg and titrated according to clinical response and tolerance. Begin Abilify 5 mg daily. Encourage participation in therapeutic groups and a ctivities. Evaluate clinical status response to treatment daily basis.
[2019-09-08] MEDS: CITALOPRAM HYDROBROMIDE 20 MG TAB PO SCH (20:45)
[2019-09-08] MEDS: ATORVASTATIN 10 MG TAB PO SCH (20:45)
[2019-09-08] MEDS ORDERED: ARIPiprazole 5 MG TAB PO SCH (21:00)
[2019-09-09] MEDS ORDERED: VENLAFAXINE HCL ER 37.5 MG CAP PO SCH (09:00)
[2019-09-09] MEDS: ALBUTEROL HFA INHALER INHALATION SCH ×7 (09:10→21:00)
[2019-09-09] MEDS: CIPROFLOXACIN 0.3% OPHTH SOLN 5 ML BTL LEFT EYE SCH ×7 (09:10→21:01)
[2019-09-09] MEDS: CITALOPRAM HYDROBROMIDE 20 MG TAB PO SCH ×2 (09:11→21:06)
[2019-09-09] MEDS: risperiDONE 2 MG TAB PO SCH (09:11)
[2019-09-09] MEDS: ATORVASTATIN 10 MG TAB PO SCH ×2 (09:11→21:06)
[2019-09-09] MEDS: hydrALAZINE HCL 25 MG TAB PO SCH ×3 (09:11→21:05)
[2019-09-09] MEDS: BACITRACIN ZINC 500 UNIT/GM OINT 28.4 GM TUBE TOPICAL SCH ×4 (09:11→21:02)
[2019-09-09] MEDS: FLUTICASONE 50MCG/SPRAY NASAL 16GM EA NOSTRIL SCH (09:51)
[2019-09-09] MEDS: VENLAFAXINE HCL ER 37.5 MG CAP PO SCH (09:54)
[2019-09-09] MEDS: lisinopriL 5 MG TAB PO SCH (09:55)
[2019-09-09] MEDS: NICOTINE POLACRILEX 2 MG GUM BUCCAL PRN ×3 (09:58→21:07)
[2019-09-09 10:47] VITALS: BMI 22.4
--- NOTE | 2019-09-09 13:19 | P.PN ---
Progress Note - Text Progress Note Date: 09/09/19 Clinical Problems: Suicide attempt, schizoaffective disorder bipolar type currently depressed, narcolepsy, amphetamine use disorder severe, opiate use disorder severe Interim history: I reviewed the medical record, interviewed the patient and discuss his treatment and treatment plan during team meeting. He remains medication focused. He approached me this morning and asked to discontinue Effexor and begin Elavil. He alleged that he thinks that he did better when he was taking health. After I explained that I will not make another medication change after discontinuing Pristiq after 3 days and only receiving 1 dose of Effexor, he requested to discontinue Abilify or give him a prescription for Strattera for him to begin after his discharge. I explained that I would not prescribe a medication that we did not administer on the unit. I agreed to lower the dose of the Abilify. He continues to complain of "fatigue" and tiredness. The level of his complaints is not consistent with that observed on the unit very spending less time in his bed. We discussed discharge. He is posed no management problem and had no episodes of behavioral dyscontrol. Mental status exam: He presented as a disheveled appearing male with several days growth of whitfield. He made eye contact and appeared to attend to the interview. The wound on the left side of his was clean with no evidence of infection. He had a depressed facial expression. He was alert and oriented to person, place and time. He had psychomotor retardation but no abnormal movements. His speech was spontaneous with decreased rate, rhythm and volume. His affect was depressed but slightly reactive. He denied current suicidal ideation and wishes. He expressed feelings of hopelessness and helplessness. He ruminated over fatigue and his need for treatment with a stimulating medication as discussed above. He did not express ideas reference, paranoid ideation or delusions. His thinking was concrete but his associations were coherent, logical goal directed. He denied hallucinations didn't appear to responding to internal stimuli. Assessment: The level of his fatigue and tiredness has improved with some admission. He has denied suicidal ideations admission to the unit. Plan: Continue inpatient treatment. Safety precautions. Plan for discharge 09/12/2019. Continue Celexa 40 mg and Provigil 200 mg daily. Increase Effexor XR to 75 mg beginning 09/10/2019 and titrated according to clinical response and tolerance. Decrease Abilify to 2 mg at bedtime. Encourage participation in therapeutic groups and activities. Evaluate clinical status response to treatment daily basis.
[2019-09-09] MEDS: ARIPiprazole 2 MG TAB PO SCH (21:06)
[2019-09-10] MEDS: CIPROFLOXACIN 0.3% OPHTH SOLN 5 ML BTL LEFT EYE SCH ×6 (03:02→22:45)
[2019-09-10] MEDS: ALBUTEROL HFA INHALER INHALATION SCH ×6 (03:02→22:45)
[2019-09-10] MEDS: FLUTICASONE 50MCG/SPRAY NASAL 16GM EA NOSTRIL SCH (09:51)
[2019-09-10] MEDS: BACITRACIN ZINC 500 UNIT/GM OINT 28.4 GM TUBE TOPICAL SCH ×2 (09:51→22:47)
[2019-09-10] MEDS: lisinopriL 5 MG TAB PO SCH (09:52)
[2019-09-10] MEDS: hydrALAZINE HCL 25 MG TAB PO SCH ×2 (09:52→22:47)
[2019-09-10] MEDS: VENLAFAXINE HCL ER 75 MG CAP PO SCH (09:54)
[2019-09-10] MEDS: NICOTINE POLACRILEX 2 MG GUM BUCCAL PRN (13:22)
--- NOTE | 2019-09-10 17:34 | P.PN ---
Progress Note - Text Progress Note Date: 09/10/19 Subjective: Patient was seen today as a cross coverage for Dr. Huynh. The patient was evaluated, chart reviewed, case discussed with the treatment team. Patient reported sleep for long hours and requested to increase Provigil. Appetite was reported as "fair ". Patient has not been going to groups and other unit activities. The patient is compliant with his medications and denies any adverse reactions. Patient reports continued to feel depressed, but denies suicidal or homicidal thoughts. Denies any hallucinations, paranoid ideation, or delusions. Denies any severe mood swings or manic symptoms. Reports continued to feel tired and sleeping for long hours. Patient reports he has been told by his primary psychiatrist at that Celexa would be switching to Effexor. Objective: Vitals has been reviewed. Mental status examination; Appearance: The patient appears stated age, adequately groomed and dressed, no specific features. Gait/posture: Normal gait, Normal arm swinging: No abnormal movements. Attitude and behavior: engaged, cooperative, eye contact. Motor activity: Normal psychomotor activity Speech: Normal rate, tone. Mood: Anxious, depressed Affect: Constricted Thought form: goal-directed, linear, coherent. Thought content: Non-delusional, denies suicidal thoughts, denies homicidal thoughts, denies intentions or plans. Perception: Denies any auditory or visual hallucinations Attention: No impairment. Orientation: Patient patient was fully oriented to time place person and situation. Insight: Patient has fair insight about his psychiatric disorder. Judgment: Patient has fair judgment about his psychiatric treatment. Assessment: Schizoaffective disorder, bipolar type. Narcolepsy. Amphetamine use disorder. Opioid use disorder. Plan: Continue inpatient level of care due to need for further stabilization and monitoring Precautions: Continue 15 minutes check for safety. Consider medical consultation if any acute medical issues arise. Provide the patient individual, group therapy, substance use disorder counseling to give better insight and learn coping skills. Continue follow-up with the patient daily to monitor progress of mood, and psychotic symptoms. Medications: Celexa was continued at 40 mg dose at bedtime as per last progress note. Continue Effexor 75 mg daily for depression and anxiety It will be up to the psychiatrist Dr. Huynh to decide if continued the patient on 2 antidepressant or discontinue one of them. Continue Abilify for mood stabilization. Continue Provigil for narcolepsy, patient could benefit from increasing the dose to help was tiredness and sleepiness. Continue non-psychiatric medications including Lipitor, and hydralazine. Discharge patient to OUTPATIENT services upon a stabilization
[2019-09-10] MEDS: ATORVASTATIN 10 MG TAB PO SCH (22:46)
[2019-09-10] MEDS: ARIPiprazole 2 MG TAB PO SCH (22:46)
[2019-09-10] MEDS: CITALOPRAM HYDROBROMIDE 20 MG TAB PO SCH (22:47)
[2019-09-11] MEDS: CIPROFLOXACIN 0.3% OPHTH SOLN 5 ML BTL LEFT EYE SCH ×6 (01:10→20:54)
[2019-09-11] MEDS: ALBUTEROL HFA INHALER INHALATION SCH ×6 (01:11→20:53)
[2019-09-11] MEDS: FLUTICASONE 50MCG/SPRAY NASAL 16GM EA NOSTRIL SCH (10:06)
[2019-09-11] MEDS: hydrALAZINE HCL 25 MG TAB PO SCH ×2 (10:07→20:55)
[2019-09-11] MEDS: BACITRACIN ZINC 500 UNIT/GM OINT 28.4 GM TUBE TOPICAL SCH ×2 (10:08→20:55)
[2019-09-11] MEDS: lisinopriL 5 MG TAB PO SCH (10:08)
[2019-09-11] MEDS: VENLAFAXINE HCL ER 75 MG CAP PO SCH (10:09)
--- NOTE | 2019-09-11 15:30 | P.PN ---
Progress Note - Text Progress Note Date: 09/11/19 Subjective: Patient was seen today as a cross coverage for Dr. Huynh. The patient was evaluated, chart reviewed, case discussed with the treatment team. Patient continues to report sleeping for long hours and feeling tired for most of the time. He reports not able to attend groups and other activities because of feeling tired and sleepy. He continues to take his psychiatric medications and he denies side effect, but reports his sleepiness because of narcolepsy. Denies feeling depressed, hopeless or suicidal. Denies any severe mood swings, irritability, or homicidal ideation. Denies any manic or psychotic symptoms. The patient continues to take Celexa and Effexor as per her primary psychiatrist. Objective: Mental status examination; Appearance: The patient appears stated age, adequately groomed and dressed, no specific features. Gait/posture: Normal gait, Normal arm swinging: No abnormal movements. Attitude and behavior: engaged, cooperative, eye contact. Motor activity: Normal psychomotor activity Speech: Normal rate, tone. Mood: "Tired" Affect: Constricted Thought form: goal-directed, linear, coherent. Thought content: Non-delusional, denies suicidal thoughts, denies homicidal thoughts, denies intentions or plans. Perception: Denies any auditory or visual hallucinations Attention: No impairment. Orientation: Patient patient was fully oriented to time place person and situation. Insight: Patient has fair insight about his psychiatric disorder. Judgment: Patient has fair judgment about his psychiatric treatment. Assessment: Schizoaffective disorder, bipolar type. Narcolepsy. Amphetamine use disorder. Opioid use disorder. Plan: Continue inpatient level of care due to need for further stabilization and monitoring Precautions: Continue 15 minutes check for safety. Consider medical consultation if any acute medical issues arise. Provide the patient individual, group therapy, substance use disorder counseling to give better insight and learn coping skills. Continue follow-up with the patient daily to monitor progress of mood, and ps ychotic symptoms. Medications: Celexa was continued at 40 mg dose at bedtime as per last progress note. Continue Effexor 75 mg daily for depression and anxiety It will be up to the psychiatrist Dr. Huynh to decide if continued the patient on 2 antidepressant or discontinue one of them. Continue Abilify for mood stabilization. Continue Provigil for narcolepsy, patient could benefit from increasing the dose to help was tiredness and sleepiness. He reports he used to take 400 mg before. Continue non-psychiatric medications including Lipitor, and hydralazine. Discharge patient to OUTPATIENT services upon a stabilization
[2019-09-11] MEDS: NICOTINE POLACRILEX 2 MG GUM BUCCAL PRN (17:04)
[2019-09-11] MEDS: ARIPiprazole 2 MG TAB PO SCH (20:54)
[2019-09-11] MEDS: CITALOPRAM HYDROBROMIDE 20 MG TAB PO SCH (20:55)
[2019-09-11] MEDS: ATORVASTATIN 10 MG TAB PO SCH (20:55)
[2019-09-12] MEDS: ALBUTEROL HFA INHALER INHALATION SCH ×4 (01:15→11:44)
[2019-09-12] MEDS: CIPROFLOXACIN 0.3% OPHTH SOLN 5 ML BTL LEFT EYE SCH ×4 (01:16→11:45)
[2019-09-12 05:31] VITALS: BP 144/65; PULSE 104; RESP 14; TEMP 98.4
[2019-09-12] MEDS: FLUTICASONE 50MCG/SPRAY NASAL 16GM EA NOSTRIL SCH (08:13)
[2019-09-12] MEDS: lisinopriL 5 MG TAB PO SCH (08:14)
[2019-09-12] MEDS: BACITRACIN ZINC 500 UNIT/GM OINT 28.4 GM TUBE TOPICAL SCH (08:14)
[2019-09-12] MEDS: VENLAFAXINE HCL ER 75 MG CAP PO SCH (08:14)
[2019-09-12] MEDS: hydrALAZINE HCL 25 MG TAB PO SCH (08:14)
--- NOTE | 2019-09-12 14:28 | P.DS ---
Providers Date of admission: 09/01/19 21:13 Attending physician: Harshil Huynh MD Consults: 09/01/19 21:19 Consult Physician Routine Consulting Provider: Roberto Hendricks Consult Reason/Comments: H & P and medical care Do you want consulting provider notified?: Yes Primary care physician: Jan Aviles - Discharge Diagnosis(es) (1) Suicide attempt Current Visit: No Status: Acute (2) Laceration of neck Current Visit: No Status: Acute (3) Schizoaffective disorder Current Visit: No Status: Acute Priority: High (4) Amphetamine use disorder, severe, dependence Current Visit: Yes Status: Acute (5) Narcolepsy Current Visit: Yes Status: Acute (6) Opioid use disorder, severe, in early remission Current Visit: Yes Status: Acute Hospital Course: HISTORY: He is a 48-year-old single male transferred from medicine unit for treatment of depression and a suicide attempt. He presented to the ED on 08/31/2019 approximately 5 hours after cutting his neck. He had 10 cm laceration along the left side of his neck. The surgeon cleaned and closed the wound ernie while he was in the ED. He was transferred to medicine service with an elevated troponin (0.167) and WBC (11.5). The medicine discharge summary indicates acute metabolic acidosis, troponin leak due to hemodynamic mismatch as the patient was hypotensive and an acute rh abdomyolysis. He alleged that he cut himself because he was depressed. He was thinking about suicide for "several days" before he cut his neck with a razor blade. He complained that he is depressed because he is chronically fatigued and tired. He is been diagnosed with narcolepsy and his uncle, who is his legal guardian, would not allow the sleep doctor to prescribe him Adderall. He alleged that the narcolepsy did not improve with other treatment including his current dose and armodafinil Ritalin, Concerta, Wellbutrin, Effexor or Strattera. I reviewed the sleep medicine notes from 08/17/2019. He does have a diagnosis of narcolepsy as well as obstructive sleep apnea. The specialist recommended treatment with Adderall 20 mg 3 times a day in addition to modafanil 250mg daily. He alleged that he has unaware of the reason that his uncle would not allow him to have a prescription for Adderall. He denied a history of substance use and substance use problems. He denied that he abused Adderall in the past. I spoke with his uncle, Cali Monk. His uncles been the guardian for about "2 and 1/2 or 3 years" since the of the patient's mother. Cali stated that Navin has a history of substance abuse problems. As he put it Navin would "used anything he can get his hands on." Before his alf placement he lived in his parents home. He would obtain prescriptions for Adderall, consuming half the prescription "in a day or 2" then sell the remainder in order to by other drugs." Cali talked about a history of abusing heroin, cocaine, opiate pain medications and stimulant medications. Cali became guardian because Navin was unable to care for himself. After his parent's deaths, Navin destroyed the home. By the time he was placed at [facility], that the city was in the process of condemning the home that had been worth "$500,000." Cali stated that Navin did well as long she took his psychiatric medications. He believes Navin was his best when she was "receiving injections" (injectable form an antipsychotic). When Navin was at [facility], he stole the howe to the medicine cabinet and took a bottle of Fioricet. He was abusing Fioricet and would not relinquish the medication until the alf called the police. After this incident he threatened his caseworker intake and became agitated at the psychiatrist's office. [facility] transfered him from [facility] to [facility] 6 months ago. Cali spoke with Navin last week and Cali thought that he was doing well. Cali was surprised when he learned that Navin had made the suicide gesture. Cali r eported that Navin has made suicide gestures several times in the past. He has had multiple psychiatric hospitalizations approximately 5 or 6. He is involved with [facility] services. His psychiatric medications prior to admission included Risperdal 2 mg at bedtime, Celexa 40 mg at bedtime and modafinil 250 mg in the morning. HOSPITAL COURSE: We admitted him to the psychiatric unit under the care of this race and sports book writer. Provided a comprehensive biopsychosocial assessment. The fashion consultant sales community service coordinator completed initial physical exam and medical history and diagnosed attempted suicide by laceration to the Center snack, essential hypertension, hyperlipidemia, acute came to the injury, acute metabolic acidosis corrected an acute rhabdomyolysis corrected. We initially continued his outpatient medications including Celexa 40 mg at bedtime and risperidone 2 mg at bedtime. We prescribed modafinil 200 mg since Nuvigil is not formulary. He spent much of the early phase of hospitalization in bed and only coming out for meals. He seldom interacted with staff or peers. During our sessions he perseverated over medications, narcolepsy and need for "uppers". He initially agreed to a trial of Pristiq to augment the Celexa. After 2 days he requested to stop Celexa and start Effexor. After much negotiation consented to his request. Then he came back and requested to go back on Pristiq, later requested to be placed on amitriptyline and that he requested to be placed back, all 3 antidepressants in addition to the Celexa. He complained that his uncle, who is his guardian, would not allow the sleep specialist emphatically treat his narcolepsy. The suicide attempts appeared to occur after his uncle intervened and cancel the prescription for Adderall written by the sleep specialist. His mood gradually improved. He spent more time out of his room and engaging intermittently in therapeutic groups and activities. MENTAL STATUS ON DISCHARGE: Appendectomy presented as a disheveled appearing 48- year-old male with long unkempt hair and thick whitfield. He had a healing wound along the left side of his neck altogether with ernie. He made eye contact and attended to the interview. He had a blunted facial expression. He was alert and oriented to person, place and time. He showed some psychomotor retardation but no abnormal movements. His speech was spontaneous with decreased rate and rhythm. His affect was depressed but reactive. He denied suicidal ideation and wishes. He denied homicidal ideation. He spends feelings of hopelessness regarding his narcolepsy and need for psychostimulants. She did not express ideas reference, paranoid ideation or delusions. His thinking was concrete but his associations are logical and goal directed. As mentioned above, he perseverates about narcolepsy, fatigue and need for psychostimulants. He denied hallucinations and did not appear to be responding to internal stimuli. DISPOSITION: He will return to the [facility] and continue with outpatient services through [facility]. The sleep specialist to manage treatment off the narcolepsy. Discharge medications included Effexor XR 150 mg daily, Celexa 40 mg daily and Abilify 2 mg at bedtime. The only narcolepsy medication is Nuvigil 250 mg daily. Patient Condition at Discharge: Stable Plan - Discharge Summary New Discharge Prescriptions: New ARIPiprazole [Abilify] 2 mg PO HS #30 tab Bacitracin Oint 1 applic TOPICAL BID applic Ciprofloxacin Ophth Soln [Ciloxan 0.3% Ophth Soln] 1 drops LEFT EYE Q4HR ml Venlafaxine HCl ER [Effexor XR] 150 mg PO DAILY #30 cap.er.24h Nicotine Polacrilex [Nicorette] 2 mg BUCCAL Q4HR PRN gum PRN Reason: Nicotine Cravings Continue Albuterol Sulfate [Ventolin HFA] 2 puff INHALATION RT-Q4H Armodafinil 250 mg PO DAILY@0800 Atorvastatin [Lipitor] 10 mg PO HS@2100 Citalopram Hydrobromide [CeleXA] 40 mg PO HS@2100 Fluticasone Nasal [place] [Flonase Nasal [place]] 2 spray EA NOSTRIL DAILY@0800 hydrALAZINE HCL [Apresoline] 25 mg PO BID@0800,2100 Lisinopril [Zestril] 5 mg PO DAILY@0800 Discontinued risperiDONE [RisperDAL] 2 mg PO HS@2100 Ciprofloxacin Ophth Soln [Ciloxan 0.3% Ophth Soln] 1 drops LEFT EYE Q4HR ml Cephalexin [Keflex] 500 mg PO TID cap Bacitracin Oint 1 applic TOPICAL BID applic Discharge Medication List Albuterol Sulfate [Ventolin HFA] 2 puff INHALATION RT-Q4H 08/30/19 [History] Armodafinil 250 mg PO DAILY@0800 08/30/19 [History] Atorvastatin [Lipitor] 10 mg PO HS@209908/30/19 [History] Citalopram Hydrobromide [CeleXA] 40 mg PO HS@209908/30/19 [History] Fluticasone Nasal [place] [Flonase Nasal [place]] 2 spray EA NOSTRIL DAILY@0800 08/30/19 [History] Lisinopril [Zestril] 5 mg PO DAILY@0800 08/30/19 [History] hydrALAZINE HCL [Apresoline] 25 mg PO BID@0800,2100 08/30/19 [History] ARIPiprazole [Abilify] 2 mg PO HS #30 tab 09/12/19 [Rx] Bacitracin Oint 1 applic TOPICAL BID applic 09/12/19 [Rx] Ciprofloxacin Ophth Soln [Ciloxan 0.3% Ophth Soln] 1 drops LEFT EYE Q4HR ml 09/12/19 [Rx] Nicotine Polacrilex [Nicorette] 2 mg BUCCAL Q4HR PRN gum 09/12/19 [Rx] Venlafaxine HCl ER [Effexor XR] 150 mg PO DAILY #30 cap.er.24h 09/12/19 [Rx] Follow up Appointment(s)/Referral(s): [facility] [Outside] - 09/12/19 (Appt with Armando Kelley on Thursday09-12-19 at the alf. 09-15-19 @ 11:00 with JUNE Beltran at [facility] face to face.) [facility] [NON-STAFF] - 1 Week Patient Instructions/Handouts: How to Stop Smoking (DC), Depression (DC) Activity/Diet/Wound Care/Special Instructions: Activity and diet as tolerated. Avoid the use of street drugs and alcohol. Take all medications as prescribed. When you are in need of refills on your medications please contact your medical provider and/or outpatient psychiatrist to have this done. Please go to scheduled outpatient appointment for aftercare treatment. If symptoms return or become worse, call the crisis line at and/or go to the nearest emergency room for evaluation Discharge Disposition: HOME SELF-CARE
[2019-09-13] MEDS ORDERED: VENLAFAXINE HCL ER 150 MG CAP PO SCH (09:00)
== END 2019-09-12 15:24 | disposition home or self-care (01) | DRG 885 ==
LOC: 3MHU 21:13
PROVIDERS: ADMIT Psychiatry & Neurology Psychiatry; ATTEND Psychiatry & Neurology Psychiatry
DX: F25.0 Schizoaffective disorder, bipolar type (principal); F15.20 Other stimulant dependence, uncomplicated; M62.82 Rhabdomyolysis; E87.2 Acidosis; F11.21 Opioid dependence, in remission; F17.210 Nicotine dependence, cigarettes, uncomplicated; E78.5 Hyperlipidemia, unspecified; E86.1 Hypovolemia; G47.33 Obstructive sleep apnea (adult) (pediatric); G47.419 Narcolepsy without cataplexy; I10 Essential (primary) hypertension; N19 Unspecified kidney failure; S11.91XD Laceration without foreign body of unspecified part of neck, subsequent encounter; X78.1XXD Intentional self-harm by knife, subsequent encounter; Z79.899 Other long term (current) drug therapy; R79.89 Other specified abnormal findings of blood chemistry; Z88.8 Allergy status to other drugs, medicaments and biological substances

== ENCOUNTER 2019-09-19 13:15 | Emergency (ER) | payer MEDICARE, OTHER ==
[2019-09-19 13:22] VITALS: BP 135/72; PULSE 105; RESP 18; TEMP 98.9
[2019-09-19 14:12] LABS: Basophils % (A) 0 %; Eosinophils # (A) 0.2 k/uL (0-0.7); Eosinophils % (A) 2 %; HCT 39.2 % (39.0-53.0); HGB 12.8 gm/dL (13.0-17.5); Lymphocytes # (A) 1.2 k/uL (1.0-4.8); Lymphocytes % (A) 14 %; MCH 30.1 pg (25.0-35.0); MCHC 32.6 g/dL (31.0-37.0); MCV 92.5 fL (80.0-100.0); Mean Platelet Volume 6.6; Monocytes # (A) 0.4 k/uL (0-1.0); Monocytes % (A) 5 %; Neutrophils # (A) 6.7 k/uL (1.3-7.7); Neutrophils % (A) 77 %; Platelet Count 168 k/uL (150-450); RBC 4.23 m/uL (4.30-5.90); RDW 13.4 % (11.5-15.5); WBC 8.6 k/uL (3.8-10.6)
[2019-09-19 14:15] LABS: Cocaine Screen,Urine Not Detected (NotDetected); Opiate Screen,Urine Not Detected (NotDetected); Phencyclidine Screen,Urine Not Detected (NotDetected); Urn Cannabinoid Scrn Not Detected (NotDetected)
[2019-09-19 14:16] LABS: Amphetamine Screen,Urine Not Detected (NotDetected); Barbiturate Screen,Urine Not Detected (NotDetected); Benzodiazepines Screen,Urine Not Detected (NotDetected); Methadone Screen, Urine Not Detected (NotDetected); Oxycodone Screen, Urine Not Detected (NotDetected); Tricyclic Antidepressant,Urine Not Detected (NotDetected)
[2019-09-19 14:22] LABS: ALT 25 U/L (4-49); AST 26 U/L (17-59); African American GFR (CKD) >90 (>60 ml/min/1.73 sqM); Albumin 3.7 g/dL (3.5-5.0); Alkaline Phosphatase 73 U/L (38-126); Anion Gap 5 mmol/L; Blood Urea Nitrogen 16 mg/dL (9-20); Calcium 8.7 mg/dL (8.4-10.2); Carbon Dioxide 23 mmol/L (22-30); Chloride 107 mmol/L (98-107); Glucose 138 mg/dL (74-99); Non-African American GFR(CKD) >90 (>60 ml/min/1.73 sqM); Sodium 135 mmol/L (137-145); Total Bilirubin 0.6 mg/dL (0.2-1.3); Total Protein 6.2 g/dL (6.3-8.2)
--- NOTE | 2019-09-19 16:04 | ED ---
Psych HPI - General Chief Complaint: Psychiatric Symptoms Stated Complaint: Altered Mental Status Time Seen by Provider: 09/19/19 13:15 Source: patient, EMS, RN notes reviewed Mode of arrival: EMS - History of Present Illness Initial Comments: This is a 48-year-old male history depression and recent attempt to harm himself by cutting his left side neck about 2 weeks ago who is here for evaluation from this facility for altered mental status no falls no fevers chills nausea vo miting sweats no drug or alcohol exposure per paramedics he does appear to be awake and alert no evidence of any focal deficits. MD Complaint: other - Related Data Home Medications Medication Instructions Recorded Confirmed Albuterol Sulfate [Ventolin HFA] 2 puff INHALATION RT-Q4H 08/30/19 09/19/19 Atorvastatin [Lipitor] 10 mg PO HS@209908/30/19 09/19/19 Citalopram Hydrobromide [CeleXA] 40 mg PO HS@209908/30/19 09/19/19 Fluticasone Nasal [place] [Flonase 2 spray EA NOSTRIL DAILY@79908/30/19 09/19/19 Nasal [place]] Lisinopril [Zestril] 5 mg PO DAILY@79908/30/19 09/19/19 hydrALAZINE HCL [Apresoline] 25 mg PO BID@08,209908/30/19 09/19/19 ARIPiprazole [Abilify] 2 mg PO HS@209909/19/19 09/19/19 Armodafinil [Nuvigil] 150 mg PO DAILY@79909/19/19 09/19/19 Bacitracin Oint 1 applic TOPICAL BID@799,2099 PRN 09/19/19 09/19/19 Paliperidone [Invega] 3 mg PO HS@209909/19/19 09/19/19 Venlafaxine HCl ER [Effexor XR] 150 mg PO DAILY@79909/19/19 09/19/19 amLODIPine [Norvasc] 5 mg PO BID@0800,2100 09/19/19 09/19/19 Previous Rx's Medication Instructions Recorded Ciprofloxacin Ophth Soln [Ciloxan 1 drops LEFT EYE Q4HR ml 09/12/19 0.3% Ophth Soln] Allergies Allergy/AdvReac Type Severity Reaction Status Date / Time amphetamine [From Adderall] Allergy Unknown Verified 09/19/19 14:27 dextroamphetamine Allergy Unknown Verified 09/19/19 14:27 [From Adderall] Review of Systems ROS Statement: Those systems with pertinent positive or pertinent negative responses have been documented in the HPI. ROS Other: All systems not noted in ROS Statement are negative. Past Medical History Past Medical History: Hypertension, Musculoskeletal Disorder Additional Past Medical History / Comment(s): back pain, headaches History of Any Multi-Drug Resistant Organisms: None Reported Past Surgical History: Back Surgery Past Anesthesia/Blood Transfusion Reactions: No Reported Reaction Past Psychological History: Anxiety, Bipolar, Depression Smoking Status: Current every day smoker Past Alcohol Use History: None Reported Past Drug Use History: None Reported - Past Family History Mother Additional Family Medical History / Comment(s): from heart disease Father Additional Family Medical History / Comment(s): from lung disease General Exam - General Exam Comments Initial Comments: This a well-developed well-nourished awake alert male Limitations: altered mental status General appearance: alert Head exam: Present: atraumatic, normocephalic, normal inspection Eye exam: Present: normal appearance, PERRL, EOMI. Absent: scleral icterus, conjunctival injection, periorbital swelling ENT exam: Present: normal exam, mucous membranes moist Neck exam: Present: full ROM, other (Left neck wound in the process of healing no evidence of any dehiscence drainage or erythema.). Absent: tenderness, meningismus, lymphadenopathy Respiratory exam: Present: normal lung sounds bilaterally. Absent: respiratory distress, wheezes, rales, rhonchi, stridor Cardiovascular Exam: Present: regular rate, normal rhythm, normal heart sounds. Absent: systolic murmur, diastolic murmur, rubs, gallop, clicks GI/Abdominal exam: Present: soft, normal bowel sounds. Absent: distended, tenderness, guarding, rebound, rigid Extremities exam: Present: normal inspection, full ROM, normal capillary refill. Absent: tenderness, pedal edema, joint swelling, calf tenderness Back exam: Present: normal inspection Neurological exam: Present: alert, oriented X3, CN II-XII intact Psychiatric exam: Present: normal mood, flat affect Skin exam: Present: warm, dry, intact, normal color. Absent: rash Course Vital Signs 09/19/19 13:17 Temperature 98.9 F Pulse Rate 105 H Respiratory 18 Rate Blood Pressure 135/72 O2 Sat by Pulse 98 Oximetry Medical Decision Making - Medical Decision Making Patient is resting comfortably in the emergency department this afternoon. He was evaluated by the EPS service and is not a risk to himself or anyone else he will be discharged. - Lab Data Result diagrams: 09/19/19 14:04 09/19/19 14:04 Lab Results 09/19/19 09/19/19 09/19/19 Range/Units 13:51 14:04 14:04 WBC 8.6 (3.8-10.6) k/uL RBC 4.23 L (4.30-5.90) m/uL Hgb 12.8 L (13.0-17.5) gm/dL Hct 39.2 (39.0-53.0) % MCV 92.5 (80.0-100.0) fL MCH 30.1 (25.0-35.0) pg MCHC 32.6 (31.0-37.0) g/dL RDW 13.4 (11.5-15.5) % Plt Count 168 (150-450) k/uL Neutrophils % 77 % Lymphocytes % 14 % Monocytes % 5 % Eosinophils % 2 % Basophils % 0 % Neutrophils # 6.7 (1.3-7.7) k/uL Lymphocytes # 1.2 (1.0-4.8) k/uL Monocytes # 0.4 (0-1.0) k/uL Eosinophils # 0.2 (0-0.7) k/uL Basophils # 0.0 (0-0.2) k/uL Sodium 135 L (137-145) mmol/L Potassium 4.0 (3.5-5.1) mmol/L Chloride 107 (98-107) mmol/L Carbon Dioxide 23 (22-30) mmol/L Anion Gap 5 mmol/L BUN 16 (9-20) mg/dL Creatinine 0.73 (0.66-1.25) mg/dL Est GFR (CKD-EPI)AfAm >90 (>60 ml/min/1.73 sqM) Est GFR (CKD-EPI)NonAf >90 (>60 ml/min/1.73 sqM) Glucose 138 H (74-99) mg/dL Calcium 8.7 (8.4-10.2) mg/dL Magnesium 2.0 (1.6-2.3) mg/dL Total Bilirubin 0.6 (0.2-1.3) mg/dL AST 26 (17-59) U/L ALT 25 (4-49) U/L Alkaline Phosphatase 73 (38-126) U/L Total Protein 6.2 L (6.3-8.2) g/dL Albumin 3.7 (3.5-5.0) g/dL Urine Opiates Screen Not Detected (NotDetected) Ur Oxycodone Screen Not Detected (NotDetected) Urine Methadone Screen Not Detected (NotDetected) Ur Propoxyphene Screen Not Detected (NotDetected) Ur Barbiturates Screen Not Detected (NotDetected) U Tricyclic Antidepress Not Detected (NotDetected) Ur Phencyclidine Scrn Not Detected (NotDetected) Ur Amphetamines Screen Not Detected (NotDetected) U Methamphetamines Scrn Not Detected (NotDetected) U Benzodiazepines Scrn Not Detected (NotDetected) Urine Cocaine Screen Not Detected (NotDetected) U Marijuana (THC) Screen Not Detected (NotDetected) Disposition Clinical Impression: Bipolar 1 disorder Disposition: HOME SELF-CARE Condition: Good Instructions (If sedation given, give patient instructions): Bipolar Disorder (ED) Is patient prescribed a controlled substance at d/c from ED?: No Referrals: Jan Aviles MD [Primary Care Provider] - 1-2 days
== END 2019-09-19 18:23 | disposition home or self-care (01) ==
LOC: EC 13:15
DX: F31.9 Bipolar disorder, unspecified (principal); F17.200 Nicotine dependence, unspecified, uncomplicated; R41.82 Altered mental status, unspecified; I10 Essential (primary) hypertension; F41.9 Anxiety disorder, unspecified; Z79.899 Other long term (current) drug therapy; Z88.8 Allergy status to other drugs, medicaments and biological substances; Z91.5 Personal history of self-harm
CPT/HCPCS: 36415; 80053; 80306; 82075; 83735; 85025; 99285

== ENCOUNTER 2019-09-22 23:01 | Emergency (ER) | payer MEDICARE, OTHER ==
[2019-09-22 23:09] VITALS: RESP 18
--- NOTE | 2019-09-22 23:50 | ED ---
Psych HPI - General Chief Complaint: Psychiatric Symptoms Stated Complaint: Mental Health Time Seen by Provider: 09/22/19 23:22 Source: patient Mode of arrival: ambulatory - History of Present Illness Initial Comments: This patient is a 48-year-old man brought here by the police department. The patient reportedly had walked away from the [facility] where he reportedly has a monitoring in agreement. The patient may have been following someone around. When the wall enforcement approached him he made statements that included that "there is a planet inside me that is raping another planet." When I interview the patient, he is denying homicidal and suicidal ideation. He did request a yari rony and something vegetarian to eat. Complaint: other -: hour(s) Associated Psychiatric Symptoms: delusions Improves With: none Worsens With: none Associated Symptoms: denies other symptoms - Related Data Home Medications Medication Instructions Recorded Confirmed Albuterol Sulfate [Ventolin HFA] 2 puff INHALATION RT-Q4H 08/30/19 09/19/19 Atorvastatin [Lipitor] 10 mg PO HS@209908/30/19 09/19/19 Citalopram Hydrobromide [CeleXA] 40 mg PO HS@209908/30/19 09/19/19 Fluticasone Nasal [place] [Flonase 2 spray EA NOSTRIL DAILY@79908/30/19 09/19/19 Nasal [place]] hydrALAZINE HCL [Apresoline] 25 mg PO BID@08,209908/30/19 09/19/19 lisinopriL [Zestril] 5 mg PO DAILY@79908/30/19 09/19/19 ARIPiprazole [Abilify] 2 mg PO HS@209909/19/19 09/19/19 Bacitracin Zinc Oint 1 applic TOPICAL BID@799,2099 PRN 09/19/19 09/19/19 Paliperidone [Invega] 3 mg PO HS@209909/19/19 09/19/19 Venlafaxine HCl ER [Effexor XR] 150 mg PO DAILY@79909/19/19 09/19/19 amLODIPine [Norvasc] 5 mg PO BID@0800,209909/19/19 09/19/19 armodafiniL [Nuvigil] 150 mg PO DAILY@0800 09/19/19 09/19/19 Previous Rx's Medication Instructions Recorded Ciprofloxacin Ophth Soln [Ciloxan 1 drops LEFT EYE Q4HR ml 09/12/19 0.3% Ophth Soln] Allergies Allergy/AdvReac Type Severity Reaction Status Date / Time amphetamine [From Adderall] Allergy Unknown Verified 09/22/19 23:09 dextroamphetamine Allergy Unknown Verified 09/22/19 23:09 [From Adderall] Review of Systems ROS Statement: Those systems with pertinent positive or pertinent negative responses have been documented in the HPI. ROS Other: All systems not noted in ROS Statement are negative. Constitutional: Denies: fever Eyes: Denies: vision change Respiratory: Denies: cough, dyspnea Cardiovascular: Denies: chest pain, syncope Gastrointestinal: Denies: abdominal pain, vomiting, diarrhea Musculoskeletal: Denies: back pain Neurological: Denies: headache Psychiatric: Denies: homicidal thoughts, suicidal thoughts Past Medical History Past Medical History: Hypertension, Musculoskeletal Disorder Additional Past Medical History / Comment(s): back pain, headaches History of Any Multi-Drug Resistant Organisms: None Reported Past Surgical History: Back Surgery Past Anesthesia/Blood Transfusion Reactions: No Reported Reaction Past Psychological History: Anxiety, Bipolar, Depression Smoking Status: Current every day smoker Past Alcohol Use History: None Reported Past Drug Use History: None Reported - Past Family History Mother Additional Family Medical History / Comment(s): from heart disease Father Additional Family Medical History / Comment(s): from lung disease General Exam Limitations: no limitations General appearance: alert, in no apparent distress Head exam: Present: atraumatic, normocephalic Eye exam: Present: normal appearance. Absent: scleral icterus, conjunctival injection Respiratory exam: Present: normal lung sounds bilaterally. Absent: respiratory distress, wheezes, rales, rhonchi, stridor Cardiovascular Exam: Present: regular rate, normal rhythm, normal heart sounds. Absent: systolic murmur, diastolic murmur, rubs, gallop GI/Abdominal exam: Present: soft. Absent: distended, tenderness, guarding, rebound, rigid, mass Extremities exam: Present: normal inspection, normal capillary refill. Absent: pedal edema, calf tenderness Back exam: Present: normal inspection. Absent: CVA tenderness (R), CVA tenderness (L) Neurological exam: Present: alert Psychiatric exam: Absent: agitated, anxious, flat affect, homicidal ideation, suicidal ideation Skin exam: Present: warm, dry, intact, normal color. Absent: rash Course Vital Signs 09/22/19 23:04 Temperature 98.4 F Pulse Rate 100 Respiratory 18 Rate Blood Pressure 134/72 O2 Sat by Pulse 98 Oximetry Disposition Clinical Impression: Schizoaffective disorder Disposition: HOME SELF-CARE Condition: Fair Instructions (If sedation given, give patient instructions): Schizoaffective Disorder (ED) Is patient prescribed a controlled substance at d/c from ED?: No Referrals: aJn Aviles MD [Primary Care Provider] - 1-2 days
[2019-09-23 03:42] VITALS: BP 140/90; PULSE 78; TEMP 97.9
== END 2019-09-23 03:46 | disposition home or self-care (01) ==
LOC: EC 23:01
DX: F25.9 Schizoaffective disorder, unspecified (principal); I10 Essential (primary) hypertension; F41.9 Anxiety disorder, unspecified; F31.9 Bipolar disorder, unspecified; F17.200 Nicotine dependence, unspecified, uncomplicated; Z79.51 Long term (current) use of inhaled steroids; Z79.899 Other long term (current) drug therapy; Z88.8 Allergy status to other drugs, medicaments and biological substances
CPT/HCPCS: 82075; 99285

== ENCOUNTER 2019-09-23 12:00 | Inpatient (IN) | payer MEDICARE, MEDICAID ==
[2019-09-23 13:04] LABS: Basophils # (A) 0.1 k/uL (0-0.2); Basophils % (A) 1 %; Eosinophils # (A) 0.2 k/uL (0-0.7); Eosinophils % (A) 2 %; HCT 43.7 % (39.0-53.0); HGB 14.3 gm/dL (13.0-17.5); Lymphocytes # (A) 1.9 k/uL (1.0-4.8); Lymphocytes % (A) 21 %; MCHC 32.8 g/dL (31.0-37.0); MCV 91.6 fL (80.0-100.0); Mean Platelet Volume 6.7; Monocytes # (A) 0.4 k/uL (0-1.0); Monocytes % (A) 4 %; Neutrophils # (A) 6.4 k/uL (1.3-7.7); Neutrophils % (A) 71 %; Platelet Count 272 k/uL (150-450); RBC 4.77 m/uL (4.30-5.90); RDW 13.1 % (11.5-15.5); WBC 9.1 k/uL (3.8-10.6)
[2019-09-23 13:12] LABS: Acetaminophen <10.0 ug/mL; African American GFR (CKD) >90 (>60 ml/min/1.73 sqM); Anion Gap 9 mmol/L; Blood Urea Nitrogen 13 mg/dL (9-20); Calcium 9.5 mg/dL (8.4-10.2); Carbon Dioxide 23 mmol/L (22-30); Chloride 107 mmol/L (98-107); Glucose 118 mg/dL (74-99); Non-African American GFR(CKD) >90 (>60 ml/min/1.73 sqM); Potassium 3.7 mmol/L (3.5-5.1); Salicylate <1.0 mg/dL; Sodium 139 mmol/L (137-145)
--- NOTE | 2019-09-23 14:09 | ED ---
Psych HPI <Robles Mix - Last Filed: 09/23/19 16:28> - General Source: patient Mode of arrival: ambulatory <Gaby Bradley - Last Filed: 09/24/19 23:46> - General Chief Complaint: Psychiatric Symptoms Stated Complaint: EPS eval Time Seen by Provider: 09/23/19 12:15 - History of Present Illness Initial Comments: Patient is a 48-year-old male with past medical history of hypertension, schizophrenia who presents to the emergency department from Dr. Uribe's office. Dr. Ruelas reports that the patient was brought into his office by his galvanizer who was concerned for his mental health. He states the patient's been very depressed lately and has been acting odd. The patient is preoccupied with thoughts that aliens are invading his body. Because of this the patient has been performing odd tasks such as eating toilet paper. He has been seen in the emergency department twice this past week and was evaluated by EPS. They discharged him home both times. Primary care physician is concerned stating that this is not the patient's normal baseline and is concerned for his health. Patient did have a suicide attempt several weeks ago which he cut his throat. Upon ambulation the patient he continues to report date that aliens are invading his body. He does admit to depression. Remainder of HPI is limited (Gaby Bradley) - Related Data Home Medications Medication Instructions Recorded Confirmed Albuterol Sulfate [Ventolin HFA] 2 puff INHALATION RT-Q4H 08/30/19 09/23/19 Atorvastatin [Lipitor] 10 mg PO HS@209908/30/19 09/23/19 Citalopram Hydrobromide [CeleXA] 40 mg PO HS@209908/30/19 09/23/19 Fluticasone Nasal [place] [Flonase 2 spray EA NOSTRIL DAILY@79908/30/19 09/23/19 Nasal [place]] hydrALAZINE HCL [Apresoline] 25 mg PO BID@799,209908/30/19 09/23/19 lisinopriL [Zestril] 5 mg PO DAILY@79908/30/19 09/23/19 Bacitracin Zinc Oint 1 applic TOPICAL BID@799,2099 PRN 09/19/19 09/23/19 Paliperidone [Invega] 3 mg PO HS@2100 09/19/19 09/23/19 Venlafaxine HCl ER [Effexor XR] 150 mg PO DAILY@0800 09/19/19 09/23/19 amLODIPine [Norvasc] 5 mg PO BID@0800,2100 09/19/19 09/23/19 armodafiniL [Nuvigil] 150 mg PO DAILY@0800 09/19/19 09/23/19 Allergies Allergy/AdvReac Type Severity Reaction Status Date / Time amphetamine [From Adderall] Allergy Unknown Verified 09/23/19 13:42 dextroamphetamine Allergy Unknown Verified 09/23/19 13:42 [From Adderall] Review of Systems ROS Other: All systems not noted in ROS Statement are negative. <Robles Mix - Last Filed: 09/23/19 16:28> ROS Other: All systems not noted in ROS Statement are negative. <Gaby Bradley - Last Filed: 09/24/19 23:46> ROS Statement: Those systems with pertinent positive or pertinent negative responses have been documented in the HPI. Past Medical History Past Medical History: Hypertension, Musculoskeletal Disorder Additional Past Medical History / Comment(s): back pain, headaches History of Any Multi-Drug Resistant Organisms: None Reported Past Surgical History: Back Surgery Past Anesthesia/Blood Transfusion Reactions: No Reported Reaction Past Psychological History: Anxiety, Bipolar, Depression Smoking Status: Current every day smoker Past Alcohol Use History: None Reported Past Drug Use History: None Reported - Past Family History Mother Additional Family Medical History / Comment(s): from heart disease Father Additional Family Medical History / Comment(s): from lung disease <Gaby Bradley - Last Filed: 09/24/19 23:46> General Exam Limitations: no limitations, altered mental status General appearance: alert, anxious Head exam: Present: atraumatic, normocephalic, normal inspection Eye exam: Present: normal appearance, PERRL, EOMI. Absent: scleral icterus, conjunctival injection, periorbital swelling ENT exam: Present: normal exam, mucous membranes moist Respiratory exam: Present: normal lung sounds bilaterally. Absent: respiratory distress, wheezes, rales, rhonchi, stridor Cardiovascular Exam: Present: regular rate, normal rhythm, normal heart sounds. Absent: systolic murmur, diastolic murmur, rubs, gallop, clicks Psychiatric exam: Present: manic, suicidal ideation, other (repetitive speech regarding aliens in his body. ) <Gaby Bradley - Last Filed: 09/24/19 23:46> Course Vital Signs 09/23/19 12:13 Temperature 98.7 F Pulse Rate 94 Respiratory 18 Rate Blood Pressure 128/85 O2 Sat by Pulse 98 Oximetry Medical Decision Making - Lab Data Result diagrams: 09/23/19 12:45 09/23/19 12:45 <Robles Mix - Last Filed: 09/23/19 16:28> - Lab Data Result diagrams: 09/24/19 04:45 09/24/19 04:45 <Gaby Bradley - Last Filed: 09/24/19 23:46> - Medical Decision Making Patient has been evaluated by EPS, they do recommend admission for concern for suicidal ideation. I did complete a clinical certification on this patient. He will be admitted to this institution. (Robles Mix) Upon arrival patient placed into room 11. A thorough history and physical exam was performed. Patient did have laboratory abnormalities when he presented after suicide attempt therefore I did complete lab studies which are unremarkable. I will have EPS evaluate the patient again. I did notify them of the concern from the primary care physician which they acknowledged. Patient is currently awaiting evaluation (Gaby Bradley) - Lab Data Lab Results 09/23/19 09/23/19 09/23/19 Range/Units 12:45 12:45 12:45 WBC 9.1 (3.8-10.6) k/uL RBC 4.77 (4.30-5.90) m/uL Hgb 14.3 (13.0-17.5) gm/dL Hct 43.7 (39.0-53.0) % MCV 91.6 (80.0-100.0) fL MCH 30.0 (25.0-35.0) pg MCHC 32.8 (31.0-37.0) g/dL RDW 13.1 (11.5-15.5) % Plt Count 272 (150-450) k/uL Neutrophils % 71 % Lymphocytes % 21 % Monocytes % 4 % Eosinophils % 2 % Basophils % 1 % Neutrophils # 6.4 (1.3-7.7) k/uL Lymphocytes # 1.9 (1.0-4.8) k/uL Monocytes # 0.4 (0-1.0) k/uL Eosinophils # 0.2 (0-0.7) k/uL Basophils # 0.1 (0-0.2) k/uL Sodium 139 (137-145) mmol/L Potassium 3.7 (3.5-5.1) mmol/L Chloride 107 (98-107) mmol/L Carbon Dioxide 23 (22-30) mmol/L Anion Gap 9 mmol/L BUN 13 (9-20) mg/dL Creatinine 0.75 (0.66-1.25) mg/dL Est GFR (CKD-EPI)AfAm >90 (>60 ml/min/1.73 sqM) Est GFR (CKD-EPI)NonAf >90 (>60 ml/min/1.73 sqM) Glucose 118 H (74-99) mg/dL Estimated Ave Glu mg/dL 108 Hemoglobin A1c 5.4 (4.0-6.0) % Calcium 9.5 (8.4-10.2) mg/dL Triglycerides (<150) mg/dL Cholesterol (<200) mg/dL LDL Cholesterol, Calc (0-99) mg/dL HDL Cholesterol (40-60) mg/dL TSH (0.465-4.680) mIU/L Salicylates <1.0 mg/dL Acetaminophen <10.0 ug/mL 09/23/19 Range/Units 12:45 WBC (3.8-10.6) k/uL RBC (4.30-5.90) m/uL Hgb (13.0-17.5) gm/dL Hct (39.0-53.0) % MCV (80.0-100.0) fL MCH (25.0-35.0) pg MCHC (31.0-37.0) g/dL RDW (11.5-15.5) % Plt Count (150-450) k/uL Neutrophils % % Lymphocytes % % Monocytes % % Eosinophils % % Basophils % % Neutrophils # (1.3-7.7) k/uL Lymphocytes # (1.0-4.8) k/uL Monocytes # (0-1.0) k/uL Eosinophils # (0-0.7) k/uL Basophils # (0-0.2) k/uL Sodium (137-145) mmol/L Potassium (3.5-5.1) mmol/L Chloride (98-107) mmol/L Carbon Dioxide (22-30) mmol/L Anion Gap mmol/L BUN (9-20) mg/dL Creatinine (0.66-1.25) mg/dL Est GFR (CKD-EPI)AfAm (>60 ml/min/1.73 sqM) Est GFR (CKD-EPI)NonAf (>60 ml/min/1.73 sqM) Glucose (74-99) mg/dL Estimated Ave Glu mg/dL Hemoglobin A1c (4.0-6.0) % Calcium (8.4-10.2) mg/dL Triglycerides 47 (<150) mg/dL Cholesterol 122 (<200) mg/dL LDL Cholesterol, Calc 47 (0-99) mg/dL HDL Cholesterol 66 H (40-60) mg/dL TSH 0.766 (0.465-4.680) mIU/L Salicylates mg/dL Acetaminophen ug/mL Disposition Is patient prescribed a controlled substance at d/c from ED?: No Decision to Admit Reason: Admit from EC Decision Date: 09/23/19 Decision Time: 16:28 <Robles Mix - Last Filed: 09/23/19 16:28> <Gaby Bradley - Last Filed: 09/24/19 23:46> Clinical Impression: Bipolar disorder, Schizoaffective disorder, Suicidal ideation Disposition: ADMITTED IP TO THIS HOSP Condition: Stable
[2019-09-23] MEDS ORDERED: ACETAMINOPHEN TAB 325 MG TAB PO PRN (16:53)
[2019-09-23] MEDS ORDERED: MAGNESIUM HYDROXIDE 2,400 MG/10 ML CUP PO PRN (16:53)
[2019-09-23] MEDS ORDERED: MAG HYDROX/AL HYDROX/SIMETH 30 ML CUP PO PRN (16:53)
[2019-09-23] MEDS ORDERED: ZIPRASIDONE 20 MG VIAL IM PRN (16:53)
[2019-09-23] MEDS ORDERED: LORazepam 2 MG/ML INJ IM PRN (16:57)
[2019-09-23] MEDS ORDERED: diphenhydrAMINE 50 MG/ML 1 ML VIAL IM STA (18:51)
[2019-09-23] MEDS: OLANZapine 10 MG VIAL IM PRN (19:04)
[2019-09-23] MEDS: ALBUTEROL HFA INHALER INHALATION SCH (20:31)
[2019-09-23] MEDS: PALIPERIDONE 3 MG TAB.ER.24 PO SCH (20:31)
[2019-09-23] MEDS: hydrALAZINE HCL 25 MG TAB PO SCH (20:32)
[2019-09-23] MEDS: ATORVASTATIN 10 MG TAB PO SCH (20:33)
[2019-09-23] MEDS: amLODIPine 5 MG TAB PO SCH (20:33)
[2019-09-23] MEDS ORDERED: BACITRACIN ZINC 500 UNIT/GM OINT 28.4 GM TUBE TOPICAL PRN (21:00)
[2019-09-23] MEDS ORDERED: CITALOPRAM HYDROBROMIDE 20 MG TAB PO SCH (21:00)
[2019-09-24] MEDS ORDERED: SODIUM CHLORIDE 0.9% 500 ML 250 ML IV ONE (01:00)
--- NOTE | 2019-09-24 01:45 | CT ---
EXAMINATION TYPE: CT brain wo con DATE OF EXAM: 09/24/2019 COMPARISON: None HISTORY: Dizziness CT DLP: 1253.30 mGycm Automated exposure control for dose reduction was used. There is some cerebral cortical atrophy. There is mild hypodensity in the periventricular white matte r. There is no mass effect nor midline shift. There is no sign of intracranial hemorrhage. Calvarium is intact. IMPRESSION: Mild atrophy. Mild white matter changes could relate to some chronic small vessel ischemia.
[2019-09-24] MEDS: SODIUM CHLORIDE 0.9% 250 ML IV SCH ×3 (02:00→09:22)
[2019-09-24] MEDS ORDERED: BENZTROPINE 2 MG/2 ML AMP IM STA (05:01)
[2019-09-24 05:32] LABS: Basophils # (A) 0.1 k/uL (0-0.2); Basophils % (A) 1 %; Eosinophils # (A) 0.3 k/uL (0-0.7); Eosinophils % (A) 4 %; HCT 41.5 % (39.0-53.0); HGB 13.3 gm/dL (13.0-17.5); Lymphocytes # (A) 3.3 k/uL (1.0-4.8); Lymphocytes % (A) 35 %; MCH 29.6 pg (25.0-35.0); MCV 92.2 fL (80.0-100.0); Mean Platelet Volume 6.3; Monocytes # (A) 0.5 k/uL (0-1.0); Monocytes % (A) 5 %; Neutrophils # (A) 5.2 k/uL (1.3-7.7); Neutrophils % (A) 54 %; Platelet Count 284 k/uL (150-450); RDW 13.3 % (11.5-15.5); WBC 9.5 k/uL (3.8-10.6)
[2019-09-24 05:39] LABS: ALT 36 U/L (4-49); AST 35 U/L (17-59); African American GFR (CKD) >90 (>60 ml/min/1.73 sqM); Albumin 4.2 g/dL (3.5-5.0); Alkaline Phosphatase 79 U/L (38-126); Anion Gap 8 mmol/L; Blood Urea Nitrogen 12 mg/dL (9-20); Calcium 9.1 mg/dL (8.4-10.2); Carbon Dioxide 23 mmol/L (22-30); Chloride 108 mmol/L (98-107); Glucose 74 mg/dL (74-99); Non-African American GFR(CKD) >90 (>60 ml/min/1.73 sqM); Potassium 3.9 mmol/L (3.5-5.1); Sodium 139 mmol/L (137-145); Total Bilirubin 0.5 mg/dL (0.2-1.3); Total Protein 6.8 g/dL (6.3-8.2)
[2019-09-24] MEDS ORDERED: VENLAFAXINE HCL ER 150 MG CAP PO SCH (08:00)
[2019-09-24] MEDS: ALBUTEROL HFA INHALER INHALATION SCH ×6 (09:21→21:33)
[2019-09-24] MEDS: FLUTICASONE 50MCG/SPRAY NASAL 16GM EA NOSTRIL SCH (10:31)
[2019-09-24] MEDS: lisinopriL 5 MG TAB PO SCH (10:32)
[2019-09-24] MEDS: hydrALAZINE HCL 25 MG TAB PO SCH ×2 (10:32→21:34)
[2019-09-24] MEDS: amLODIPine 5 MG TAB PO SCH ×2 (10:32→21:34)
[2019-09-24] MEDS: ARMODAFINIL PO SCH (10:34)
[2019-09-24] MEDS ORDERED: VENLAFAXINE HCL ER 150 MG CAP PO STA (10:50)
[2019-09-24 11:51] LABS: Appearance,Urine Clear (Clear); Bilirubin,Urine Negative (Negative); Blood,Urine Negative (Negative); Color,Urine Yellow; Glucose,Urine (UA) Negative (Negative); Ketones,Urine 1+ (Negative); Leukocyte Esterase,Urine Negative (Negative); Nitrite,Urine Negative (Negative); Protein,Urine Trace (Negative); Specific Gravity,Urine 1.018 (1.001-1.035)
[2019-09-24 12:05] LABS: Amphetamine Screen,Urine Not Detected (NotDetected); Barbiturate Screen,Urine Not Detected (NotDetected); Benzodiazepines Screen,Urine Detected (NotDetected); Cocaine Screen,Urine Not Detected (NotDetected); Methadone Screen, Urine Not Detected (NotDetected); Opiate Screen,Urine Not Detected (NotDetected); Oxycodone Screen, Urine Not Detected (NotDetected); Phencyclidine Screen,Urine Not Detected (NotDetected); Tricyclic Antidepressant,Urine Not Detected (NotDetected); Urn Cannabinoid Scrn Not Detected (NotDetected)
[2019-09-24 12:26] LABS: Hemoglobin A1C 5.4 % (4.0-6.0)
--- NOTE | 2019-09-24 15:21 | P.HPMEDMHU ---
History of Present Illness H&P Date: 09/24/19 Chief Complaint: psychosis Patient is a 48-year-old male with a history of high blood pressure, narcolepsy, and chronic pain who presented with signs of psychosis and is subsequently been admitted to the mental health unit. Patient seen and examined. He asked me to prescribe his Nuvigil. He states he has a history of narcolepsy. He states that he has been having difficulty sleeping and wanting to sleep all day. He saw his PCP last approximately one week ago for medication adjustment. He denies any difficulty swallowing, coughing, shortness of breath, nausea, vomi ting, or fevers. He states that his fluid on his left neck has been doing well. Of note the patient had 250 mg of Nuvigil filled on 09/14/19 and another 150 mg tablets filled on 09/15/19 each one was for 30 pills. Review of Systems Pertinent positives and negatives as discussed in HPI, a complete review of systems was performed and all other systems are negative. Past Medical History Past Medical History: Hypertension, Musculoskeletal Disorder Additional Past Medical History / Comment(s): back pain, headaches, high blood pressure, narcolepsy History of Any Multi-Drug Resistant Organisms: None Reported Past Surgical History: Back Surgery Past Anesthesia/Blood Transfusion Reactions: No Reported Reaction Past Psychological History: Anxiety, Bipolar, Depression Smoking Status: Current every day smoker Past Alcohol Use History: None Reported Past Drug Use History: None Reported - Past Family History Mother Additional Family Medical History / Comment(s): from heart disease Father Additional Family Medical History / Comment(s): from lung disease Medications and Allergies Home Medications Medication Instructions Recorded Confirmed Type Albuterol Sulfate [Ventolin HFA] 2 puff INHALATION RT-Q4H 08/30/19 09/23/19 History Atorvastatin [Lipitor] 10 mg PO HS@209908/30/19 09/23/19 History Citalopram Hydrobromide [CeleXA] 40 mg PO HS@209908/30/19 09/23/19 History Fluticasone Nasal [place] [Flonase 2 spray EA NOSTRIL DAILY@0800 08/30/19 09/23/19 History Nasal [place]] hydrALAZINE HCL [Apresoline] 25 mg PO BID@0800,209908/30/19 09/23/19 History lisinopriL [Zestril] 5 mg PO DAILY@0800 08/30/19 09/23/19 History Bacitracin Zinc Oint 1 applic TOPICAL BID@799,2099 PRN 09/19/19 09/23/19 History Paliperidone [Invega] 3 mg PO HS@209909/19/19 09/23/19 History Venlafaxine HCl ER [Effexor XR] 150 mg PO DAILY@0809/19/19 09/23/19 History amLODIPine [Norvasc] 5 mg PO BID@0800,209909/19/19 09/23/19 History armodafiniL [Nuvigil] 150 mg PO DAILY@0809/19/19 09/23/19 History Allergies Allergy/AdvReac Type Severity Reaction Status Date / Time amphetamine [From Adderall] Allergy Unknown Verified 09/23/19 13:42 dextroamphetamine Allergy Unknown Verified 09/23/19 13:42 [From Adderall] Physical Exam Osteopathic Statement: *. No significant issues noted on an osteopathic structural exam other than those noted in the History and Physical/Consult. Vitals: Vital Signs Temp Pulse Resp BP Pulse Ox 09/24/19 10:35 101 H 110/70 09/24/19 03:33 97.8 F 76 16 119/73 09/24/19 03:15 68 16 115/73 09/24/19 00:26 89 90/55 09/24/19 00:20 69 14 107/63 96 09/24/19 00:03 98.7 F 94 14 107/58 09/23/19 20:35 102 H 118/83 09/23/19 18:55 97.2 F L 78 16 134/85 Intake and Output 09/24/19 09/24/19 09/24/19 06:59 14:59 22:59 Intake Total 750 Balance 750 Intake: IV 750 Invasive Line 1 750 General: non toxic, no distress, appears at stated age, normal weight Derm: Left neck with healing laceration, 0.5 cm area that is open without any drainage, no warmth, appears to possibly have a suture coming through the skin go there is not enough to attempt to remove it at this point in time, no unusual rashes/lesions no unusual ecchymoses, warm, dry Head: atraumatic, normocephalic, symmetric Eyes: EOMI, no lid lag, anicteric sclera, pupils equal round reactive to light ENT: Nose and ears atraumatic, no thrush, no pharyngeal erythema Neck: No thyromegaly, no cervical lymphadenopathy, trachea midline, supple Mouth: no lip lesion, mucus membranes moist Cardiovascular: S1S2 reg, no murmur, positive posterior tibial pulse bilateral, trace edema bilateral, capillary refill less than 2 seconds Lungs: CTA bilateral, no rhonchi, no rales , no accessory muscle use Abdominal: soft, nontender to palpation, no guarding, no appreciable organomegaly, normal bowel sounds Ext: no gross muscle atrophy, muscle strength 5 out of 5 in all 4 extremities grossly, no contractures, Neuro: CN II-XI grossly intact, light touch intact all 4 extremities, finger to nose within normal limits, antalgic gait with limb Psych: Alert, flattened affect Cranial Nerve Examination - Cranial Nerves Cranial Nerve II- Optic: Intact Cranial Nerve III- Oculomotor: Intact Cranial Nerve IV- Trochlear: Intact Cranial Nerve V- Trigeminal: Intact Cranial Nerve - Abducens: Intact Cranial Nerve VII- Facial: Intact Cranial Nerve VIII- Auditory: Intact Cranial Nerve IX- Glossopharyngeal: Intact Cranial Nerve X- Vagus: Intact Cranial Nerve XI- Accessory: Intact Cranial Nerve XII- Hypoglossal: Intact Results CBC & Chem 7: 09/24/19 04:45 09/24/19 04:45 Labs: Abnormal Lab Results - Last 24 Hours (Table) 09/23/19 09/24/19 09/24/19 Range/Units 12:45 04:45 11:35 Chloride 108 H (98-107) mmol/L HDL Cholesterol 66 H (40-60) mg/dL Urine Protein (Negative) Urine Ketones (Negative) U Benzodiazepines Scrn Detected H (NotDetected) 09/24/19 Range/Units 11:35 Chloride (98-107) mmol/L HDL Cholesterol (40-60) mg/dL Urine Protein Trace H (Negative) Urine Ketones 1+ H (Negative) U Benzodiazepines Scrn (NotDetected) Assessment and Plan Assessment: Left neck wound - healing - monitor for infection once daily - alert us if drainage Nacolepsy - Suggest follow-up with sleep disorder specialist HTN - resume home medications Tobacco - cessation - nicotine replacement Psychosis - your psych management Thank you for allowing us to participate in the care of this pleasant patient. Do not hesitate to contact us with questions. Someone can be reached from the [facility] hospitalist group all hours of the day at [phone] or via [employer].
[2019-09-24] MEDS: PALIPERIDONE 3 MG TAB.ER.24 PO SCH (21:34)
[2019-09-24] MEDS: ATORVASTATIN 10 MG TAB PO SCH (21:34)
[2019-09-25] MEDS: ALBUTEROL HFA INHALER INHALATION SCH ×6 (01:11→21:47)
[2019-09-25] MEDS: hydrALAZINE HCL 25 MG TAB PO SCH ×2 (08:52→21:48)
[2019-09-25] MEDS: lisinopriL 5 MG TAB PO SCH (08:52)
[2019-09-25] MEDS: VENLAFAXINE HCL ER 150 MG CAP PO SCH (08:52)
[2019-09-25] MEDS: amLODIPine 5 MG TAB PO SCH ×2 (08:52→21:48)
[2019-09-25] MEDS: ARMODAFINIL PO SCH (08:53)
[2019-09-25] MEDS: FLUTICASONE 50MCG/SPRAY NASAL 16GM EA NOSTRIL SCH (08:54)
--- NOTE | 2019-09-25 11:57 | HP ---
HISTORY AND PHYSICAL DATE OF SERVICE: 09/24/2019 IDENTIFYING DATA: The patient is a 48-year-old male. He resides in a fpc. He was referred to the ED from Dr. Aviles's office. CHIEF COMPLAINT: The patient was depressed and having odd behavior. He was preoccupied with aliens invading his body. HISTORY OF PRESENTING ILLNESS: The patient had a recent admission to this facility from 09/01/2019 to 09/12/2019. I refer the reader to Dr. Huynh's admit note and discharge summary for details. He was admitted in transfer from the medical floor after having cut his neck, inducing a 10 cm laceration along the left side of his neck. The patient presented with depression and said he had thoughts of suicide for "several days" before cutting himself with a razor blade. He was diagnosed with schizoaffective disorder, bipolar type, currently depressed, suicide attempt, narcolepsy, amphetamine use disorder, severe, and opioid use disorder, severe. Discharge psychotropic medications included Celexa 40 mg a day, Effexor XR 150 mg a day and Abilify 2 mg at bedtime. The patient was the primary source of information for this evaluation, though he is not able to provide a clear history. He lives in a fpc with 3 people. He indicates that he has been taking his medications consistently. He said that he was feeling better with his medications. He notes that he has been sleeping excessively. He made comments that he felt aliens were invading his body. Apparently, information was provided that he had been having odd behavior such as eating toilet paper. He had visited the emergency department twice in the past week. He apparently was having behavior difficulties at home, though ultimately came to attention of authorities when he came to the hospital parking lot and was making some effort to apparently break into a car in the parking lot. The patient's only report of this was that he told me he believes someone would drive him somewhere. It was unclear what he meant and he was not able to provide any details regarding this. He acknowledged having some paranoid thinking and having fears about others, though he did not provide any details. He acknowledged having some panic symptoms, though again was not able to describe that in details or what might set off panic for him. He was vague about his general function. Current psychotropic medications that are ordered include Celexa 40 mg a day, Invega 3 mg at bedtime, Effexor XR 150 mg a day. He is admitted for further evaluation. SUBSTANCE USE HISTORY: Uncertain. Urine drug screen positive for benzodiazepine. PAST MEDICAL HISTORY: Hypertension and musculoskeletal disorder. No interval change. FAMILY AND SOCIAL HISTORY: No interval change. MENTAL STATUS EXAM: Patient gave fair eye contact. Psychomotor activity was somewhat slowed. He answered questions with brief responses. His thoughts generally were clear though he did not provide much detail. His affect was flat. Mood depressed. He seemed moderately distressed. He did indicate having paranoid delusions. His thoughts were disorganized. At the time of the interview, he voiced no thoughts of harm to self or others. On cognitive exam, he did not make an effort to answer formal cognitive questions. He was able to provide some information that was consistent with the medical records, though also he was not able to give much accurate detail about recent events. Insight and judgment poor. Fund of knowledge somewhat below average. It is noteworthy that the patient presented with some pill rolling tremor in his hands. There was some question of EPS symptoms. PHYSICAL EXAM: As per Dr. Herr's assessment. ASSESSMENT: The patient is readmitted for continued problems with psychosis and mood difficulties. As noted, he had a recent suicide attempt by significant laceration of his neck with a razor blade. At this point, he is not indicating thoughts of self-harm, though his last effort was apparently quite impulsive. He is not able to provide very clear history about precipitating events. There was some question of substance abuse issues. He has had poor self-care. His function in his fpc at this time is uncertain. He has had significant disorganized behavior. DIAGNOSIS: 1. Schizoaffective disorder, bipolar type, currently depressed. 2. Recent suicide attempt by a laceration. 3. Narcolepsy. 4. Amphetamine use disorder, severe. 5. Opioid use disorder, severe. RECOMMENDATIONS: Patient will be admitted for comprehensive medical, psychiatric and psychosocial evaluation. We will engage the patient in individual and group therapeutic activities. I will continue the patient on Effexor, the dose will be increased to 300 mg a day. He will continue Invega 3 mg at bedtime. I made an effort to review medication issues with the patient, though it is not clear if he was able to clearly follow the discussion, so I kept that limited. We will focus on stabilization and discharge planning. MMODL / IJN: [id number] /
--- NOTE | 2019-09-25 15:06 | PN ---
PROGRESS NOTE DATE OF SERVICE: 09/25/2019 CHIEF COMPLAINT: The patient was depressed and having odd behavior. He was preoccupied with aliens invading his body. INTERVAL HISTORY: Patient has been doing fair. He had a quiet evening last night. Mostly he keeps to himself. He does not interact with others. He comes out occasionally from his room, though mostly will wander around a bit and then go back to his room. Nursing reported that his sleep was up and down last night. Today he has been up. He continues to spend most of his time in his room. He has not been attending groups. When I talked to him, he did not have any specific complaints or concerns. When I asked him about the thoughts that he was having odd things happening with his body, he denied that he had made comments about aliens. He said that he was just feeling that he was having some physical discomfort that was bothering him. When I asked him about whether or not he was feeling any better now compared to his last hospital stay, he did not give a very clear answer to that question. He for the most part said he does not feel he is having any problems or concerns. He says his medications have not been a problem for him in any way. He does not note any signs of EPS. He has not had problems with the increase in Effexor which he received this morning. MENTAL STATUS: Patient sat without restlessness. He leaned on his elbows and was leaning forward. His head was down most of the time. He occasionally would look up and give me a glance but mostly he kept his eyes down. When I asked questions, most of his responses were yes/no responses without any other comments. He did not give any answers where he responded with a full sentence. His affect was flat. His mood depressed. He appeared to be significantly distressed or at least quite preoccupied. It was difficult to assess for thought disorder though his preoccupation may be an indication of that. It was difficult to assess for indications regarding thoughts of harm to himself or others. He was oriented to his circumstances and surroundings. ASSESSMENT: I will continue the current diagnosis and treatment plan. It is not clear the patient has shown much change between the 2 hospitalizations he has had. He has not had problems with the increase in Effexor. I will increase his Invega to 6 mg at bedtime. I reviewed medication issues with the patient. I discussed the indication, potential side effects and metabolic concerns relating to Invega. I encouraged the patient to talk with nursing at any point if he felt that he was having any problems or side effects relating to his medications. We will focus on stabilization and discharge planning. MARIA C / EVELIO: [id number] /
[2019-09-25] MEDS ORDERED: PALIPERIDONE 3 MG TAB.ER.24 PO SCH (21:00)
[2019-09-25] MEDS: ATORVASTATIN 10 MG TAB PO SCH (21:48)
[2019-09-26] MEDS: LORazepam 1 MG TAB PO PRN (02:27)
[2019-09-26] MEDS: ALBUTEROL HFA INHALER INHALATION SCH ×6 (03:47→21:13)
[2019-09-26] MEDS: amLODIPine 5 MG TAB PO SCH ×2 (09:16→21:13)
[2019-09-26] MEDS: ARMODAFINIL PO SCH (09:16)
[2019-09-26] MEDS: FLUTICASONE 50MCG/SPRAY NASAL 16GM EA NOSTRIL SCH (09:16)
[2019-09-26] MEDS: hydrALAZINE HCL 25 MG TAB PO SCH ×2 (09:16→21:11)
[2019-09-26] MEDS: lisinopriL 5 MG TAB PO SCH (09:16)
[2019-09-26] MEDS: VENLAFAXINE HCL ER 150 MG CAP PO SCH (09:17)
--- NOTE | 2019-09-26 11:04 | P.HP ---
Psychiatric H&P - . H&P Date: 09/26/19 History & Physical: Allergies Allergy/AdvReac Type Severity Reaction Status Date / Time amphetamine [From Adderall] Allergy Unknown Verified 09/23/19 13:42 dextroamphetamine Allergy Unknown Verified 09/23/19 13:42 [From Adderall] Vital Signs Temp 97.7 F 09/26/19 02:36 Pulse 97 09/26/19 02:36 Resp 18 09/26/19 02:36 BP 122/79 09/26/19 02:36 Pulse Ox 96 09/24/19 00:20 Intake & Output 09/25/19 09/26/19 09/26/19 18:59 06:59 18:59 Weight 74 kg Laboratory Last Values WBC 9.5 k/uL (3.8-10.6) 09/24/19 04:45 RBC 4.50 m/uL (4.30-5.90) 09/24/19 04:45 Hgb 13.3 gm/dL (13.0-17.5) 09/24/19 04:45 Hct 41.5 % (39.0-53.0) 09/24/19 04:45 MCV 92.2 fL (80.0-100.0) 09/24/19 04:45 MCH 29.6 pg (25.0-35.0) 09/24/19 04:45 MCHC 32.0 g/dL (31.0-37.0) 09/24/19 04:45 RDW 13.3 % (11.5-15.5) 09/24/19 04:45 Plt Count 284 k/uL (150-450) 09/24/19 04:45 Neutrophils % 54 % 09/24/19 04:45 Lymphocytes % 35 % 09/24/19 04:45 Monocytes % 5 % 09/24/19 04:45 Eosinophils % 4 % 09/24/19 04:45 Basophils % 1 % 09/24/19 04:45 Neutrophils # 5.2 k/uL (1.3-7.7) 09/24/19 04:45 Lymphocytes # 3.3 k/uL (1.0-4.8) 09/24/19 04:45 Monocytes # 0.5 k/uL (0-1.0) 09/24/19 04:45 Eosinophils # 0.3 k/uL (0-0.7) 09/24/19 04:45 Basophils # 0.1 k/uL (0-0.2) 09/24/19 04:45 Sodium 139 mmol/L (137-145) 09/24/19 04:45 Potassium 3.9 mmol/L (3.5-5.1) 09/24/19 04:45 Chloride 108 mmol/L (98-107) H 09/24/19 04:45 Carbon Dioxide 23 mmol/L (22-30) 09/24/19 04:45 Anion Gap 8 mmol/L 09/24/19 04:45 BUN 12 mg/dL (9-20) 09/24/19 04:45 Creatinine 0.87 mg/dL (0.66-1.25) 09/24/19 04:45 Est GFR (CKD-EPI)AfAm >90 (>60 ml/min/1.73 sqM) 09/24/19 04:45 Est GFR (CKD-EPI)NonAf >90 (>60 ml/min/1.73 sqM) 09/24/19 04:45 Glucose 74 mg/dL (74-99) 09/24/19 04:[address] Glu mg/dL 108 09/23/19 12:45 Hemoglobin A1c 5.4 % (4.0-6.0) 09/23/19 12:45 Calcium 9.1 mg/dL (8.4-10.2) 09/24/19 04:45 Total Bilirubin 0.5 mg/dL (0.2-1.3) 09/24/19 04:45 AST 35 U/L (17-59) 09/24/19 04:45 ALT 36 U/L (4-49) 09/24/19 04:45 Alkaline Phosphatase 79 U/L (38-126) 09/24/19 04:45 Total Protein 6.8 g/dL (6.3-8.2) 09/24/19 04:45 Albumin 4.2 g/dL (3.5-5.0) 09/24/19 04:45 Triglycerides 47 mg/dL (<150) 09/23/19 12:45 Cholesterol 122 mg/dL (<200) 09/23/19 12:45 LDL Cholesterol, Calc 47 mg/dL (0-99) 09/23/19 12:45 HDL Cholesterol 66 mg/dL (40-60) H 09/23/19 12:45 TSH 0.766 mIU/L (0.465-4.680) 09/23/19 12:45 Urine Color Yellow 09/24/19 11:35 Urine Appearance Clear (Clear) 09/24/19 11:35 Urine pH 6.0 (5.0-8.0) 09/24/19 11:35 Ur Specific [place] 1.018 (1.001-1.035) 09/24/19 11:35 Urine Protein Trace (Negative) H 09/24/19 11:35 Urine Glucose (UA) Negative (Negative) 09/24/19 11:35 Urine Ketones 1+ (Negative) H 09/24/19 11:35 Urine Blood Negative (Negative) 09/24/19 11:35 Urine Nitrite Negative (Negative) 09/24/19 11:35 Urine Bilirubin Negative (Negative) 09/24/19 11:35 Urine Urobilinogen 3.0 mg/dL (<2.0) 09/24/19 11:35 Ur Leukocyte Esterase Negative (Negative) 09/24/19 11:35 Salicylates <1.0 mg/dL 09/23/19 12:45 Urine Opiates Screen Not Detected (NotDetected) 09/24/19 11:35 Ur Oxycodone Screen Not Detected (NotDetected) 09/24/19 11:35 Urine Methadone Screen Not Detected (NotDetected) 09/24/19 11:35 Ur Propoxyphene Screen Not Detected (NotDetected) 09/24/19 11:35 Acetaminophen <10.0 ug/mL 09/23/19 12:45 Ur Barbiturates Screen Not Detected (NotDetected) 09/24/19 11:35 U Tricyclic Antidepress Not Detected (NotDetected) 09/24/19 11:35 Ur Phencyclidine Scrn Not Detected (NotDetected) 09/24/19 11:35 Ur Amphetamines Screen Not Detected (NotDetected) 09/24/19 11:35 U Methamphetamines Scrn Not Detected (NotDetected) 09/24/19 11:35 U Benzodiazepines Scrn Detected (NotDetected) H 09/24/19 11:35 Urine Cocaine Screen Not Detected (NotDetected) 09/24/19 11:35 U Marijuana (THC) Screen Not Detected (NotDetected) 09/24/19 11:35 09/26/19 10:49 Identification/HPI: This is a case of a 48-year-old male who was admitted to the psychiatric unit on 724 his outpatient doctor had become anxious about his increasing suicidality with psychosis. According to the chart the patient had become preoccupied with thoughts that aliens were invading his body and something about these aliens it caused him to think that eating toilet paper made sense. The patient totally denies these and says people must have misinterpreted. He says asked him if he had been eating toilet paper and he thought they were being funny and so he said sure I do. However now is totally denying the above symptoms. My staff report that the patient uses a lot of psychedelics although course he denied that to. So the most likely thing is that he was using psychedelics had some bizarre experiences he does not even recall The patient is a "frequent flyer "has been in the emergency room a couple of times in the recent past and was hospitalized several weeks ago when he cut his throat again probably during a psychotic episode. His medications are inVega 3 mg, Nuvigil 150 mg for excessive daytime sleepiness, Effexor XR 150 for depression. The patient claims that he has been taking his medicine faithfully, although as noted above he has not a dependable historian. Past psychiatric history's admits to being hospitalized several times as though vague on the details and says that his main problem is always being tired with low energy. He says that he lost all his friends could've he does not have the energy to go into things with them. He says that he spends all of his time just watching TV at the foster home where he stays and that he has a few friends cong ng the other people staying there. He says that he likes to play the guitar and even the keyboard but has not been doing that for some time. Past medications he says that he has been on Prozac but can't remember what that did or did not do he took Celexa which made him sleepy at 20 mg twice a day he has been on Wellbutrin XL R at 75 mg a says it did not work of the doses low he has been on Seroquel made him too sleepy and risperidone made him sleepy and his hair fell out he denies any medications for mood swings such as lithium or Depakote or Trileptal. Vital signs: Temperature 97.7 heart rate 97 respiration 18 blood pressure 122/79 Labs patient had a hematology which was normal on the Gen. chemistry was basically normal interestingly has good cholesterol was elevated which is fine urinalysis was fine and he only drug detected in his urine was benzodiazepines, however the staff report that his drug of choice are psychedelics and there is no evidence that we checked for PCP or LSD or any of those things Staff report: The patient slept about 4 hours last night, he is disheveled at to be encouraged to do ADLs tends to isolate in his room complaining of being tired denying any hallucinations or delusions is oriented to person place and time, and as I noted myself he is slow to respond and his concentration and short-term memory are somewhat impaired, he has not been attending group Mental status exam patient did not show any signs of psychosis he is alert oriented to person place time and circumstance slow response times and short- term memory is somewhat impaired I gave him 3 things to remember at to repeated 3 times before he can get them and they could only remember 2 after 5 minutes. General information is adequate although he is very slow to respond and to rem ember things so he can name the presidents back to [place] and [address] [place] [address] he could remember [place] only when I gave him the first letter and he could not remember [place] at all. For the aggressive screen of the side effects he said things are better over there which is only a partial answer a says so what is that were supposed to do he said have high hopes for cats and snakes he could not think of any similarity [place] that are they alike and different from a stone he said they're living creatures then could not come up with anything else so his generativity is low. He denies suicidality homicidality psychosis can't even remember the psychotic symptoms he was reporting in the emergency room. 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 He was able to spell world backward slowly. Assessment plan: The best I can tell from the information I have from the team and the charges that the patient uses psychedelics in his psychotic from that and not from the Nuvigil. His main complaint is excessive daytime sleepiness and Nuvigil works between 150 and 250. The concern is asking me what about Adderall of those individuals long-acting and smoother, is he just wanting a stimulant increase and will this make him more energetic and participant or will it make him more psychotic. However I think the psychosis is from the other things he is taking. The only antipsychotic that we could give him that would not add to his daytime drowsiness would be look to it and so were going to check to see if it's on his formulary for now I will leave the inVega at 3 which was his home dose. The increase in Effexor is not a bad idea because when you get to 225 or higher you get concentration benefits with norepinephrine data not available at 150. I told the staff that these changes could make him more psychotic if the psychosis is from his meds and not from the street drugs. But if we can get him feeling better and less depressed maybe we can urge him to get into a drug rehab and leave the psychedelics alone. Diagnosis: Schizoaffective disorder
[2019-09-26] MEDS: PALIPERIDONE 3 MG TAB.ER.24 PO SCH (21:12)
[2019-09-26] MEDS: ATORVASTATIN 10 MG TAB PO SCH (21:12)
[2019-09-27] MEDS ORDERED: NUVIGIL 150 MG PO SCH (09:00)
[2019-09-27] MEDS ORDERED: MD COMMUNICATION TO PHARMACY 1 EACH MISC PO SCH (09:00)
[2019-09-27] MEDS: ALBUTEROL HFA INHALER INHALATION SCH ×4 (09:02→21:08)
[2019-09-27] MEDS: amLODIPine 5 MG TAB PO SCH ×2 (09:03→21:11)
[2019-09-27] MEDS: FLUTICASONE 50MCG/SPRAY NASAL 16GM EA NOSTRIL SCH (09:03)
[2019-09-27] MEDS: hydrALAZINE HCL 25 MG TAB PO SCH ×2 (09:03→21:14)
[2019-09-27] MEDS: lisinopriL 5 MG TAB PO SCH (09:03)
[2019-09-27] MEDS: VENLAFAXINE HCL ER 150 MG CAP PO SCH (09:04)
--- NOTE | 2019-09-27 10:01 | P.PN ---
Subjective Progress Note Date: 09/27/19 Principal diagnosis: Diagnosis: Schizoaffective disorder, currently depressed Subjective: The patient feels tired I found him lying in his bed in a dark room at 10:00 in the morning. He continues to be discouraged and depressed but totally denies now or in the past any thoughts about aliens invading his body or having used stimulants or psychedelics or eating toilet paper. He has struggled with lack of energy during the day for so long he doesn't have much hope for the future. We are unable to get or increase his Nuvigil since hospital does not stock it and we have been able get his residency to bring it in. I want to see how he does on increase the Effexor increase in individual and then possibly even take him off the antipsychotic and warned him about the use of hallucinogens. Objective: Sad affect slow responses decreased eye contact he moves slowly. Denies suicidality but also denies any hope for the future. He said if he had more energy would be able to get together with friends playing his guitar and do more art. He is oriented to person place time and circumstance is does not seem to be responding to voices no aggression or tearfulness. Vital signs temperature 97.6 heart rate varies between 60 and 85 respiration 16 blood pressure 124/77 Labs: Hematology was normal general chemistry is normal slight increase in chloride glucose ranges between 74 and 118 urinalysis trace ketones prior not been eating anything in his toxicology was benzodiazepines Assessment plan: Going to be hard to work with the patient I think he feels that if he is honest about the psychedelics then that is a negative. However if his psychosis is from drugs that would actually give us a plan to get him out of being so tired all the time without worrying about making him psychotic. He would need to get into rehab to deal with the drugs. There were going to try to get the Nuvigil keep the Effexor at a good dose and watch carefully to see whether he become psychotic again which I don't think he will. Objective - Vital Signs Vital signs: Vital Signs Temp 97.6 F 09/27/19 06:52 Pulse 85 09/27/19 09:06 Resp 18 09/27/19 09:06 BP 124/77 09/27/19 09:06 Pulse Ox 96 09/24/19 00:20 - Labs CBC & Chem 7: 09/24/19 04:45 09/24/19 04:45
[2019-09-27] MEDS: ATORVASTATIN 10 MG TAB PO SCH (21:11)
[2019-09-27] MEDS: PALIPERIDONE 3 MG TAB.ER.24 PO SCH (21:12)
[2019-09-27] MEDS: LORazepam 1 MG TAB PO PRN (21:49)
[2019-09-28] MEDS: ALBUTEROL HFA INHALER INHALATION SCH ×4 (09:25→20:57)
[2019-09-28] MEDS: VENLAFAXINE HCL ER 150 MG CAP PO SCH (09:26)
[2019-09-28] MEDS: lisinopriL 5 MG TAB PO SCH (09:26)
[2019-09-28] MEDS: FLUTICASONE 50MCG/SPRAY NASAL 16GM EA NOSTRIL SCH (09:26)
[2019-09-28] MEDS: amLODIPine 5 MG TAB PO SCH ×2 (09:26→20:58)
[2019-09-28] MEDS: hydrALAZINE HCL 25 MG TAB PO SCH ×2 (09:26→20:59)
--- NOTE | 2019-09-28 10:18 | P.PN ---
Subjective Progress Note Date: 09/28/19 Principal diagnosis: Diagnosis: Schizoaffective disorder, currently depressed Subjective: The patient's main concern is being tired all the time it is ruined his life he can't get anything done because he is in bed 12 hours a day he can't have friendships because he is too tired to go into things with them in the past he tried Vyvanse and it didn't work he has been in the hospital and been on Concerta which worked although he felt the dose was a little low. We gave him Provigil yesterday which she didn't think gave him that much energy he went to sleep around 11 woke up about an hour later having a nightmare about people being raped outside the hospital and half asleep he was talking gibberish. If this were being caused directly by the stimulant I would not of expected him to barely get to sleep. He does say that part of his sleep problem is that when he does sleep he does not go into REM sleep. There is a treatment that people with daytime narcolepsy take at night to make him sleep better Xyrem however when he tried that he has had despondent and he felt dizzy. He would like to try a lower dose of that but she have to be on special registry to get on that. I suggest we try something else first and objective: The patient went to relaxation group yesterday states the most of it was alert cooperative verbal however he did not go to together to groups I strongly urged him to do so. Vital signs temperature 98.3 heart rate is variable between 56 and 91 respiration 18 blood pressure 111/63 and O2 sat was 97 Have basic labs drawn in 725 including hematology general chemistry urine toxicology we have run any new labs since 10 On mental status exam he looks a little tired but good eye contact cooperative oriented to person place time and circumstances, no pressured speech no fearfulness. Assessment and plan we need to find something that helps him sleep better at night some going to give him melatonin 5 and trazodone 50 that we'll probably need to be increased if we can get him to sleep better at night he should be more alert during the day we'll also need to find something to help his narcolepsy that doesn't agitate. I'm going to see if Concerta is available but I went on the computer and it doesn't seem to be on our formulary we might have to stick with Provigil and increase the dose slightly Objective - Vital Signs Vital signs: Vital Signs Temp 98.3 F 09/28/19 06:52 Pulse 91 09/28/19 09:28 Resp 18 09/28/19 06:52 BP 124/72 09/28/19 09:28 Pulse Ox 97 09/28/19 06:52 - Labs CBC & Chem 7: 09/24/19 04:45 09/24/19 04:45
--- NOTE | 2019-09-28 10:29 | P.PN ---
Subjective Progress Note Date: 09/28/19 Principal diagnosis: Diagnosis: Schizoaffective disorder, currently depressed Thinking over the case, I'm hesitant to try Concerta because it is a restricted medicines and we do not start restricted medicines in our program. So I think at present was increased antipsychotic slightly and get him a good night's sleep with the trazodone melatonin and increase the Provigil to 300 however we given Provigil him a day it's more likely cause some strange stuff at the end of the day so I will wait until tomorrow morning to begin the Provigil Objective - Vital Signs Vital signs: Vital Signs Temp 98.3 F 09/28/19 06:52 Pulse 91 09/28/19 09:28 Resp 18 09/28/19 06:52 BP 124/72 09/28/19 09:28 Pulse Ox 97 09/28/19 06:52 - Labs CBC & Chem 7: 09/24/19 04:45 09/24/19 04:45
[2019-09-28] MEDS: LORazepam 1 MG TAB PO PRN (12:50)
[2019-09-28] MEDS: OLANZapine 10 MG VIAL IM PRN (12:50)
[2019-09-28] MEDS: ATORVASTATIN 10 MG TAB PO SCH (20:58)
[2019-09-28] MEDS ORDERED: PALIPERIDONE 6 MG TAB.ER.24 PO SCH (21:00)
[2019-09-28] MEDS ORDERED: MELATONIN 5 MG TABLET PO SCH (21:00)
[2019-09-28] MEDS ORDERED: traZODone HCL 50 MG TAB PO SCH (21:00)
[2019-09-29] MEDS: ALBUTEROL HFA INHALER INHALATION SCH ×5 (07:39→20:01)
[2019-09-29] MEDS: FLUTICASONE 50MCG/SPRAY NASAL 16GM EA NOSTRIL SCH (08:46)
[2019-09-29] MEDS: amLODIPine 5 MG TAB PO SCH ×2 (08:46→20:05)
[2019-09-29] MEDS: VENLAFAXINE HCL ER 150 MG CAP PO SCH (08:46)
[2019-09-29] MEDS: lisinopriL 5 MG TAB PO SCH (08:46)
[2019-09-29] MEDS: hydrALAZINE HCL 25 MG TAB PO SCH ×2 (08:46→20:08)
[2019-09-29] MEDS ORDERED: modafiniL 100 MG TAB PO SCH (09:00)
--- NOTE | 2019-09-29 09:26 | P.PN ---
Subjective Progress Note Date: 09/29/19 Principal diagnosis: Diagnosis: Schizoaffective disorder, currently depressed Subjective: The patient says that his sleep was not much improved on the low- dose trazodone last night. And that of course he did not get any Provigil. He says he has taken Provigil in the past at 400 and only helped a little. Of course he wants Ritalin side think that he wants stimulants for themselves. Objective: The patient comes across was very sleepy slow responses slow moving flat affect he is oriented to person place time and circumstance is somewhat impulsive wanders in other people's rooms insight is poor denies suicidality or homicidality is often intrusive with others is compliant with medicines and takes care of basic ADLs. Vital signs: Temperature 98.6 heart rate 90 respiration 18 blood pressure 109/71 and room air 97 Labs: Nothing new Last night the patient had to have when necessary Zyprexa and Ativan due to agitation and focus on a female peer wanting to go into her room and not being easily redirected. This was in the afternoon so is probably has nothing to do with his sleep patterns The staff described him as paranoid I will check with them to see what they mean by that. Assessment plan: So many of our patients are abusing drugs but have genuine psychiatric needs. I told him we could not use stimulants such as Ritalin or Concerta or Adderall and we may even have to take him off of the Provigil if he has these episodes where he has to have extra antipsychotic in order to calm down and function. In addition to trying to help him with his daytime sleepin ess I'm going to need to increase his evening medicines so that he gets a better night sleep Objective - Vital Signs Vital signs: Vital Signs Temp 98.6 F 09/29/19 06:57 Pulse 90 09/29/19 08:47 Resp 18 09/29/19 06:57 BP 109/71 09/29/19 08:47 Pulse Ox 97 09/29/19 06:57 - Labs CBC & Chem 7: 09/24/19 04:45 09/24/19 04:45
[2019-09-29] MEDS: LORazepam 1 MG TAB PO PRN (11:44)
[2019-09-29] MEDS ORDERED: WATER FOR INJECTION, STERILE 10 ML IV ONE (16:24)
[2019-09-29] MEDS: OLANZapine 10 MG VIAL IM PRN (16:30)
[2019-09-29] MEDS: traZODone HCL 50 MG TAB PO SCH (20:06)
[2019-09-29] MEDS: MELATONIN 5 MG TABLET PO SCH (20:07)
[2019-09-29] MEDS: ATORVASTATIN 10 MG TAB PO SCH (20:07)
[2019-09-29] MEDS ORDERED: PALIPERIDONE 3 MG TAB.ER.24 PO SCH (21:00)
[2019-09-30] MEDS: ALBUTEROL HFA INHALER INHALATION SCH ×5 (06:54→21:43)
--- NOTE | 2019-09-30 07:33 | P.PN ---
Subjective Progress Note Date: 09/30/19 Principal diagnosis: Diagnosis: Schizoaffective disorder, currently depressed Subjective: Patient said that he took an afternoon nap and when he woke up he was all agitated still the agitation continued into groups and he required Zyprexa and Ativan to calm down. He is really eager to find some sort of stimulant but they don't seem to be tolerated by him Objective: The staff report that about 4:30 yesterday evening the patient came to this complaining of Warf rats that were invading him and his girlfriend and his soul mate girlfriends. He asked for when necessary antipsychotic and was given Zyprexa 5 mg IM. Earlier he was anxious and had to have some Ativan at about 1:00. He said that the thoughts of the Warf rats went away after getting his Zyprexa Vital signs: Temperature 97.9 heart rate 57 respirations 16 blood pressure 1 over and O2 sat is 98 Labs: No new labs since the Staff observation is that the patient is bizarre anxious disheveled has to be encouraged take care of ADLs talks somewhat garbled intrusive with racing thoughts restless impulsive but that he is oriented to only is and worries at what time of day it is he is redirectable but is interacting with peers is inappropriate. Groups: He did go to an 18 group at 3:30. He said "there are war threats going on right now "when the 8T liter tried to redirect him back to the task at hand he said there are war threats right now and that's the most important. And got up and left the group. Earlier at 11:00 he tried to go the AT group saying, " we have got a war threats they need help bad "he had to get up and leave the group early Assessment plan: We found out that he could afford latuda with the co-pay of the $3 a month. So that would be a possibility but I note that when he gets Zyprexa he does not feel sleepy just calms down and is a highly effective antipsychotic. He does seem to be sleeping better on the current regimen but seems like anything we give him for his excessive daytime sleepiness backfires and makes the psychosis worse. There is also the fact that he definitely is seeking stimulants such as Ritalin. I think what we need to do discontinue the Provigil help him sleep well at night and he is just not have to fight the daytime sleepiness until his psychosis is clear Objective - Vital Signs Vital signs: Vital Signs Temp 97.9 F 09/30/19 06:26 Pulse 57 L 09/30/19 06:26 Resp 16 09/30/19 06:26 BP 107/58 09/30/19 06:26 Pulse Ox 98 09/30/19 06:26 - Labs CBC & Chem 7: 09/24/19 04:45 09/24/19 04:45
[2019-09-30] MEDS: hydrALAZINE HCL 25 MG TAB PO SCH ×2 (09:46→21:42)
[2019-09-30] MEDS: FLUTICASONE 50MCG/SPRAY NASAL 16GM EA NOSTRIL SCH (09:46)
[2019-09-30] MEDS: lisinopriL 5 MG TAB PO SCH (09:46)
[2019-09-30] MEDS: amLODIPine 5 MG TAB PO SCH ×2 (09:46→21:42)
[2019-09-30] MEDS: VENLAFAXINE HCL ER 150 MG CAP PO SCH (09:51)
[2019-09-30 16:24] VITALS: BMI 22.1
[2019-09-30] MEDS: traZODone HCL 50 MG TAB PO SCH (21:42)
[2019-09-30] MEDS: MELATONIN 5 MG TABLET PO SCH (21:42)
[2019-09-30] MEDS: ATORVASTATIN 10 MG TAB PO SCH (21:43)
[2019-09-30] MEDS: OLANZapine 10 MG TAB PO SCH (21:43)
[2019-10-01] MEDS: ALBUTEROL HFA INHALER INHALATION SCH ×4 (08:22→19:54)
[2019-10-01] MEDS: VENLAFAXINE HCL ER 150 MG CAP PO SCH (08:23)
[2019-10-01] MEDS: lisinopriL 5 MG TAB PO SCH (08:23)
[2019-10-01] MEDS: FLUTICASONE 50MCG/SPRAY NASAL 16GM EA NOSTRIL SCH (08:23)
[2019-10-01] MEDS: amLODIPine 5 MG TAB PO SCH ×2 (08:23→19:50)
[2019-10-01] MEDS: hydrALAZINE HCL 25 MG TAB PO SCH ×2 (08:23→19:56)
--- NOTE | 2019-10-01 09:12 | P.PN ---
Progress Note - Text Progress Note Date: 10/01/19 Clinical Problems: Schizoaffective disorder bipolar type, amphetamine use disorder, narcolepsy (per sleep specialist) Interim history: Patient seen on cross coverage for Dr. Kennedy. His only concern was subjective fatigue. He alleged that Dr. Kennedy had agreed to prescribe Concerta but could not because it is not on formulary. He did not argue when I responded that I doubt Dr. Kennedy would've agreed to prescribe Concerta. He alleged that he did not understand the reason for this rehospitalization. He denied that he was having thoughts of or suicide. He denied experiencing auditory hallucinations or being paranoid. He is been compliant with prescribed medication. He rarely attends therapeutic groups and activities. He slept only 3 hours last night. Mental status exam: He presented as a tall, thin and disheveled appearing 48-year-old male with poor dentition. He wore loose and tattered pajamas. He made eye contact and appeared to attend to interview. He had psychomotor retardation but no abnormal involuntary movements. His speech was spontaneous with decreased rate and rhythm. His affect was blunted but appropriate. He denied current suicidal ideation or wishes. He did not express feelings of hopelessness, helplessness or worthlessness. He ruminated about psychostimulants and chronic fatigue. He did not express clear ideas reference, paranoid ideation or delusions. His thinking was concrete but his associations appeared coherent and goal directed. He denied hallucinations did not appear to be responding to internal stimuli. Assessment: He is severely mentally ill and much improved from admission. He is denying psychotic symptoms or prominent depressive symptoms. He remains preoccupied with diagnosis of narcolepsy and need for psychostimulants. Plan: Continue inpatient treatment. Continue suicide precautions. Continue Zyprexa 10 mg at bedtime, Desyrel 150 mg at bedtime and Effexor 150 mg daily. Avoid prescription of psychostimulants due to his history of abuse and dependence. Encourage participation in therapeutic groups and activities. Evaluate clinical status response to treatment daily basis.
[2019-10-01] MEDS: OLANZapine 10 MG TAB PO SCH (19:49)
[2019-10-01] MEDS: traZODone HCL 50 MG TAB PO SCH (19:49)
[2019-10-01] MEDS: MELATONIN 5 MG TABLET PO SCH (19:50)
[2019-10-01] MEDS: ATORVASTATIN 10 MG TAB PO SCH (19:55)
[2019-10-02] MEDS: ALBUTEROL HFA INHALER INHALATION SCH ×5 (02:55→20:51)
[2019-10-02] MEDS: FLUTICASONE 50MCG/SPRAY NASAL 16GM EA NOSTRIL SCH (09:10)
[2019-10-02] MEDS: VENLAFAXINE HCL ER 150 MG CAP PO SCH (09:11)
[2019-10-02] MEDS: lisinopriL 5 MG TAB PO SCH (09:11)
[2019-10-02] MEDS: hydrALAZINE HCL 25 MG TAB PO SCH ×2 (09:11→20:52)
[2019-10-02] MEDS: amLODIPine 5 MG TAB PO SCH ×2 (09:11→20:51)
--- NOTE | 2019-10-02 12:37 | P.PN ---
Progress Note - Text Progress Note Date: 10/02/19 Clinical Problems: Schizoaffective disorder bipolar type, amphetamine use disorder, narcolepsy (per sleep specialist) Interim history: Patient seen on cross coverage for Dr. Kennedy. She denied problems or concerns and did not request a prescription for a psychostimulant. He denied that he is feeling depressed or having thoughts of or suicide. He is been compliant with prescribed medication. He attended 2 therapeutic groups yesterday. He slept only 3 hours last night. Mental status exam: He presented as a tall, thin and disheveled appearing 48-year-old male with poor dentition. He wore loose and tattered pajamas. He made eye contact and appeared to attend to interview. He had psychomotor retardation but no abnormal involuntary movements. His speech was spontaneous with decreased rate and rhythm. His affect was blunted but appropriate. He denied current suicidal ideation or wishes. He did not express feelings of hopelessness, helplessness or worthlessness. e did not express clear ideas reference, paranoid ideation or delusions. His thinking was concrete but his associations appeared coherent and goal directed. He denied hallucinations did not appear to be responding to internal stimuli. Assessment: He is severely mentally ill and much improved from admission. He is denying psychotic symptoms or prominent depressive symptoms. He remains preoccupied with diagnosis of narcolepsy and need for psychostimulants. Plan: Continue inpatient treatment. Continue suicide precautions. Continue Zyprexa 10 mg at bedtime, Desyrel 150 mg at bedtime and Effexor 150 mg daily. Avoid prescription of psychostimulants due to his history of abuse and de pendence. Encourage participation in therapeutic groups and activities. Evaluate clinical status response to treatment daily basis.
[2019-10-02] MEDS: MELATONIN 5 MG TABLET PO SCH (20:51)
[2019-10-02] MEDS: OLANZapine 10 MG TAB PO SCH (20:52)
[2019-10-02] MEDS: traZODone HCL 50 MG TAB PO SCH (20:52)
[2019-10-02] MEDS: ATORVASTATIN 10 MG TAB PO SCH (20:52)
[2019-10-03 06:42] VITALS: RESP 16; TEMP 97.9
[2019-10-03] MEDS: ALBUTEROL HFA INHALER INHALATION SCH ×2 (07:44→08:43)
[2019-10-03] MEDS: amLODIPine 5 MG TAB PO SCH (08:42)
[2019-10-03] MEDS: hydrALAZINE HCL 25 MG TAB PO SCH (08:42)
[2019-10-03] MEDS: lisinopriL 5 MG TAB PO SCH (08:42)
[2019-10-03] MEDS: VENLAFAXINE HCL ER 150 MG CAP PO SCH (08:43)
[2019-10-03] MEDS: FLUTICASONE 50MCG/SPRAY NASAL 16GM EA NOSTRIL SCH (08:43)
[2019-10-03 08:44] VITALS: BP 142/81; PULSE 74
--- NOTE | 2019-10-03 11:14 | P.DS ---
Providers Date of admission: 09/23/19 16:41 Expected date of discharge: 10/03/19 Attending physician: Real Kennedy MD Consults: 09/24/19 08:33 Consult Physician Routine Consulting Provider: Li Roger Consult Reason/Comments: H&P Do you want consulting provider notified?: Already Contacted Primary care physician: [facility] Course: It was difficult to work with the patient due to his emphasis that all of his problems revolved around or sleep at night and being exhausted all day. Clearly he would've enjoyed trying Ritalin or Adderall but we do not begin stimulants on the inpatient unit. He did come in on Nuvigil which we do not have on our formulary and was too hard for him to bring in his from home and try an increased dose so we tried Provigil. We started at 200 tried 304 100 and at the same time gave him things to try to help him sleep better at night namely trazodone and melatonin. However he was having bizarre episodes every day so we stopped the Provigil ran the other medications namely venlafaxine which we left it 150 rather than increase it and he did have in [place] we increased from 3-6-9 mg and it did not seem to be helping he still required when necessary Zyprexa. When I asked him how he tolerated the Zyprexa since it seems to calm him down he said it did not make him too sleepy. Sore the weekend we have been giving him Zyprexa 10 mg daily at bedtime and he has done better. He says he tolerates it well without being too sleepy. Mental status exam he seemed more alert good eye contact came without difficulty agreed that he was doing well enough for discharge and would have to work with his outpatient doctor if he wants to try to get some Adderall. Oriented to person place time and circumstance reasonable self-care gait and station are normal response times normal no agitation no evidence of responding to voices no impulsivity. Assessment as he is stabilized plans to discharge and we arranged for follow-up appointments for his medication Prognosis: The patient will need to push back against his tiredness because if he takes things to relieve the tiredness I tend to make his echo's is worse the question is whether he'll be willing to do so. Diagnosis remains: Schizoaffective disorder depressed type Assessment: The patient seems to respond to stimulants either by feeling they don't work all that well and or having bizarre things occur. He would claim that he would be sleeping like in the middle of afternoon wake up and have a continuation of a bizarre dream. However these have not occurred since he came off the stimulants over the weekend. So he appears to be stable enough to function and not seem that tired when I saw him so we are going to go ahead and discharge him he can work with his outpatient doctors in regards to treatment of his narcolepsy or excess daytime sleepiness. Patient was discharged stable and improved Health Concerns: Patient has history of 5 blood pressure narcolepsy chronic pain nothing acute except for wound on his left side of his neck which was healing well Vital signs temperature 97.9 heart rate 56 respirations 16 blood pressure 136/75 Pertinent Studies: Patient had reasonable labs run he has hematology was negative on 724 also general chemistry showed no acute abnormalities urine showed some trace protein and ketones patient not been eating properly before he came in toxicology on 09/23 was positive for benzos Procedures: None Patient Condition at Discharge: Stable Plan - Discharge Summary New Discharge Prescriptions: No Action Albuterol Sulfate [Ventolin HFA] 2 puff INHALATION RT-Q4H Atorvastatin [Lipitor] 10 mg PO HS@2100 Citalopram Hydrobromide [CeleXA] 40 mg PO HS@2100 Fluticasone Nasal Vaughn [Flonase Nasal Vaughn] 2 spray EA NOSTRIL DAILY@0800 hydrALAZINE HCL [Apresoline] 25 mg PO BID@0800,2100 lisinopriL [Zestril] 5 mg PO DAILY@0800 amLODIPine [Norvasc] 5 mg PO BID@0800,2100 armodafiniL [Nuvigil] 150 mg PO DAILY@0800 Bacitracin Zinc Oint 1 applic TOPICAL BID@0800,2100 PRN PRN Reason: left side of neck Paliperidone [Invega] 3 mg PO HS@2100 Venlafaxine HCl ER [Effexor XR] 150 mg PO DAILY@0800 Discharge Medication List Albuterol Sulfate [Ventolin HFA] 2 puff INHALATION RT-Q4H 08/30/19 [History] Atorvastatin [Lipitor] 10 mg PO HS@2100 08/30/19 [History] Citalopram Hydrobromide [CeleXA] 40 mg PO HS@209908/30/19 [History] Fluticasone Nasal Vaughn [Flonase Nasal Vaughn] 2 spray EA NOSTRIL DAILY@79908/30/19 [History] hydrALAZINE HCL [Apresoline] 25 mg PO BID@799,209908/30/19 [History] lisinopriL [Zestril] 5 mg PO DAILY@79908/30/19 [History] Bacitracin Zinc Oint 1 applic TOPICAL BID@799,2099 PRN 09/19/19 [History] Paliperidone [Invega] 3 mg PO HS@209909/19/19 [History] Venlafaxine HCl ER [Effexor XR] 150 mg PO DAILY@79909/19/19 [History] amLODIPine [Norvasc] 5 mg PO BID@799,209909/19/19 [History] armodafiniL [Nuvigil] 150 mg PO DAILY@79909/19/19 [History] Follow up Appointment(s)/Referral(s): [facility] [Outside] - 10/05/19 8:30 am (10-05-19 @ 8:30 with JUNE Beltran at [facility] office face to face 10-05-19 @ 11:00 with Armando Kelley at [facility]) Jan Aviles MD [Primary Care Provider] - 1-2 days
== END 2019-10-03 14:08 | disposition home or self-care (01) | DRG 885 ==
LOC: EC 12:00 → 3MHU 16:41
PROVIDERS: ADMIT Psychiatry & Neurology Psychiatry; ATTEND Psychiatry & Neurology Psychiatry
DX: F25.1 Schizoaffective disorder, depressive type (principal); R45.851 Suicidal ideations; F25.0 Schizoaffective disorder, bipolar type; F15.10 Other stimulant abuse, uncomplicated; F11.10 Opioid abuse, uncomplicated; Z71.6 Tobacco abuse counseling; F17.210 Nicotine dependence, cigarettes, uncomplicated; G47.419 Narcolepsy without cataplexy; I10 Essential (primary) hypertension; Z79.899 Other long term (current) drug therapy; Z91.5 Personal history of self-harm; M54.9 Dorsalgia, unspecified; S11.91XD Laceration without foreign body of unspecified part of neck, subsequent encounter; X78.1XXD Intentional self-harm by knife, subsequent encounter; F41.9 Anxiety disorder, unspecified; Z83.6 Family history of other diseases of the respiratory system; Z82.49 Family history of ischemic heart disease and other diseases of the circulatory system; Z88.8 Allergy status to other drugs, medicaments and biological substances
CPT/HCPCS: 36415; 70450; 80048; 80053; 80061; 80306; 80329; 81003; 82075; 83036; 83520; 84443; 85025; 99284; 99285

== ENCOUNTER 2019-10-07 14:57 | Inpatient (IN) | payer MEDICARE, MEDICAID ==
--- NOTE | 2019-10-07 15:04 | ED ---
Psych HPI - General Source: patient, family, police Mode of arrival: ambulatory <Edwin Aly - Last Filed: 10/07/19 17:36> <Gaby Bradley - Last Filed: 10/13/19 02:53> - General Chief Complaint: Psychiatric Symptoms Stated Complaint: mental health Time Seen by Provider: 10/07/19 15:04 - History of Present Illness Initial Comments: Patient is 48-year-old male with history of schizoaffective and bipolar disorder presenting to the emergency department for psychiatric evaluation. Patient lives at the [facility] which is a longterm. The staff at the facility contacted the police after the patient was found to be stalking some of the neighbors. Patient was brought to the emergency department for evaluation. Patient is not compliant with his psychiatric medications. Patient states that the kids across the street are performing "sexual gestures." Patient continues to mumble short sentences while attempting to answer questions. Patient denies any suicidal, homicidal thoughts or ideations at this time. Patient denies other complaints. (Edwin Aly) - Related Data Home Medications Medication Instructions Recorded Confirmed Atorvastatin [Lipitor] 10 mg PO HS@2100 08/30/19 10/07/19 amLODIPine [Norvasc] 5 mg PO BID@0800,209909/19/19 10/07/19 armodafiniL [Nuvigil] 150 mg PO DAILY@0800 09/19/19 10/07/19 Albuterol Inhaler [Ventolin Hfa 2 puff INHALATION RT-Q4H PRN 10/07/19 10/07/19 Inhaler] Fluticasone Nasal [place] [Flonase 2 spray EA NOSTRIL DAILY@0800 PRN 10/07/19 10/07/19 Nasal [place]] Melatonin 10 mg PO HS PRN 10/07/19 10/07/19 traZODone HCL 150 mg PO HS 10/07/19 10/07/19 Previous Rx's Medication Instructions Recorded OLANZapine [ZyPREXA] 10 mg PO HS 30 Days #30 tab 10/03/19 Venlafaxine HCl ER [Effexor XR] 150 mg PO DAILY 30 Days #30 10/03/19 cap.er.24h hydrALAZINE HCL [Apresoline] 25 mg PO BID@0800,2099 tab 10/03/19 lisinopriL [Zestril] 5 mg PO DAILY@0800 tab 10/03/19 Allergies Allergy/AdvReac Type Severity Reaction Status Date / Time amphetamine [From Adderall] Allergy Unknown Verified 10/07/19 17:15 dextroamphetamine Allergy Unknown Verified 10/07/19 17:15 [From Adderall] Review of Systems ROS Other: All systems not noted in ROS Statement are negative. <Edwin Aly - Last Filed: 10/07/19 17:36> ROS Other: All systems not noted in ROS Statement are negative. <Gaby Bradley - Last Filed: 10/13/19 02:53> ROS Statement: Those systems with pertinent positive or pertinent negative responses have been documented in the HPI. Past Medical History Past Medical History: Hypertension, Musculoskeletal Disorder Additional Past Medical History / Comment(s): back pain, headaches History of Any Multi-Drug Resistant Organisms: None Reported Past Surgical History: Back Surgery Past Anesthesia/Blood Transfusion Reactions: No Reported Reaction Past Psychological History: Anxiety, Bipolar, Depression Smoking Status: Current every day smoker Past Alcohol Use History: None Reported Past Drug Use History: None Reported - Past Family History Mother Additional Family Medical History / Comment(s): from heart disease Father Additional Family Medical History / Comment(s): from lung disease <Edwin Aly - Last Filed: 10/07/19 17:36> General Exam Limitations: no limitations General appearance: alert, in no apparent distress Head exam: Present: atraumatic, normocephalic, normal inspection Eye exam: Present: normal appearance, PERRL, EOMI Pupils: Present: normal accommodation ENT exam: Present: normal exam, normal oropharynx, mucous membranes moist Neck exam: Present: normal inspection, full ROM Respiratory exam: Present: normal lung sounds bilaterally. Absent: respiratory distress, wheezes Cardiovascular Exam: Present: regular rate, normal rhythm, normal heart sounds Extremities exam: Present: normal inspection, full ROM, normal capillary refill, pedal edema (Bilateral +1 pitting edema) Back exam: Present: normal inspection, full ROM. Absent: tenderness Neurological exam: Present: alert, oriented X3 Psychiatric exam: Present: normal affect, normal mood Skin exam: Present: warm, dry, intact, normal color <Edwin Aly - Last Filed: 10/07/19 17:36> Course Vital Signs 10/07/19 10/07/19 14:59 18:13 Temperature 98.8 F 98 F Pulse Rate 109 H 79 Respiratory 18 16 Rate Blood Pressure 139/90 138/70 O2 Sat by Pulse 96 98 Oximetry Medical Decision Making <Edwin Aly - Last Filed: 10/07/19 17:36> - Lab Data Result diagrams: 10/08/19 09:14 10/08/19 09:14 <Gaby Bradley - Last Filed: 10/13/19 02:53> - Medical Decision Making Patient is a 48-year-old male presenting to emergency Department for psychiatric evaluation. Patient has history of bipolar schizophrenia disorder. Patient is noncompliant with his medication. Physical examination reveals +1 bilateral lower shunted edema which she states is his baseline. EPS evaluated the patient. He will be admitted for further psychiatric treatment. Case discussed with (Edwin Aly) - Lab Data Lab Results 10/07/19 Range/Units 15:46 Urine Opiates Screen Not Detected (NotDetected) Ur Oxycodone Screen Not Detected (NotDetected) Urine Methadone Screen Not Detected (NotDetected) Ur Propoxyphene Screen Not Detected (NotDetected) Ur Barbiturates Screen Not Detected (NotDetected) U Tricyclic Antidepress Not Detected (NotDetected) Ur Phencyclidine Scrn Not Detected (NotDetected) Ur Amphetamines Screen Not Detected (NotDetected) U Methamphetamines Scrn Not Detected (NotDetected) U Benzodiazepines Scrn Not Detected (NotDetected) Urine Cocaine Screen Not Detected (NotDetected) U Marijuana (THC) Screen Not Detected (NotDetected) Disposition Is patient prescribed a controlled substance at d/c from ED?: No Time of Disposition: 17:37 <Edwin Aly - Last Filed: 10/07/19 17:36> <Gaby Bradley - Last Filed: 10/13/19 02:53> Clinical Impression: Noncompliance with medications, Acute psychosis Disposition: ADMITTED IP TO THIS HOSP Condition: Fair
[2019-10-07 16:23] LABS: Amphetamine Screen,Urine Not Detected (NotDetected); Barbiturate Screen,Urine Not Detected (NotDetected); Benzodiazepines Screen,Urine Not Detected (NotDetected); Cocaine Screen,Urine Not Detected (NotDetected); Methadone Screen, Urine Not Detected (NotDetected); Opiate Screen,Urine Not Detected (NotDetected); Oxycodone Screen, Urine Not Detected (NotDetected); Phencyclidine Screen,Urine Not Detected (NotDetected); Tricyclic Antidepressant,Urine Not Detected (NotDetected); Urn Cannabinoid Scrn Not Detected (NotDetected)
[2019-10-07] MEDS ORDERED: ACETAMINOPHEN TAB 325 MG TAB PO PRN (19:00)
[2019-10-07] MEDS ORDERED: MAG HYDROX/AL HYDROX/SIMETH 30 ML CUP PO PRN (19:00)
[2019-10-07] MEDS ORDERED: MAGNESIUM HYDROXIDE 2,400 MG/10 ML CUP PO PRN (19:00)
[2019-10-07] MEDS ORDERED: ZIPRASIDONE 20 MG VIAL IM PRN (19:00)
[2019-10-07] MEDS ORDERED: LORazepam 1 MG TAB PO PRN (19:00)
[2019-10-07] MEDS ORDERED: ALBUTEROL HFA INHALER INHALATION PRN (19:07)
[2019-10-07] MEDS ORDERED: MELATONIN 5 MG TABLET PO PRN (19:07)
[2019-10-07] MEDS: hydrALAZINE HCL 25 MG TAB PO SCH (20:52)
[2019-10-07] MEDS: ATORVASTATIN 10 MG TAB PO SCH (20:52)
[2019-10-07] MEDS: amLODIPine 5 MG TAB PO SCH (20:53)
[2019-10-07] MEDS ORDERED: traZODone HCL 50 MG TAB PO SCH (21:00)
[2019-10-07] MEDS ORDERED: OLANZapine 5 MG TAB PO SCH (21:00)
[2019-10-08] MEDS ORDERED: FLUTICASONE 50MCG/SPRAY NASAL 16GM EA NOSTRIL PRN (08:00)
[2019-10-08] MEDS: hydrALAZINE HCL 25 MG TAB PO SCH ×2 (08:56→21:28)
[2019-10-08] MEDS: amLODIPine 5 MG TAB PO SCH ×2 (08:56→21:28)
[2019-10-08] MEDS: lisinopriL 5 MG TAB PO SCH (08:56)
[2019-10-08] MEDS: VENLAFAXINE HCL ER 150 MG CAP PO SCH (08:56)
[2019-10-08] MEDS: ARMODAFINIL 150 MG PO SCH (08:57)
[2019-10-08 09:29] LABS: Basophils % (A) 1 %; Eosinophils # (A) 0.3 k/uL (0-0.7); Eosinophils % (A) 4 %; HCT 41.8 % (39.0-53.0); HGB 13.1 gm/dL (13.0-17.5); Hypochromasia Slight; Lymphocytes # (A) 2.2 k/uL (1.0-4.8); Lymphocytes % (A) 31 %; MCH 29.8 pg (25.0-35.0); MCHC 31.3 g/dL (31.0-37.0); MCV 95.3 fL (80.0-100.0); Mean Platelet Volume 6.3; Monocytes # (A) 0.3 k/uL (0-1.0); Monocytes % (A) 5 %; Neutrophils # (A) 4.1 k/uL (1.3-7.7); Neutrophils % (A) 59 %; Platelet Count 194 k/uL (150-450); RBC 4.38 m/uL (4.30-5.90); RDW 13.5 % (11.5-15.5); WBC 7.1 k/uL (3.8-10.6)
[2019-10-08 09:43] LABS: ALT 29 U/L (4-49); AST 28 U/L (17-59); African American GFR (CKD) >90 (>60 ml/min/1.73 sqM); Albumin 3.8 g/dL (3.5-5.0); Alkaline Phosphatase 71 U/L (38-126); Anion Gap 5 mmol/L; Blood Urea Nitrogen 17 mg/dL (9-20); Calcium 9.1 mg/dL (8.4-10.2); Carbon Dioxide 28 mmol/L (22-30); Chloride 108 mmol/L (98-107); Glucose 97 mg/dL (74-99); Non-African American GFR(CKD) >90 (>60 ml/min/1.73 sqM); Potassium 4.3 mmol/L (3.5-5.1); Sodium 141 mmol/L (137-145); Total Bilirubin 0.7 mg/dL (0.2-1.3); Total Protein 6.2 g/dL (6.3-8.2)
[2019-10-08 10:14] LABS: Cholesterol 124 mg/dL (<200); HDL Cholesterol 63 mg/dL (40-60); LDL Cholesterol,Calculated 51 mg/dL (0-99); Triglycerides 51 mg/dL (<150)
[2019-10-08] MEDS ORDERED: NICOTINE POLACRILEX 2 MG GUM BUCCAL PRN (11:28)
[2019-10-08] MEDS: PALIPERIDONE 3 MG TAB.ER.24 PO SCH (11:28)
--- NOTE | 2019-10-08 11:28 | P.HP ---
Psychiatric H&P - . H&P Date: 10/08/19 History & Physical: Allergies Allergy/AdvReac Type Severity Reaction Status Date / Time amphetamine From Adderall Allergy Unknown Verified 10/07/19 17:15 dextroamphetamine Allergy Unknown Verified 10/07/19 17:15 From Adderall Vital Signs Temp 97.9 F 10/08/19 05:52 Pulse 86 10/08/19 08:58 Resp 14 10/08/19 05:52 BP 140/79 10/08/19 08:58 Pulse Ox 98 10/07/19 19:23 Intake & Output 10/07/19 10/08/19 10/08/19 18:59 06:59 18:59 Weight 81.647 kg 75.4 kg Laboratory Last Values WBC 7.1 k/uL (3.8-10.6) 10/08/19 09:14 RBC 4.38 m/uL (4.30-5.90) 10/08/19 09:14 Hgb 13.1 gm/dL (13.0-17.5) 10/08/19 09:14 Hct 41.8 % (39.0-53.0) 10/08/19 09:14 MCV 95.3 fL (80.0-100.0) 10/08/19 09:14 MCH 29.8 pg (25.0-35.0) 10/08/19 09:14 MCHC 31.3 g/dL (31.0-37.0) 10/08/19 09:14 RDW 13.5 % (11.5-15.5) 10/08/19 09:14 Plt Count 194 k/uL (150-450) 10/08/19 09:14 Neutrophils % 59 % 10/08/19 09:14 Lymphocytes % 31 % 10/08/19 09:14 Monocytes % 5 % 10/08/19 09:14 Eosinophils % 4 % 10/08/19 09:14 Basophils % 1 % 10/08/19 09:14 Neutrophils # 4.1 k/uL (1.3-7.7) 10/08/19 09:14 Lymphocytes # 2.2 k/uL (1.0-4.8) 10/08/19 09:14 Monocytes # 0.3 k/uL (0-1.0) 10/08/19 09:14 Eosinophils # 0.3 k/uL (0-0.7) 10/08/19 09:14 Basophils # 0.0 k/uL (0-0.2) 10/08/19 09:14 Hypochromasia Slight 10/08/19 09:14 Sodium 141 mmol/L (137-145) 10/08/19 09:14 Potassium 4.3 mmol/L (3.5-5.1) 10/08/19 09:14 Chloride 108 mmol/L (98-107) H 10/08/19 09:14 Carbon Dioxide 28 mmol/L (22-30) 10/08/19 09:14 Anion Gap 5 mmol/L 10/08/19 09:14 BUN 17 mg/dL (9-20) 10/08/19 09:14 Creatinine 0.81 mg/dL (0.66-1.25) 10/08/19 09:14 Est GFR (CKD-EPI)AfAm >90 (>60 ml/min/1.73 sqM) 10/08/19 09:14 Est GFR (CKD-EPI)NonAf >90 (>60 ml/min/1.73 sqM) 10/08/19 09:14 Glucose 97 mg/dL (74-99) 10/08/19 09:14 Calcium 9.1 mg/dL (8.4-10.2) 10/08/19 09:14 Total Bilirubin 0.7 mg/dL (0.2-1.3) 10/08/19 09:14 AST 28 U/L (17-59) 10/08/19 09:14 ALT 29 U/L (4-49) 10/08/19 09:14 Alkaline Phosphatase 71 U/L (38-126) 10/08/19 09:14 Total Protein 6.2 g/dL (6.3-8.2) L 10/08/19 09:14 Albumin 3.8 g/dL (3.5-5.0) 10/08/19 09:14 Triglycerides 51 mg/dL (<150) 10/08/19 09:14 Cholesterol 124 mg/dL (<200) 10/08/19 09:14 LDL Cholesterol, Calc 51 mg/dL (0-99) 10/08/19 09:14 HDL Cholesterol 63 mg/dL (40-60) H 10/08/19 09:14 TSH 0.657 mIU/L (0.465-4.680) 10/08/19 09:14 Urine Opiates Screen Not Detected (NotDetected) 10/07/19 15:46 Ur Oxycodone Screen Not Detected (NotDetected) 10/07/19 15:46 Urine Methadone Screen Not Detected (NotDetected) 10/07/19 15:46 Ur Propoxyphene Screen Not Detected (NotDetected) 10/07/19 15:46 Ur Barbiturates Screen Not Detected (NotDetected) 10/07/19 15:46 U Tricyclic Antidepress Not Detected (NotDetected) 10/07/19 15:46 Ur Phencyclidine Scrn Not Detected (NotDetected) 10/07/19 15:46 Ur Amphetamines Screen Not Detected (NotDetected) 10/07/19 15:46 U Methamphetamines Scrn Not Detected (NotDetected) 10/07/19 15:46 U Benzodiazepines Scrn Not Detected (NotDetected) 10/07/19 15:46 Urine Cocaine Screen Not Detected (NotDetected) 10/07/19 15:46 U Marijuana (THC) Screen Not Detected (NotDetected) 10/07/19 15:46 10/08/19 11:05 IDENTIFYING DATA: Patient is a 48-year-old single male with a long psychiatric history for several suicide attempts several hospitalizations and schizoaffective disorder currently lives at [facility]. HISTORY OF PRESENT ILLNESS: He presented to the ED yesterday [facility] stating that patient was "delusional" thoughts and had been noncompliant with treatment. Police was escorting patient to the hospital for a psychiatric evaluation. Patient was apparently found to be stalking his neighbors and reported that the "kids across the street were performing sexual gestures" in the ER is what he reported. Patient also reported to be noncompliant with his medications. UDS was negative. Patient has a history of several suicide attempts and hospitalizations for noncompliance. He appeared to have poor hygiene and grooming this morning and was constricted and his affect. Patient had very poor insight into his condition and his treatment. Patient admitted to noncompliance with medications and minimized his reason for admission. He states that "I'm just looking for anxiety medications" and spoke about Ativan helping him. He was evasive and disorganized at times. When asked about the events that occurred prior to Diana coming into the hospital he states that "the 12-year-old kids across history with her mom was yelling things about sex" and he states that he went over to them to "tell him to stop". Patient has bizarre thoughts is delusional and reported having fair sleep and denied any depression or anxiety today. He denied any auditory or visual hallucinations and denied any suicidal or homicidal ideations intent or plan. Patient denied using any drugs however uses cigarettes daily. PAST PSYCHIATRIC HISTORY: He has had multiple psychiatric hospitalizations in the past and most recently was discharged last month from the mental health unit. He is involved with [facility] services. His psychiatric medications prior to admission included Risperdal, Celexa 40, modafinil 250 mg in the morning. Patient has a diagnosis of schizoaffective disorder PAST MEDICAL HISTORY: He has a history of hypertension, hyperlipidemia and tobacco use disorder. ALLERGIES: NO KNOWN DRUG ALLERGIES SUBSTANCE USE HISTORY: He denied history of substance use or substance use disorder. However some reported an extensive history of drug abuse involving opiates, psychostimulants, cannabis and alcohol. FAMILY PSYCHIATRIC/SUBSTANCE USE HISTORY: Denied LEGAL HISTORY: According to the [facility] court document he has a history of charges for assaulting a restoration officer and domestic violence. SOCIAL HISTORY: His born and raised in intact family in [facility]. His father in 2016 and, according to the patient's uncle, his mother approximately 2-1/2-3 years ago." He has a high school education. He is an only child. He is unemployed and receives security disability income. No history of service. MENTAL STATUS EXAM: General Appearance: Patient appears to be stated age is alert, directable, uncooperative. Patient appears to have poor hygiene and grooming. Behavior: Patient is seated without any agitated behavior. uncooperative Speech: Patient's speech is fluent and nonpressured. [place]. Mood/Affect: Patient reports their mood is "okay", affect is congruent and constricted. Suicidality/Homicidality: Patient denies having any homicidal ideation intent or plan. Denies any suicidal ideations intent or plan Perceptions: Patient denies any visual hallucinations and denies any auditory hallucinations Though content/process: Patient is delusional believing that his neighbors are having sex on the porch and making sexual gestures. He is illogical and bizarre. Memory and concentration: AOX3, grossly intact for the purposes of this session. Can spell "WORLD" backwards Judgment and insight: poor STRENGTHS/WEAKNESSES: strength is that patient is resilient. Weakness is that patient has poor judgment and is impulsive INTELLECT: Below average IMPRESSIONS: Schizoaffective disorder bipolar type History of methamphetamine abuse history of opiate use disorder Nicotine dependence PLAN: -Patient is admitted under involuntary status to MHU for stabilization of psychiatric symptoms and safety. A second certification was completed and along with petition will be filed for court. -Medications : Will start patient on paliperidone by mouth 3 mg daily for psychosis/mood stabilization. Continue with Effexor 150 mg daily for mood, increase trazodone to 200 mg daily at bedtime for insomnia/mood. -Ativan and Geodon PRN for agitation/aggression. Melatonin when necessary for sleep. -Patient was counselled on substance abuse and desired to cut back on use however was superficial but this -Patient was informed of the risks, benefits and side effects of the medication and patient verbally consented to taking the medications. Patient signed med consent form and was placed in chart. -Internal Medicine consult to perform medical evaluation and physical. -NRT - nicotine gum - on board for discharge planning. Encourage patient to participate in groups to work on coping skills. Will need to transition patient on to a long-acting injection prior to discharge. Awaiting deferral and hearing date. 10/08/19 11:21 10/08/19 11:26 10/08/19 11:27
[2019-10-08 18:06] LABS: Hemoglobin A1C 5.6 % (4.0-6.0)
--- NOTE | 2019-10-08 20:55 | P.CONS ---
History of Present Illness - Reason for Consult Consult date: 10/08/19 Medical management Requesting physician: Real Kennedy - Chief Complaint Stocking neighbors - History of Present Illness Consultation: This is a 48-year-old patient who follows Dr. caldwell. Patient lives in a [facility]dc. Chronic stable medical conditions include hypertension, hyperlipidemia, nicotine dependence. Patient has known bipolar disorder. Patient is recent suicide attempt at cut the left side of his neck. healed. [facility] patient had been having dizzy delusional thoughts. Noncompliant with the treatment. Patient apparently was talking his neighbors and reported that kids across the street for performing sexual gestures in the ER. His at at Suicide past and Hospitalizations. Denies Any Cough No Shortness of Breath. No Fever or Chills. Appetite Is Okay. Sleeping Okay. He Mumbles His Answers. Sometimes Review of systems: GEN.: Tired EYES: None HEENT: None NECK: As above RESPIRATORY: None CARDIOVASCULAR: None GASTROINTESTINAL: None GENITOURINARY: None MUSCULOSKELETAL: None LYMPHATICS: None HEMATOLOGICAL: None PSYCHIATRY: Depressed NEUROLOGICAL: None Past medical history to include: Hypertension, hyperlipidemia, bipolar disorder, nicotine dependence, left neck laceration Social history: Lives had [facility]. Smokes 2 packs of cigarettes daily. Currently denies use of any recreational drugs.. Physical examination: VITAL SIGNS: 97.1, 69, 14, 104/56, 98% room air GENERAL: Sitting up, appearing low, EYES: Pupils equal. Conjunctiva normal. HEENT: External appearance of nose and ears normal, oral cavity grossly normal. NECK: JVD not raised; dressing over the left neck. HEART: First and second heart sounds are normal; no edema. LUNGS: Respiratory rate normal; decreased breath sounds. ABDOMEN: Soft, nontender, liver spleen not palpable, no masses palpable. PSYCH: Alert and oriented x3; mood and affect depressed NEUROLOGICAL: Cranial nerves grossly intact; no facial asymmetry, power and sensation grossly intact. LYMPHATICS: No lymph nodes palpable in the axilla and neck INVESTIGATIONS, reviewed in the clinical context: White count 7.1 hemoglobin 13.1 potassium 4.3 creatinine 0.81 Urine drug screen negative Assessment: -Schizoaffective disorder bipolar type -Essential hypertension -Hyperlipidemia -Chronic nicotine dependence cigarette smoker Plan: Patient to be resumed on his home dose of Zestril Norvasc Lipitor. Also be given a nicotine patch. She follows his family doctor upon discharge. Discussed with patient. Thank you Past Medical History Past Medical History: Hypertension, Musculoskeletal Disorder Additional Past Medical History / Comment(s): back pain, headaches History of Any Multi-Drug Resistant Organisms: None Reported Past Surgical History: Back Surgery Past Anesthesia/Blood Transfusion Reactions: No Reported Reaction Past Psychological History: Anxiety, Bipolar, Depression Smoking Status: Current every day smoker Past Alcohol Use History: None Reported Past Drug Use History: None Reported - Past Family History Mother Additional Family Medical History / Comment(s): from heart disease Father Additional Family Medical History / Comment(s): from lung disease Medications and Allergies Home Medications Medication Instructions Recorded Confirmed Type Atorvastatin [Lipitor] 10 mg PO HS@2100 08/30/19 10/07/19 History amLODIPine [Norvasc] 5 mg PO BID@0800,2100 09/19/19 10/07/19 History armodafiniL [Nuvigil] 150 mg PO DAILY@0800 09/19/19 10/07/19 History OLANZapine [ZyPREXA] 10 mg PO HS 30 Days #30 tab 10/03/19 10/07/19 Rx Venlafaxine HCl ER [Effexor XR] 150 mg PO DAILY 30 Days #30 10/03/19 10/07/19 Rx cap.er.24h hydrALAZINE HCL [Apresoline] 25 mg PO BID@0800,2100 tab 10/03/19 10/07/19 Rx lisinopriL [Zestril] 5 mg PO DAILY@0800 tab 10/03/19 10/07/19 Rx Albuterol Inhaler [Ventolin Hfa 2 puff INHALATION RT-Q4H PRN 10/07/19 10/07/19 History Inhaler] Fluticasone Nasal [place] [Flonase 2 spray EA NOSTRIL DAILY@0800 PRN 10/07/19 10/07/19 History Nasal [place]] Melatonin 10 mg PO HS PRN 10/07/19 10/07/19 History traZODone HCL 150 mg PO HS 10/07/19 10/07/19 History Allergies Allergy/AdvReac Type Severity Reaction Status Date / Time amphetamine [From Adderall] Allergy Unknown Verified 10/07/19 17:15 dextroamphetamine Allergy Unknown Verified 10/07/19 17:15 [From Adderall] Physical Exam Vitals: Vital Signs Temp Pulse Pulse Resp BP BP Pulse Ox 10/08/19 08:58 86 140/79 10/08/19 05:52 97.9 F 69 14 104/56 10/07/19 20:55 76 152/87 10/07/19 19:23 97.1 F L 85 16 123/85 98 10/07/19 18:13 98 F 79 16 138/70 98 10/07/19 14:59 98.8 F 109 H 18 139/90 96 Intake and Output 10/07/19 10/08/19 10/08/19 22:59 06:59 14:59 Other: Weight 75.4 kg Results CBC & Chem 7: 10/08/19 09:14 10/08/19 09:14 Labs: Abnormal Lab Results - Last 24 Hours (Table) 10/08/19 Range/Units 09:14 Chloride 108 H (98-107) mmol/L Total Protein 6.2 L (6.3-8.2) g/dL HDL Cholesterol 63 H (40-60) mg/dL
[2019-10-08] MEDS: traZODone HCL 100 MG TAB PO SCH (21:28)
[2019-10-08] MEDS: ATORVASTATIN 10 MG TAB PO SCH (21:28)
[2019-10-09] MEDS: lisinopriL 5 MG TAB PO SCH (08:55)
[2019-10-09] MEDS: PALIPERIDONE 3 MG TAB.ER.24 PO SCH (08:55)
[2019-10-09] MEDS: hydrALAZINE HCL 25 MG TAB PO SCH ×2 (08:55→19:50)
[2019-10-09] MEDS: VENLAFAXINE HCL ER 150 MG CAP PO SCH (08:55)
[2019-10-09] MEDS: amLODIPine 5 MG TAB PO SCH ×2 (08:55→19:51)
[2019-10-09] MEDS: ARMODAFINIL 150 MG PO SCH (08:56)
[2019-10-09] MEDS ORDERED: ONDANSETRON 4 MG TAB PO PRN (09:51)
--- NOTE | 2019-10-09 09:56 | P.PN ---
Progress Note - Text Progress Note Date: 10/09/19 Interval History: Patient was seen in his bed today and was directable and agreeable to speak with freelance writer however did not want to leave his room. He states that he was feeling nauseous this morning and was asking for medications to help with his nausea. He states that he has been taking his medications as prescribed. Patient was more directable today and was concrete with his answers. He continues to have poor insight and judgment. He continues to have a poor hygiene and grooming. He states that his mood is "fine today" and denied any anxiety. He states that he was able to sleep better throughout the night. At this time patient denies any suicidal or homical ideations, intent or plan. Patient denies any auditory, visual hallucinations. Mental Status Exam: General Appearance: Patient appears to be stated age is alert, directable, more cooperative today. Patient appears to have poor hygiene and grooming. Behavior: Patient is seated without any agitated behavior. more cooperative today. Speech: Patient's speech is fluent and nonpressured. [place]. Mood/Affect: Patient reports their mood is "ok", affect is congruent and constricted. Suicidality/Homicidality: Patient denies having any homicidal ideation intent or plan. Denies any suicidal ideations intent or plan Perceptions: Patient denies any visual hallucinations and denies any auditory hallucinations Though content/process: Patient did not endorse delusions today. He is more logical today. [place] in his answers. Memory and concentration: AOX3, grossly intact for the purposes of this session Judgment and insight: poor, improving mildly Assessment Schizoaffective disorder bipolar type History of methamphetamine abuse history of opiate use disorder Nicotine dependence Plan: -Patient continues to meet criteria for inpatient psychiatric admission for symptom stabilization and safety. Patient has not signed medication consent and was placed in patient's chart. Currently awaiting court date and deferral date. -Medications: Increased paliperidone by mouth to 6 mg daily for psychosis/mood stabilization. Continue with Effexor 150 mg daily for mood, continue with trazodone 200 mg daily at bedtime for insomnia/mood. -When necessary Ativan and Geodon for agitation/aggression. -NRT -Nicorette gum -SW on board for discharge planning. Encouraged the patient to participate in milieu. Will need to transition patient on to a long-acting injection prior to discharge. Awaiting deferral and hearing date.
[2019-10-09] MEDS: ATORVASTATIN 10 MG TAB PO SCH (19:50)
[2019-10-09] MEDS: traZODone HCL 100 MG TAB PO SCH (19:51)
[2019-10-10] MEDS ORDERED: PALIPERIDONE 6 MG TAB.ER.24 PO SCH (09:00)
[2019-10-10] MEDS: hydrALAZINE HCL 25 MG TAB PO SCH ×2 (09:12→20:27)
[2019-10-10] MEDS: amLODIPine 5 MG TAB PO SCH ×2 (09:12→20:27)
[2019-10-10] MEDS: VENLAFAXINE HCL ER 150 MG CAP PO SCH (09:12)
[2019-10-10] MEDS: ARMODAFINIL 150 MG PO SCH (09:13)
[2019-10-10] MEDS: lisinopriL 5 MG TAB PO SCH (09:47)
--- NOTE | 2019-10-10 11:57 | P.PN ---
Subjective Progress Note Date: 10/10/19 Principal diagnosis: Diagnosis: Schizoaffective disorder bipolar type History of methamphetamine abuse History of opiate use disorder Nicotine dependence Subjective: Patient seems to have no insight into what he did before he got in the hospital. He says he is here voluntarily for medication adjustment. When he was in the hospital he claimed that when they gave him Zyprexa it helped and he tolerated but then he complained about his after discharge. T Objective: The patient has a long-term history of coming in voluntarily so he can fly below the radar. And then goes home and cheeks his medicine does not take it. He was on in [place] when he was here last but complained it made him sleepy he also has his diagnosis of narcolepsy which is somewhat doubtful as is really just sleepiness during the day. So he is complaining about that inVega. But due to his current chronic and long-term pattern of not taking his medicines becoming psychotic and endangering people around him and himself he needs to be on long-acting monitorable medication. Assessment plan were going to give him oral inVega 9 mg a day and then give him a shot on his way out the door which can be repeated outpatient to keep him stable. I discussed this case with Dr. Darrius ESPINOZA and we agreed on the plan he has worked with this patient off and on for a long period of time Objective - Vital Signs Vital signs: Vital Signs Temp 97.4 F L 10/10/19 06:53 Pulse 60 10/10/19 06:53 Resp 16 10/09/19 07:18 BP 116/60 10/10/19 06:53 Pulse Ox 98 10/10/19 06:53 - Labs CBC & Chem 7: 10/08/19 09:14 10/08/19 09:14
[2019-10-10] MEDS: ATORVASTATIN 10 MG TAB PO SCH (20:27)
[2019-10-10] MEDS: traZODone HCL 100 MG TAB PO SCH (20:27)
[2019-10-11] MEDS: ARMODAFINIL 150 MG PO SCH (08:03)
[2019-10-11] MEDS: hydrALAZINE HCL 25 MG TAB PO SCH ×2 (08:03→20:58)
[2019-10-11] MEDS: VENLAFAXINE HCL ER 150 MG CAP PO SCH (08:03)
[2019-10-11] MEDS: amLODIPine 5 MG TAB PO SCH ×2 (08:03→20:59)
[2019-10-11] MEDS: lisinopriL 5 MG TAB PO SCH (08:03)
--- NOTE | 2019-10-11 10:22 | P.PN ---
Subjective Progress Note Date: 10/11/19 Principal diagnosis: Diagnosis: Schizoaffective disorder bipolar type History of methamphetamine abuse History of opiate use disorder Nicotine dependence Subjective: I'm doing fine") when asked him what doing fine meant,) he said "I'm doing good". I pointed out that this was too vague and asked him what he has ascribed his doing better to. He said that the medications seem to be working better. However in the past he always said this or that medicine was fine so let me go and he doesn't take it. He claims he took the Zyprexa as an outpatient but it just didn't work. He says he has friends that he hangs out with any doesn't use any street drugs that he eats healthy exercises regularly. Pretty much anything you check to try to find something for him to work on he s ays, "well I'm fine with that". Objective vital signs: The patient is blood pressure 113/68 heart rate 78 temperature 97.8 Labs: Nothing new Groups: The patient has not been attending groups Staff report no acute aggression or sadness and the patient denies homicidality or suicidality Patient's affect is flat he was lying in a dark room at 10:00 when I came to talk to him, self-care is minimal he is oriented to person place and time gait and station are normal psychomotor activity is normal no evidence of psychosis Assessment: The patient been at this point with the sudden I'm fine approach then he gets discharged doesn't take his medicine and comes right back. If he tolerates the inVega orally tonight as well then we can look for a day can await he'll also need to go to court and have mandated treatment so that we can work with him after discharge and keep him from just stopping everything Prognosis is guarded as the patient does not want to acknowledge any issues or needs Objective - Vital Signs Vital signs: Vital Signs Temp 97.8 F 10/11/19 01:16 Pulse 78 10/11/19 08:00 Resp 16 10/11/19 01:16 BP 113/68 10/11/19 08:00 Pulse Ox 98 10/10/19 06:53 - Labs CBC & Chem 7: 10/08/19 09:14 10/08/19 09:14
[2019-10-11] MEDS: PALIPERIDONE 3 MG TAB.ER.24 PO SCH (20:58)
[2019-10-11] MEDS: ATORVASTATIN 10 MG TAB PO SCH (20:58)
[2019-10-11] MEDS: traZODone HCL 100 MG TAB PO SCH (20:59)
[2019-10-12] MEDS: ARMODAFINIL 150 MG PO SCH (08:28)
[2019-10-12] MEDS: VENLAFAXINE HCL ER 150 MG CAP PO SCH (08:29)
[2019-10-12] MEDS: lisinopriL 5 MG TAB PO SCH (08:29)
[2019-10-12] MEDS: amLODIPine 5 MG TAB PO SCH ×2 (08:29→20:28)
[2019-10-12] MEDS: hydrALAZINE HCL 25 MG TAB PO SCH ×2 (08:29→20:28)
--- NOTE | 2019-10-12 10:34 | P.PN ---
Subjective Progress Note Date: 10/12/19 Principal diagnosis: Diagnosis: Schizoaffective disorder bipolar type History of methamphetamine abuse History of opiate use disorder Nicotine dependence Subjective: The patient is focused on if I just had my stimulants that be fine does not seem to acknowledge the degree of his psychosis when he came in but says he is sleeping fine eating fine does not feel paranoid everything is great. Except for being here Objective: Vital signs temperature is 97.7 heart rate 59 respirations 16 blood pressure 109/62 Labs: Nothing new since 10/08/19 Group report: The patient did attend the 145 group yesterday and stayed the whole time focused well was appropriately verbal with staff did not talked peers he did not attend any of the other 3 groups available yesterday Staff report that he has been withdrawn but calm takes care of his ADLs cooperative comes out of his room for meals and meds but does not interact with peers when you talk to me is always vague energy seems below lays in his bed with his eyes closed most of the time does seem to be oriented denies hallucinations delusions suicidality or homicidality Assessment and plan the due to the patient coming in the hospital assuring her body is now fine and will do fine and then going out and relapsing almost instantly we need to have him court ordered so that he will increase the chance that he will take his medicines. Objective - Vital Signs Vital signs: Vital Signs Temp 97.7 F 10/12/19 06:57 Pulse 75 10/12/19 08:31 Resp 16 10/12/19 06:57 BP 104/71 10/12/19 08:31 Pulse Ox 98 10/10/19 06:53 - Labs CBC & Chem 7: 10/08/19 09:14 10/08/19 09:14
[2019-10-12] MEDS: ATORVASTATIN 10 MG TAB PO SCH (20:28)
[2019-10-12] MEDS: traZODone HCL 100 MG TAB PO SCH (20:28)
[2019-10-12] MEDS: PALIPERIDONE 3 MG TAB.ER.24 PO SCH (20:28)
[2019-10-13] MEDS: hydrALAZINE HCL 25 MG TAB PO SCH ×2 (11:18→21:51)
[2019-10-13] MEDS: lisinopriL 5 MG TAB PO SCH (11:18)
[2019-10-13] MEDS: VENLAFAXINE HCL ER 150 MG CAP PO SCH (11:20)
[2019-10-13] MEDS: amLODIPine 5 MG TAB PO SCH ×2 (11:20→21:51)
[2019-10-13 13:04] VITALS: BMI 22.5
[2019-10-13] MEDS: ATORVASTATIN 10 MG TAB PO SCH (21:51)
[2019-10-13] MEDS: traZODone HCL 100 MG TAB PO SCH (21:51)
[2019-10-13] MEDS: PALIPERIDONE 3 MG TAB.ER.24 PO SCH (21:51)
[2019-10-14] MEDS: amLODIPine 5 MG TAB PO SCH ×2 (09:55→20:56)
[2019-10-14] MEDS: VENLAFAXINE HCL ER 150 MG CAP PO SCH (09:55)
[2019-10-14] MEDS: lisinopriL 5 MG TAB PO SCH (09:55)
[2019-10-14] MEDS: hydrALAZINE HCL 25 MG TAB PO SCH ×2 (09:55→21:26)
--- NOTE | 2019-10-14 10:05 | P.PN ---
Subjective Progress Note Date: 10/13/19 Principal diagnosis: Diagnosis: Schizoaffective disorder bipolar type History of methamphetamine abuse History of opiate use disorder Nicotine dependence The patient was seen on 10/12 Subjective: Patient denies all problems and is resigned to having to wait for the court so spends most of his time in bed Objective patient was lying in position in his bed Vital signs temperature 90.7 7R rate 67 respiration 16 blood pressure 110/56 Labs: Nothing new Groups the patient has not been attending Staff report is that the patient denies suicidality or homicidality is oriented to person place time and circumstances is withdrawn drowsy but cooperative minimal ADLs guarded Mental status exam: Patient is alert oriented to person place time and circumstance reasonable eye contact flat affect totally lacking in insight but seems resigned to the fact that he'll need to stay here till he goes to court. Objective - Vital Signs Vital signs: Vital Signs Temp 97.9 F 10/14/19 06:55 Pulse 67 10/14/19 06:55 Resp 17 10/14/19 06:55 BP 116/70 10/14/19 06:55 Pulse Ox 97 10/14/19 06:55 Intake & Output 10/13/19 10/14/19 10/14/19 18:59 06:59 18:59 Weight 75.4 kg - Labs CBC & Chem 7: 10/08/19 09:14 10/08/19 09:14
--- NOTE | 2019-10-14 10:08 | P.PN ---
Subjective Progress Note Date: 10/14/19 Principal diagnosis: Diagnosis: Schizoaffective disorder bipolar type History of methamphetamine abuse History of opiate use disorder Nicotine dependence Subjective Laci no change from yesterday as were not changing his medicines he says hisnegative side effects if patient is willing on Thursday we can shift over from oral inVega to the shot otherwise he is feeling kind of bored nothing to read and nothing to do. Of course he has to this by being withdrawn not going into the community room to play cards or watch TV. Objective: Vital signs temperature 97.9 heart rate is 67 respirations 17 blood pressure 116/70 and O2 sat is 97 Labs nothing new Groups: Again the patient does not attend Staff assessment: The patient was pacing the halls but cooperative had to be encouraged to take a shower denies psychosis denies suicidality or homicidality denies everything relatively attentive does not interact with other peers Mental status exam again patient was lying in bed but he sat up and we had a discussion of what is going to take for him to stabilize and quit coming in and out of the hospital. His last timeout was less than a week but totally denies all the psychotic manifestations that he experiences so is difficult for him to be motivated to deal with things since he responds almost too well to removal from that situation and medication. Assessment plan the patient will need to be committed to having to follow-up care and that won't be till next week no changes at this time Objective - Vital Signs Vital signs: Vital Signs Temp 97.9 F 10/14/19 06:55 Pulse 67 10/14/19 06:55 Resp 17 10/14/19 06:55 BP 116/70 10/14/19 06:55 Pulse Ox 97 10/14/19 06:55 Intake & Output 10/13/19 10/14/19 10/14/19 18:59 06:59 18:59 Weight 75.4 kg - Labs CBC & Chem 7: 10/08/19 09:14 10/08/19 09:14
[2019-10-14] MEDS: traZODone HCL 100 MG TAB PO SCH (20:56)
[2019-10-14] MEDS: PALIPERIDONE 3 MG TAB.ER.24 PO SCH (20:56)
[2019-10-14] MEDS: ATORVASTATIN 10 MG TAB PO SCH (20:56)
[2019-10-15] MEDS: lisinopriL 5 MG TAB PO SCH (09:42)
[2019-10-15] MEDS: VENLAFAXINE HCL ER 150 MG CAP PO SCH (09:42)
[2019-10-15] MEDS: amLODIPine 5 MG TAB PO SCH ×2 (09:42→20:10)
[2019-10-15] MEDS: hydrALAZINE HCL 25 MG TAB PO SCH ×2 (09:42→20:10)
--- NOTE | 2019-10-15 11:21 | PN ---
PROGRESS NOTE DATE OF SERVICE: 10/15/2019. CHIEF COMPLAINT: The patient was delusional. He was not following through with treatment. He had paranoid and other delusions. INTERVAL HISTORY: Patient has been doing fair. He had a quiet evening last night. He comes out in the day area. He has been attending some of the groups. He will interact a little with others. For the most part, he tends to be more withdrawn than not. He keeps to himself. He slept fairly well last night. Today, he has been up. He has been out in the day area. When I talked to him, he had no specific complaints or concerns. He tended to downplay the issues that were happening before he came into the hospital. He disagreed with some of what was documented. On the other hand, he has been cooperative with care and taking medications appropriately. He has not reported any problems or side effects relating to his medications. MENTAL STATUS: Patient gave fairly good eye contact. Psychomotor activity was a little restless. He answered questions appropriately. His thoughts were clear. He did not say a lot. His affect was somewhat blunted. His mood reserved. He was somewhat distressed. It was difficult to assess for thought disorder. He voiced no thoughts of harm to self or others. Cognition was clear. ASSESSMENT: I will continue the current diagnosis and treatment plan. I reviewed the notes of Dr. Kennedy. For the most part, the patient was in agreement with the treatment plan. We talked about the plan to switch the patient from oral Invega to Invega Sustenna. He was in agreement with that. I reviewed details regarding the medication including long- acting injectable. I reviewed indications for the medication, potential side effects and metabolic concerns and issues related to movement disorder. I anticipate the patient will receive his initial injection of Invega Sustenna on Thursday. We will focus on stabilization and discharge planning. MMODL / IJN: [id number] /
[2019-10-15] MEDS: traZODone HCL 100 MG TAB PO SCH (20:09)
[2019-10-15] MEDS: ATORVASTATIN 10 MG TAB PO SCH (20:10)
[2019-10-15] MEDS: PALIPERIDONE 3 MG TAB.ER.24 PO SCH (20:10)
[2019-10-16] MEDS: VENLAFAXINE HCL ER 150 MG CAP PO SCH (09:56)
[2019-10-16] MEDS: amLODIPine 5 MG TAB PO SCH ×2 (09:56→21:23)
[2019-10-16] MEDS: hydrALAZINE HCL 25 MG TAB PO SCH ×2 (09:56→21:23)
[2019-10-16] MEDS: lisinopriL 5 MG TAB PO SCH (09:56)
--- NOTE | 2019-10-16 17:05 | PN ---
PROGRESS NOTE DATE OF SERVICE: 10/16/2019. CHIEF COMPLAINT: The patient was delusional. He was not following through treatment. He had paranoid and other delusions. INTERVAL HISTORY: Patient has been doing fair. He had a quiet evening yesterday. He attended one group yesterday. He tends to present in a fairly quiet manner. He is cooperative with care. He will come out in the day area, though mostly he tends to keep to himself. He slept well last night. Today he has been up. Today he tells me that he is feeling better that his mood is improving. He has a better outlook. He has been attending groups today. He is anticipating receiving Invega Sustenna tomorrow as per Dr. Kennedy. While we did not go into any issues in detail, it did not appear that the patient has been having much of paranoid thinking. He seems to be comfortable and relaxed on the unit. He continues to have a quiet manner and keeps to himself. He tolerates his psychotropic medications. MENTAL STATUS: Patient sat without restlessness. Eye contact was fairly good. Psychomotor activity was somewhat slowed. He answered questions with brief responses. He did not say much. His affect was blunted. His mood quiet. He had a friendly manner. His mood did not appear to be depressed. He did not seem to be distressed in any way. There was no outward evidence of thought disorder. He voiced no thoughts of harm. Cognition was clear. ASSESSMENT: I will continue the current diagnosis and treatment plan. I reviewed medication issues with the patient. Patient is in agreement with the idea of switching to the long- acting injectable Invega Sustenna. He tolerates his psychotropic medications. He understands followup with [facility] and anticipates return to [facility]. We discussed discharge planning issues. We will continue to focus on stabilization and discharge planning. I discussed with the patient, I would anticipate his being discharged sometime this week, though there may need to be a few days to monitor for is receiving Invega Sustenna. MMODL / IJN: [id number] /
[2019-10-16] MEDS: PALIPERIDONE 3 MG TAB.ER.24 PO SCH (21:23)
[2019-10-16] MEDS: ATORVASTATIN 10 MG TAB PO SCH (21:23)
[2019-10-16] MEDS: traZODone HCL 100 MG TAB PO SCH (21:23)
[2019-10-17] MEDS: hydrALAZINE HCL 25 MG TAB PO SCH ×2 (09:44→22:04)
[2019-10-17] MEDS: amLODIPine 5 MG TAB PO SCH ×2 (09:44→20:59)
[2019-10-17] MEDS: lisinopriL 5 MG TAB PO SCH (09:45)
[2019-10-17] MEDS: VENLAFAXINE HCL ER 150 MG CAP PO SCH (09:45)
--- NOTE | 2019-10-17 11:22 | P.PN ---
Subjective Progress Note Date: 10/17/19 Principal diagnosis: Diagnosis: Schizoaffective disorder bipolar type History of methamphetamine abuse History of opiate use disorder Nicotine dependence Subjective the patient says that he is not bored he is used to spending most of his life sleeping and that is what he is doing in here because he doesn't have anything for his narcolepsy. We will be having a court on Thursday and then we can discharge him and he can work it out with his outpatient doctor as to whether want to give any stimulants or not Objective: Groups patient has been attending group and participates well Staff assessment is that patient taking somewhat better care of his ADLs denies any hallucinations or delusions or suicidality or homicidality is somewhat disheveled and slight pressure when he does talk also time he is withdrawn is compliant with care The patient is lying in bed curled up in the middle of the day but he responds pleasantly is oriented to person place time and circumstance no aggression no tearfulness also no clear plan is to how he is going to do well after discharge Assessment this is stable plan no change in medications discharge patient after court on Thursday Objective - Vital Signs Vital signs: Vital Signs Temp 97.5 F L 10/17/19 06:30 Pulse 54 L 10/17/19 09:45 Resp 16 10/17/19 06:30 BP 98/66 10/17/19 09:45 Pulse Ox 97 10/14/19 06:55 - Labs CBC & Chem 7: 10/08/19 09:14 10/08/19 09:14
[2019-10-17] MEDS: PALIPERIDONE 3 MG TAB.ER.24 PO SCH (20:59)
[2019-10-17] MEDS: ATORVASTATIN 10 MG TAB PO SCH (20:59)
[2019-10-17] MEDS: traZODone HCL 100 MG TAB PO SCH (20:59)
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
[2019-10-18] MEDS: hydrALAZINE HCL 25 MG TAB PO SCH ×2 (09:30→21:25)
[2019-10-18] MEDS: amLODIPine 5 MG TAB PO SCH ×3 (09:30→21:25)
[2019-10-18] MEDS: lisinopriL 5 MG TAB PO SCH (09:31)
[2019-10-18] MEDS: VENLAFAXINE HCL ER 150 MG CAP PO SCH (09:44)
[2019-10-18] MEDS ORDERED: PALIPERIDONE IM 156 MG/ML SYG IM ONE (21:00)
[2019-10-18] MEDS: traZODone HCL 100 MG TAB PO SCH (21:25)
[2019-10-18] MEDS: ATORVASTATIN 10 MG TAB PO SCH (21:25)
[2019-10-19 08:10] VITALS: TEMP 98.1
[2019-10-19] MEDS: lisinopriL 5 MG TAB PO SCH (10:48)
[2019-10-19] MEDS: hydrALAZINE HCL 25 MG TAB PO SCH (10:48)
[2019-10-19] MEDS: amLODIPine 5 MG TAB PO SCH (10:49)
[2019-10-19 10:50] VITALS: BP 124/82; PULSE 65; RESP 20
== END 2019-10-19 12:20 | disposition home or self-care (01) | DRG 885 ==
LOC: EC 14:57 → 3MHU 18:53
PROVIDERS: ADMIT Psychiatry & Neurology Psychiatry; ATTEND Psychiatry & Neurology Psychiatry
DX: F25.0 Schizoaffective disorder, bipolar type (principal); Z91.128 Patient's intentional underdosing of medication regimen for other reason; E78.5 Hyperlipidemia, unspecified; F11.11 Opioid abuse, in remission; F15.11 Other stimulant abuse, in remission; F12.11 Cannabis abuse, in remission; F10.11 Alcohol abuse, in remission; T50.906A Underdosing of unspecified drugs, medicaments and biological substances, initial encounter; G47.00 Insomnia, unspecified; I10 Essential (primary) hypertension; M54.9 Dorsalgia, unspecified; F17.210 Nicotine dependence, cigarettes, uncomplicated; Z79.899 Other long term (current) drug therapy; Z91.5 Personal history of self-harm; Z71.51 Drug abuse counseling and surveillance of drug abuser; Y63.6 Underdosing and nonadministration of necessary drug, medicament or biological substance; Z88.8 Allergy status to other drugs, medicaments and biological substances; Z82.49 Family history of ischemic heart disease and other diseases of the circulatory system; Z83.6 Family history of other diseases of the respiratory system
CPT/HCPCS: 80053; 80061; 80306; 82075; 83036; 84443; 85025; 99285

== ENCOUNTER → 2019-11-17 | Outpatient (CLI) | payer MEDICARE, OTHER ==
--- NOTE | 2019-11-18 02:37 | SFUN ---
SLEEP CENTER FOLLOW UP NOTE DATE OF SERVICE: 11/17/2019 This 48-year-old gentleman who has been followed in Sleep Center for treatment of narcolepsy without cataplexy. The patient is on treatment with armodafinil 250 mg in the morning and previously he was on treatment with Adderall. refused him to take Adderall at the present time. [place] Sleepiness Scale today is 14. Patient continued to feel some sleepiness during the day even while taking armodafinil. MEDICATIONS: Lisinopril, amlodipine, hydralazine, Ventolin, fluticasone, risperidone, citalopram, atorvastatin. PHYSICAL EXAMINATION: GENERAL: Patient in no distress. VITAL SIGNS: BP 115/83, HR 94, RR 14, height 5 feet 10-1/4 inches, weight 166.2 pounds, BMI 23.6, afebrile, oxygen saturation at room air 98%. HEENT: Some bruises on the face. IMPRESSION: 1. Narcolepsy confirmed by MSLT in 2014 with mean sleep latency 6.1 minutes and four sleep onset REM periods. 2. History of mild obstructive sleep apnea, AHI 8.4 in 2015. Patient refused to use CPAP treatment. 3. Hypertension. 4. Depression. 5. History of schizoaffective disorder. 6. History of anxiety. 7. Status post spinal surgery. PLAN: 1. Patient will continue to use armodafinil 250 mg in the morning. 2. Additionally patient will start to take Concerta in lowest dose 18 mg in the morning. 3. Sleep hygiene with regular time in bed for at least 7-1/2 to 8 hours. 4. No driving. 5. Follow-up visit in 2 to 3 months. Thank you very much for allowing me to participate in management of your patient. Sincerely, Dickson Ag MD, PhD, FAASM Diplomat of [employer] Student Services Advisor of [facility] [place] MMODL / IJN: [id number] /
== END | disposition home or self-care (01) ==
LOC: SLEEP 13:47
PROVIDERS: ATTEND Internal Medicine
DX: G47.419 Narcolepsy without cataplexy (principal); I10 Essential (primary) hypertension; F32.9 Major depressive disorder, single episode, unspecified; Z86.59 Personal history of other mental and behavioral disorders; Z98.890 Other specified postprocedural states; Z87.898 Personal history of other specified conditions

== ENCOUNTER → 2020-01-19 | Outpatient (CLI) | payer MEDICARE, OTHER ==
--- NOTE | 2020-01-19 19:50 | SFUN ---
SLEEP CENTER FOLLOW UP NOTE DATE OF SERVICE: 01/19/2020 This patient is a 49-year-old gentleman who has been followed in Sleep Center for treatment of narcolepsy confirmed by multiple sleep latency test, which showed sleep latency 6.1 minutes and several sleep-onset REM periods. At present the patient is on treatment with armodafinil 250 mg in the morning. With this regimen, the patient continues to feel tiredness and sleepiness sometimes during the day. [place] Sleepiness Scale although is 8, which is in acceptable range. MEDICATIONS: 1. Amlodipine 5 mg twice a day. 2. Atorvastatin 10 mg once a day in the evening. 3. Desvenlafaxine 25 mg once a day. 4. Hydralazine 25 mg twice a day. 5. Hydralazine 25 mg twice a day. 6. Lisinopril 5 mg once a day. 7. Melatonin 10 mg once a day. 8. Trazodone 150 mg one tablet as needed. PHYSICAL EXAMINATION: GENERAL: A pleasant patient in no distress. VITAL SIGNS: BP 118/69, HR 79, RR 15, height 5 feet 11 inches, weight 175.0, temperature 98.1, oxygen saturation at room air 98%. HEENT: PERRLA, EOMI. Evaluation of oropharynx showed tongue protrudes midline. NECK: Supple. No JVD. Thyroid is not palpable. LUNGS: Clear to percussion and to auscultation. Good air exchange. No wheezing or rhonchi. HEART: S1, S2 regular. No murmurs, gallops or rubs. ABDOMEN: Soft, nontender. No organomegaly. Bowel sounds are heard in all four quadrants. EXTREMITIES: No clubbing or cyanosis. JUDICIAL CLERK: Awake, alert, and oriented X3. Cranial nerves 2 to 7 intact. There is no fasciculation or atrophy. noted. No focal deficits observed. IMPRESSION: 1. Narcolepsy, type 2, confirmed by MSLT. Mean sleep latency 6.1 minutes, four sleep- onset REM periods in 2014. 2. History of mild obstructive sleep apnea. Apnea/hypopnea index 8.4 in 2014. The patient refused to use CPAP therapy. 3. Hypertension. 4. Depression. 5. History of schizoaffective disorder. 6. History of anxiety. 7. Status post spinal surgery. PLAN: 1. Patient will continue to take armodafinil 250 mg in the morning. 2. Additionally, we will try Sunosi 75 mg-150 mg in the morning to prevent excessive sleepiness. 3. Preferable position during sleep is on the side. 4. Watching and losing weight. 5. Patient does not drive. 6. Sleep hygiene with regular time in bed for at least 7-1/2 to 8 hours. 7. Daytime naps permitted. Thank you very much for allowing me to participate in the management of your patient. Sincerely, Dickson Ag MD, PhD, FAASM Diplomat of [employer] Adjunct Instructor of [facility] [place] MMODL / IJN: [id number] /
== END | disposition home or self-care (01) ==
LOC: SLEEP 11:47
PROVIDERS: ATTEND Internal Medicine
DX: G47.419 Narcolepsy without cataplexy (principal); I10 Essential (primary) hypertension; F32.9 Major depressive disorder, single episode, unspecified; Z98.890 Other specified postprocedural states; Z79.891 Long term (current) use of opiate analgesic; Z79.899 Other long term (current) drug therapy; Z86.59 Personal history of other mental and behavioral disorders

== ENCOUNTER → 2020-08-16 | Outpatient (CLI) | payer MEDICARE, OTHER ==
--- NOTE | 2020-08-17 06:35 | SFUN ---
SLEEP CENTER FOLLOW UP NOTE DATE OF SERVICE: 08/16/2020 INTERVAL HISTORY: A 49-year-old gentleman who has been followed in Sleep Center for treatment of narcolepsy. Narcolepsy was confirmed previously with multiple sleep latency test. Mean sleep latency 6.1 minute. Presently, patient on modafinil 250 mg in the morning and Sunosi 150 mg in the morning. With this regimen he feels significantly better but still had episodes of tiredness and sleepiness during the day. [place] Sleepiness Scale today is increased to 11. The patient mentioned that again he feels sleepy and falling asleep. MEDICATIONS: Amlodipine 5 mg once a day, Atorvastatin 10 mg once a day, hydralazine 25 mg once a day, lisinopril 5 mg once a day, melatonin 10 mg at bedtime, Robaxin 500 mg 2 tablets a day, cyclobenzaprine 5 mg once a day. PHYSICAL EXAMINATION: GENERAL: Patient in no distress. VITAL SIGNS: BP is 136/82, HR 89, RR 14, height 6 foot 0 inches, weight 194.2, temperature 98.2, oxygen saturation on room air 97%. BMI 24.9. HEENT: PERRLA, EOMI, evaluation of oropharynx showed tongue protrudes midline. NECK: Supple, no JVD. Thyroid is not palpable. LUNGS: Clear to percussion and to auscultation. Good air exchange. No wheezing or rhonchi. HEART: S1, S2 regular. No murmurs, gallops, or rubs. ABDOMEN: Soft and nontender. Bowel sounds are present. No organomegaly appreciated. EXTREMITIES: No clubbing or cyanosis. DOG BATHER: Awake, alert, and oriented X3. Cranial nerves 2 to 7 intact. There is no fasciculation or atrophy. noted. No focal deficits observed. IMPRESSION: 1. 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 Alertness improved on medications, but patient still feels some sleepiness. 2. History of mild obstructive sleep apnea. Apnea-hypopnea index 8.4 in 2014. The patient refused to use CPAP therapy. 3. Hypertension. 4. Depression. 5. History of schizoaffective disorder. 6. History of anxiety. 7. Status post spinal surgery. PLAN: 1. Patient will continue to take his modafinil 250 mg in the morning. Sunosi 150 mg in the morning and additionally Wakix 440 mg 1-2 tablets in the morning. 2. Sleep hygiene with regular time in bed for at least 7 1/2-[address] Patient [address] not drive[address] 4. Sleep hygiene with regular time in bed for 8 hours. 5. Daytime naps permitted. 6. Follow-up visit in 4 months or earlier if patient has any problems. Thank you very much for allowing me to participate in the management of your patient. Sincerely, Dickson Ag MD, PhD, FAASM Diplomat of [employer] Steam Turbine Assembler of [facility] [place] MMODL / IJN: [id number] /
== END ==
LOC: SLEEP 13:02
PROVIDERS: ATTEND Internal Medicine
DX: G47.419 Narcolepsy without cataplexy (principal); F41.9 Anxiety disorder, unspecified; I10 Essential (primary) hypertension; F32.9 Major depressive disorder, single episode, unspecified; F17.200 Nicotine dependence, unspecified, uncomplicated; Z86.59 Personal history of other mental and behavioral disorders; Z98.890 Other specified postprocedural states; Z79.899 Other long term (current) drug therapy; Z88.8 Allergy status to other drugs, medicaments and biological substances

== ENCOUNTER → 2020-12-13 | Outpatient (CLI) | payer MEDICARE, OTHER ==
--- NOTE | 2020-12-13 21:12 | SFUN ---
SLEEP CENTER FOLLOW UP NOTE DATE OF SERVICE: 12/13/2020 49-year-old gentleman has been followed in the Sleep Center for treatment of narcolepsy. Narcolepsy was confirmed on the previous testing which showed mean sleep latency 6.1 minutes. Previously patient also was diagnosed with mild obstructive sleep apnea-hypopnea syndrome; apnea-hypopnea index was 8.4 in 2014 and he refused using treatment with CPAP at that time. Presently, patient is on Armodafinil 250 mg in the morning and 150 mg in the morning. The patient also tried on , but he did not to feel any improvements on . He continued to feel some times sleepiness during the day and tiredness. [place] Sleepiness Scale today is 12. He has difficulties to concentrate. CURRENT MEDICATIONS: Amlodipine 5 mg twice a day, Armodafinil 250 mg once a day, atorvastatin 10 mg once a day. cyclobenzaprine 5 mg once a day, hydralazine 525 mg once a day, lisinopril 5 mg once a day, melatonin 10 mg once a day, 150 mg in the morning. PHYSICAL EXAMINATION: GENERAL: Patient in no distress. BP 151/90, HR 86, RR 15, height 6 feet 0, weight 180.8, temperature 97.8, oxygen saturation at room air 96%. HEENT: PERRLA, EOMI, evaluation of oropharynx showed tongue protrudes midline. NECK: Supple, no JVD. Thyroid is not palpable. LUNGS: Clear to percussion and to auscultation. Good air exchange. No wheezing or rhonchi. HEART: S1, S2 regular. No murmurs, gallops, or rubs. ABDOMEN: Soft and nontender. Bowel sounds are present. No organomegaly appreciated. EXTREMITIES: No clubbing or cyanosis. AIRPLANE DESIGNER: Awake, alert, and oriented X3. Cranial nerves 2 to 7 intact. There is no fasciculation or atrophy. noted. No focal deficits observed. IMPRESSION: 1. 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 Alertness improved, but patient still feels some sleepiness during the day, difficulties to concentrate. 2. History of mild obstructive sleep apnea. The patient refused CPAP therapy. Apnea- hypopnea index in 2014 was 8.4. 3. Hypertension. 4. Depression. 5. Possible attention-deficit/hyperactivity disorder. 6. History of schizoaffective disorder. 7. History of anxiety. 8. Status post nasal surgery. PLAN: 1. The patient will continue modafinil 250 mg in the morning, 150 mg in the morning. will be stopped. The patient will try Strattera 10 mg twice a day. 2. Sleep hygiene with regular time in bed for at least 7-1/2 to 8 hours. 3. No driving. 4. Daytime naps permitted. 5. Follow-up visit in 4 months or earlier if patient has problems. Thank you very much for allowing me to participate in the management of your patient. Sincerely, Dickson Ag MD, PhD, FAASM Diplomat of [employer] Sleep Medicine Board of [place] [employer] Topper Packer of [facility] [place] MMODL / EVELIO: [id number] /
== END ==
LOC: SLEEP 15:35
PROVIDERS: ATTEND Internal Medicine
DX: G47.419 Narcolepsy without cataplexy (principal); I10 Essential (primary) hypertension; F32.9 Major depressive disorder, single episode, unspecified; F41.9 Anxiety disorder, unspecified; F17.200 Nicotine dependence, unspecified, uncomplicated; Z98.890 Other specified postprocedural states; Z86.59 Personal history of other mental and behavioral disorders; Z88.8 Allergy status to other drugs, medicaments and biological substances

== ENCOUNTER → 2021-03-13 | Outpatient (CLI) | payer MEDICARE, OTHER ==
--- NOTE | 2021-03-13 22:38 | SFUN ---
SLEEP CENTER FOLLOW UP NOTE DATE OF SERVICE: 03/13/2021 50-year-old gentleman has been followed in Sleep Center for treatment of narcolepsy. Presently patient is on modafinil 250 mg in the morning, 150 mg, we also tried Strattera 10 mg twice a day. According to patient, he does not feel any difference with usage of Strattera so Strattera will be stopped. His [place] Sleepiness Scale today is 9. MEDICATIONS: Amlodipine 5 mg once a day, atorvastatin 10 mg once a day, hydralazine 25 mg twice a day, injection every 12 weeks, lisinopril 5 mg once a day, melatonin 10 mg once at night, 4 mg at bedtime, armodafinil 250 mg once a day, 150 mg once a day and atomoxetine 10 mg twice a day. PHYSICAL EXAMINATION: GENERAL: Patient in no distress. BP 153/94, HR around 100, RR 12, height 5 feet 10-3/4 inches, weight 193.4, temperature 97.5, oxygen saturation at room air 98%. NECK: Supple, no JVD. Thyroid is not palpable. LUNGS: Clear to percussion and to auscultation. Good air exchange. No wheezing or rhonchi. HEART: S1, S2 regular. No murmurs, gallops, or rubs. ABDOMEN: Soft and nontender. Bowel sounds are present. No organomegaly appreciated. EXTREMITIES: No clubbing or cyanosis. DIE CAST OPERATOR: Awake, alert, and oriented X3. Cranial nerves 2 to 7 intact. There is no fasciculation or atrophy. noted. No focal deficits observed. IMPRESSION: 1. 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 The patient alertness improved but still may feel sometimes sleepiness during the day. Complaining on that. 2. History of mild obstructive sleep apnea. Apnea-hypopnea index 8.4. In 2014 patient refused CPAP therapy. 3. Hypertension. 4. Depression. 5. Possible ADHD. 6. History of schizoaffective disorder. 7. History of anxiety. 8. Status post nasal surgery. PLAN: 1. Continue treatment with Armodafinil 250 mg once a day, 150 mg once a day, Strattera will be stopped. I will start patient additionally on Ritalin 5 mg twice a day at 8:00 am and 1:00 pm. 2. No driving. 3. Sleep hygiene with time in bed for at least 8 hours. 4. Follow-up visit in 6 months. Thank you very much for allowing me to participate in management of your patient. Sincerely, Dickson Ag MD, PhD, FAASM Diplomat of [place] [employer] Sleep Medicine Board of [place] [employer] Internal Medicine Book Author of [facility] [place] MMODL / JONATHANN: [id number] /
== END ==
LOC: SLEEP 11:07
PROVIDERS: ATTEND Internal Medicine
DX: G47.419 Narcolepsy without cataplexy (principal); I10 Essential (primary) hypertension; F41.9 Anxiety disorder, unspecified; F32.A Depression, unspecified; F17.200 Nicotine dependence, unspecified, uncomplicated; Z86.59 Personal history of other mental and behavioral disorders; Z86.69 Personal history of other diseases of the nervous system and sense organs; Z98.890 Other specified postprocedural states; Z99.89 Dependence on other enabling machines and devices; Z79.899 Other long term (current) drug therapy; Z88.8 Allergy status to other drugs, medicaments and biological substances

== ENCOUNTER → 2021-09-12 | Outpatient (CLI) | payer MEDICARE, OTHER ==
--- NOTE | 2021-09-12 14:08 | P.PN ---
Subjective DATE: 09/12/2021 FOLLOW UP VISIT. Patient returned to sleep center for follow-up visit related to treatment of significant excessive daytime sleepiness secondary to narcolepsy. . [place] sleepiness scale is 10, which is borderline. MEDICATIONS:1. Armodafinil 250 mg in the morning 2. Sunosi 150 mg once a day 3. Lisinopril 10 mg once a day 4. Atorvastatin 10 mg once a day 5. Citalopram 40 mg once a day 6. Hydralazine 25 mg once a day 7. Tizanidyne 4 mg twice a day 8. Ritaliin 5 mg twice a day During physical exam: GENERAL: A pleasant patient without any distress. VITAL SIGNS: BP 164/93, HR 92, RR 16 , weight 193.4, temperature and 98, oxygen saturation at room air 97% . HEENT: PERRLA, EOMI. NECK: Supple. No JVD. LUNGS: Clear to percussion and to auscultation. Good air exchange. No wheezing or rhonchi. HEART: S1, S2 regular. ABDOMEN: Soft and nontender. EXTREMITIES: No clubbing or cyanosis. VOICE COACH: Awake, alert, and oriented x3. No focal deficit. Impressions: 1. Narcolepsy2, confirmed by multiple sleep latency test 2. History of mild obstructive sleep apnea-hypopnea syndrome, apnea-hypopnea index 8.4. In 2014 patient refuses CPAP therapy. 3. Hypertension. 4. Depression. 5. Possible ADHD. 6. History of shisoaffective disorder. 7. History of anxiety. 8. Status post nasal surgery. Plan: 1. Patient will continue treatment with armodafinil 250 mg once a day, [id number] mg once a day, and ritalin 5 mg twice a day. 2. Sleep hygiene with regular time in bed for at least 8 hours. 3. Daytime naps permitted 4. Precautions related to driving. No driving if feel any sleepiness. Patient is aware about civil and criminal liability for unsafe driving, promised to follow recommendations. 5. Follow up visit in 4-6 months or earlier if patient has any problems. Thank you very much for allowing me to participate in the management of your patient. Dickson Ag MD, PhD, FAASM. Diplomat of [place] [employer], Sleep Medicine Board by [place] Medicine Biological Technician of [facility] [place]
== END ==
LOC: SLEEP 13:05
PROVIDERS: ATTEND Internal Medicine
DX: G47.33 Obstructive sleep apnea (adult) (pediatric) (principal); G47.419 Narcolepsy without cataplexy; I10 Essential (primary) hypertension; F32.A Depression, unspecified; F41.9 Anxiety disorder, unspecified; Z98.890 Other specified postprocedural states; F25.9 Schizoaffective disorder, unspecified; Z79.899 Other long term (current) drug therapy; F17.200 Nicotine dependence, unspecified, uncomplicated; Z88.8 Allergy status to other drugs, medicaments and biological substances

== ENCOUNTER → 2022-02-05 | Outpatient (CLI) | payer MEDICARE, OTHER ==
--- NOTE | 2022-02-05 11:33 | P.PN ---
Subjective DATE: 02/05/2022 FOLLOW UP VISIT. Patient returned to sleep center for follow-up visit related to treatment of significant excessive daytime sleepiness secondary to narcolepsy. . [place] sleepiness scale is 9, which is in acceptable range, but patient still has episodes of significant excessive daytime sleepiness during the day. MEDICATIONS:1. Armodafinil 250 mg in the morning 2. Sunosi 150 mg once a day 3. Lisinopril 10 mg once a day 4. Atorvastatin 10 mg once a day 5. Citalopram 40 mg once a day 6. Hydralazine 25 mg once a day 7. Tizanidyne 4 mg twice a day 8. Ritaliin 5 mg twice a day During physical exam: GENERAL: A pleasant patient without any distress. VITAL SIGNS: BP 166/105, HR 74, RR 16 , weight 205 .4, temperature and 97.8, oxygen saturation at room air 98% . HEENT: PERRLA, EOMI. NECK: Supple. No JVD. LUNGS: Clear to percussion and to auscultation. Good air exchange. No wheezing or rhonchi. HEART: S1, S2 regular. ABDOMEN: Soft and nontender. EXTREMITIES: No clubbing or cyanosis. TRANSFUSION NURSE: Awake, alert, and oriented x3. No focal deficit. Impressions: 1. Narcolepsy2, confirmed by multiple sleep latency test 2. History of mild obstructive sleep apnea-hypopnea syndrome, apnea-hypopnea index 8.4. In 2014 patient refuses CPAP therapy. 3. Hypertension. 4. Depression. 5. Possible ADHD. 6. History of shisoaffective disorder. 7. History of anxiety. 8. Status post nasal surgery. Plan: 1. Patient will continue treatment with armodafinil 250 mg once a day, [id number] mg once a day. Retalin 5 mg twice a day will be changed to Adderall 5 mg twice a day. 2. Sleep hygiene with regular time in bed for at least 8 hours. 3. Daytime naps permitted 4. Precautions related to driving. No driving if feel any sleepiness. Patient is aware about civil and criminal liability for unsafe driving, promised to follow recommendations. 5. Follow up visit in 4-6 months or earlier if patient has any problems. ThSeveral sinus right now so so I am follow-up visit I will use another medication is tramadol because this is medication from the last visit to suggest lisinopril no atorvastatin citalopram hydralazine she still taking noticed this with his medication for the last time they just may beank you very much for allowing me to participate in the management of your patient. Dickson Ag MD, PhD, FAASM. Diplomat of [place] [employer] Medicine, Sleep Medicine Board by [place] [employer] Medicine Protozoology Teacher of [facility] [place]
== END ==
LOC: SLEEP 10:25
PROVIDERS: ATTEND Internal Medicine
DX: G47.33 Obstructive sleep apnea (adult) (pediatric) (principal); G47.419 Narcolepsy without cataplexy; I10 Essential (primary) hypertension; F32.A Depression, unspecified; F17.200 Nicotine dependence, unspecified, uncomplicated; Z86.59 Personal history of other mental and behavioral disorders; Z48.810 Encounter for surgical aftercare following surgery on the sense organs; Z99.89 Dependence on other enabling machines and devices; Z88.8 Allergy status to other drugs, medicaments and biological substances
CPT/HCPCS: 99212

== ENCOUNTER → 2022-08-06 | Outpatient (CLI) | payer MEDICARE, OTHER ==
--- NOTE | 2022-08-06 10:50 | P.PN ---
Subjective DATE: 08/06/2022 FOLLOW UP VISIT. Patient returned to sleep center for follow-up visit related to treatment of significant excessive daytime sleepiness secondary to narcolepsy. Patient is on treatment with modafinil 250 mg in the morning, Ritalin in 5 mg twice a day and Sunosi 150 mg once a day. With this medications patient still feels sleepiness during the day asking for additional medication. . [place] sleepiness scale is 12 today. MEDICATIONS:1. Lisinopril 40 mg once a day 2. Metoprolol 37.5 mg twice a day 3. Amlodipine 10 mg once a day 4. Atorvastatin 10 mg once a day 5. Hydralazine 25 mg 3 times a day 6. Hydrochlorothiazide 25 mg once a day 7. Hydrocortisone 4 times a day 8. Medications for narcolepsy as mentioned above. During physical exam: GENERAL: A pleasant patient without any distress. VITAL SIGNS: BP 119/82, HR 60, RR 16 , weight 199, temperature 97.9, oxygen saturation at room air 99% . HEENT: PERRLA, EOMI. NECK: Supple. No JVD. LUNGS: Clear to percussion and to auscultation. Good air exchange. No wheezing or rhonchi. HEART: S1, S2 regular. ABDOMEN: Soft and nontender. EXTREMITIES: No clubbing or cyanosis. MARKETING SERVICES MANAGER: Awake, alert, and oriented x3. No focal deficit. Impressions: 1. Narcolepsy2 2. Hypertension. 3. Depression. 4. Possible ADHD. 5. History of anxiety. 6. History of his affective disorder. 7. History of mild obstructive sleep apnea hypopnea syndrome with apnea- hypopnea index 8.4, in 2014 patient refuses CPAP therapy. 8. Status post nasal surgery. Plan: 1. Patient will continue treatment with Rmodafinil and Sunosi with the same doses, Ritalin will be changed to Adderall 5 mg twice a day 2. Sleep hygiene with regular time in bed for at least 8 hours. 3. Daytime naps permitted 4. Precautions related to driving. No driving if feel any sleepiness. Patient is aware about civil and criminal liability for unsafe driving, promised to follow recommendations. 5. Follow up visit in 4-6 months or earlier if patient has any problems. Thank you very much for allowing me to participate in the management of your patient. Dickson Ag MD, PhD, FAASM. Diplomat of [place] Board of Sleep Medicine, Sleep Medicine Board by [place] [employer] of Internal Medicine Av Specialist of [facility]
== END ==
LOC: 3 N SLEEP 10:00
PROVIDERS: ATTEND Internal Medicine
DX: G47.33 Obstructive sleep apnea (adult) (pediatric) (principal); F17.200 Nicotine dependence, unspecified, uncomplicated; I10 Essential (primary) hypertension; G47.419 Narcolepsy without cataplexy; F41.9 Anxiety disorder, unspecified; F32.A Depression, unspecified; Z98.890 Other specified postprocedural states; Z79.899 Other long term (current) drug therapy; Z88.8 Allergy status to other drugs, medicaments and biological substances; Z99.89 Dependence on other enabling machines and devices
CPT/HCPCS: 99212

== ENCOUNTER → 2022-11-19 | Outpatient (CLI) | payer MEDICARE, OTHER ==
--- NOTE | 2022-11-19 15:47 | P.PN ---
Subjective DATE: 11/19/2022 FOLLOW UP VISIT. Patient returned to sleep center for follow-up visit related to treatment of significant excessive daytime sleepiness secondary to narcolepsy. Patient is on treatment with Adderall 5 mg twice a day, R modafinil 250 mg once a day and soshe. Patient continued to complain some excessive daytime sleepiness . [place] sleepiness scale is 12.. MEDICATIONS:1. R modafinil 250 mg 1 tablet by mouth every morning 2. Adderall 5 mg 1 tablet twice a day 3. Sunosi 150 mg once a day in the morning 4. Amlodipine 10 mg once a day 5. Atorvastatin 10 mg once a day 6. Diltiazem 60 mg once a day 7. Hydralazine 25 mg 3 times a day 8. Hydrochlorothiazide 25 mg once a day 9. Lisinopril 40 mg once a day 10. Tramadol During physical exam: GENERAL: A pleasant patient without any distress. VITAL SIGNS: BP 136/87, HR 74, RR 16 , weight 193.4, temperature 97.8, oxygen saturation at room air 98% . HEENT: PERRLA, EOMI. NECK: Supple. No JVD. LUNGS: Clear to percussion and to auscultation. Good air exchange. No wheezing or rhonchi. HEART: S1, S2 regular. ABDOMEN: Soft and nontender. EXTREMITIES: No clubbing or cyanosis. WOOLEN SUITING SHRINKER: Awake, alert, and oriented x3. No focal deficit. Impressions: 1. Narcolepsy type II 2. Hypertension. 3. Depression. 4. Possible ADHD. 5. History of mild obstructive sleep apnea with apnea-hypopnea index 8.4 in 2014, patient was not able to use CPAP therapy, refuse it. 6. Status post nasal surgery. Plan: 1. Patient will continue treatment with R modafinil 250 mg by mouth every m orning, dose of Adderall will be increased to 20 mg twice a day. 2. Sleep hygiene with regular time in bed for at least 8 hours. 3. Daytime naps permitted 4. Patient doesn't drive. 5. Follow up visit in 4-6 months or earlier if patient has any problems. Thank you very much for allowing me to participate in the management of your patient. Dickson Ag MD, PhD, FAASM. Diplomat of [employer] Board of Sleep Medicine, Sleep Medicine Board by [employer] Board of Internal Medicine Commutator Tester of [facility] [place]
== END ==
LOC: 3 N SLEEP 15:03
PROVIDERS: ATTEND Internal Medicine
DX: G47.33 Obstructive sleep apnea (adult) (pediatric) (principal); G47.419 Narcolepsy without cataplexy; I10 Essential (primary) hypertension; F32.A Depression, unspecified; F17.200 Nicotine dependence, unspecified, uncomplicated; Z79.899 Other long term (current) drug therapy; Z98.890 Other specified postprocedural states; Z88.8 Allergy status to other drugs, medicaments and biological substances
CPT/HCPCS: 99212

== ENCOUNTER → 2023-03-25 | Outpatient (CLI) | payer MEDICARE, OTHER ==
--- NOTE | 2023-03-25 11:41 | P.PN ---
Subjective DATE: 03/25/2023 FOLLOW UP VISIT. Patient returned to sleep center for follow-up visit related to treatment of significant excessive daytime sleepiness secondary to narcolepsy. . [place] sleepiness scale is 9, which is borderline. Patient is able to control his alertness.. MEDICATIONS:1. Armodafinil 250 mg once a day in the morning 2., Sunosi 150 mg once a day in the morning 3. Adderall 20 mg twice a day 4. Amlodipine 10 mg once a day 5. Atorvastatin 10 mg once a day 6. Diltiazem 60 mg once a day 7. Hydralazine 25 mg 3 times a day 8. Lisinopril 40 mg once a day During physical exam: GENERAL: A pleasant patient without any distress. VITAL SIGNS: BP 129/88, HR 68, RR 15, weight 176.4, temperature 97.6, oxygen saturation at room air 96%. HEENT: PERRLA, EOMI. NECK: Supple. No JVD. LUNGS: Clear to percussion and to auscultation. Good air exchange. No wheezing or rhonchi. HEART: S1, S2 regular. ABDOMEN: Soft and nontender. EXTREMITIES: No clubbing or cyanosis. COMMUNICATIONS ADVISOR: Awake, alert, and oriented x3. No focal deficit. Impressions: 1. Narcolepsy type II 2. History of depression. 3. History of possible ADHD. 4. Hypertension. 5. History of mild obstructive sleep apnea, apnea-hypopnea index 8.4 in 2014, patient was not able to use CPAP treatment. 6. Status post nasal surgery. Plan: 1. Patient will continue treatment with Adderall 20 mg twice a day, armodafinil 250 mg once a day in the morning, so no she 150 mg in the morning. 2. Sleep hygiene with regular time in bed for at least 8 hours. 3. Daytime naps permitted 4. Precautions related to driving. No driving if feel any sleepiness. Patient is aware about civil and criminal liability for unsafe driving, promised to follow recommendations. 5. Follow up visit in 4-6 months or earlier if patient has any problems. Thank you very much for allowing me to participate in the management of your patient. Dickson Ag MD, PhD, FAASM. Diplomat of [place] Board of Sleep Medicine, Sleep Medicine Board by [place] [employer] Medicine Chyron Operator of [facility] [place] cc: Aneudy Chapman MD
== END ==
LOC: 3 N SLEEP 11:13
PROVIDERS: ATTEND Internal Medicine
DX: G47.33 Obstructive sleep apnea (adult) (pediatric) (principal); G47.419 Narcolepsy without cataplexy; F17.200 Nicotine dependence, unspecified, uncomplicated; I10 Essential (primary) hypertension; F32.A Depression, unspecified; Z98.890 Other specified postprocedural states; Z79.899 Other long term (current) drug therapy; Z88.8 Allergy status to other drugs, medicaments and biological substances
CPT/HCPCS: 99212

== ENCOUNTER 2023-06-02 14:34 | Emergency (ER) | payer MEDICARE, OTHER ==
[2023-06-02] MEDS: hydrALAZINE HCL 20 MG/ML 1 ML VIAL IVP STA (15:28)
--- NOTE | 2023-06-02 15:31 | ED ---
General Adult HPI - General Chief complaint: Recheck/Abnormal Lab/Rx Stated complaint: High bp Time Seen by Provider: 06/02/23 14:40 Source: patient, EMS, RN notes reviewed Mode of arrival: EMS Limitations: no limitations - History of Present Illness Initial comments: 52-year-old male presents emergency department via EMS from [facility] for hypertension. Patient states he is on multiple medications for blood pressure states he did not take them this morning he denies headache dizziness blurred vision chest pain shortness of breath nausea vomiting diaphoretic episodes. He states he is completely asymptomatic. He states he is not very good at taking his medications. - Related Data Previous Rx's Medication Instructions Recorded Albuterol Inhaler [Ventolin Hfa 2 puff INHALATION RT-Q4H PRN puff 10/19/19 Inhaler] Atorvastatin [Lipitor] 10 mg PO HS@2100 tab 10/19/19 Fluticasone Nasal [place] [Flonase 2 spray EA NOSTRIL DAILY@0800 PRN 10/19/19 Nasal [place]] spr Melatonin 10 mg PO HS PRN tablet 10/19/19 amLODIPine [Norvasc] 5 mg PO BID@0800,2100 tab 10/19/19 hydrALAZINE HCL [Apresoline] 25 mg PO BID@0800,2100 tab 10/19/19 lisinopriL [Zestril] 5 mg PO DAILY@0800 tab 10/19/19 traZODone HCL 150 mg PO HS 30 Days #30 tab 10/19/19 traZODone HCL [Desyrel] 200 mg PO HS tab 10/19/19 Methylphenidate HCl [Ritalin] 5 mg PO BID #60 tablet 04/23/22 Solriamfetol HCl [Sunosi] 150 mg PO DAILY 30 Days #30 tab 05/01/22 Dextroamphetamine/Amphetamine 20 mg PO BID 30 Days #60 tab 12/18/22 [Adderall] Allergies Allergy/AdvReac Type Severity Reaction Status Date / Time No Known Allergies Allergy Verified 06/02/23 14:40 Review of Systems ROS Statement: Those systems with pertinent positive or pertinent negative responses have been documented in the HPI. ROS Other: All systems not noted in ROS Statement are negative. Past Medical History Past Medical History: Hypertension, Musculoskeletal Disorder Additional Past Medical History / Comment(s): back pain, headaches History of Any Multi-Drug Resistant Organisms: None Reported Past Surgical History: Back Surgery Past Anesthesia/Blood Transfusion Reactions: No Reported Reaction Past Psychological History: Anxiety, Bipolar, Depression Smoking Status: Current every day smoker Past Alcohol Use History: None Reported Past Drug Use History: None Reported - Past Family History Mother Additional Family Medical History / Comment(s): from heart disease Father Additional Family Medical History / Comment(s): from lung disease General Exam General appearance: alert, in no apparent distress Head exam: Present: atraumatic, normocephalic, normal inspection Eye exam: Present: normal appearance, PERRL, EOMI. Absent: scleral icterus, conjunctival injection, periorbital swelling Respiratory exam: Present: normal lung sounds bilaterally. Absent: respiratory distress, wheezes, rales, rhonchi, stridor Cardiovascular Exam: Present: regular rate, normal rhythm, normal heart sounds. Absent: systolic murmur, diastolic murmur, rubs, gallop, clicks GI/Abdominal exam: Present: soft, normal bowel sounds. Absent: distended, tenderness, guarding, rebound, rigid Course Vital Signs 06/02/23 06/02/23 14:36 16:28 Temperature 98 F 97.6 F Pulse Rate 88 81 Respiratory 18 18 Rate Blood Pressure 171/111 160/90 O2 Sat by Pulse 98 98 Oximetry Medical Decision Making - Medical Decision Making Was pt. sent in by a medical professional or institution (, PA, PSYCHOLOGISTS, urgent care, hospital, or fdc...) When possible be specific @ -No Did you speak to anyone other than the patient for history (EMS, parent, family, police, friend...)? What history was obtained from this source @ -No Did you review nursing and triage notes (agree or disagree)? Why? @ -I reviewed and agree with nursing and triage notes Were old charts reviewed (outside hosp., previous admission, EMS record, old EKG, old radiological studies, urgent care reports/EKG's, fdc records)? Report findings @ -No old charts were reviewed Differential Diagnosis (chest pain, altered mental status, abdominal pain women, abdominal pain men, vaginal bleeding, weakness, fever, dyspnea, syncope, headache, dizziness, GI bleed, back pain, seizure, CVA, palpatations, mental health, musculoskeletal)? @ -Hypertension medication noncompliance EKG interpreted by me (3pts min.). @ -None X-rays interpreted by me (1pt min.). @ -None done CT interpreted by me (1pt min.). @ -None done U/S interpreted by me (1pt. min.). @ -None done What testing was considered but not performed or refused? (CT, X-rays, U/S, labs)? Why? @ -None What meds were considered but not given or refused? Why? @ -None Did you discuss the management of the patient with other professionals (professionals i.e. DrStephanie, PA, PSYCHOLOGISTS, lab, RT, psych nurse, secondary social studies teacher, nurse consultant, teacher, community reinvestment act officer, bilingual case manager)? Give summary @ -No Was smoking cessation discussed for >3mins.? @ -No Was critical care preformed (if so, how long)? @ -No Were there social determinants of health that impacted care today? How? (Homelessness, low income, unemployed, alcoholism, drug addiction, transportation, low edu. Level, literacy, decrease access to med. care, long term, rehab)? @ -No Was there de-escalation of care discussed even if they declined (Discuss DNR or withdrawal of care, Hospice)? DNR status @ -No What co-morbidities impacted this encounter? (DM, HTN, Smoking, COPD, CAD, Cancer, CVA, ARF, Chemo, Hep., AIDS, mental health diagnosis, sleep apnea, morbid obesity)? @ -Hypertension Was patient admitted / discharged? Hospital course, mention meds given and route, prescriptions, significant lab abnormalities, going to OR and other pertinent info. @ -Discharge patient blood pressures improved. Patient advised to take blood pressure medications as directed return for as discussed. Undiagnosed new problem with uncertain prognosis? @ -No Drug Therapy requiring intensive monitoring for toxicity (Heparin, Nitro, Insulin, Cardizem)? @ -No Were any procedures done? @ -No Diagnosis/symptom? @ -Hypertension Acute, or Chronic, or Acute on Chronic? @ -Acute Uncomplicated (without systemic symptoms) or Complicated (systemic symptoms)? @ -Uncomplicated Side effects of treatment? @ -No Exacerbation, Progression, or Severe Exacerbation? @ -No Poses a threat to life or bodily function? How? (Chest pain, USA, MS, pneumonia, PE, COPD, DKA, ARF, appy, cholecystitis, CVA, Diverticulitis, Homicidal, Suicidal, threat to staff... and all critical care pts) @ -No - Lab Data Result diagrams: 06/02/23 15:45 06/02/23 15:45 Lab Results 06/02/23 06/02/23 Range/Units 15:45 15:45 WBC 6.6 (3.8-10.6) k/uL RBC 4.37 (4.30-5.90) m/uL Hgb 12.7 L (13.0-17.5) gm/dL Hct 39.4 (39.0-53.0) % MCV 90.2 (80.0-100.0) fL MCH 29.0 (25.0-35.0) pg MCHC 32.2 (31.0-37.0) g/dL RDW 14.2 (11.5-15.5) % Plt Count 251 (150-450) k/uL MPV 6.6 Neutrophils % 72 % Lymphocytes % 18 % Monocytes % 5 % Eosinophils % 3 % Basophils % 0 % Neutrophils # 4.7 (1.3-7.7) k/uL Lymphocytes # 1.2 (1.0-4.8) k/uL Monocytes # 0.3 (0-1.0) k/uL Eosinophils # 0.2 (0-0.7) k/uL Basophils # 0.0 (0-0.2) k/uL Sodium 138 (137-145) mmol/L Potassium 3.3 L (3.5-5.1) mmol/L Chloride 108 H (98-107) mmol/L Carbon Dioxide 22 (22-30) mmol/L Anion Gap 8 mmol/L BUN 8 L (9-20) mg/dL Creatinine 0.51 L (0.66-1.25) mg/dL Est GFR (CKD-EPI)AfAm >90 (>60 ml/min/1.73 sqM) Est GFR (CKD-EPI)NonAf >90 (>60 ml/min/1.73 sqM) Glucose 107 H (74-99) mg/dL Calcium 7.8 L (8.4-10.2) mg/dL Disposition Clinical Impression: Hypertension Disposition: HOME SELF-CARE Condition: Stable Instructions (If sedation given, give patient instructions): Hypertension (ED) Additional Instructions: Take your blood pressure medications as directed. Please return to the Emergency Department if symptoms worsen or any other concerns. Is patient prescribed a controlled substance at d/c from ED?: No Referrals: None,Stated [Primary Care Provider] - 1-2 days Time of Disposition: 16:31
[2023-06-02 15:46] VITALS: RESP 18
[2023-06-02 16:06] LABS: Basophils % (A) 0 %; Eosinophils # (A) 0.2 k/uL (0-0.7); Eosinophils % (A) 3 %; HCT 39.4 % (39.0-53.0); HGB 12.7 gm/dL (13.0-17.5); Lymphocytes # (A) 1.2 k/uL (1.0-4.8); Lymphocytes % (A) 18 %; MCHC 32.2 g/dL (31.0-37.0); MCV 90.2 fL (80.0-100.0); Mean Platelet Volume 6.6; Monocytes # (A) 0.3 k/uL (0-1.0); Monocytes % (A) 5 %; Neutrophils # (A) 4.7 k/uL (1.3-7.7); Neutrophils % (A) 72 %; Platelet Count 251 k/uL (150-450); RBC 4.37 m/uL (4.30-5.90); RDW 14.2 % (11.5-15.5); WBC 6.6 k/uL (3.8-10.6)
[2023-06-02 16:12] LABS: African American GFR (CKD) >90 (>60 ml/min/1.73 sqM); Anion Gap 8 mmol/L; Blood Urea Nitrogen 8 mg/dL (9-20); Calcium 7.8 mg/dL (8.4-10.2); Carbon Dioxide 22 mmol/L (22-30); Chloride 108 mmol/L (98-107); Glucose 107 mg/dL (74-99); Non-African American GFR(CKD) >90 (>60 ml/min/1.73 sqM); Potassium 3.3 mmol/L (3.5-5.1); Sodium 138 mmol/L (137-145)
[2023-06-02 16:30] VITALS: BP 160/90; PULSE 81; TEMP 97.6
== END 2023-06-02 17:02 | disposition home or self-care (01) ==
LOC: EC 14:34
DX: I10 Essential (primary) hypertension (principal)
CPT/HCPCS: 36415; 80048; 85025; 99283; 96374; J0360

== ENCOUNTER 2023-08-13 22:34 | Observation (INO) | payer MEDICARE, OTHER ==
--- NOTE | 2023-08-13 23:09 | ED ---
General Adult HPI - General Chief complaint: Overdose Stated complaint: Overdose Time Seen by Provider: 08/13/23 22:45 Source: patient, EMS Mode of arrival: EMS Limitations: no limitations - History of Present Illness Initial comments: This patient is a 52-year-old man who states that he is here to be seen about left upper arm abscess. Patient states that he leaves that he started getting an infection from injecting drugs and that he noticed this about 5 days ago. He states that the lesion increased in size and he attempted to drain some pus at home. He states that he did get a significant amount of drainage 2 to 3 days ago. The patient has not noticed systemic infection symptoms, no fever or chills, cough, dyspnea, chest pain. Patient states that the infected area did not seem to be going down so he comes to have evaluation. Onset/Timin -: days(s) Location: left, upper extremity Radiation: non-radiation Quality: dull Consistency: constant Improves with: none Worsens with: none Associated Symptoms: denies other symptoms Treatments Prior to Arrival: none - Related Data Previous Rx's Medication Instructions Recorded Albuterol Inhaler [Ventolin Hfa 2 puff INHALATION RT-Q4H PRN puff 10/19/19 Inhaler] Atorvastatin [Lipitor] 10 mg PO HS@2100 tab 10/19/19 Fluticasone Nasal [place] [Flonase 2 spray EA NOSTRIL DAILY@0800 PRN 10/19/19 Nasal [place]] spr Melatonin 10 mg PO HS PRN tablet 10/19/19 amLODIPine [Norvasc] 5 mg PO BID@0800,2100 tab 10/19/19 hydrALAZINE HCL [Apresoline] 25 mg PO BID@0800,2100 tab 10/19/19 lisinopriL [Zestril] 5 mg PO DAILY@0800 tab 10/19/19 traZODone HCL 150 mg PO HS 30 Days #30 tab 10/19/19 traZODone HCL [Desyrel] 200 mg PO HS tab 10/19/19 Methylphenidate HCl [Ritalin] 5 mg PO BID #60 tablet 04/23/22 Solriamfetol HCl [Sunosi] 150 mg PO DAILY 30 Days #30 tab 05/01/22 Dextroamphetamine/Amphetamine 20 mg PO BID 30 Days #60 tab 10/19/23 [Adderall] Allergies Allergy/AdvReac Type Severity Reaction Status Date / Time No Known Allergies Allergy Verified 08/13/23 22:39 Review of Systems ROS Statement: Those systems with pertinent positive or pertinent negative responses have been documented in the HPI. ROS Other: All systems not noted in ROS Statement are negative. Past Medical History Past Medical History: Hypertension, Musculoskeletal Disorder Additional Past Medical History / Comment(s): back pain, headaches, History of Any Multi-Drug Resistant Organisms: None Reported Past Surgical History: Back Surgery Past Anesthesia/Blood Transfusion Reactions: No Reported Reaction Past Psychological History: Anxiety, Bipolar, Depression Smoking Status: Current every day smoker Past Alcohol Use History: None Reported Past Drug Use History: Methamphetamine - Past Family History Mother Additional Family Medical History / Comment(s): from heart disease Father Additional Family Medical History / Comment(s): from lung disease General Exam Limitations: no limitations Course Vital Signs 08/13/23 22:39 Temperature 97.8 F Pulse Rate 87 Respiratory 16 Rate Blood Pressure 162/100 O2 Sat by Pulse 97 Oximetry EKG Findings - EKG Results: EKG: interpreted by ERMD, sinus rhythm (Rate 85 bpm), normal axis, normal QRS, normal ST/T - NH, Pacemaker, Normal: Normal tracing: normal tracing Disposition Referrals: None,Stated [Primary Care Provider] - 1-2 days
[2023-08-13] MEDS ORDERED: VANCOMYCIN IV PER PHARMACY 1 EACH MISC MISCELLANE PRN (23:19)
[2023-08-13 23:44] LABS: Basophils % (A) 0 %; Eosinophils # (A) 0.2 k/uL (0-0.7); Eosinophils % (A) 3 %; HCT 43.2 % (39.0-53.0); HGB 13.8 gm/dL (13.0-17.5); Lymphocytes % (A) 30 %; MCH 29.5 pg (25.0-35.0); MCHC 31.9 g/dL (31.0-37.0); MCV 92.5 fL (80.0-100.0); Mean Platelet Volume 8.1; Monocytes # (A) 0.4 k/uL (0-1.0); Monocytes % (A) 6 %; Neutrophils % (A) 59 %; Platelet Count 146 k/uL (150-450); RBC 4.67 m/uL (4.30-5.90); RDW 15.1 % (11.5-15.5); WBC 6.8 k/uL (3.8-10.6)
[2023-08-14 00:10] LABS: ALT 32 U/L (4-49); AST 37 U/L (17-59); African American GFR (CKD) >90 (>60 ml/min/1.73 sqM); Albumin 3.6 g/dL (3.5-5.0); Alkaline Phosphatase 114 U/L (38-126); Anion Gap 7 mmol/L; Blood Urea Nitrogen 11 mg/dL (9-20); C Reactive Protein <0.5 mg/dL (<1.0); Calcium 8.5 mg/dL (8.4-10.2); Carbon Dioxide 21 mmol/L (22-30); Chloride 106 mmol/L (98-107); Glucose 130 mg/dL (74-99); Non-African American GFR(CKD) >90 (>60 ml/min/1.73 sqM); Potassium 3.6 mmol/L (3.5-5.1); Sodium 134 mmol/L (137-145); Total Bilirubin 0.8 mg/dL (0.2-1.3); Total Protein 6.2 g/dL (6.3-8.2)
[2023-08-14] MEDS: AMPICILLIN-SULBACTAM 3 GM in SODIUM CHLORIDE 0.9% 100 ML IVPB STA (00:16)
[2023-08-14] MEDS ORDERED: NALOXONE 0.4 MG/ML 1 ML VIAL IV PRN (00:56)
[2023-08-14] MEDS: VANCOMYCIN 1,500 MG in SODIUM CHLORIDE 0.9% 500 ML 500 ML IVPB ONE (01:15)
[2023-08-14] MEDS: SODIUM CHLORIDE 0.9% 1,000 ML IV SCH (01:30)
--- NOTE | 2023-08-14 02:02 | XR ---
EXAM: XR Chest, 2 Views CLINICAL HISTORY: ITS.REASON XR Reason: palpitations TECHNIQUE: Frontal and lateral views of the chest. COMPARISON: XR Chest dated 08/30/2019 FINDINGS: Lungs: Unremarkable. No consolidation. Pleural space: Right pleural effusion or thickening, similar to the prior. No pneumothorax. Heart: Unremarkable. No cardiomegaly. Mediastinum: Unremarkable. Normal mediastinal contour. Bones/joints: Thoracolumbar spinal dave fixation, similar to the prior. No acute fracture. IMPRESSION: Right pleural effusion or thickening, similar to the prior.
[2023-08-14] MEDS: ACETAMINOPHEN TAB 325 MG TAB PO PRN (06:17)
[2023-08-14] MEDS: lisinopriL 5 MG TAB PO SCH (08:00)
[2023-08-14] MEDS ORDERED: AMPICILLIN-SULBACTAM 3 GM in SODIUM CHLORIDE 0.9% 100 ML IVPB SCH (08:00)
[2023-08-14] MEDS: HEPARIN SODIUM,PORCINE 5,000 UNIT/ML 1 ML VIAL SQ SCH (08:00)
[2023-08-14] MEDS: FAMOTIDINE 20 MG TAB PO SCH (08:00)
[2023-08-14] MEDS: amLODIPine 5 MG TAB PO SCH (08:00)
[2023-08-14] MEDS: CEFEPIME 2 GM in SODIUM CHLORIDE 0.9% 100 ML IVPB SCH (08:00)
[2023-08-14] MEDS: SOLRIAMFETOL HCL 150 MG PO SCH (08:05)
[2023-08-14] MEDS: VANCOMYCIN 1,500 MG in SODIUM CHLORIDE 0.9% 500 ML 500 ML IVPB SCH (10:00)
[2023-08-14] MEDS: amLODIPine 5 MG TAB PO ONE (10:14)
[2023-08-14] MEDS: lisinopriL 5 MG TAB PO ONE (10:15)
[2023-08-14] MEDS: lisinopriL 10 MG TAB PO ONE (10:15)
--- NOTE | 2023-08-14 20:05 | CT ---
EXAMINATION TYPE: CT upper extremity LT w con DATE OF EXAM: 08/14/2023 COMPARISON: None HISTORY: upper left arm abscess CT DLP: 1079 mGycm Automated exposure control for dose reduction was used. CONTRAST: Performed with IV Contrast, patient injected with 100 mL of Isovue 300. FINDINGS: Within the upper arm left upper extremity there is a fat induration and mild inflammatory changes. Sm all amount of fluid is seen along the medial margin of the left humerus. There is no diagnostic evide nce of rim enhancing abscess.. No acute fracture. No destructive changes. Incidental note is made of soft tissues of the neck, intracranial structures to be symmetric. Visuali zed lung lino demonstrate apical thickening and changes of COPD. There is borderline adenopathy in the axilla likely reactive. Sclerotic change involving the left humeral head likely in the basis of bone infarct. IMPRESSION: 1. SUBCUTANEOUS EDEMA WITH NO DIAGNOSTIC EVIDENCE OF ABSCESS. THERE IS A SMALL AMOUNT OF LOCALIZED FL UID ALONG THE MEDIAL MARGIN OF THE LEFT MID HUMERAL LEVEL WITH EPIDERMAL THICKENING MEASURING 1.8 CM. NO DEFINED ENHANCING RIM OR CAVITY TO CONFIRM ABSCESS. MAY REPRESENT AREA OF SUBCUTANEOUS EDEMA AND COULD BE FOLLOWED WITH ULTRASOUND IF THERE IS AN AREA OF PALPABLE ABNORMALITY.
[2023-08-14] MEDS ORDERED: NON FORMULARY DRUG (Trazodone Hcl [Trazodone Hcl] 150 MG Tablet) PO SCH (21:00)
--- NOTE | 2023-08-14 22:48 | P.CONS ---
History of Present Illness - Reason for Consult Consult date: 08/14/23 - History of Present Illness Patient is a 52-year-old male with a past medical history significant for hypertension chronic back pain anxiety bipolar depression current everyday smoker as well as IV drug use, patient presenting to the ER last night concerning for left arm pain swelling and redness symptoms started about 5 days before presentation to the hospital and noticed to having increasing swelling redness and drainage of some pus to the left arm patient complaining of pain describing it to be sharp moderate intensity without any radiation patient denies any high-grade fever or any chills with the symptoms the patient has been evaluated on presentation to the hospital patient was afebrile did have a low- grade fever of 99.8 daily for hide this morning patient was not tachycardic hypotensive or hypoxic did have a white count of 6.8 creatinine 0.91 electrolytes normal liver enzymes are normal patient did have a chest x-ray negative for acute infiltrate he was started on vancomycin infectious disease was consulted for further management of antibiotic therapy Past Medical History Past Medical History: Hypertension, Musculoskeletal Disorder Additional Past Medical History / Comment(s): back pain, headaches, History of Any Multi-Drug Resistant Organisms: None Reported Past Surgical History: Back Surgery Past Anesthesia/Blood Transfusion Reactions: No Reported Reaction Past Psychological History: Anxiety, Bipolar, Depression Smoking Status: Current every day smoker Past Alcohol Use History: None Reported Past Drug Use History: Methamphetamine - Past Family History Mother Additional Family Medical History / Comment(s): from heart disease Father Additional Family Medical History / Comment(s): from lung disease Medications and Allergies Home Medications Medication Instructions Recorded Confirmed Type Solriamfetol HCl [Sunosi] 150 mg PO DAILY 30 Days #30 tab 05/01/22 08/14/23 Rx Dextroamphetamine/Amphetamine 20 mg PO BID 30 Days #60 tab 12/18/22 08/14/23 Rx [Adderall] Atorvastatin [Lipitor] 10 mg PO HS 08/14/23 08/14/23 History Ergocalciferol [Vitamin D2 (1250 1,250 mcg PO WEEKLY 08/14/23 08/14/23 History Mcg = 53563 Iu)] Folic Acid 0.4 mg PO DAILY 08/14/23 08/14/23 History HYDROcodone/APAP 10-325MG [[place] 1 tab PO TID PRN 08/14/23 08/14/23 History 10-325] Melatonin 10 mg PO HS 08/14/23 08/14/23 History Metoprolol Tartrate [Lopressor] 37.5 mg PO BID 08/14/23 08/14/23 History Paliperidone Palmitate [Invega 546 mg IM Q84D 08/14/23 08/14/23 History Trinza] amLODIPine [Norvasc] 10 mg PO DAILY 08/14/23 08/14/23 History armodafiniL 250 mg PO QAM 08/14/23 08/14/23 History hydrALAZINE HCL [Apresoline] 25 mg PO QID 08/14/23 08/14/23 History hydroCHLOROthiazide [Hydrodiuril] 25 mg PO DAILY 08/14/23 08/14/23 History lisinopriL 40 mg PO DAILY 08/14/23 08/14/23 History tiZANidine [Zanaflex] 4 mg PO BID 08/14/23 08/14/23 History Allergies Allergy/AdvReac Type Severity Reaction Status Date / Time No Known Allergies Allergy Verified 08/14/23 09:48 Physical Exam Vitals: Vital Signs Temp Pulse Resp BP Pulse Ox 08/14/23 03:33 98.3 F 75 16 143/87 96 08/14/23 00:33 78 16 154/91 98 08/13/23 22:39 97.8 F 87 16 162/100 97 Intake and Output 08/13/23 08/13/23 08/14/23 14:59 22:59 06:59 Other: Weight 81.647 kg Results CBC & Chem 7: 08/13/23 23:20 08/13/23 23:20 Labs: Abnormal Lab Results - Last 24 Hours (Table) 08/13/23 08/13/23 Range/Units 23:20 23:20 Plt Count 146 L (150-450) k/uL Sodium 134 L (137-145) mmol/L Carbon Dioxide 21 L (22-30) mmol/L Glucose 130 H (74-99) mg/dL Total Protein 6.2 L (6.3-8.2) g/dL Assessment and Plan Plan: This is a telehealth visit 1patient presented to hospital with increasing pain swelling redness to left upper extremity in this patient noted to have history of IV drug use with evidence of swelling redness at the site of previous injection likely developing an abscess and likely from gram-positive skin shalini underlying gram-negative infection less likely but not entirely excluded 2we will obtain CT of the left upper extremity and if evidence of any abscess will benefit from surgical drainage pending culture 3-vancomycin pharmacy to dose and cefepime should provide adequate empiric t reatment while waiting for the culture to finalize We will follow on clinical condition and cultures to further adjust medication if needed Thank you for this consultation we will follow the patient along with you Dictation was produced using [employer] dictation software. please excuse any grammatical, word or spelling errors. Time with Patient: Greater than 30
--- NOTE | 2023-08-15 00:32 | P.HPIM ---
History of Present Illness H&P Date: 08/14/23 Chief Complaint: Left arm pain Patient is a 52-year-old male with a past medical history of hypertension, anxiety/depression and bipolar disorder and currently everyday smoker and IV drug use presents to ER with complaints of left arm swelling and pain and redness. Patient states her symptoms started about 5 days ago and has been increasingly getting worse and also some drainage from the left arm wound. Patient was also having fevers at home. Denies any chest pain or shortness of breath. No tightness. No nausea vomiting abdominal pain or diarrhea. No cough or production. X-ray of the chest showed right pleural effusion or thickening similar to prior. EKG showed sinus rhythm. Laboratory data showed WBC 6.8 hemoglobin 13.8 and platelets 146 Sodium 134 potassium 3.6 chloride 106 bicarb is 21 BUN 11 creatinine 0.91, blood sugar 130 liver AFC not elevated. Review of Systems Constitutional: Patient denies any fever or chills . No generalized weakness or weight loss. Abdomen: Patient denied nausea vomiting and diarrhea and abdominal pain. Cardiovascular: Patient denies any chest pain or short of breath no palpitations. Respiratory: patient denied any cough or sputum production. No shortness of breath Neurologic: Patient denied any numbness or tingling. no headache. Musculoskeletal: Patient denies any complaints of joint swelling or deformity. Left arm pain and swelling Skin: Negative Psychiatric: Negative Endocrine: No heat or cold intolerance. No recent weight gain. Genitourinary: No dysuria or hematuria. All other 14 point ROS negative except the above Past Medical History Past Medical History: Hypertension, Musculoskeletal Disorder Additional Past Medical History / Comment(s): back pain, headaches, History of Any Multi-Drug Resistant Organisms: None Reported Past Surgical History: Back Surgery Past Anesthesia/Blood Transfusion Reactions: No Reported Reaction Past Psychological History: Anxiety, Bipolar, Depression Smoking Status: Current every day smoker Past Alcohol Use History: None Reported Past Drug Use History: Methamphetamine - Past Family History Mother Additional Family Medical History / Comment(s): from heart disease Father Additional Family Medical History / Comment(s): from lung disease Medications and Allergies Home Medications Medication Instructions Recorded Confirmed Type Solriamfetol HCl [Sunosi] 150 mg PO DAILY 30 Days #30 tab 05/01/22 08/14/23 Rx Dextroamphetamine/Amphetamine 20 mg PO BID 30 Days #60 tab 12/18/22 08/14/23 Rx [Adderall] Atorvastatin [Lipitor] 10 mg PO HS 08/14/23 08/14/23 History Ergocalciferol [Vitamin D2 (1250 1,250 mcg PO WEEKLY 08/14/23 08/14/23 History Mcg = 63204 Iu)] Folic Acid 0.4 mg PO DAILY 08/14/23 08/14/23 History HYDROcodone/APAP 10-325MG [[place] 1 tab PO TID PRN 08/14/23 08/14/23 History 10-325] Melatonin 10 mg PO HS 08/14/23 08/14/23 History Metoprolol Tartrate [Lopressor] 37.5 mg PO BID 08/14/23 08/14/23 History Paliperidone Palmitate [Invega 546 mg IM Q84D 08/14/23 08/14/23 History Trinza] amLODIPine [Norvasc] 10 mg PO DAILY 08/14/23 08/14/23 History armodafiniL 250 mg PO QAM 08/14/23 08/14/23 History hydrALAZINE HCL [Apresoline] 25 mg PO QID 08/14/23 08/14/23 History hydroCHLOROthiazide [Hydrodiuril] 25 mg PO DAILY 08/14/23 08/14/23 History lisinopriL 40 mg PO DAILY 08/14/23 08/14/23 History tiZANidine [Zanaflex] 4 mg PO BID 08/14/23 08/14/23 History Allergies Allergy/AdvReac Type Severity Reaction Status Date / Time No Known Allergies Allergy Verified 08/14/23 09:48 Physical Exam Vitals: Vital Signs Temp Pulse Resp BP Pulse Ox 08/14/23 06:12 99.3 F 74 16 149/89 99 08/14/23 03:33 98.3 F 75 16 143/87 96 08/14/23 00:33 78 16 154/91 98 08/13/23 22:39 97.8 F 87 16 162/100 97 Intake and Output 08/13/23 08/14/23 08/14/23 22:59 06:59 14:59 Other: Weight 81.647 kg PHYSICAL EXAMINATION: Patient is lying in the bed comfortably, no acute distress, awake alert and oriented.. HEENT: Normocephalic. Neck is supple. Pupils reactive. Nostrils clear. Oral cavity is moist. Neck reveals no JVD, carotid bruits, or thyromegaly. CHEST EXAMINATION: Trachea is central. Symmetrical expansion. Lung lino clear to auscultation and percussion. CARDIAC: Normal S1, S2 with no gallops. No murmurs ABDOMEN: Soft. Bowel sounds normal. No organomegaly. No abdominal bruits. Extremities: Bilateral upper extremity edema present thrombosed veins. Left arm redness and swelling and tenderness with minimal purulent discharge from the wounds.. No clubbing or cyanosis Neurologically awake, alert, oriented x3 with well-coordinated movements. No focal deficits noted Skin: No rash or skin lesions. Psychiatric: Coperative. Nonsuicidal Musculoskeletal: No joint swelling or deformity. Normal range of motion. Results CBC & Chem 7: 08/13/23 23:20 08/13/23 23:20 Labs: Abnormal Lab Results - Last 24 Hours (Table) 08/13/23 08/13/23 Range/Units 23:20 23:20 Plt Count 146 L (150-450) k/uL Sodium 134 L (137-145) mmol/L Carbon Dioxide 21 L (22-30) mmol/L Glucose 130 H (74-99) mg/dL Total Protein 6.2 L (6.3-8.2) g/dL Thrombosis Risk Factor Assmnt - DVT/VTE Prophylaxis DVT/VTE Prophylaxis: Pharmacologic Prophylaxis ordered Assessment and Plan Assessment: Left upper extremity cellulitis with wound and possible abscess. IV drug use Hypertension Anxiety/depression bipolar disorder Currently everyday smoker DVT prophylaxis with heparin subcu and GI prophylaxis with Pepcid Plan: Patient will be continued on IV hydration with normal saline. Continue with pain management. Current IV antibiotics with vancomycin and cefepime. ID is on board. CT of the upper extremity was ordered to rule out abscess. Continue to follow closely. Patient has been counseled extensively for smoking cessation and IV drug use. Patient does not want to go to rehab.
[2023-08-15 07:36] LABS: African American GFR (CKD) >90 (>60 ml/min/1.73 sqM); Anion Gap 3 mmol/L; Blood Urea Nitrogen 9 mg/dL (9-20); Calcium 7.9 mg/dL (8.4-10.2); Carbon Dioxide 24 mmol/L (22-30); Chloride 109 mmol/L (98-107); Glucose 74 mg/dL (74-99); Non-African American GFR(CKD) >90 (>60 ml/min/1.73 sqM); Potassium 4.2 mmol/L (3.5-5.1); Sodium 136 mmol/L (137-145)
[2023-08-15] MEDS ORDERED: HEPARIN SODIUM,PORCINE 5,000 UNIT/ML 1 ML VIAL SQ SCH (08:00)
[2023-08-15] MEDS: lisinopriL 20 MG TAB PO SCH (08:13)
[2023-08-15] MEDS ORDERED: VANCOMYCIN IV PER PHARMACY 1 EACH MISC MISCELLANE PRN (08:13)
[2023-08-15] MEDS: amLODIPine 10 MG TAB PO SCH (08:14)
[2023-08-15] MEDS: VANCOMYCIN TROUGH DUE 1 EACH MISC MISCELLANE ONE (08:16)
[2023-08-15 09:47] LABS: Basophils # (A) 0.02 X 10*3/uL (0.00-0.10); Basophils % (A) 0.4 %; Eosinophils # (A) 0.18 X 10*3/uL (0.04-0.35); Eosinophils % (A) 3.6 %; HCT 36.8 % (39.6-50.0); HGB 12.2 g/dL (13.0-17.0); Immature Grans, Automated 0 %; Lymphocytes # (A) 2.08 X 10*3/uL (0.90-5.00); Lymphocytes % (A) 41.9 %; MCH 29.3 pg (27.0-32.0); MCHC 33.2 g/dL (32.0-37.0); MCV 88.5 FL (80.0-97.0); Mean Platelet Volume 10.4 FL (9.5-12.2); Monocytes # (A) 0.37 X 10*3/uL (0.20-1.00); Monocytes % (A) 7.5 %; NRBC Per 100 WBC 0 X 10*3/uL (0.00-0.01); Neutrophils # (A) 2.31 X 10*3/uL (1.80-7.70); Neutrophils % (A) 46.6 %; Platelet Count 125 X 10*3/uL (140-440); RBC 4.16 X 10*6/uL (4.40-5.60); WBC 4.96 X 10*3/uL (4.50-10.00)
--- NOTE | 2023-08-15 13:54 | CA ---
Transthoracic Echo Report Name: Navin Fowler Age: 52 Gender: M : 1970 Exam Date: 08/15/2023 07:25 Exam Location: [facility] Ht (in): 72 Wt (lb): 180 Ordering Physician: Miya Bermudez Attending/Referring Phys: Clinical Therapist Rebecca Bustamante RDCS Procedure CPT: Indications: IVDA, ABSCESS Cardiac Hx: Technical Quality: Good Contrast 1: Total Dose (mL): Contrast 2: Total Dose (mL): MEASUREMENTS (Male / Female) Normal Values 2D ECHO LV Diastolic Diameter PLAX 5.1 cm 4.2 - 5.9 / 3.9 - 5.3 cm LV Systolic Diameter PLAX 3.3 cm IVS Diastolic Thickness 1.2 cm 0.6 - 1.0 / 0.6 - 0.9 cm LVPW Diastolic Thickness 1.2 cm 0.6 - 1.0 / 0.6 - 0.9 cm LV Relative Wall Thickness 0.5 RV Internal Dim ED PLAX 2.9 cm LA Systolic Diameter LX 4.1 cm 3.0 - 4.0 / 2.7 - 3.8 cm LV Diastolic Volume MOD BP 104.0 cm??? 67 - 155 / 56 - 104 cm??? LV Systolic Volume MOD BP 43.3 cm??? 22 - 58 / 19 - 49 cm??? LV Ejection Fraction MOD BP 58.3 % >= 55 % LV Cardiac Index MOD BP 1575.4 cm???/min???m??? LV Diastolic Volume MOD 4C 97.0 cm??? LV Systolic Volume MOD 4C 37.2 cm??? LV Ejection Fraction MOD 4C 61.6 % LV Cardiac Index MOD 4C 1550.9 cm???/min???m??? LV Diastolic Length 4C 8.0 cm LV Systolic Length 4C 7.1 cm LV Diastolic Volume MOD 2C 105.8 cm??? LV Systolic Volume MOD 2C 49.8 cm??? LV Ejection Fraction MOD 2C 52.9 % LV Cardiac Index MOD 2C 1454.4 cm???/min???m??? LV Diastolic Length 2C 7.6 cm LV Systolic Length 2C 6.8 cm LA Volume 92.3 cm??? 18 - 58 / 22 - 52 cm??? LA Volume Index 45.2 cm???/m??? 16 - 28 cm???/m??? M-MODE Aortic Root Diameter MM 3.6 cm LA Systolic Diameter MM 4.4 cm LA Ao Ratio MM 1.2 AV Cusp Separation MM 2.2 cm DOPPLER MV Area PHT 2.8 cm??? Mitral E Point Velocity 78.7 cm/s Mitral A Point Velocity 86.3 cm/s Mitral E to A Ratio 0.9 MV Deceleration Time 274.6 ms FINDINGS Left Ventricle Left ventricular ejection fraction is estimated at 55-60 %. Mildly increased septal wall thickness. Left ventricular cavity size normal. No obvious regional wall motion abnormalities. Right Ventricle Normal right ventricular size and function. Right ventricular systolic pressure within normal limits. Right Atrium Mild right atrial dilatation. Left Atrium Severely increased left atrial volume. Mildly increased left atrial area. Mitral Valve Structurally normal mitral valve. Heavy calcification of the mitral valve chordae. Trace MR. Aortic Valve Trileaflet aortic valve. No aortic valve stenosis or regurgitation. Tricuspid Valve Structurally normal tricuspid valve. Trace tricuspid regurgitation. Pulmonic Valve Structurally normal pulmonic valve. No pulmonic regurgitation. No pulmonic stenosis. Pericardium No pericardial or pleural effusion. Aorta Aorta at upper limits of normal. CONCLUSIONS Left ventricular ejection fraction is estimated at 55-60 %. No obvious regional wall motion abnormalities. Mild concentric LVH Prominent chordal calcification attached to the anterior mitral leaflet. No significant regurgitation. No obvious evidence of vegetation on mitral valve. Normal aortic and tricuspid valve function No pericardial effusion Previewed by: Dr Ashutosh Kam (Electronically Signed) Final Date: 15 August 2023 13:53
--- NOTE | 2023-08-15 16:47 | P.PN ---
Subjective Progress Note Date: 08/15/23 Principal diagnosis: Reason for follow-up with left upper extremity cellulitis Patient is a 52-year-old male with a past medical history significant for hypertension chronic back pain anxiety bipolar depression current everyday smoker as well as IV drug use, patient presenting to the ER last night concerning for left arm pain swelling and redness, patient be diagnosed with a left upper extremity cellulitis patient did have a CT concerning for subsequent SI edema but no abscess. On today's evaluation that is 08/15/2023,the patient denies any fever or any chills, patient is breathing comfortably on room air, the patient denies chest pain shortness of breath and no significant cough, patient denies abdominal pain, no nausea vomiting or diarrhea. Patient swelling redness to left upper extremity has decreased denies any drainage. Patient white count is 4.96, creatinine 0.61 vancomycin random is 20.6 blood cultures pending Objective - Vital Signs Vital signs: Vital Signs Temp 97.9 F 08/15/23 14:04 Pulse 63 08/15/23 14:04 Resp 17 08/15/23 14:04 BP 150/82 08/15/23 14:04 Pulse Ox 92 L 08/15/23 14:04 FiO2 Intake & Output 08/14/23 08/15/23 08/15/23 18:59 06:59 18:59 Intake Total 498 Balance 498 Weight 81.647 kg Intake: Oral 498 Other: Voiding Method Toilet Toilet # Voids 2 - Exam GENERAL DESCRIPTION: Middle-age male lying in bed in no distress RESPIRATORY SYSTEM: Unlabored breathing , decreased breath sounds at bases HEART: S1 S2 regular rate and rhythm , ABDOMEN: Soft , no tenderness EXTREMITIES: Left upper extremity with some areas of induration and redness no drainage - Labs CBC & Chem 7: 08/15/23 06:28 08/15/23 06:28 Labs: Abnormal Lab Results - Last 24 Hours (Table) 08/15/23 08/15/23 08/15/23 Range/Units 06:28 06:28 06:28 RBC 4.16 L (4.40-5.60) X 10*6/uL Hgb 12.2 L (13.0-17.0) g/dL Hct 36.8 L (39.6-50.0) % RDW 15.0 H (11.5-14.5) % Plt Count 125 L (140-440) X 10*3/uL Sodium 136 L (137-145) mmol/L Chloride 109 H (98-107) mmol/L Creatinine 0.61 L (0.66-1.25) mg/dL Calcium 7.9 L (8.4-10.2) mg/dL Vancomycin Trough 42.1 H* ug/mL Microbiology - Last 24 Hours (Table) 08/13/23 23:56 Blood Culture - Preliminary Blood Assessment and Plan (1) Left arm cellulitis Current Visit: Yes Status: Acute Code(s): L03.114 - CELLULITIS OF LEFT UPPER LIMB SNOMED Code(s): 61004973721633068 Plan: 1patient presented to hospital with increasing pain swelling redness to left upper extremity in this patient noted to have history of IV drug use with evidence of swelling redness at the site of previous injection likely developing an abscess and likely from gram-positive skin shalini underlying gram-negative infection less likely but not entirely excluded 2patient did have CT of the left upper extremity did not mention any abscess that need to be drained surgically 3-patient to continue with vancomycin pharmacy to dose and cefepime while waiting for the culture to finalize Dictation was produced using [employer] dictation software. please excuse any grammatical, word or spelling errors. Time with Patient: Less than 30
[2023-08-15] MEDS: ONDANSETRON 4 MG/2 ML VIAL IVP STA (17:01)
[2023-08-15] MEDS: VANCOMYCIN 1,500 MG in SODIUM CHLORIDE 0.9% 500 ML 500 ML IVPB ONE (20:07)
[2023-08-15] MEDS ORDERED: traZODone HCL 100 MG TAB PO SCH (21:00)
[2023-08-15] MEDS: NICOTINE 14MG/24HR PATCH TRANSDERM SCH (21:26)
[2023-08-15] MEDS: ALPRAZolam 0.25 MG TAB PO PRN (21:26)
[2023-08-16 07:27] VITALS: RESP 17; TEMP 98
[2023-08-16 08:34] LABS: Basophils % (A) 0 %; Eosinophils # (A) 0.3 k/uL (0-0.7); Eosinophils % (A) 4 %; HGB 12.9 gm/dL (13.0-17.5); Lymphocytes # (A) 1.8 k/uL (1.0-4.8); Lymphocytes % (A) 27 %; MCH 29.9 pg (25.0-35.0); MCHC 32.2 g/dL (31.0-37.0); MCV 92.7 fL (80.0-100.0); Mean Platelet Volume 7.4; Monocytes # (A) 0.3 k/uL (0-1.0); Monocytes % (A) 5 %; Neutrophils % (A) 61 %; Platelet Count 155 k/uL (150-450); RBC 4.31 m/uL (4.30-5.90); WBC 6.5 k/uL (3.8-10.6)
[2023-08-16 08:50] LABS: African American GFR (CKD) >90 (>60 ml/min/1.73 sqM); Anion Gap 2 mmol/L; Blood Urea Nitrogen 9 mg/dL (9-20); Calcium 7.8 mg/dL (8.4-10.2); Carbon Dioxide 26 mmol/L (22-30); Chloride 109 mmol/L (98-107); Glucose 113 mg/dL (74-99); Non-African American GFR(CKD) >90 (>60 ml/min/1.73 sqM); Potassium 4.2 mmol/L (3.5-5.1); Sodium 137 mmol/L (137-145)
[2023-08-16 09:27] VITALS: BP 158/85; PULSE 60
[2023-08-16] MEDS: VANCOMYCIN 1,250 MG in SODIUM CHLORIDE 0.9% 250 ML IVPB SCH (10:19)
--- NOTE | 2023-08-16 14:10 | P.PN ---
Subjective Progress Note Date: 08/16/23 Principal diagnosis: Reason for follow-up with left upper extremity cellulitis Patient is a 52-year-old male with a past medical history significant for hypertension chronic back pain anxiety bipolar depression current everyday smoker as well as IV drug use, patient presenting to the ER last night concerning for left arm pain swelling and redness, patient be diagnosed with a left upper extremity cellulitis patient did have a CT concerning for subsequent SI edema but no abscess. On today's evaluation that is 08/16/2023,the patient remains to be afebrile, patient is on room air not requiring supplemental oxygen and denies any shortness of breath no chest pain or cough.Patient denies having any nausea or vomiting, no abdominal pain and no diarrhea patient overall pain and discomfort to the left lower extremity has decreased in intensity mention feeling better wants to go home. Patient white count is 6.5, creatinine 0.56 Vanco random is 18 blood culture has been negative no local cultures Objective - Vital Signs Vital signs: Vital Signs Temp 98.0 F 08/16/23 06:50 Pulse 60 08/16/23 09:00 Resp 17 08/16/23 07:38 BP 158/85 08/16/23 09:00 Pulse Ox 100 08/16/23 06:50 FiO2 Intake & Output 08/15/23 08/16/23 08/16/23 18:59 06:59 18:59 Intake Total 498 120 Balance 498 120 Intake: Oral 498 120 Other: Voiding Method Toilet Toilet Toilet # Voids 4 - Exam GENERAL DESCRIPTION: Middle-age male lying in bed in no distress RESPIRATORY SYSTEM: Unlabored breathing , decreased breath sounds at bases HEART: S1 S2 regular rate and rhythm , ABDOMEN: Soft , no tenderness EXTREMITIES: Left upper extremity with some areas of induration and redness no drainage - Labs CBC & Chem 7: 08/16/23 08:19 08/16/23 08:19 Labs: Abnormal Lab Results - Last 24 Hours (Table) 08/16/23 08/16/23 Range/Units 08:19 08:19 Hgb 12.9 L (13.0-17.5) gm/dL Chloride 109 H (98-107) mmol/L Creatinine 0.56 L (0.66-1.25) mg/dL Glucose 113 H (74-99) mg/dL Calcium 7.8 L (8.4-10.2) mg/dL Microbiology - Last 24 Hours (Table) 08/13/23 23:56 Blood Culture - Preliminary Blood Assessment and Plan (1) Left arm cellulitis Current Visit: Yes Status: Acute Code(s): L03.114 - CELLULITIS OF LEFT UPPER LIMB SNOMED Code(s): 02110238100005637 Plan: 1patient presented to hospital with increasing pain swelling redness to left upper extremity in this patient noted to have history of IV drug use with evidence of swelling redness at the site of previous injection likely developing an abscess and likely from gram-positive skin shalini underlying gram-negative infection less likely but not entirely excluded 2patient did have CT of the left upper extremity did not mention any abscess that need to be drained surgically 3-patient has shown clinical improvement remains to be afebrile blood culture negative wants to go home we will suggest a 10-day course of oral doxycycline and Bactrim cannot be used because patient is on lisinopril advise if any development of fever or worsening swelling redness to go back to the ER Dictation was produced using [employer] dictation software. please excuse any grammatical, word or spelling errors. Time with Patient: Less than 30
== END 2023-08-16 15:07 | disposition home or self-care (01) ==
LOC: EC 22:34 → 6NMEDSUR 08-14 00:56
PROVIDERS: ADMIT Hospitalist; ATTEND Hospitalist
DX: L03.114 Cellulitis of left upper limb (principal); L02.414 Cutaneous abscess of left upper limb; I10 Essential (primary) hypertension; F41.8 Other specified anxiety disorders; J90 Pleural effusion, not elsewhere classified; F17.210 Nicotine dependence, cigarettes, uncomplicated; F19.90 Other psychoactive substance use, unspecified, uncomplicated; F31.9 Bipolar disorder, unspecified; F41.9 Anxiety disorder, unspecified
CPT/HCPCS: 96376; 96366 ×2; 96372 ×4; 96375; 96365; 96367 ×2; 99285; 36415; 93005; 93306; 80053; 80048 ×2; 85025 ×3; 80202 ×3; 86140; 87040 ×2; 71046; 73201; G0378 ×3; S4990 ×2; J3370 ×3; J1644 ×3; J2405; J0692 ×3; J0295; Q9967